=== PATIENT | female | born 1940 ===

== ENCOUNTER 2017-11-08 09:40 | Inpatient (IN) | payer MEDICAID, OTHER ==
[2017-11-08 09:41] VITALS: BMI 21.9
--- NOTE | 2017-11-08 09:58 | C.PDOC ---
History Of Present Illness 77 y/o female brought to ED by EMS with complaints of sob and chest pain for 1 day. Patient states she used Oxygen at home and reports she is from [facility] and has no PMD. Patient has been admitted to [place] previous for same symptoms as per records. Patient is speaking in full sentences and denies fever, chills, cough, nausea, vomiting, leg swelling or any other complaints at this time. Time Seen by Provider: 11/08/17 09:45 Chief Complaint (Nursing): Shortness Of Breath History Per: Patient History/Exam Limitations: no limitations Onset/Duration Of Symptoms: Days Current Symptoms Are (Timing): Still Present Past Medical History Reviewed: Historical Data, Nursing Documentation, Vital Signs Vital Signs: Last Vital Signs Temp 98.3 F 11/08/17 09:42 Pulse 76 11/08/17 11:15 Resp 22 11/08/17 11:15 BP 107/68 11/08/17 11:15 Pulse Ox 87 L 11/08/17 13:30 - Medical History PMH: Bronchitis, CAD, Depression, Diabetes, Gall Bladder Disease ( cholecystectomy), HTN, Hyperlipidemia, Hypothyroidism Other PMH: Pulmonary Fibrosis Surgical History: Cholecystectomy, Coronary Stent - [facility] Procedures INTRODUCE OF OTH THERAP SUBST INTO RESP TRACT, VIA OPENING (08/21/17) INTRODUCTION OF SERUM/TOX/VACCINE INTO MUSCLE, PERC APPROACH (08/21/17) Family History: States: No Known Family Hx - Social History Hx Alcohol Use: No Hx Substance Use: No Review Of Systems Constitutional: Negative for: Fever, Chills Cardiovascular: Positive for: Chest Pain Respiratory: Positive for: Shortness of Breath. Negative for: Cough Gastrointestinal: Negative for: Nausea, Vomiting Skin: Negative for: Rash Physical Exam - Physical Exam Appears: Non-toxic, No Acute Distress Skin: Warm, Dry, No Rash Head: Atraumatic, Normacephalic Eye(s): bilateral: Normal Inspection Oral Mucosa: Moist Neck: Normal ROM, Supple Cardiovascular: Rhythm Regular Respiratory: Normal Breath Sounds, No Rales, No Rhonchi, No Wheezing Gastrointestinal/Abdominal: Soft, No Tenderness, No Guarding, No Rebound Extremity: No Pedal Edema, Capillary Refill (<2 seconds) Neurological/Psych: Oriented x3, Normal Speech, Normal Cognition ED Course And Treatment - Laboratory Results Result Diagrams: 11/08/17 10:14 11/08/17 10:14 Lab Interpretation: No Acute Changes ECG: Interpreted By Me ECG Rhythm: Sinus Tachycardia ECG Interpretation: No Acute Changes O2 Sat by Pulse Oximetry: 87 (RA) Pulse Ox Interpretation: Abnormal - Radiology CXR: Viewed By Me (FINDINGS:), Read By Radiologist Progress Note: Blood work, CXR, ECG and UA ordered. Disposition Discussed With Dr.: Arben Christianson Doctor Will See Patient In The: Hospital - Disposition Disposition: HOSPITALIZED Disposition Time: 13:00 Condition: STABLE Forms: [employer] (Portuguese) - POA Present On Arrival: None - Clinical Impression Clinical Impression: Dyspnea, Chest pain - PA / PROJECT MANAGER / Resident Statement MD/DO has reviewed & agrees with the documentation as recorded. - Scribe Statement The provider has reviewed the documentation as recorded by the Scribaguilar Jerez All medical record entries made by the Darleneibaguilar were at my direction and personally dictated by me. I have reviewed the chart and agree that the record accurately reflects my personal performance of the history, physical exam, medical decision making, and the department course for this patient. I have also personally directed, reviewed, and agree with the discharge instructions and disposition. Decision To Admit - Pt Status Changed To: Hospital Disposition Of: Observation - . Bed Request Type: Telemetry Admitting Physician: Arben Christianson Patient Diagnosis: Dyspnea, Chest pain
[2017-11-08 10:27] LABS: INR 1.1; PROTHROMBIN TIME 12.5 SECONDS (9.7-12.2)
[2017-11-08 10:28] LABS: HEMOGLOBIN 12.9 g/dL (11.0-16.0); MEAN CELL VOLUME 92.2 fL (81.0-99.0); MEAN CORPUSCULAR HEMOGLOBIN 31.1 pg (27.0-31.0); MEAN CORPUSCULAR HGB CONC 33.7 g/dL (33.0-37.0); MEAN PLATELET VOLUME 7.8 fL (7.2-11.7); RBC 4.15 Mil/uL (3.80-5.20); WHITE BLOOD COUNT 8.8 K/uL (4.8-10.8)
--- NOTE | 2017-11-08 10:36 | RAD ---
PROCEDURE: CHEST RADIOGRAPH, 1 VIEW HISTORY: SOB COMPARISON: None available. FINDINGS: LUNGS: Bilateral fibrotic changes, right lung worse than left. Low lung volumes. PLEURA: No pneumothorax or pleural fluid seen. CARDIOVASCULAR: Normal. OSSEOUS STRUCTURES: Degenerative changes. VISUALIZED UPPER ABDOMEN: Normal. OTHER FINDINGS: None. IMPRESSION: Bilateral, right worse than left, fibrotic changes. No focal consolidation or pleural effusion.
[2017-11-08 10:42] LABS: BLOOD UREA NITROGEN 16 mg/dL (7-17); GFR AFRICAN-AMERICAN > 60; GFR NON-AFRICAN AMERICAN > 60
[2017-11-08 10:43] LABS: ALB/GLOB RATIO 0.8 (1.0-2.1); ALBUMIN 4.1 g/dL (3.5-5.0); ALT/SGPT 24 U/L (9-52); AST/SGOT 30 U/L (14-36); CALCIUM 9.6 mg/dl (8.6-10.4)
[2017-11-08 10:51] LABS: CK-MB 0.37 ng/mL (0.0-3.38)
[2017-11-08 10:53] LABS: EOS % 6.2 % (0.0-4.0); MONO % 12.3 % (0.0-10.0); NEUT % 54.5 % (50.0-75.0)
[2017-11-08 10:54] LABS: EOS # 0.5 K/uL (0.0-0.7); LYMPH # 2.4 K/uL (1.0-4.3); MONO # 1.1 K/uL (0.0-0.8); NEUT # 4.8 K/uL (1.8-7.0)
[2017-11-08 11:41] LABS: SQUAMOUS EPITHIAL 6 /hpf (0-5); URINE BILIRUBIN NEGATIVE (NEGATIVE); URINE BLOOD NEGATIVE (NEGATIVE); URINE CLARITY Hazy (Clear); URINE COLOR Yellow (YELLOW); URINE GLUCOSE (UA) NORMAL (Normal); URINE LEUKOCYTE ESTERASE 2+ Leu/uL (Negative); URINE PROTEIN NEGATIVE (NEGATIVE); URINE UROBILINOGEN NORMAL mg/dL (0.2-1.0)
[2017-11-08] MEDS ORDERED: Albuterol HFA 90 mcg/actuation (8 g) INH PRN (13:22)
--- NOTE | 2017-11-08 14:18 | CP.PCM.HP ---
<Moe Singh - Last Filed: 11/08/17 13:58> History of Present Illness - History of Present Illness History of Present Illness: PGY1 Medicine Note for Dr. 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 Patient came to the hospital today because she experienced a 30 minute episode of pressure-like chest pain in the center of her chest this morning while lying down. The pain resolved on her own without taking any medications. She feels short of breath. The patient was recently discharged from [place] on 09/30 for pulmonary fibrosis and chest pain. Patient was instructed to follow up with the [facility] as outpatient but she did not follow up. She did not fill any discharge medications. She does not know why she did not follow up. She was seen with the same complaints on 08/21 and discharged 08/26/17. She did not follow up or fill her medications on that discharge either. She is complaining of a non- productive cough for 5 months. She also states that she has felt fatigued for approximately 1 year. She notes that she experiencing epigastric pain but is unable to state how long she has had the pain because she "just noticed it." She states she takes medications that she brought with her from [place] but she does not know the names of the medications. "I brought a lot of medications with me". At the time of the exam, the patient states that she is chest pain free. Denies fevers, chills, nausea, vomiting, diarrhea, constipation, chest pain, headache, numbness, tingling, diaphoresis, blurry vision or LOC. PMD: Denies PMH:(found by chart review, patient did not know PMH) Pulmonary Fibrosis diagnosed in [place], hypertension, diabetes and hypothyroidism, 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 PSH: Cholecystectomy, "Stomach Reduction Surgery" Family: unknown Social: Denies tobacco, alcohol or illicit drug use Allergies: NKDA Meds (from [place]) - taking 3 meds at home - believed to be aspirin, amlodipine and levothyroxine Discharge Prescriptions on 09/30/17 from [place] (Never Filled): Albuterol HFA [Ventolin HFA 90 mcg/actuation (8 g)] 2 puff NEB Q6 PRN #1 inhaler PRN Reason: SOB GlipiZIDE [Glucotrol] 10 mg PO BID #60 tab Insulin Glargine, Recombina [Lantus] 22 units SC DAILY #100 unit Levothyroxine [Synthroid] 50 mcg PO DAILY #30 tab Present on Admission - Present on Admission Any Indicators Present on Admission: No Review of Systems - Review of Systems All systems: reviewed and no additional remarkable complaints except (as per HPI ) Past Patient History - Past Medical History & Family History Past Medical History?: Yes - Past Social History Smoking Status: Never Smoked - CARDIAC Hx Hypertension: Yes - PULMONARY Hx Bronchitis: Yes - NEUROLOGICAL Hx Neurological Disorder: No - HEENT Other/Comment: pt wears glasses - RENAL Hx Chronic Kidney Disease: No - ENDOCRINE/METABOLIC Hx Hypothyroidism: Yes - HEMATOLOGICAL/ONCOLOGICAL Hx Human Immunodeficiency Virus (HIV): No - INTEGUMENTARY Hx Dermatological Problems: No - MUSCULOSKELETAL/RHEUMATOLOGICAL Hx Musculoskeletal Disorders: No Hx Falls: No - GASTROINTESTINAL Hx Gall Bladder Disease: Yes (cholecystectomy) - GENITOURINARY/GYNECOLOGICAL Hx Genitourinary Disorders: No - PSYCHIATRIC Hx Depression: Yes Hx Substance Use: No - SURGICAL HISTORY Hx Cholecystectomy: Yes Hx Coronary Stent: Yes - ANESTHESIA Hx Anesthesia: Yes Hx Anesthesia Reactions: No Meds Allergies/Adverse Reactions: Allergies Allergy/AdvReac Type Severity Reaction Status Date / Time Penicillins Allergy SWELLING Verified 11/08/17 09:51 Physical Exam - Constitutional Appears: Non-toxic, No Acute Distress - Head Exam Head Exam: ATRAUMATIC, NORMOCEPHALIC - Eye Exam Eye Exam: EOMI, Normal appearance. absent: Scleral icterus - ENT Exam ENT Exam: Mucous Membranes Moist - Neck Exam Neck exam: Negative for: Full Rom, Thyromegaly - Respiratory Exam Respiratory Exam: Decreased Breath Sounds (at bases), Rhonchi (throughout). absent: Chest Wall Tenderness, Wheezes, Respiratory Distress, Stridor, NORMAL BREATHING PATTERN (RR 22-24, saturation 92-94% on 3L, speaking in full sentences ) - Cardiovascular Exam Cardiovascular Exam: REGULAR RHYTHM (80s in NSR on tele), +S1, +S2. absent: JVD - GI/Abdominal Exam GI & Abdominal Exam: Normal Bowel Sounds, Soft, Tenderness (epigastric region TTP). absent: Diminished Bowel Sounds, Distended, Firm, Guarding, Rigid - Extremities Exam Extremities exam: Positive for: normal capillary refill, normal inspection, pedal pulses present. Negative for: calf tenderness, pedal edema - Neurological Exam Neurological exam: Alert, CN II-XII Intact, Oriented x3 - Psychiatric Exam Psychiatric exam: Normal Affect, Normal Mood - Skin Skin Exam: Dry, Warm Results - Vital Signs Recent Vital Signs: Last Vital Signs Temp 98.3 F 11/08/17 09:42 Pulse 76 11/08/17 11:15 Resp 22 11/08/17 11:15 BP 107/68 11/08/17 11:15 Pulse Ox 87 L 11/08/17 13:31 - Labs Result Diagrams: 11/08/17 10:14 11/08/17 10:14 Labs: Laboratory Results - last 24 hr 11/08/17 11/08/17 11/08/17 09:53 09:57 10:14 WBC 8.8 RBC 4.15 Hgb 12.9 Hct 38.3 MCV 92.2 MCH 31.1 H MCHC 33.7 RDW 14.0 Plt Count 280 MPV 7.8 Neut % (Auto) 54.5 Lymph % (Auto) 27.0 [place] % (Auto) 12.3 H Eos % (Auto) 6.2 H Baso % (Auto) 0.0 Neut # (Auto) 4.8 Lymph # (Auto) 2.4 [place] # (Auto) 1.1 H Eos # (Auto) 0.5 Baso # (Auto) 0.0 PT INR Sodium Potassium Chloride Carbon Dioxide Anion Gap BUN Creatinine Est GFR ( Amer) Est GFR (Non-Af Amer) POC Glucose (mg/dL) 190 H Random Glucose Calcium Total Bilirubin AST ALT Alkaline Phosphatase CK-MB (Mass) Troponin I Total Protein Albumin Globulin Albumin/Globulin Ratio Urine Color Urine Clarity Urine pH Ur Specific [place] Urine Protein Urine Glucose (UA) Urine Ketones Urine Blood Urine Nitrate Urine Bilirubin Urine Urobilinogen Ur Leukocyte Esterase Urine WBC (Auto) Urine RBC (Auto) Ur Squamous Epith Cells Influenza Typ A,B (EIA) Negative for flu a/b 11/08/17 11/08/17 11/08/17 10:14 10:14 11:33 WBC RBC Hgb Hct MCV MCH MCHC RDW Plt Count MPV Neut % (Auto) Lymph % (Auto) [place] % (Auto) Eos % (Auto) Baso % (Auto) Neut # (Auto) Lymph # (Auto) [place] # (Auto) Eos # (Auto) Baso # (Auto) PT 12.5 H INR 1.1 Sodium 140 Potassium 4.4 Chloride 96 L Carbon Dioxide 28 Anion Gap 21 H BUN 16 Creatinine 0.5 L Est GFR ( Amer) > 60 Est GFR (Non-Af Amer) > 60 POC Glucose (mg/dL) Random Glucose 203 H Calcium 9.6 Total Bilirubin 0.8 AST 30 ALT 24 Alkaline Phosphatase 120 CK-MB (Mass) 0.37 Troponin I < 0.0120 Total Protein 9.4 H Albumin 4.1 Globulin 5.4 H Albumin/Globulin Ratio 0.8 L Urine Color Yellow Urine Clarity Hazy Urine pH 5.0 Ur Specific [place] 1.012 Urine Protein Negative Urine Glucose (UA) Normal Urine Ketones Negative Urine Blood Negative Urine Nitrate Negative Urine Bilirubin Negative Urine Urobilinogen Normal Ur Leukocyte Esterase 2+ H Urine WBC (Auto) 15 H Urine RBC (Auto) 1 Ur Squamous Epith Cells 6 H Influenza Typ A,B (EIA) Assessment & Plan - Assessment and Plan (Free Text) Plan: Chest pain Resolved without treatment Troponin neg x1, f/u CIARRA x2 EKG - Sinus Tach @102bpm, Q waves in inferior and anterior leads. No changes from prior EKGs. Previous ECHO (08/07/17): LVEF ~55%, normal systolic and diastolic function, normal Right/Left Atrium size, normal Right/Left Ventricle Size f/u lipid panel Shortness of breath w/Hx Pulmonary Fibrosis Saturating at 92-94% on 3L NC CXR 11/08 - Bilateral, right worse than left, fibrotic changes. No focal consolidation or pleural effusion. Chest CT 11/08 - f/u Restart home Albuterol 2 puffs INH q6h prn - patient was discharged on this medication on 09/30 from [place] Solumedrol 125 mg IVP once - followed by 40 mg IVP q8h Advair Diskus 1 puff q12h Hypothyroid Restart home Levothyroxine 50 mcg PO daily - patient was discharged on this medication on 09/30 from [place] f/u TSH/free T4 DM type II Accuchecks ACHS ISS Restart home Levemir 22 units SC daily - patient was discharged on this medication on 09/30 from [place] Held home Glucotrol to 10 mg bid - patient was discharged on this medication on 09/30 from [place] f/u Hgb A1c HTN Will monitor Will not restart Amlodipine 5mg PO daily because patient was not discharged on this medication on 09/30 from [place] Prophylactic Care VTE: Heparin 5,000u SC q8h and SCDs Case Discussed with Dr. Meghan Singh PGY1 <Arben Christianson H - Last Filed: 11/08/17 16:57> Results - Vital Signs Recent Vital Signs: Last Vital Signs Temp 97.8 F 11/08/17 15:38 Pulse 85 11/08/17 15:38 Resp 18 11/08/17 15:38 BP 105/63 11/08/17 15:38 Pulse Ox 99 11/08/17 15:38 - Labs Result Diagrams: 11/08/17 10:14 11/08/17 10:14 Labs: Laboratory Results - last 24 hr 11/08/17 11/08/17 11/08/17 09:53 09:57 10:14 WBC 8.8 RBC 4.15 Hgb 12.9 Hct 38.3 MCV 92.2 MCH 31.1 H MCHC 33.7 RDW 14.0 Plt Count 280 MPV 7.8 Neut % (Auto) 54.5 Lymph % (Auto) 27.0 [place] % (Auto) 12.3 H Eos % (Auto) 6.2 H Baso % (Auto) 0.0 Neut # (Auto) 4.8 Lymph # (Auto) 2.4 [place] # (Auto) 1.1 H Eos # (Auto) 0.5 Baso # (Auto) 0.0 PT INR Sodium Potassium Chloride Carbon Dioxide Anion Gap BUN Creatinine Est GFR ( Amer) Est GFR (Non-Af Amer) POC Glucose (mg/dL) 190 H Random Glucose Calcium Total Bilirubin AST ALT Alkaline Phosphatase CK-MB (Mass) Troponin I Total Protein Albumin Globulin Albumin/Globulin Ratio Urine Color Urine Clarity Urine pH Ur Specific [place] Urine Protein Urine Glucose (UA) Urine Ketones Urine Blood Urine Nitrate Urine Bilirubin Urine Urobilinogen Ur Leukocyte Esterase Urine WBC (Auto) Urine RBC (Auto) Ur Squamous Epith Cells Influenza Typ A,B (EIA) Negative for flu a/b 11/08/17 11/08/17 11/08/17 10:14 10:14 11:33 WBC RBC Hgb Hct MCV MCH MCHC RDW Plt Count MPV Neut % (Auto) Lymph % (Auto) [place] % (Auto) Eos % (Auto) Baso % (Auto) Neut # (Auto) Lymph # (Auto) [place] # (Auto) Eos # (Auto) Baso # (Auto) PT 12.5 H INR 1.1 Sodium 140 Potassium 4.4 Chloride 96 L Carbon Dioxide 28 Anion Gap 21 H BUN 16 Creatinine 0.5 L Est GFR ( Amer) > 60 Est GFR (Non-Af Amer) > 60 POC Glucose (mg/dL) Random Glucose 203 H Calcium 9.6 Total Bilirubin 0.8 AST 30 ALT 24 Alkaline Phosphatase 120 CK-MB (Mass) 0.37 Troponin I < 0.0120 Total Protein 9.4 H Albumin 4.1 Globulin 5.4 H Albumin/Globulin Ratio 0.8 L Urine Color Yellow Urine Clarity Hazy Urine pH 5.[address] [place] 1.012 Urine Protein Negative Urine Glucose (UA) Normal Urine Ketones Negative Urine Blood Negative Urine Nitrate Negative Urine Bilirubin Negative Urine Urobilinogen Normal Ur Leukocyte Esterase 2+ H Urine WBC (Auto) 15 H Urine RBC (Auto) 1 Ur Squamous Epith Cells 6 H Influenza Typ A,B (EIA) 11/08/17 16:22 WBC RBC Hgb Hct MCV MCH MCHC RDW Plt Count MPV Neut % (Auto) Lymph % (Auto) [place] % (Auto) Eos % (Auto) Baso % (Auto) Neut # (Auto) Lymph # (Auto) [place] # (Auto) Eos # (Auto) Baso # (Auto) PT INR Sodium Potassium Chloride Carbon Dioxide Anion Gap BUN Creatinine Est GFR ( Amer) Est GFR (Non-Af Amer) POC Glucose (mg/dL) 202 H Random Glucose Calcium Total Bilirubin AST ALT Alkaline Phosphatase CK-MB (Mass) Troponin I Total Protein Albumin Globulin Albumin/Globulin Ratio Urine Color Urine Clarity Urine pH Ur Specific [place] Urine Protein Urine Glucose (UA) Urine Ketones Urine Blood Urine Nitrate Urine Bilirubin Urine Urobilinogen Ur Leukocyte Esterase Urine WBC (Auto) Urine RBC (Auto) Ur Squamous Epith Cells Influenza Typ A,B (EIA) Attending/Attestation - Attestation I have personally seen and examined this patient.: Yes I have fully participated in the care of the patient.: Yes I have reviewed all pertinent clinical information: Yes Notes (Text): 11/08/17 16:50 Medical attending: Patient was seen and examined by me. Agree with the above note by the resident The patient was seen in the ER with the esthetician and manager medical spa She was not in any acute distress when we saw her. She was speaking in full sentences. On exam she has bilateral decreased breath sounds at the bases with crackles and rhonchi - on the upper lung [place] there are more lung sounds however with additional crackles and rhonchi. On CT scan there is very extensive scarring/ honey combing like pattern - this was a few months ago. We will check a new one to see if there are other changes. She did have an echo done 3 months ago and it did not report R heart strain. At this time will give IV soludemrol, nebulizer treaments, inhaled long acting steroids. Check also for influenza thank you Arben Christianson
[2017-11-08] MEDS ORDERED: MethylPREDNISolone 40 mg Vial IVP ONE (14:30)
[2017-11-08] MEDS ORDERED: Iohexol 350mg/ml 100 ML ONE (14:32)
--- NOTE | 2017-11-08 15:30 | CT ---
PROCEDURE: CT Chest with contrast HISTORY: hx of pulm fibrosis COMPARISON: None. TECHNIQUE: Contiguous axial images were obtained through the chest with intravenous contrast enhancement. Sagittal and coronal reconstructions were performed. IV contrast: 100 mL Omnipaque 350 Radiation dose (DLP): 309.12 . MGy-cm. This CT exam was performed using one or more of the following dose reduction techniques: Automated exposure control, adjustment of the mA and/or kV according to patient size, and/or use of iterative reconstruction technique. FINDINGS: LUNGS: There is diffuse chronic interstitial fibrotic change throughout the right lung. This is associated with varicoid bronchiectasis in the upper, middle and lower lobes. There is no consolidation. There is multifocal subpleural fibrosis throughout the left lung. There is mild bronchiectasis in the left lower lobe and in the lingular segment of the left upper lobe. There is no consolidation. There is no pulmonary mass MEDIASTINUM: Unremarkable thoracic aorta. No aneurysm or dissection. Normal sized heart. Mild dilatation of the main pulmonary artery is noted, up 3.5 cm. This may be associated with pulmonary arterial hypertension. No significantly enlarged lymph nodes. Shotty subcentimeter right peritracheal and prevascular lymph nodes are noted. No hilar lymphadenopathy. PLEURA: No pleural fluid. No pneumothorax. BONES: No fracture. No destructive lesion. UPPER ABDOMEN: Grossly unremarkable. OTHER FINDINGS: None. IMPRESSION: Chronic interstitial fibrotic change throughout the right lung. Multifocal left-sided subpleural fibrosis. Varicoid bronchiectasis bilaterally, right greater than left. Dilated main pulmonary artery. No other significant abnormality.
[2017-11-08 17:23] LABS: CK-MB 0.37 ng/mL (0.0-3.38)
[2017-11-08] MEDS: (Novolin R) Insulin Human Regular 100 units/ml vial SC SCH ×2 (17:51→22:56)
[2017-11-08] MEDS: Fluticasone-Salmeterol 250-50mcg Diskus INH SCH (19:37)
[2017-11-08 23:09] LABS: CK-MB 0.29 ng/mL (0.0-3.38)
[2017-11-08] MEDS ORDERED: MethylPREDNISolone 40 mg Vial IVP SCH (23:30)
[2017-11-09] MEDS: MethylPREDNISolone 40 mg Vial IVP SCH ×3 (01:58→17:47)
[2017-11-09] MEDS: Fluticasone-Salmeterol 250-50mcg Diskus INH SCH ×2 (07:21→19:18)
[2017-11-09 07:34] LABS: BASO % 0.5 % (0.0-2.0); HEMOGLOBIN 12.3 g/dL (11.0-16.0); LYMPH # 1.1 K/uL (1.0-4.3); LYMPH % 16.5 % (20.0-40.0); MEAN CELL VOLUME 91.7 fL (81.0-99.0); MEAN CORPUSCULAR HGB CONC 33.8 g/dL (33.0-37.0); MEAN PLATELET VOLUME 7.9 fL (7.2-11.7); MONO # 0.1 K/uL (0.0-0.8); MONO % 0.9 % (0.0-10.0); NEUT # 5.4 K/uL (1.8-7.0); NEUT % 82.1 % (50.0-75.0); RBC 3.97 Mil/uL (3.80-5.20); RED CELL DISTRIBUTION WIDTH 13.8 % (11.5-14.5); WHITE BLOOD COUNT 6.6 K/uL (4.8-10.8)
--- NOTE | 2017-11-09 07:37 | CP.PCM.PN ---
<Cricket Cisneros - Last Filed: 11/09/17 10:38> Subjective - Date & Time of Evaluation Date of Evaluation: 11/09/17 Time of Evaluation: 07:32 - Subjective Subjective: PGY-[address] Christianson. No acute events noted overnight. Patient is khmer speaking. Patient states her breathing has improved. She was on nasal cannula 3L oxygen. She had a coughing spell when we saw her. She was speaking in complete sentences. She said her chest pain is no longer present. She denied abdominal pain, fevers, nausea, vomiting, diarrhea. Objective - Vital Signs/Intake and Output Vital Signs (last 24 hours): Temp Pulse Resp BP Pulse Ox 97.6 F 75 20 105/66 96 11/08/17 23:15 11/09/17 00:03 11/08/17 23:15 11/08/17 23:15 11/08/17 23:15 Intake and Output: 11/09/17 11/09/17 06:59 18:59 Intake Total 620 Balance 620 - Medications Medications: Current Medications Albuterol (Ventolin Hfa 90 Mcg/Actuation (8 G)) 2 puff INH RQ6 PRN PRN Reason: SOB Heparin Sodium (Porcine) (Heparin) 5,000 units SC Q8 [facility] Last Admin: 11/09/17 05:44 Dose: 5,000 units Ceftriaxone Sodium 1 gm/ (Sodium Chloride) 100 mls @ 100 mls/hr IVPB Q12H [facility] PRN Reason: Protocol Last Admin: 11/09/17 05:44 Dose: 100 mls/hr Insulin Glargine (Lantus) 22 unit SC DAILY [facility] Insulin Human Regular (Novolin R) 0 unit SC ACHS [facility] PRN Reason: Protocol Last Admin: 11/08/17 22:56 Dose: Not Given Levothyroxine Sodium (Synthroid) 50 mcg PO DAILY [facility] Methylprednisolone (Solu-Medrol) 40 mg IVP Q8H [facility] Last Admin: 11/09/17 01:58 Dose: 40 mg Fluticasone/Salmeterol (Advair Diskus 250/50) 1 puff INH RQ12 [facility] Last Admin: 11/09/17 07:21 Dose: 1 puff - Labs Labs: 11/08/17 10:14 11/08/17 10:14 PT 12.5 SECONDS (9.7-12.2) H 11/08/17 10:14 INR 1.1 11/08/17 10:14 - Additional Findings Additional findings: - Constitutional Appears: Non-toxic, No Acute Distress - Head Exam Head Exam: ATRAUMATIC, NORMOCEPHALIC - Eye Exam Eye Exam: EOMI, Normal appearance. absent: Scleral icterus - ENT Exam ENT Exam: Mucous Membranes Moist - Neck Exam Neck exam: Negative for: Full Rom, Thyromegaly - Respiratory Exam Respiratory Exam: Decreased Breath Sounds (at bases), Rhonchi (throughout). absent: Chest Wall Tenderness, Wheezes, Respiratory Distress, Stridor, NORMAL BREATHING PATTERN (RR 22-24, saturation 92-94% on 3L, speaking in full sentences ) - Cardiovascular Exam Cardiovascular Exam: REGULAR RHYTHM (80s in NSR on tele), +S1, +S2. absent: JVD - GI/Abdominal Exam GI & Abdominal Exam: Normal Bowel Sounds, Soft, Tenderness (epigastric region TTP). absent: Diminished Bowel Sounds, Distended, Firm, Guarding, Rigid - Extremities Exam Extremities exam: Positive for: normal capillary refill, normal inspection, pedal pulses present. Negative for: calf tenderness, pedal edema - Neurological Exam Neurological exam: Alert, CN II-XII Intact, Oriented x3 - Psychiatric Exam Psychiatric exam: Normal Affect, Normal Mood - Skin Skin Exam: Dry, Warm Assessment and Plan - Assessment and Plan (Free Text) Assessment: Acute exacerbation of Idiopathic Pulmonary Fibrosis Saturating at 92-94% on 3L NC Labs/Diagnostics: Flu NEGATIVE F/U Blood Cx F/U DEMETRIA, RF, CCP Ab, SCL-70 Ab Imaging: CXR 11/08 - Bilateral, right worse than left, fibrotic changes. No focal consolidation or pleural effusion. Chest CT 11/08 - Chronic interstitial fibrotic change throughout the right lung. Multifocal left-sided subpleural fibrosis. Varicoid bronchiectasis bilaterally , right greater than left. Dilated main pulmonary artery. No other significant abnormality. Meds: Restart home Albuterol 2 puffs INH q6h prn - patient was discharged on this medication on 09/30 from [place] Solumedrol 125 mg IVP once - followed by 40 mg IVP q8h Advair Diskus 1 puff q12h Rocephin 1g IVPB Q12H for empiric coverage - patient is allergic to PCN but has tolerated Rocephin in past and tolerating on current admission Chest pain, Resolved Resolved without treatment Troponin neg x3 EKG - Sinus Tach @102bpm, Q waves in inferior and anterior leads. No changes from prior EKGs. Previous ECHO (08/07/17): LVEF ~55%, normal systolic and diastolic function, normal Right/Left Atrium size, normal Right/Left Ventricle Size Lipid panel NORMAL Hypothyroid Restart home Levothyroxine 50 mcg PO daily - patient was discharged on this medication on 09/30 from [place] TSH/free T4 0.24/1.59 Uncontrolled DM type II Accuchecks ACHS RISS - medium dose * Will evaluate RISS coverage for 24 hours and then tailor her insulin regimen accordingly Restart home Levemir 22 units SC daily - patient was discharged on this medication on 09/30 from [place] Held home Glucotrol to 10 mg bid - patient was discharged on this medication on 09/30 from [place] Hgb A1c 8.2 HTN BP well controlled without any medications Will not restart Amlodipine 5mg PO daily because patient was not discharged on this medication on 09/30 from [place] Prophylactic Care VTE: Heparin 5,000u SC q8h and SCDs diabetic diet PT/OT eval and treat Disposition: Patient with Idiopathic Pulmonary Fibrosis - she should be on Pirfenidone or Nintedanib, as well as home oxygen. To be on these medications she needs to see a pulmonolgist first. She needs to go to the clinic and be referred to a electrotype caster. <Arben Christianson - Last Filed: 11/09/17 15:06> Objective - Vital Signs/Intake and Output Vital Signs (last 24 hours): Temp Pulse Resp BP Pulse Ox 97.3 F L 77 20 114/67 98 11/09/17 08:18 11/09/17 08:18 11/09/17 08:18 11/09/17 08:18 11/09/17 08:18 Intake and Output: 11/09/17 11/09/17 06:59 18:59 Intake Total 620 Balance 620 - Medications Medications: Current Medications Albuterol (Ventolin Hfa 90 Mcg/Actuation (8 G)) 2 puff INH RQ6 PRN PRN Reason: SOB Heparin Sodium (Porcine) (Heparin) 5,000 units SC Q8 [facility] Last Admin: 11/09/17 14:53 Dose: 5,000 units Ceftriaxone Sodium 1 gm/ (Sodium Chloride) 100 mls @ 100 mls/hr IVPB Q12H [facility] PRN Reason: Protocol Last Admin: 11/09/17 05:44 Dose: 100 mls/hr Insulin Glargine (Lantus) 22 unit SC DAILY [facility] Last Admin: 11/09/17 10:43 Dose: 22 u Insulin Human Regular (Novolin R) 0 unit SC ACHS [facility] PRN Reason: Protocol Last Admin: 11/09/17 12:27 Dose: 6 unit Levothyroxine Sodium (Synthroid) 50 mcg PO DAILY [facility] Last Admin: 11/09/17 10:50 Dose: 50 mcg Methylprednisolone (Solu-Medrol) 40 mg IVP Q8H [facility] Last Admin: 11/09/17 10:30 Dose: 40 mg Fluticasone/Salmeterol (Advair Diskus 250/50) 1 puff INH RQ12 [facility] Last Admin: 11/09/17 07:21 Dose: 1 puff - Labs Labs: 11/09/17 07:27 11/09/17 07:27 PT 12.5 SECONDS (9.7-12.2) H 11/08/17 10:14 INR 1.1 11/08/17 10:14 Attending/Attestation - Attestation I have personally seen and examined this patient.: Yes I have fully participated in the care of the patient.: Yes I have reviewed all pertinent clinical information, including history, physical exam and plan: Yes Notes (Text): 11/09/17 14:58 Medical attending: Patient was seen and examined by me. Agree with the above note by the resident. The patient reported minimal improvement to her breathing. We placed her on IV solumedrol as well as inhaled long acting steroids yesterday. As mentioned above by the medical aide - there has already been a recent echo done in 08/14 - this study did not show any right heart strain at that time. We did repeat the CT scan of the lung which did not show any other acute finding other than the really heavy fibrotic changes to her lungs The influenza test was negative Hopefully she will have more improvment with the regimen we have her on - if not then we will see if we can consult pulmonology thank you Arben Christianson
[2017-11-09] MEDS: (Novolin R) Insulin Human Regular 100 units/ml vial SC SCH ×4 (08:30→22:16)
[2017-11-09 09:52] LABS: ALB/GLOB RATIO 0.7 (1.0-2.1); ALBUMIN 3.8 g/dL (3.5-5.0); AST/SGOT 34 U/L (14-36); BLOOD UREA NITROGEN 20 mg/dL (7-17); CALCIUM 9.9 mg/dl (8.6-10.4); GFR AFRICAN-AMERICAN > 60; GFR NON-AFRICAN AMERICAN > 60; HDL CHOLESTEROL 35 mg/dL (30-70)
[2017-11-09 09:53] LABS: LDL CHOLESTEROL 121 mg/dL (0-129)
[2017-11-09] MEDS ORDERED: Levothyroxine 50 MCG TAB PO SCH (10:00)
[2017-11-09] MEDS ORDERED: (Lantus) Insulin Glargine, Recombinant SC SCH (10:00)
[2017-11-09 10:52] LABS: ALT/SGPT 21 U/L (9-52)
[2017-11-10] MEDS: MethylPREDNISolone 40 mg Vial IVP SCH ×3 (02:15→17:22)
[2017-11-10] MEDS: (Novolin R) Insulin Human Regular 100 units/ml vial SC SCH ×8 (02:33→21:28)
[2017-11-10] MEDS: Levothyroxine 50 MCG TAB PO SCH (05:51)
[2017-11-10 06:43] LABS: BASO % 0.1 % (0.0-2.0); HEMOGLOBIN 11.8 g/dL (11.0-16.0); LYMPH # 1.2 K/uL (1.0-4.3); LYMPH % 6.9 % (20.0-40.0); MEAN CELL VOLUME 92.4 fL (81.0-99.0); MEAN CORPUSCULAR HEMOGLOBIN 30.8 pg (27.0-31.0); MEAN CORPUSCULAR HGB CONC 33.3 g/dL (33.0-37.0); MEAN PLATELET VOLUME 8.1 fL (7.2-11.7); MONO # 0.4 K/uL (0.0-0.8); MONO % 2.4 % (0.0-10.0); NEUT # 15.2 K/uL (1.8-7.0); NEUT % 90.6 % (50.0-75.0); PLATELET COUNT 261 K/uL (130-400); RBC 3.83 Mil/uL (3.80-5.20); RED CELL DISTRIBUTION WIDTH 13.6 % (11.5-14.5); WHITE BLOOD COUNT 16.8 K/uL (4.8-10.8)
[2017-11-10 06:52] LABS: ALB/GLOB RATIO 0.8 (1.0-2.1); ALBUMIN 3.7 g/dL (3.5-5.0); ALT/SGPT 22 U/L (9-52); AST/SGOT 20 U/L (14-36); BLOOD UREA NITROGEN 25 mg/dL (7-17); CALCIUM 9.2 mg/dl (8.6-10.4); GFR AFRICAN-AMERICAN > 60; GFR NON-AFRICAN AMERICAN > 60
--- NOTE | 2017-11-10 07:12 | CP.PCM.PN ---
Subjective - Date & Time of Evaluation Date of Evaluation: 11/10/17 Time of Evaluation: 07:08 - Subjective Subjective: PGY-[address] Christianson. No acute events noted overnight. Patient stated her breathing has improved compared to yesterday. She is still with cough, which is slightly better than yesterday. Denied all other prompts on review of systems. Objective - Vital Signs/Intake and Output Vital Signs (last 24 hours): Temp Pulse Resp BP Pulse Ox 97.9 F 78 20 112/64 97 11/10/17 00:00 11/10/17 00:00 11/10/17 00:00 11/10/17 00:00 11/10/17 04:38 Intake and Output: 11/10/17 11/10/17 06:59 18:59 Intake Total 660 Balance 660 - Medications Medications: Current Medications Albuterol (Ventolin Hfa 90 Mcg/Actuation (8 G)) 2 puff INH RQ6 PRN PRN Reason: SOB Heparin Sodium (Porcine) (Heparin) 5,000 units SC Q8 [facility] Last Admin: 11/10/17 05:51 Dose: 5,000 units Ceftriaxone Sodium 1 gm/ (Sodium Chloride) 100 mls @ 100 mls/hr IVPB Q12H [facility] PRN Reason: Protocol Last Admin: 11/10/17 05:51 Dose: 100 mls/hr Insulin Glargine (Lantus) 28 unit SC DAILY [facility] Insulin Human Regular (Novolin R) 0 unit SC ACHS [facility] PRN Reason: Protocol Last Admin: 11/10/17 02:33 Dose: 4 unit Insulin Human Regular (Novolin R) 2 unit SC TIDAC [facility] Levothyroxine Sodium (Synthroid) 50 mcg PO 0630 [facility] Last Admin: 11/10/17 05:51 Dose: 50 mcg Methylprednisolone (Solu-Medrol) 40 mg IVP Q8H [facility] Last Admin: 11/10/17 02:15 Dose: 40 mg Fluticasone/Salmeterol (Advair Diskus 250/50) 1 puff INH RQ12 [facility] Last Admin: 11/09/17 19:18 Dose: 1 puff - Labs Labs: 11/09/17 07:27 11/10/17 06:23 PT 12.5 SECONDS (9.7-12.2) H 11/08/17 10:14 INR 1.1 11/08/17 10:14 - Additional Findings Additional findings: - Constitutional Appears: Non-toxic, No Acute Distress - Head Exam Head Exam: ATRAUMATIC, NORMOCEPHALIC - Eye Exam Eye Exam: EOMI, Normal appearance. absent: Scleral icterus - ENT Exam ENT Exam: Mucous Membranes Moist - Neck Exam Neck exam: Negative for: Full Rom, Thyromegaly - Respiratory Exam Respiratory Exam: Decreased Breath Sounds (at bases), Rhonchi (throughout). absent: Chest Wall Tenderness, Wheezes, Respiratory Distress, Stridor, NORMAL BREATHING PATTERN (RR 22-24, saturation 92-94% on 3L, speaking in full sentences ) - Cardiovascular Exam Cardiovascular Exam: REGULAR RHYTHM (80s in NSR on tele), +S1, +S2. absent: JVD - GI/Abdominal Exam GI & Abdominal Exam: Normal Bowel Sounds, Soft, Tenderness (epigastric region TTP). absent: Diminished Bowel Sounds, Distended, Firm, Guarding, Rigid - Extremities Exam Extremities exam: Positive for: normal capillary refill, normal inspection, pedal pulses present. Negative for: calf tenderness, pedal edema - Neurological Exam Neurological exam: Alert, CN II-XII Intact, Oriented x3 - Psychiatric Exam Psychiatric exam: Normal Affect, Normal Mood - Skin Skin Exam: Dry, Warm Assessment and Plan - Assessment and Plan (Free Text) Assessment: Acute exacerbation of Idiopathic Pulmonary Fibrosis Saturating at 92-94% on 3L NC - However desaturates in the 70s% when ambulates WITH oxygen Labs/Diagnostics: Flu NEGATIVE Blood Cx 11/08/17: * 1 bottle was positive for bacillus, the 2nd bottle showed no growth up to date F/U repeat Blood Cx F/U DEMETRIA, RF, SCL-70 Ab CCP IgG NEGATIVE Imaging: CXR 11/08 - Bilateral, right worse than left, fibrotic changes. No focal consolidation or pleural effusion. Chest CT 11/08 - Chronic interstitial fibrotic change throughout the right lung. Multifocal left-sided subpleural fibrosis. Varicoid bronchiectasis bilaterally , right greater than left. Dilated main pulmonary artery. No other significant abnormality. Meds: Restart home Albuterol 2 puffs INH q6h prn - patient was discharged on this medication on 09/30 from [place] Solumedrol 125 mg IVP once - followed by 40 mg IVP q8h Advair Diskus 1 puff q12h Rocephin 1g IVPB Q12H for empiric coverage - patient is allergic to PCN but has tolerated Rocephin in past and tolerating on current admission Chest pain, Resolved Resolved without treatment Troponin neg x3 EKG - Sinus Tach @102bpm, Q waves in inferior and anterior leads. No changes from prior EKGs. Previous ECHO (08/07/17): LVEF ~55%, normal systolic and diastolic function, normal Right/Left Atrium size, normal Right/Left Ventricle Size Lipid panel NORMAL Hypothyroid Restart home Levothyroxine 50 mcg PO daily - patient was discharged on this medication on 09/30 from [place] TSH/free T4 0.24/1.59 Uncontrolled DM type II Accuchecks ACHS RISS - medium dose * Will evaluate RISS coverage for 24 hours and then tailor her insulin regimen accordingly Increase Lantus to 28u SC HS Start Regular insulin 2u SC TIDAC Held home Glucotrol to 10 mg bid - patient was discharged on this medication on 09/30 from [place] Hgb A1c 8.2 Steroids contributing to high sugar levels HTN BP well controlled without any medications Will not restart Amlodipine 5mg PO daily because patient was not discharged on this medication on 09/30 from [place] Prophylactic Care VTE: Heparin 5,000u SC q8h and SCDs diabetic diet PT/OT eval and treat Disposition: Patient with Idiopathic Pulmonary Fibrosis - she should be on Pirfenidone or Nintedanib, as well as home oxygen. To be on these medications she needs to see a pulmonolgist first. She needs to go to the clinic and be referred to a food and nutrition supervisor.
[2017-11-10] MEDS: Fluticasone-Salmeterol 250-50mcg Diskus INH SCH ×2 (07:23→19:09)
--- NOTE | 2017-11-10 08:06 | CARD ---
APPROVED REPORT EKG Measurement Heart [id number] <Conclusion> Sinus tachycardia Inferior infarct, age undetermined Anterior infarct, age undetermined Abnormal ECG
[2017-11-10 08:27] LABS: BANDS 1 % (0-2); LYMPHOCYTE 7 % (20-40); MONOCYTE 3 % (0-10); NEUTROPHIL 89 % (50-75); PLATELET ESTIMATE NORMAL (NORMAL); TOTAL CELLS COUNTED 100
[2017-11-10 08:28] LABS: ANISOCYTOSIS SLIGHT; GIANT PLATELETS PRESENT; HYPOCHROMIC SLIGHT; LARGE PLATELETS PRESENT; POLYCHROMIC SLIGHT
[2017-11-10 08:29] LABS: TOXIC GRANULATION PRESENT
[2017-11-10] MEDS ORDERED: (Lantus) Insulin Glargine, Recombinant SC SCH (10:00)
[2017-11-10] MEDS ORDERED: Nitroglycerin 2% Ointment Foilpak UD TOP ONE ×2 (14:28→14:45)
[2017-11-10 15:03] LABS: CK-MB 0.72 ng/mL (0.0-3.38)
--- NOTE | 2017-11-10 15:18 | PCM.RRT ---
Addendum entered and electronically signed by Maine Mistry DO 11/10/17 15:51: please disregard this [employer] note and refer to Dr. Cisneros's note Original Note: [employer] Nurses Assessment - Situation Date: 11/10/17 Time [employer] was called: 14:19 [employer] Responder Arrival Time:: 14:22 [employer] Location:: Med/Surg Room Number: 653 [employer] Reason for Call: Chest Pain, O2 Saturation below 90% [employer] Called By: RN - IV IV Inserted during [employer]?: No - Respiratory [employer] Delivery Method: Nasal Cannula @L/min Oxygen Flow Rate: 2 Received Nebulizer Treatments: No Was the Patient Ventilated with Bag/Mask 100% O2?: No Secretions Suctioned?: No Was the Patient Intubated?: No Was the Patient Placed on a Ventilator?: No - Diagnostic Test Ordered EKG: Yes Chest X-Ray: No CT Scan: No Other Diagnostic Test Ordered: repeat Echo - Stat Labs Ordered [employer] Stat Labs Ordered: TROPONIN [employer] Other Labs Ordered: D Dimer CPR started during [employer]?: No - Vital Signs Vital Signs: Rapid Response Vital Sign Blood Pressure 140/79 Pulse Rate 107 Respiratory Rate 24 Oxygen Saturation 76 - Amanda Coma Scale Coma Scale Eye Opening: Spontaneous Coma Scale Motor: Obeys Commands Movement Coma Scale Verbal: Oriented Coma Scale Total: 15 - Time [employer] Ended Time [employer] Ended: 14:40 - Vital Signs at end of [employer] Vital Signs at end of [employer]: Rapid Response End Vital Sign Blood Pressure 154/90 Pulse Rate 103 Respiratory Rate 20 O2 Sat by Pulse Oximetry 99 - Recommendations Notifications: Attending Physician I.Reason for [employer] - A) Acute Change in Patient: Subjective: [employer] was called due to saturations in low 70s per nursing staff. Patient was placed on non-rebreather and given nitropaste. Patient was also given tylenol for headache from nitropaste. EKG was drawn, ALISHA, DDIMER, repeat Echo - Neurological Status (Select all that apply): Alert, Verbal, Follows Commands. absent: Disoriented, Confused - Respiratory Oxygen Delivery Method: Non Rebreather @% - Constitutional Appears: Well. absent: Non-toxic, No Acute Distress - Head Head Exam: ATRAUMATIC, NORMAL INSPECTION, NORMOCEPHALIC - Eyes Eye Exam: EOMI, Normal appearance - Respiratory Exam Respiratory Exam: Decreased Breath Sounds (lung bases), Respiratory Distress ( prior to nitro administration) - Cardiovascular Exam Cardiovascular Exam: REGULAR RHYTHM, +S1, +S2. absent: Bradycardia, Tachycardia - Neurological Exam Neurological Exam: Alert, Awake, CN II-XII Intact, Oriented x3 - Extremities Exam Extremities Exam: Full ROM, Normal Capillary Refill, Normal Inspection. absent : Pedal Edema Plan - Assessment of Findings&Treatment Plan f/u alisha, ekg, ddimer, repeat echo morning labs were checked.
--- NOTE | 2017-11-10 15:19 | PCM.RRT ---
<Cricket Cisneros R - Last Filed: 11/10/17 15:12> STORE WAREHOUSE ASSOCIATE Nurses Assessment - Situation Date: 11/10/17 Time STORE WAREHOUSE ASSOCIATE was called: 14:19 STORE WAREHOUSE ASSOCIATE Responder Arrival Time:: 14:22 [employer]ORE [employer]HOU[employer] Location:: Med/Surg Room Number: 653 [employer]HOU[employer] Reason for Call: Chest Pain, O2 Saturation below 90% STORE WAREHOUSE ASSOCIATE Called By: RN - IV IV Inserted during STORE WAREHOUSE ASSOCIATE?: No - Respiratory STORE WAREHOUSE ASSOCIATE Delivery Method: Nasal Cannula @L/min Oxygen Flow Rate: 2 Received Nebulizer Treatments: No Was the Patient Ventilated with Bag/Mask 100% O2?: No Secretions Suctioned?: No Was the Patient Intubated?: No Was the Patient Placed on a Ventilator?: No - Diagnostic Test Ordered EKG: Yes Chest X-Ray: No CT Scan: No - Stat Labs Ordered STORE WAREHOUSE ASSOCIATE Stat Labs Ordered: TROPONIN STORE W[employer]HOUSE ASSOCIATE Other Labs Ordered: D Dimer CPR started during STORE WAREHOUSE ASSOCIATE?: No - Vital Signs Vital Signs: Rapid Response Vital Sign Blood Pressure 140/79 Pulse Rate 107 Respiratory Rate 24 Oxygen Saturation 76 - Amanda Coma Scale Coma Scale Eye Opening: Spontaneous Coma Scale Motor: Obeys Commands Movement Coma Scale Verbal: Oriented Coma Scale Total: 15 - Time STORE WAREHOUSE ASSOCIATE Ended Time STORE WAREHOUSE ASSOCIATE Ended: 14:40 - Vital Signs at end of STORE WAREHOUSE ASSOCIATE Vital Signs at end of STORE WAREHOUSE ASSOCIATE: Rapid Response End Vital Sign Blood Pressure 154/90 Pulse Rate 103 Respiratory Rate 20 O2 Sat by Pulse Oximetry 99 - Recommendations Notifications: Attending Physician I.Reason for STORE WAREHOUSE ASSOCIATE - A) Acute Change in Patient: Subjective: This is a patient with a past medical history of advanced idiopathic pulmonary fibrosis, uncontrolled DM2. The STORE WAREHOUSE ASSOCIATE was called by RN for chest pain 10/10 and desaturation into 70s%. Patient was evaluated by both hospitalists, Dr Christianson and Dr Jayden Conner. Stat CIARRA and EKG was ordered. CIARRA came back negative and EKG showed some hypertrophy but otherwise no ST or T wave changes. Patient also initially presented with chest pain 2 days ago and ACS was ruled out. It is likely her chest pain is pleuritic chest pain due to her idiopathic pulmonary fibrosis which is causing stress on her chest wall. Prior to the STORE WAREHOUSE ASSOCIATE she was saturating well on NC, however during the STORE WAREHOUSE ASSOCIATE we placed her on ventimask and she responded well. She was given 125mg Solumedrol IVP stat. A d-dimer was also ordered which came back elevated at 291. A CT chest angio is now being considered. A ECHO was also ordered. - Respiratory Oxygen Delivery Method: Nasal Cannula @L/min Oxygen Flow Rate: 2 - Constitutional Appears: In Acute Distress - Head Head Exam: ATRAUMATIC, NORMAL INSPECTION - Eyes Eye Exam: EOMI - Respiratory Exam Respiratory Exam: Rales, NORMAL BREATHING PATTERN. absent: Clear to Ausculation Bilateral - Cardiovascular Exam Cardiovascular Exam: Tachycardia, REGULAR RHYTHM, +S1, +S2. absent: JVD, Murmur - GI/Abdominal Exam GI & Abdominal Exam: Soft, Normal Bowel Sounds. absent: Tenderness - Neurological Exam Neurological Exam: Alert, Awake, Oriented x3 - Extremities Exam Extremities Exam: Normal Capillary Refill, Normal Inspection. absent: Tenderness <Arben Christianson - Last Filed: 11/10/17 15:46> STORE WAREHOUSE ASSOCIATE Nurses Assessment - Vital Signs Vital Signs: Rapid Response Vital Sign Blood Pressure 140/79 Pulse Rate 107 Respiratory Rate 24 Oxygen Saturation 76 - Vital Signs at end of STORE WAREHOUSE ASSOCIATE Vital Signs at end of STORE WAREHOUSE ASSOCIATE: Rapid Response End Vital Sign Blood Pressure 154/90 Pulse Rate 103 Respiratory Rate 20 O2 Sat by Pulse Oximetry 99 Attending/Attestation - Attestation I have personally seen and examined this patient.: Yes I have fully participated in the care of the patient.: Yes I have reviewed all pertinent clinical information, including history, physical exam and plan: Yes Notes (Text): 11/10/17 15:46 Medical attending: Patient was seen and examined by me, agrees the above note by durable medical equipment technician. An STORE WAREHOUSE ASSOCIATE was called after he was noted by staff that the patient was having chest pain. By the time I got there, etc. replaced the patient on a non-rebreather mask. She is ready given topical Nitropaste as well. Considering her history of the extensive pulmonary fibrosis, I ordered for her another dose of solumedrol 125 IV x 1 She had echo done almost 3 months ago, at that time did not show any right ventricular strain, or right ventricular hypertrophy. Nevertheless will order a new echo. There was additional set of cardiac enzymes done, a 12-lead EKG was done - she was sinus tachycardia however did not show any ST elevations or depressions She never lost consciousness during this time. After some time she reported that the chest pain resolved. Regarding control her blood pressure we will add on oral Imdur 60 mg and this may also help with her breathing. thank you Arben Christianson
[2017-11-10] MEDS ORDERED: (Novolin R) Insulin Human Regular 100 units/ml vial SC ONE (22:49)
[2017-11-11] MEDS: MethylPREDNISolone 40 mg Vial IVP SCH ×3 (01:45→17:29)
[2017-11-11] MEDS: Levothyroxine 50 MCG TAB PO SCH (06:01)
[2017-11-11 06:52] LABS: ALB/GLOB RATIO 0.9 (1.0-2.1); ALBUMIN 3.4 g/dL (3.5-5.0); ALT/SGPT 15 U/L (9-52); AST/SGOT 18 U/L (14-36); BLOOD UREA NITROGEN 22 mg/dL (7-17); GFR AFRICAN-AMERICAN > 60; GFR NON-AFRICAN AMERICAN > 60
[2017-11-11 07:10] LABS: HEMOGLOBIN 10.9 g/dL (11.0-16.0); LYMPH # 1.1 K/uL (1.0-4.3); LYMPH % 6.7 % (20.0-40.0); MEAN CELL VOLUME 92.1 fL (81.0-99.0); MEAN CORPUSCULAR HEMOGLOBIN 30.5 pg (27.0-31.0); MEAN CORPUSCULAR HGB CONC 33.1 g/dL (33.0-37.0); MEAN PLATELET VOLUME 8.1 fL (7.2-11.7); MONO # 0.5 K/uL (0.0-0.8); MONO % 3.1 % (0.0-10.0); NEUT # 14.5 K/uL (1.8-7.0); NEUT % 90.2 % (50.0-75.0); PLATELET COUNT 272 K/uL (130-400); RBC 3.56 Mil/uL (3.80-5.20); WHITE BLOOD COUNT 16.1 K/uL (4.8-10.8)
[2017-11-11] MEDS: (Novolin R) Insulin Human Regular 100 units/ml vial SC SCH ×6 (08:08→17:30)
[2017-11-11] MEDS: Fluticasone-Salmeterol 250-50mcg Diskus INH SCH ×2 (08:32→19:43)
[2017-11-11 08:40] LABS: ANISOCYTOSIS SLIGHT; BANDS 2 % (0-2); HYPOCHROMIC SLIGHT; LYMPHOCYTE 4 % (20-40); MONOCYTE 3 % (0-10); NEUTROPHIL 91 % (50-75); PLATELET ESTIMATE NORMAL (NORMAL); TOTAL CELLS COUNTED 100
[2017-11-11 08:41] LABS: TOXIC GRANULATION PRESENT
--- NOTE | 2017-11-11 09:37 | CP.PCM.PN ---
<Cricket Cisneros R - Last Filed: 11/11/17 11:17> Subjective - Date & Time of Evaluation Date of Evaluation: 11/11/17 Time of Evaluation: 09:29 - Subjective Subjective: PGY-[address] Christianson. No acute events noted overnight. Patient stated her breathing has improved compared to yesterday. She is still with cough, which is slightly better than yesterday. Denied all other prompts on review of systems. Objective - Vital Signs/Intake and Output Vital Signs (last 24 hours): Temp Pulse Resp BP Pulse Ox 97.9 F 85 20 148/65 98 11/11/17 07:00 11/11/17 07:35 11/11/17 07:00 11/11/17 07:00 11/11/17 07:00 Intake and Output: 11/11/17 11/11/17 06:59 18:59 Intake Total 780 Balance 780 - Medications Medications: Current Medications Acetaminophen (Tylenol 325mg Tab) 650 mg PO Q6 PRN PRN Reason: Headache Last Admin: 11/10/17 14:54 Dose: 650 mg Albuterol (Ventolin Hfa 90 Mcg/Actuation (8 G)) 2 puff INH RQ6 PRN PRN Reason: SOB Heparin Sodium (Porcine) (Heparin) 5,000 units SC Q8 [facility] Last Admin: 11/11/17 06:01 Dose: 5,000 units Ceftriaxone Sodium 1 gm/ (Sodium Chloride) 100 mls @ 100 mls/hr IVPB Q12H [facility] PRN Reason: Protocol Last Admin: 11/11/17 06:01 Dose: 100 mls/hr Insulin Glargine (Lantus) 28 unit SC DAILY [facility] Last Admin: 11/10/17 10:13 Dose: 28 units Insulin Human Regular (Novolin R) 0 unit SC ACHS [facility] PRN Reason: Protocol Last Admin: 11/11/17 08:08 Dose: 6 unit Insulin Human Regular (Novolin R) 2 unit SC TIDAC [facility] Last Admin: 11/11/17 08:09 Dose: 2 unit Isosorbide Mononitrate (Imdur Er) 60 mg PO DAILY [facility] Last Admin: 11/10/17 15:03 Dose: 60 mg Levothyroxine Sodium (Synthroid) 50 mcg PO 0630 [facility] Last Admin: 11/11/17 06:01 Dose: 50 mcg Methylprednisolone (Solu-Medrol) 40 mg IVP Q8H [facility] Last Admin: 11/11/17 01:45 Dose: 40 mg Fluticasone/Salmeterol (Advair Diskus 250/50) 1 puff INH RQ12 [facility] Last Admin: 11/11/17 08:32 Dose: 1 puff - Labs Labs: 11/11/17 06:30 11/11/17 06:30 PT 12.5 SECONDS (9.7-12.2) H 11/08/17 10:14 INR 1.1 11/08/17 10:14 - Additional Findings Additional findings: - Constitutional Appears: Non-toxic, No Acute Distress - Head Exam Head Exam: ATRAUMATIC, NORMOCEPHALIC - Eye Exam Eye Exam: EOMI, Normal appearance. absent: Scleral icterus - ENT Exam ENT Exam: Mucous Membranes Moist - Neck Exam Neck exam: Negative for: Full Rom, Thyromegaly - Respiratory Exam Respiratory Exam: Decreased Breath Sounds (at bases), Rhonchi (throughout). absent: Chest Wall Tenderness, Wheezes, Respiratory Distress, Stridor, NORMAL BREATHING PATTERN (RR 22-24, saturation 92-94% on 3L, speaking in full sentences ) - Cardiovascular Exam Cardiovascular Exam: REGULAR RHYTHM (80s in NSR on tele), +S1, +S2. absent: JVD - GI/Abdominal Exam GI & Abdominal Exam: Normal Bowel Sounds, Soft, Tenderness (epigastric region TTP). absent: Diminished Bowel Sounds, Distended, Firm, Guarding, Rigid - Extremities Exam Extremities exam: Positive for: normal capillary refill, normal inspection, pedal pulses present. Negative for: calf tenderness, pedal edema - Neurological Exam Neurological exam: Alert, CN II-XII Intact, Oriented x3 - Psychiatric Exam Psychiatric exam: Normal Affect, Normal Mood - Skin Skin Exam: Dry, Warm Assessment and Plan - Assessment and Plan (Free Text) Assessment: Acute exacerbation of Idiopathic Pulmonary Fibrosis Saturating at 92-94% on 3L NC - However desaturates in the 70s% when ambulates WITH oxygen Labs/Diagnostics: Flu NEGATIVE Blood Cx 11/08/17: * 1 bottle was positive for bacillus, the 2nd bottle showed no growth up to date F/U repeat Blood Cx F/U DEMETRIA, RF, SCL-70 Ab CCP IgG NEGATIVE Imaging: CXR 11/08 - Bilateral, right worse than left, fibrotic changes. No focal consolidation or pleural effusion. Chest CT 11/08 - Chronic interstitial fibrotic change throughout the right lung. Multifocal left-sided subpleural fibrosis. Varicoid bronchiectasis bilaterally , right greater than left. Dilated main pulmonary artery. No other significant abnormality. Meds: Restart home Albuterol 2 puffs INH q6h prn - patient was discharged on this medication on 09/30 from [place] Solumedrol 125 mg IVP once - followed by 40 mg IVP q8h Advair Diskus 1 puff q12h Rocephin 1g IVPB Q12H for empiric coverage - patient is allergic to PCN but has tolerated Rocephin in past and tolerating on current admission Chest pain, Resolved Resolved without treatment Troponin neg x3 EKG - Sinus Tach @102bpm, Q waves in inferior and anterior leads. No changes from prior EKGs. Previous ECHO (08/07/17): LVEF ~55%, normal systolic and diastolic function, normal Right/Left Atrium size, normal Right/Left Ventricle Size F/U ECHO Lipid panel NORMAL Started Isosorbide Mononitrate 60mg PO QD Hypothyroid Restart home Levothyroxine 50 mcg PO daily - patient was discharged on this medication on 09/30 from [place] TSH/free T4 0.24/1.59 Uncontrolled DM type II Accuchecks ACHS RISS - medium dose * Will evaluate RISS coverage for 24 hours and then tailor her insulin regimen accordingly Increase Lantus to 34u SC HS Start Regular insulin 4u SC TIDAC Held home Glucotrol to 10 mg bid - patient was discharged on this medication on 09/30 from [place] Hgb A1c 8.2 Steroids contributing to high sugar levels HTN BP well controlled without any medications Will not restart Amlodipine 5mg PO daily because patient was not discharged on this medication on 09/30 from [place] Started Isosorbide Mononitrate 60mg PO QD Prophylactic Care VTE: Heparin 5,000u SC q8h and SCDs diabetic diet PT/OT eval and treat Disposition: Patient with Idiopathic Pulmonary Fibrosis - ideally she should be on a medication called Check-Cap (Pirfenidone), however the patient does not have insurance. [employer] has a financial assistance program, paperwork to get these medications for the patient for free was started and faxed over to [employer]. Hopefully [employer] can now get in touch with the patient's granddaughter (Francisca) to start the process of her getting this medication. <Arben Christianson H - Last Filed: 11/11/17 11:30> Objective - Vital Signs/Intake and Output Vital Signs (last 24 hours): Temp Pulse Resp BP Pulse Ox 97.9 F 85 20 148/65 98 11/11/17 07:00 11/11/17 07:35 11/11/17 07:00 11/11/17 07:00 11/11/17 07:00 Intake and Output: 11/11/17 11/11/17 06:59 18:59 Intake Total 780 Balance 780 - Medications Medications: Current Medications Acetaminophen (Tylenol 325mg Tab) 650 mg PO Q6 PRN PRN Reason: Headache Last Admin: 11/10/17 14:54 Dose: 650 mg Albuterol (Ventolin Hfa 90 Mcg/Actuation (8 G)) 2 puff INH RQ6 PRN PRN Reason: SOB Heparin Sodium (Porcine) (Heparin) 5,000 units SC Q8 [facility] Last Admin: 11/11/17 06:01 Dose: 5,000 units Ceftriaxone Sodium 1 gm/ (Sodium Chloride) 100 mls @ 100 mls/hr IVPB Q12H [facility] PRN Reason: Protocol Last Admin: 11/11/17 06:01 Dose: 100 mls/hr Insulin Glargine (Lantus) 34 unit SC DAILY [facility] Last Admin: 11/11/17 10:11 Dose: 34 units Insulin Human Regular (Novolin R) 0 unit SC ACHS [facility] PRN Reason: Protocol Last Admin: 11/11/17 08:08 Dose: 6 unit Insulin Human Regular (Novolin R) 4 unit SC TIDAC [facility] Isosorbide Mononitrate (Imdur Er) 60 mg PO DAILY [facility] Last Admin: 11/11/17 10:12 Dose: 60 mg Levothyroxine Sodium (Synthroid) 50 mcg PO 0630 [facility] Last Admin: 11/11/17 06:01 Dose: 50 mcg Methylprednisolone (Solu-Medrol) 40 mg IVP Q8H [facility] Last Admin: 11/11/17 10:12 Dose: 40 mg Fluticasone/Salmeterol (Advair Diskus 250/50) 1 puff INH RQ12 [facility] Last Admin: 11/11/17 08:32 Dose: 1 puff - Labs Labs: 11/11/17 06:30 11/11/17 06:30 PT 12.5 SECONDS (9.7-12.2) H 11/08/17 10:14 INR 1.1 11/08/17 10:14 Attending/Attestation - Attestation I have personally seen and examined this patient.: Yes I have fully participated in the care of the patient.: Yes I have reviewed all pertinent clinical information, including history, physical exam and plan: Yes Notes (Text): 11/11/17 11:28 Medical attending: Patient was seen and examined by me. Agree with the above note by the medical imaging tech Patient was seen again by PT yesterday and she was able to walk with them however needed a lot of assistance. The first time she worked with PT she desaturated while on 4Liters of oxygen She reports breathing at rest was ok. No chest pain this morning, she had an [employer] yesterday due to pain. Unfourtunately the pulmonary fibrosis is probably very slowly get worse overtime. thank you Arben Christianson
[2017-11-11] MEDS: (Lantus) Insulin Glargine, Recombinant SC SCH (10:11)
--- NOTE | 2017-11-11 14:05 | CARD ---
APPROVED REPORT EXAM: Two-dimensional and M-mode echocardiogram with Doppler and color Doppler. Other Information Quality : AverageRhythm : NSR INDICATION Chest Pain RAPID RESPOSE M-Mode DIMENSIONS RVDd1.02 (2.1-3.2cm)Left Atrium (MM)2.54 (2.5-4.0cm) IVSd0.86 (0.7-1.1cm)Aortic Root2.45 (2.2-3.7cm) LVDd3.62 (4.0-5.6cm)Aortic Cusp Exc.1.33 (1.5-2.0cm) PWd0.89 (0.7-1.1cm)FS (%) 42 % LVDs2.08 (2.0-3.8cm)LVEF (%)74 (>50%) Aortic Valve AoV Peak Hhznxvkn279.9cm/Areli Peak GR.13mmHg Mitral Valve MV E Ntiwgadj883.1cm/sMV A Cvdettoa162.2cm/sE/A ratio0.9 TDI E/Lateral E'0.0E/Medial E'0.0 Tricuspid Valve TR Peak [id number]/sRAP [id number] Peak Gr.26mmHg [id number] LEFT VENTRICLE The left ventricle is normal size. There is borderline concentric left ventricular hypertrophy. The left ventricular systolic function is normal. The left ventricular ejection fraction is within the normal range. There is normal LV segmental wall motion. Transmitral Doppler flow pattern is Grade I-abnormal relaxation pattern. RIGHT VENTRICLE The right ventricle size is prominent to mildly enlarged. The right ventricular systolic function is normal. ATRIA The left atrial index is mildly increased. The right atrium is borderline dilated. AORTIC VALVE The aortic valve is normal in structure. Mild annular calcification. No aortic regurgitation is present. MITRAL VALVE The mitral valve is normal in structure. There is no mitral valve regurgitation noted. TRICUSPID VALVE The tricuspid valve is normal in structure. There is mild tricuspid regurgitation. Right ventricular systolic pressure is estimated at - 31 mmHg. PULMONIC VALVE The pulmonary valve is normal in structure. There is no pulmonic valvular regurgitation. GREAT VESSELS The aortic root is normal size. The aortic root displays mild sclerocalcific changes. The pulmonary artery appears prominent. The IVC is normal in size and collapses >50% with inspiration. PERICARDIAL EFFUSION There is no pericardial effusion. <Conclusion> The left ventricle is normal size.There is borderline concentric left ventricular hypertrophy. The left ventricular systolic function is normal. Transmitral Doppler flow pattern is Grade I-abnormal relaxation pattern. The right ventricle size is prominent to mildly enlarged. The right ventricular systolic function is normal. The left atrial index is mildly increased. The aortic valve is normal in structure. Mild aortic annular calcification. No aortic regurgitation is present. There is mild tricuspid regurgitation. Right ventricular systolic pressure is estimated at - 31 mmHg. The IVC is normal in size and collapses >50% with inspiration. There is no pericardial effusion.
[2017-11-11 14:39] LABS: CK-MB 0.51 ng/mL (0.0-3.38)
[2017-11-12] MEDS: MethylPREDNISolone 40 mg Vial IVP SCH ×3 (01:22→18:56)
[2017-11-12] MEDS: Levothyroxine 50 MCG TAB PO SCH (06:16)
[2017-11-12] MEDS: Fluticasone-Salmeterol 250-50mcg Diskus INH SCH ×2 (07:54→20:10)
[2017-11-12 08:07] LABS: BASO % 0.1 % (0.0-2.0); HEMOGLOBIN 11.6 g/dL (11.0-16.0); LYMPH # 1.3 K/uL (1.0-4.3); LYMPH % 9.3 % (20.0-40.0); MEAN CELL VOLUME 91.5 fL (81.0-99.0); MEAN CORPUSCULAR HEMOGLOBIN 31.2 pg (27.0-31.0); MEAN CORPUSCULAR HGB CONC 34.1 g/dL (33.0-37.0); MEAN PLATELET VOLUME 8.6 fL (7.2-11.7); MONO # 0.5 K/uL (0.0-0.8); MONO % 3.5 % (0.0-10.0); NEUT % 87.1 % (50.0-75.0); PLATELET COUNT 255 K/uL (130-400); WHITE BLOOD COUNT 13.7 K/uL (4.8-10.8)
[2017-11-12] MEDS: (Novolin R) Insulin Human Regular 100 units/ml vial SC SCH ×7 (08:07→21:35)
[2017-11-12 08:33] LABS: ALB/GLOB RATIO 0.9 (1.0-2.1); ALBUMIN 3.5 g/dL (3.5-5.0); ALT/SGPT 20 U/L (9-52); AST/SGOT 24 U/L (14-36); BLOOD UREA NITROGEN 21 mg/dL (7-17); GFR AFRICAN-AMERICAN > 60; GFR NON-AFRICAN AMERICAN > 60
[2017-11-12 09:23] LABS: ANISOCYTOSIS SLIGHT; BANDS 2 % (0-2); LYMPHOCYTE 8 % (20-40); MONOCYTE 4 % (0-10); NEUTROPHIL 86 % (50-75); PLATELET ESTIMATE NORMAL (NORMAL); TOTAL CELLS COUNTED 100; TOXIC GRANULATION PRESENT
[2017-11-12 09:24] LABS: HYPOCHROMIC SLIGHT; LARGE PLATELETS PRESENT; POLYCHROMIC SLIGHT
[2017-11-12] MEDS: (Lantus) Insulin Glargine, Recombinant SC SCH (09:42)
--- NOTE | 2017-11-12 10:11 | CP.PCM.PN ---
<Yuliya Ruffin - Last Filed: 11/12/17 10:08> Subjective - Date & Time of Evaluation Date of Evaluation: 11/12/17 Time of Evaluation: 09:00 - Subjective Subjective: Medicine Note for Hospitalist Service- Dr. Christianson Patient was seen and examined at bedside. Patient reports she feels okay today. She reports she continues to have a nonproductive cough but it is improving. She reports she feels best with the oxygen on. 12 point ROS unremarkable, unless otherwise noted. Objective - Vital Signs/Intake and Output Vital Signs (last 24 hours): Temp Pulse Resp BP Pulse Ox 97.8 F 60 20 178/89 H 98 11/12/17 07:00 11/12/17 07:39 11/12/17 07:00 11/12/17 07:00 11/12/17 07:00 Intake and Output: 11/12/17 11/12/17 06:59 18:59 Intake Total 200 Balance 200 - Medications Medications: Current Medications Acetaminophen (Tylenol 325mg Tab) 650 mg PO Q6 PRN PRN Reason: Headache Last Admin: 11/11/17 13:48 Dose: 650 mg Albuterol (Ventolin Hfa 90 Mcg/Actuation (8 G)) 2 puff INH RQ6 PRN PRN Reason: SOB Heparin Sodium (Porcine) (Heparin) 5,000 units SC Q8 [facility] Last Admin: 11/12/17 06:16 Dose: 5,000 units Ceftriaxone Sodium 1 gm/ (Sodium Chloride) 100 mls @ 100 mls/hr IVPB Q12H [facility] PRN Reason: Protocol Last Admin: 11/12/17 05:30 Dose: 100 mls/hr Insulin Glargine (Lantus) 34 unit SC DAILY [facility] Last Admin: 11/12/17 09:42 Dose: 34 units Insulin Human Regular (Novolin R) 4 unit SC TIDAC [facility] Last Admin: 11/12/17 08:07 Dose: 4 unit Insulin Human Regular (Novolin R) 0 unit SC ACHS [facility] PRN Reason: Protocol Isosorbide Mononitrate (Imdur Er) 60 mg PO DAILY [facility] Last Admin: 11/12/17 09:43 Dose: 60 mg Levothyroxine Sodium (Synthroid) 50 mcg PO 0630 [facility] Last Admin: 11/12/17 06:16 Dose: 50 mcg Methylprednisolone (Solu-Medrol) 40 mg IVP Q8H [facility] Last Admin: 11/12/17 09:43 Dose: 40 mg Fluticasone/Salmeterol (Advair Diskus 250/50) 1 puff INH RQ12 [facility] Last Admin: 11/12/17 07:54 Dose: 1 puff - Labs Labs: 11/12/17 07:47 11/12/17 07:47 PT 12.5 SECONDS (9.7-12.2) H 11/08/17 10:14 INR 1.1 11/08/17 10:14 - Constitutional Appears: No Acute Distress, Chronically Ill - Head Exam Head Exam: NORMAL INSPECTION, NORMOCEPHALIC - Eye Exam Eye Exam: EOMI, Normal appearance, PERRL Pupil Exam: NORMAL ACCOMODATION - ENT Exam ENT Exam: Mucous Membranes Moist, Normal Exam - Neck Exam Neck Exam: Normal Inspection - Respiratory Exam Respiratory Exam: Decreased Breath Sounds, NORMAL BREATHING PATTERN Additional comments: (RR 22, saturation 98% on 3L, speaking in full sentences) - Cardiovascular Exam Cardiovascular Exam: REGULAR RHYTHM - GI/Abdominal Exam GI & Abdominal Exam: Soft, Normal Bowel Sounds. absent: Distended, Tenderness - Rectal Exam Rectal Exam: Deferred - Extremities Exam Extremities Exam: Normal Inspection. absent: Pedal Edema, Tenderness - Neurological Exam Neurological Exam: Alert, Awake, Oriented x3 - Psychiatric Exam Psychiatric exam: Normal Affect, Normal Mood - Skin Skin Exam: Dry, Intact, Normal Color, Warm Assessment and Plan - Assessment and Plan (Free Text) Plan: Acute exacerbation of Idiopathic Pulmonary Fibrosis Saturating at 92-94% on 3L NC - However desaturates in the 70s% when ambulates WITH oxygen Labs/Diagnostics: Flu NEGATIVE Blood Cx 11/08/17: * 1 bottle was positive for bacillus, the 2nd bottle showed no growth up to date * Repeat Blood Cx - 11/10/17 - negative to date F/U RF, SCL-70 Ab CCP IgG NEGATIVE, DEMETRIA- negative Imaging: CXR 11/08 - Bilateral, right worse than left, fibrotic changes. No focal consolidation or pleural effusion. Chest CT 11/08 - Chronic interstitial fibrotic change throughout the right lung. Multifocal left-sided subpleural fibrosis. Varicoid bronchiectasis bilaterally , right greater than left. Dilated main pulmonary artery. No other significant abnormality. Meds: Restart home Albuterol 2 puffs INH q6h prn - patient was discharged on this medication on 09/30 from [place] Solumedrol 125 mg IVP once - followed by 40 mg IVP q8h Advair Diskus 1 puff q12h Rocephin 1g IVPB Q12H for empiric coverage - patient is allergic to PCN but has tolerated Rocephin in past and tolerating on current admission Uncontrolled DM type II Accuchecks ACHS Hgb A1c 8.2 RISS - high (2/ to steroids) Increase Lantus to 34u SC HS Start Regular insulin 4u SC TIDAC Held home Glucotrol to 10 mg bid - patient was discharged on this medication on 09/30 from [place] Steroids contributing to high sugar levels HTN BP well controlled without any medications Will not restart Amlodipine 5mg PO daily because patient was not discharged on this medication on 09/30 from [place] Started Isosorbide Mononitrate 60mg PO QD Chest pain, Resolved Resolved without treatment Troponin neg x3 EKG - Sinus Tach @102bpm, Q waves in inferior and anterior leads. No changes from prior EKGs. Previous ECHO (08/07/17): LVEF ~55%, normal systolic and diastolic function, normal Right/Left Atrium size, normal Right/Left Ventricle Size Lipid panel NORMAL Started Isosorbide Mononitrate 60mg PO QD Hypothyroid Restart home Levothyroxine 50 mcg PO daily - patient was discharged on this medication on 09/30 from [place] TSH/free T4 0.24/1.59 Prophylactic Care VTE: Heparin 5,000u SC q8h and SCDs diabetic diet PT/OT eval and treat Disposition: Patient with Idiopathic Pulmonary Fibrosis - ideally she should be on a medication called Esbriet (Pirfenidone), however the patient does not have insurance. [employer] has a financial assistance program, paperwork to get these medications for the patient for free was started and faxed over to [employer]. Hopefully [employer] can now get in touch with the patient's granddaughter (Francisca) to start the process of her getting this medication. DW Yuliya Padron DO, PGY1 <Arben Christianson - Last Filed: 11/12/17 11:02> Objective - Vital Signs/Intake and Output Vital Signs (last 24 hours): Temp Pulse Resp BP Pulse Ox 97.8 F 60 20 178/89 H 98 11/12/17 07:00 11/12/17 07:39 11/12/17 07:00 11/12/17 07:00 11/12/17 07:00 Intake and Output: 11/12/17 11/12/17 06:59 18:59 Intake Total 200 Balance 200 - Medications Medications: Current Medications Acetaminophen (Tylenol 325mg Tab) 650 mg PO Q6 PRN PRN Reason: Headache Last Admin: 11/11/17 13:48 Dose: 650 mg Albuterol (Ventolin Hfa 90 Mcg/Actuation (8 G)) 2 puff INH RQ6 PRN PRN Reason: SOB Heparin Sodium (Porcine) (Heparin) 5,000 units SC Q8 [facility] Last Admin: 11/12/17 06:16 Dose: 5,000 units Ceftriaxone Sodium 1 gm/ (Sodium Chloride) 100 mls @ 100 mls/hr IVPB Q12H [facility] PRN Reason: Protocol Last Admin: 11/12/17 05:30 Dose: 100 mls/hr Insulin Glargine (Lantus) 34 unit SC DAILY [facility] Last Admin: 11/12/17 09:42 Dose: 34 units Insulin Human Regular (Novolin R) 4 unit SC TIDAC [facility] Last Admin: 11/12/17 08:07 Dose: 4 unit Insulin Human Regular (Novolin R) 0 unit SC ACHS [facility] PRN Reason: Protocol Isosorbide Mononitrate (Imdur Er) 60 mg PO DAILY [facility] Last Admin: 11/12/17 09:43 Dose: 60 mg Levothyroxine Sodium (Synthroid) 50 mcg PO 0630 [facility] Last Admin: 11/12/17 06:16 Dose: 50 mcg Methylprednisolone (Solu-Medrol) 40 mg IVP Q8H [facility] Last Admin: 11/12/17 09:43 Dose: 40 mg Fluticasone/Salmeterol (Advair Diskus 250/50) 1 puff INH RQ12 [facility] Last Admin: 11/12/17 07:54 Dose: 1 puff - Labs Labs: 11/12/17 07:47 11/12/17 07:47 PT 12.5 SECONDS (9.7-12.2) H 11/08/17 10:14 INR 1.1 11/08/17 10:14 Attending/Attestation - Attestation I have personally seen and examined this patient.: Yes I have fully participated in the care of the patient.: Yes I have reviewed all pertinent clinical information, including history, physical exam and plan: Yes Notes (Text): 11/12/17 10:59 Medical attending: Patient was seen and examined by me. Agree with the above note by the resident The patient's grand daughter was present at the bedside, with translation present we explained to them we are worried that the lung function is steadily getting worse. The grand daughter explained that there is a lot of family in [place] and they are thinking about going back to their home. They had questions with reguards to home oxygen - she does not have a portable O2 tank to travel with. Considering how weak she is when walking probably it is in her best interest to have a wheel chair. We explained to them that tommorow on Monday we will see what options the caseworkers can help us with - with reguards to the oxygen. thank you Arben Christianson
[2017-11-13] MEDS: MethylPREDNISolone 40 mg Vial IVP SCH ×3 (01:35→21:35)
[2017-11-13] MEDS: Levothyroxine 50 MCG TAB PO SCH (05:49)
[2017-11-13 07:16] LABS: BASO % 0.2 % (0.0-2.0); HEMOGLOBIN 11.9 g/dL (11.0-16.0); LYMPH # 1.4 K/uL (1.0-4.3); LYMPH % 10.2 % (20.0-40.0); MEAN CELL VOLUME 92.2 fL (81.0-99.0); MEAN CORPUSCULAR HEMOGLOBIN 30.7 pg (27.0-31.0); MEAN CORPUSCULAR HGB CONC 33.3 g/dL (33.0-37.0); MONO # 0.4 K/uL (0.0-0.8); MONO % 3.3 % (0.0-10.0); NEUT # 11.4 K/uL (1.8-7.0); NEUT % 86.3 % (50.0-75.0); NRBC % 0.1 % (0.0-2.0); RBC 3.88 Mil/uL (3.80-5.20); RED CELL DISTRIBUTION WIDTH 13.9 % (11.5-14.5); WHITE BLOOD COUNT 13.2 K/uL (4.8-10.8)
[2017-11-13 07:59] LABS: ALB/GLOB RATIO 0.9 (1.0-2.1); ALBUMIN 3.6 g/dL (3.5-5.0); ALT/SGPT 21 U/L (9-52); AST/SGOT 23 U/L (14-36); BLOOD UREA NITROGEN 22 mg/dL (7-17); CALCIUM 8.9 mg/dl (8.6-10.4); GFR AFRICAN-AMERICAN > 60; GFR NON-AFRICAN AMERICAN > 60
[2017-11-13] MEDS: (Novolin R) Insulin Human Regular 100 units/ml vial SC SCH ×7 (08:21→21:35)
[2017-11-13] MEDS: Fluticasone-Salmeterol 250-50mcg Diskus INH SCH ×2 (10:57→19:11)
--- NOTE | 2017-11-13 12:41 | CP.PCM.PN ---
<NuraNanyselina Perez - Last Filed: 11/13/17 20:15> Subjective - Date & Time of Evaluation Date of Evaluation: 11/13/17 Time of Evaluation: 09:05 - Subjective Subjective: Medicine progress note (Dr. Ramos's service) Patient was seen and examined at bedside. Patient was resting comfortably in bed eating breakfast. Patient reports improving symptoms of shortness of breath and non-productive cough. Patient feels better with use of oxygen. Patient denies chest pain, SOB, palpitations, nausea, vomiting, fever, and chills. Objective - Vital Signs/Intake and Output Vital Signs (last 24 hours): Temp Pulse Resp BP Pulse Ox 98.8 F 66 18 108/67 97 11/13/17 07:00 11/13/17 08:00 11/13/17 07:00 11/13/17 07:00 11/13/17 07:00 Intake and Output: 11/13/17 11/13/17 06:59 18:59 Intake Total 340 Balance 340 - Medications Medications: Current Medications Acetaminophen (Tylenol 325mg Tab) 650 mg PO Q6 PRN PRN Reason: Headache Last Admin: 11/13/17 09:37 Dose: 650 mg Albuterol (Ventolin Hfa 90 Mcg/Actuation (8 G)) 2 puff INH RQ6 PRN PRN Reason: SOB Heparin Sodium (Porcine) (Heparin) 5,000 units SC Q8 [facility] Last Admin: 11/13/17 05:49 Dose: 5,000 units Ceftriaxone Sodium 1 gm/ (Sodium Chloride) 100 mls @ 100 mls/hr IVPB Q12H [facility] PRN Reason: Protocol Last Admin: 11/13/17 05:44 Dose: 100 mls/hr Insulin Glargine (Lantus) 34 unit SC DAILY [facility] Last Admin: 11/12/17 09:42 Dose: 34 units Insulin Human Regular (Novolin R) 4 unit SC TIDAC [facility] Last Admin: 11/13/17 08:21 Dose: 4 unit Insulin Human Regular (Novolin R) 0 unit SC ACHS [facility] PRN Reason: Protocol Last Admin: 11/13/17 08:21 Dose: 8 unit Isosorbide Mononitrate (Imdur Er) 60 mg PO DAILY [facility] Last Admin: 11/13/17 09:36 Dose: 60 mg Levothyroxine Sodium (Synthroid) 50 mcg PO 0630 [facility] Last Admin: 11/13/17 05:49 Dose: 50 mcg Methylprednisolone (Solu-Medrol) 40 mg IVP Q8H [facility] Last Admin: 11/13/17 09:37 Dose: 40 mg Fluticasone/Salmeterol (Advair Diskus 250/50) 1 puff INH RQ12 [facility] Last Admin: 11/13/17 10:57 Dose: 1 puff - Labs Labs: 11/13/17 07:08 11/13/17 07:08 PT 12.5 SECONDS (9.7-12.2) H 11/08/17 10:14 INR 1.1 11/08/17 10:14 - Constitutional Appears: Well, No Acute Distress - Head Exam Head Exam: ATRAUMATIC, NORMAL INSPECTION - Eye Exam Eye Exam: EOMI, Normal appearance - ENT Exam ENT Exam: Mucous Membranes Moist - Respiratory Exam Respiratory Exam: NORMAL BREATHING PATTERN. absent: Accessory Muscle Use, Chest Wall Tenderness, Decreased Breath Sounds, Prolonged Expiratory Phase, Rales, Wheezes, Respiratory Distress - Cardiovascular Exam Cardiovascular Exam: REGULAR RHYTHM, +S1, +S2. absent: Murmur - GI/Abdominal Exam GI & Abdominal Exam: Soft, Normal Bowel Sounds. absent: Distended, Guarding, Rigid, Tenderness - Extremities Exam Extremities Exam: Full ROM, Normal Inspection. absent: Calf Tenderness, Pedal Edema - Neurological Exam Neurological Exam: Alert, Awake, Oriented x3 - Psychiatric Exam Psychiatric exam: Normal Affect, Normal Mood - Skin Skin Exam: Normal Color Assessment and Plan (1) Idiopathic pulmonary fibrosis Assessment & Plan: Acute exacerbation Imaging: CXR 11/08 - Bilateral, right worse than left, fibrotic changes. No focal consolidation or pleural effusion. Chest CT 11/08 - Chronic interstitial fibrotic change throughout the right lung. Multifocal left-sided subpleural fibrosis. Varicoid bronchiectasis bilaterally , right greater than left. Dilated main pulmonary artery. No other significant abnormality. Meds: Albuterol 2 puff INH RQ6H Solumedrol 40mg IV Q12H Advair Diskus 1 puff q12h Rocephin 1g IVPB Q12H for empiric coverage Status: Acute (2) Hypothyroidism Assessment & Plan: TSH/free T4 0.24/1.59 (11/09/17) * Continue home medication Levothyroxine 50 mcg PO daily Status: Acute (3) Uncontrolled diabetes mellitus Assessment & Plan: Hgb A1c 8.2 (11/09/17) Accuchecks ACHS RISS - high (2/2 to steroids) Lantus to 34u SC HS Regular insulin 4u SC TIDAC Status: Acute (4) Chest pain Assessment & Plan: Resolved without treatment Troponin neg x3 EKG - Sinus Tach @102bpm, Q waves in inferior and anterior leads on admission. No changes from prior EKGs. Previous ECHO (08/07/17): LVEF ~55%, normal systolic and diastolic function, normal Right/Left Atrium size, normal Right/Left Ventricle Size Lipid panel NORMAL Isosorbide Mononitrate 60mg PO QD Status: Resolved (5) Prophylactic measure Assessment & Plan: VTE: Heparin 5,000u SC q8h and SCDs Pepcid 20mg PO BID Diabetic diet PT/OT eval and treat Disposition: Plans to attempt to obtain medication called Bennie (Pirfenidone) as patient is without insurance All plans reviewed and discussed with Dr. Ramos Status: Acute <Brad Ramos - Last Filed: 11/15/17 13:49> Objective - Vital Signs/Intake and Output Vital Signs (last 24 hours): Temp Pulse Resp BP Pulse Ox 97.4 F L 66 20 142/61 100 11/15/17 07:30 11/15/17 07:30 11/15/17 07:30 11/15/17 07:30 11/15/17 07:30 - Medications Medications: Current Medications Acetaminophen (Tylenol 325mg Tab) 650 mg PO Q6 PRN PRN Reason: Headache Last Admin: 11/14/17 09:20 Dose: 650 mg Albuterol (Ventolin Hfa 90 Mcg/Actuation (8 G)) 2 puff INH RQ6 PRN PRN Reason: SOB Budesonide (Pulmicort Respules) 0.25 mg INH RQ12 [facility] Last Admin: 11/15/17 07:16 Dose: 0.25 mg Famotidine (Pepcid) 20 mg PO BID [facility] Last Admin: 11/15/17 09:50 Dose: 20 mg Heparin Sodium (Porcine) (Heparin) 5,000 units SC Q8 [facility] Last Admin: 11/15/17 05:46 Dose: 5,000 units Ciprofloxacin (Cipro 400mg/200ml Dsw) 400 mg in 200 mls @ 133 mls/hr IVPB Q12H [facility] PRN Reason: Protocol Last Admin: 11/15/17 04:30 Dose: 133 mls/hr Insulin Glargine (Lantus) 34 unit SC DAILY [facility] Last Admin: 11/15/17 09:54 Dose: 34 units Insulin Human Regular (Novolin R) 4 unit SC TIDAC [facility] Last Admin: 11/15/17 08:52 Dose: 4 unit Insulin Human Regular (Novolin R) 0 unit SC ACHS [facility] PRN Reason: Protocol Last Admin: 11/15/17 08:52 Dose: 4 unit Isosorbide Mononitrate (Imdur Er) 60 mg PO DAILY [facility] Last Admin: 11/15/17 09:50 Dose: 60 mg Levothyroxine Sodium (Synthroid) 50 mcg PO 0630 [facility] Last Admin: 11/15/17 05:46 Dose: 50 mcg Prednisone (Prednisone Tab) 40 mg PO DAILY [facility] Last Admin: 11/15/17 09:50 Dose: 40 mg - Labs Labs: 11/15/17 07:58 11/15/17 07:58 PT 12.5 SECONDS (9.7-12.2) H 11/08/17 10:14 INR 1.1 11/08/17 10:14 Attending/Attestation - Attestation I have personally seen and examined this patient.: Yes I have fully participated in the care of the patient.: Yes I have reviewed all pertinent clinical information, including history, physical exam and plan: Yes Notes (Text): Patient was seen and examined No complain. Chronic lung disease with sob on IV solumedrol 1. Idiopathic pulmonary fibrosis continue solumedrol and Advair taper solumedrol she is on ceftriaxone for empiric coverage 2.Hypothyroidism Levothyroxine 50 mcg PO daily 3.DM Lantus to 34u SC HS Regular insulin 4u SC TIDAC 4.s/p chest pain continue Isosorbide Mononitrate follow CW about d/c on oxygen continue dvt and gi prophylaxis
[2017-11-13] MEDS ORDERED: MethylPREDNISolone 40 mg Vial IVP SCH (12:45)
[2017-11-13] MEDS: (Lantus) Insulin Glargine, Recombinant SC SCH (13:02)
[2017-11-14] MEDS: Levothyroxine 50 MCG TAB PO SCH (05:47)
[2017-11-14 06:35] LABS: BASO # 0.1 K/uL (0.0-0.2); BASO % 0.5 % (0.0-2.0); HEMOGLOBIN 11.9 g/dL (11.0-16.0); LYMPH # 1.6 K/uL (1.0-4.3); LYMPH % 10.9 % (20.0-40.0); MEAN CELL VOLUME 92.2 fL (81.0-99.0); MEAN CORPUSCULAR HEMOGLOBIN 31.2 pg (27.0-31.0); MEAN CORPUSCULAR HGB CONC 33.9 g/dL (33.0-37.0); MEAN PLATELET VOLUME 8.6 fL (7.2-11.7); MONO # 0.9 K/uL (0.0-0.8); NEUT # 12.1 K/uL (1.8-7.0); NEUT % 82.6 % (50.0-75.0); NRBC % 0.1 % (0.0-2.0); RBC 3.82 Mil/uL (3.80-5.20); RED CELL DISTRIBUTION WIDTH 13.6 % (11.5-14.5); WHITE BLOOD COUNT 14.6 K/uL (4.8-10.8)
[2017-11-14 06:54] LABS: ALB/GLOB RATIO 0.9 (1.0-2.1); ALBUMIN 3.3 g/dL (3.5-5.0); ALT/SGPT 21 U/L (9-52); AST/SGOT 30 U/L (14-36); BLOOD UREA NITROGEN 24 mg/dL (7-17); CALCIUM 8.6 mg/dl (8.6-10.4); GFR AFRICAN-AMERICAN > 60; GFR NON-AFRICAN AMERICAN > 60
[2017-11-14] MEDS: (Novolin R) Insulin Human Regular 100 units/ml vial SC SCH ×7 (08:41→22:40)
[2017-11-14] MEDS: (Lantus) Insulin Glargine, Recombinant SC SCH (09:22)
[2017-11-14] MEDS: MethylPREDNISolone 40 mg Vial IVP SCH (09:22)
[2017-11-14] MEDS: Fluticasone-Salmeterol 250-50mcg Diskus INH SCH (10:54)
--- NOTE | 2017-11-14 12:32 | CARD ---
APPROVED REPORT EKG Measurement Heart [id number] MD [id number] <Conclusion> Sinus tachycardia Left ventricular hypertrophy with repolarization abnormality Abnormal ECG
--- NOTE | 2017-11-14 16:07 | CP.PCM.CON ---
History of Present Illness - History of Present Illness History of Present Illness: Reason for consult: evaluation for exacerbation of pulmonary fibrosis HPI: 77F with PMHx of pulmonary fibrosis, HTN, DM, hypothyroidism presented to the ED 11/08 after experiencing an episode of pressure-like chest pain that lasted for 30 minutes even as she was lying down. The pain resolved spontaneously without any medications but she felt short of breath on initial presentation. She reported feeling fatigued for the past year and a non-productive cough for the last 5 months.The patient was seen at [facility] from 08/21 to 08/26 for pulmonary fibrosis and chest pain. She presented to [place] again 09/29 and was discharged 09/30 with rx for ventolin, glucotrol, lantus and synthroid, which she did not fill. The patient was seen and examined at seated in a chair out of bed. She reports that her shortness of breath and non-productive cough have improved. She has no complaints at this time and she conveyed understanding of her condition and options. PMHx: pulmonary fibrosis, HTN, DM, Hypothyroidism, Lymphoma with hx chemo PSH: cholecystectomy, gastric surgery Allergies: penicillin SH: Denies tobacco, alcohol and illicit drug use. Lived with her brother who was a heavy smoker for many years Home meds: taking aspirin, amlodipine, levothyroxine from [facility] Assessment and Plan: 1.Pulmonary fibrosis - CXR 11/08: Bilateral fibrotic changes R>L. No focal consolidation or pleural effusion - CT Chest 11/08: Chronic interstitial fibrotic changes throughout the right lung. Multifocal left-sided subpleural fibrosis. Varicoid bronchiectasis bilateral R>L. Dilated main pulmonary artery - Saturating 95-100% over last 24 hrs - nebullizer treatments - Albuterol - Solumedrol - Advair 250/50 2. Bronchiectasis secondary to pulmonary fibrosis -start Zosyn Past Patient History - Past Medical History & Family History Past Medical History?: Yes - Past Social History Smoking Status: Never Smoked - CARDIAC Hx Cardiac Disorders: Yes (CAD, Coronary Stent) Hx Hypertension: Yes - PULMONARY Hx Respiratory Disorders: Yes Hx Bronchitis: Yes - NEUROLOGICAL Hx Neurological Disorder: No - HEENT Hx HEENT Problems: No Other/Comment: pt wears glasses - RENAL Hx Chronic Kidney Disease: No - ENDOCRINE/METABOLIC Hx Endocrine Disorders: Yes Hx Hypothyroidism: Yes - HEMATOLOGICAL/ONCOLOGICAL Hx Blood Disorders: No Hx Human Immunodeficiency Virus (HIV): No - INTEGUMENTARY Hx Dermatological Problems: No - MUSCULOSKELETAL/RHEUMATOLOGICAL Hx Falls: Yes - GASTROINTESTINAL Hx Gastrointestinal Disorders: Yes Hx Gall Bladder Disease: Yes (cholecystectomy) - GENITOURINARY/GYNECOLOGICAL Hx Genitourinary Disorders: No - PSYCHIATRIC Hx Substance Use: No - SURGICAL HISTORY Hx Surgeries: Yes Hx Cholecystectomy: Yes Hx Coronary Stent: Yes - ANESTHESIA Hx Anesthesia: Yes Hx Anesthesia Reactions: No Meds Allergies/Adverse Reactions: Allergies Allergy/AdvReac Type Severity Reaction Status Date / Time Penicillins Allergy SWELLING Verified 11/08/17 09:51 - Medications Medications: Current Medications Acetaminophen (Tylenol 325mg Tab) 650 mg PO Q6 PRN PRN Reason: Headache Last Admin: 11/14/17 09:20 Dose: 650 mg Albuterol (Ventolin Hfa 90 Mcg/Actuation (8 G)) 2 puff INH RQ6 PRN PRN Reason: SOB Famotidine (Pepcid) 20 mg PO BID [facility] Last Admin: 11/14/17 09:18 Dose: 20 mg Heparin Sodium (Porcine) (Heparin) 5,000 units SC Q8 [facility] Last Admin: 11/14/17 14:15 Dose: 5,000 units Ceftriaxone Sodium 1 gm/ (Sodium Chloride) 100 mls @ 100 mls/hr IVPB Q12H [facility] PRN Reason: Protocol Last Admin: 11/14/17 05:46 Dose: 100 mls/hr Insulin Glargine (Lantus) 34 unit SC DAILY [facility] Last Admin: 11/14/17 09:22 Dose: 34 units Insulin Human Regular (Novolin R) 4 unit SC TIDAC [facility] Last Admin: 11/14/17 12:52 Dose: 4 unit Insulin Human Regular (Novolin R) 0 unit SC ACHS [facility] PRN Reason: Protocol Last Admin: 11/14/17 12:52 Dose: 4 unit Isosorbide Mononitrate (Imdur Er) 60 mg PO DAILY [facility] Last Admin: 11/14/17 09:19 Dose: 60 mg Levothyroxine Sodium (Synthroid) 50 mcg PO 0630 [facility] Last Admin: 11/14/17 05:47 Dose: 50 mcg Methylprednisolone (Solu-Medrol) 40 mg IVP Q12 [facility] Last Admin: 11/14/17 09:22 Dose: 40 mg Fluticasone/Salmeterol (Advair Diskus 250/50) 1 puff INH RQ12 [facility] Last Admin: 11/14/17 10:54 Dose: 1 puff Results - Vital Signs Recent Vital Signs: Last Vital Signs Temp 97.4 F L 11/14/17 07:10 Pulse 55 L 11/14/17 07:50 Resp 18 11/14/17 07:10 BP 149/82 11/14/17 07:10 Pulse Ox 97 11/14/17 07:10 - Labs Result Diagrams: 11/14/17 06:26 11/14/17 06:26 Labs: Laboratory Results - last 24 hr 11/13/17 11/13/17 11/13/17 16:41 21:07 21:10 WBC RBC Hgb Hct MCV MCH MCHC RDW Plt Count MPV Neut % (Auto) Lymph % (Auto) [place] % (Auto) Eos % (Auto) Baso % (Auto) Neut # (Auto) Lymph # (Auto) [place] # (Auto) Eos # (Auto) Baso # (Auto) Sodium Potassium Chloride Carbon Dioxide Anion Gap BUN Creatinine Est GFR ( Amer) Est GFR (Non-Af Amer) POC Glucose (mg/dL) 300 H 405 H* 408 H* Random Glucose Calcium Phosphorus Magnesium Total Bilirubin AST ALT Alkaline Phosphatase Total Protein Albumin Globulin Albumin/Globulin Ratio 11/14/17 11/14/17 11/14/17 02:36 06:10 06:26 WBC 14.6 H RBC 3.82 Hgb 11.9 Hct 35.2 MCV 92.2 MCH 31.2 H MCHC 33.9 RDW 13.6 Plt Count 259 MPV 8.6 Neut % (Auto) 82.6 H Lymph % (Auto) 10.9 L [place] % (Auto) 6.0 Eos % (Auto) 0.0 Baso % (Auto) 0.5 Neut # (Auto) 12.1 H Lymph # (Auto) 1.6 [place] # (Auto) 0.9 H Eos # (Auto) 0.0 Baso # (Auto) 0.1 Sodium Potassium Chloride Carbon Dioxide Anion Gap BUN Creatinine Est GFR ( Amer) Est GFR (Non-Af Amer) POC Glucose (mg/dL) 322 H 263 H Random Glucose Calcium Phosphorus Magnesium Total Bilirubin AST ALT Alkaline Phosphatase Total Protein Albumin Globulin Albumin/Globulin Ratio 11/14/17 11/14/17 06:26 11:03 WBC RBC Hgb Hct MCV MCH MCHC RDW Plt Count MPV Neut % (Auto) Lymph % (Auto) [place] % (Auto) Eos % (Auto) Baso % (Auto) Neut # (Auto) Lymph # (Auto) [place] # (Auto) Eos # (Auto) Baso # (Auto) Sodium 139 Potassium 4.0 Chloride 99 Carbon Dioxide 29 Anion Gap 15 BUN 24 H Creatinine 0.6 L Est GFR ( Amer) > 60 Est GFR (Non-Af Amer) > 60 POC Glucose (mg/dL) 217 H Random Glucose 279 H Calcium 8.6 Phosphorus 3.1 Magnesium 2.1 Total Bilirubin 0.4 AST 30 ALT 21 Alkaline Phosphatase 70 Total Protein 6.9 Albumin 3.3 L Globulin 3.6 Albumin/Globulin Ratio 0.9 L
--- NOTE | 2017-11-14 17:22 | CP.PCM.PN ---
<Enrico Lyman E - Last Filed: 11/14/17 17:14> Subjective - Date & Time of Evaluation Date of Evaluation: 11/14/17 Time of Evaluation: 07:50 - Subjective Subjective: Medicine progress note ( Dr. Ramos's service) Patient was seen and examined at bedside. Patient states that she is doing well with no acute issues. Patient denies fever, chills, nausea, vomiting, chest pain , SOB, palpitations. Patient admits to decrease cough. Objective - Vital Signs/Intake and Output Vital Signs (last 24 hours): Temp Pulse Resp BP Pulse Ox 97.8 F 75 20 107/67 95 11/14/17 15:00 11/14/17 16:10 11/14/17 15:00 11/14/17 15:00 11/14/17 15:00 - Medications Medications: Current Medications Acetaminophen (Tylenol 325mg Tab) 650 mg PO Q6 PRN PRN Reason: Headache Last Admin: 11/14/17 09:20 Dose: 650 mg Albuterol (Ventolin Hfa 90 Mcg/Actuation (8 G)) 2 puff INH RQ6 PRN PRN Reason: SOB Budesonide (Pulmicort Respules) 0.25 mg INH RQ12 [facility] Famotidine (Pepcid) 20 mg PO BID [facility] Last Admin: 11/14/17 09:18 Dose: 20 mg Heparin Sodium (Porcine) (Heparin) 5,000 units SC Q8 [facility] Last Admin: 11/14/17 14:15 Dose: 5,000 units Ciprofloxacin (Cipro 400mg/200ml Dsw) 400 mg in 200 mls @ 133 mls/hr IVPB Q12H [facility] PRN Reason: Protocol Insulin Glargine (Lantus) 34 unit SC DAILY [facility] Last Admin: 11/14/17 09:22 Dose: 34 units Insulin Human Regular (Novolin R) 4 unit SC TIDAC [facility] Last Admin: 11/14/17 12:52 Dose: 4 unit Insulin Human Regular (Novolin R) 0 unit SC ACHS [facility] PRN Reason: Protocol Last Admin: 11/14/17 12:52 Dose: 4 unit Isosorbide Mononitrate (Imdur Er) 60 mg PO DAILY [facility] Last Admin: 11/14/17 09:19 Dose: 60 mg Levothyroxine Sodium (Synthroid) 50 mcg PO 0630 [facility] Last Admin: 11/14/17 05:47 Dose: 50 mcg Prednisone (Prednisone Tab) 40 mg PO DAILY [facility] - Labs Labs: 11/14/17 06:26 11/14/17 06:26 PT 12.5 SECONDS (9.7-12.2) H 11/08/17 10:14 INR 1.1 11/08/17 10:14 - Constitutional Appears: No Acute Distress - Head Exam Head Exam: ATRAUMATIC, NORMAL INSPECTION - Eye Exam Eye Exam: EOMI - ENT Exam ENT Exam: Mucous Membranes Moist - Respiratory Exam Respiratory Exam: Rhonchi, NORMAL BREATHING PATTERN. absent: Wheezes, Respiratory Distress, Stridor - Cardiovascular Exam Cardiovascular Exam: REGULAR RHYTHM, +S1, +S2 - GI/Abdominal Exam GI & Abdominal Exam: Soft, Normal Bowel Sounds. absent: Guarding, Rigid, Tenderness - Extremities Exam Extremities Exam: Normal Inspection - Neurological Exam Neurological Exam: Alert, Awake, Oriented x3 - Psychiatric Exam Psychiatric exam: Normal Affect - Skin Skin Exam: Normal Color Assessment and Plan (1) Idiopathic pulmonary fibrosis Assessment & Plan: Acute exacerbation Core Manager consult, Dr. Alvarado---> Help appreciated * Management as per recommendation Imaging: CXR 11/08 - Bilateral, right worse than left, fibrotic changes. No focal consolidation or pleural effusion. Chest CT 11/08 - Chronic interstitial fibrotic change throughout the right lung. Multifocal left-sided subpleural fibrosis. Varicoid bronchiectasis bilaterally , right greater than left. Dilated main pulmonary artery. No other significant abnormality. Meds: Albuterol 2 puff INH RQ6H Solumedrol 40mg IV Q12H ---> 40mg PO daily Pulmicort 0.25mg INH Q12H Rocephin 1g IVPB Q12H for empiric coverage---> Discontinued 11/14/2017 Cipro 400mg IV Q12 H ( Started 11/14/17) Status: Acute (2) Hypothyroidism Assessment & Plan: TSH/free T4 0.24/1.59 (11/09/17) * Continue home medication Levothyroxine 50 mcg PO daily Status: Acute (3) Uncontrolled diabetes mellitus Assessment & Plan: Hgb A1c 8.2 (11/09/17) Accuchecks ACHS RISS - high (2/2 to steroids) Lantus to 34u SC HS Regular insulin 4u SC TIDAC Status: Acute (4) Chest pain Assessment & Plan: Resolved without treatment Troponin neg x3 EKG - Sinus Tach @102bpm, Q waves in inferior and anterior leads on admission. No changes from prior EKGs. Previous ECHO (08/07/17): LVEF ~55%, normal systolic and diastolic function, normal Right/Left Atrium size, normal Right/Left Ventricle Size Lipid panel NORMAL Isosorbide Mononitrate 60mg PO QD Status: Resolved (5) Prophylactic measure Assessment & Plan: VTE: Heparin 5,000u SC q8h and SCDs Pepcid 20mg PO BID Diabetic diet PT/OT eval and treat Disposition: Plans to attempt to obtain medication called Eskristin (Pirfenidone) as patient is without insurance and home oxygen All plans reviewed and discussed with Dr. Ramos Status: Acute <Brad Ramos - Last Filed: 11/15/17 13:56> Objective - Vital Signs/Intake and Output Vital Signs (last 24 hours): Temp Pulse Resp BP Pulse Ox 97.4 F L 82 20 142/61 100 11/15/17 07:30 11/15/17 08:00 11/15/17 07:30 11/15/17 07:30 11/15/17 07:30 - Medications Medications: Current Medications Acetaminophen (Tylenol 325mg Tab) 650 mg PO Q6 PRN PRN Reason: Headache Last Admin: 11/15/17 11:33 Dose: 650 mg Albuterol (Ventolin Hfa 90 Mcg/Actuation (8 G)) 2 puff INH RQ6 PRN PRN Reason: SOB Budesonide (Pulmicort Respules) 0.25 mg INH RQ12 [facility] Last Admin: 11/15/17 07:16 Dose: 0.25 mg Famotidine (Pepcid) 20 mg PO BID [facility] Last Admin: 11/15/17 09:50 Dose: 20 mg Heparin Sodium (Porcine) (Heparin) 5,000 units SC Q8 [facility] Last Admin: 11/15/17 05:46 Dose: 5,000 units Ciprofloxacin (Cipro 400mg/200ml Dsw) 400 mg in 200 mls @ 133 mls/hr IVPB Q12H [facility] PRN Reason: Protocol Last Admin: 11/15/17 04:30 Dose: 133 mls/hr Insulin Glargine (Lantus) 34 unit SC DAILY [facility] Last Admin: 11/15/17 09:54 Dose: 34 units Insulin Human Regular (Novolin R) 4 unit SC TIDAC [facility] Last Admin: 11/15/17 12:41 Dose: 4 unit Insulin Human Regular (Novolin R) 0 unit SC ACHS [facility] PRN Reason: Protocol Last Admin: 11/15/17 12:42 Dose: 2 unit Isosorbide Mononitrate (Imdur Er) 60 mg PO DAILY [facility] Last Admin: 11/15/17 09:50 Dose: 60 mg Levothyroxine Sodium (Synthroid) 50 mcg PO 0630 [facility] Last Admin: 11/15/17 05:46 Dose: 50 mcg Prednisone (Prednisone Tab) 40 mg PO DAILY [facility] Last Admin: 11/15/17 09:50 Dose: 40 mg - Labs Labs: 11/15/17 07:58 11/15/17 07:58 PT 12.5 SECONDS (9.7-12.2) H 11/08/17 10:14 INR 1.1 11/08/17 10:14 Attending/Attestation - Attestation I have personally seen and examined this patient.: Yes I have fully participated in the care of the patient.: Yes I have reviewed all pertinent clinical information, including history, physical exam and plan: Yes Notes (Text): Patient was seen and examined No complain. Chronic lung disease with sob and cough without sputum on home oxygen 1. Idiopathic pulmonary fibrosis continue solumedrol and Advair seen by Dr Alvarado , started on cipro ,oral prednisone and pulmicort 2.Hypothyroidism Levothyroxine 50 mcg PO daily 3.DM Lantus to 34u SC HS Regular insulin 4u SC TIDAC 4.s/p chest pain continue Isosorbide Mononitrate follow CW about d/c on oxygen continue dvt and gi prophylaxis
[2017-11-14] MEDS: Ciprofloxacin 400mg/200ml D5W 400 MG/200 ML BAG IVPB SCH (17:31)
[2017-11-14] MEDS: Budesonide 0.25 mg/2 ml Inhal Susp UD INH SCH (19:15)
[2017-11-14 20:09] LABS: SCL-70 ANTIBODY <1.0 AI (<1.0)
[2017-11-15] MEDS: Ciprofloxacin 400mg/200ml D5W 400 MG/200 ML BAG IVPB SCH ×2 (04:30→15:50)
[2017-11-15] MEDS: Levothyroxine 50 MCG TAB PO SCH (05:46)
[2017-11-15] MEDS: Budesonide 0.25 mg/2 ml Inhal Susp UD INH SCH ×2 (07:16→19:33)
[2017-11-15 08:33] LABS: BASO % 0.1 % (0.0-2.0); HEMOGLOBIN 12.4 g/dL (11.0-16.0); LYMPH # 2.2 K/uL (1.0-4.3); LYMPH % 14.5 % (20.0-40.0); MEAN CORPUSCULAR HEMOGLOBIN 31.2 pg (27.0-31.0); MEAN CORPUSCULAR HGB CONC 33.9 g/dL (33.0-37.0); MEAN PLATELET VOLUME 8.7 fL (7.2-11.7); MONO # 1.2 K/uL (0.0-0.8); MONO % 7.9 % (0.0-10.0); NEUT # 11.9 K/uL (1.8-7.0); NEUT % 77.5 % (50.0-75.0); NRBC % 0.1 % (0.0-2.0); RBC 3.97 Mil/uL (3.80-5.20); WHITE BLOOD COUNT 15.3 K/uL (4.8-10.8)
[2017-11-15 08:47] LABS: ALB/GLOB RATIO 0.9 (1.0-2.1); ALBUMIN 3.3 g/dL (3.5-5.0); ALT/SGPT 18 U/L (9-52); AST/SGOT 19 U/L (14-36); BLOOD UREA NITROGEN 24 mg/dL (7-17); CALCIUM 8.8 mg/dl (8.6-10.4); GFR AFRICAN-AMERICAN > 60; GFR NON-AFRICAN AMERICAN > 60
[2017-11-15] MEDS: (Novolin R) Insulin Human Regular 100 units/ml vial SC SCH ×7 (08:52→21:20)
[2017-11-15] MEDS: (Lantus) Insulin Glargine, Recombinant SC SCH (09:54)
--- NOTE | 2017-11-15 15:13 | CP.PCM.PN ---
<Enrico Lyman E - Last Filed: 11/15/17 15:11> Subjective - Date & Time of Evaluation Date of Evaluation: 11/15/17 Time of Evaluation: 07:05 - Subjective Subjective: Medicine progress note ( Dr. Ramos's service) Patient was seen and examined at bedside. Patient states that she is doing well with no acute issues. Patient denies fever, chills, nausea, vomiting, chest pain , SOB, palpitations. Patient admits to decrease cough. Patient reports that she has oxygen at home but will need to be set up for ref[place]. Objective - Vital Signs/Intake and Output Vital Signs (last 24 hours): Temp Pulse Resp BP Pulse Ox 97.4 F L 82 20 142/61 100 11/15/17 07:30 11/15/17 08:00 11/15/17 07:30 11/15/17 07:30 11/15/17 07:30 Intake and Output: 11/15/17 11/15/17 06:59 18:59 Intake Total 280 Balance 280 - Medications Medications: Current Medications Acetaminophen (Tylenol 325mg Tab) 650 mg PO Q6 PRN PRN Reason: Headache Last Admin: 11/15/17 11:33 Dose: 650 mg Albuterol (Ventolin Hfa 90 Mcg/Actuation (8 G)) 2 puff INH RQ6 PRN PRN Reason: SOB Budesonide (Pulmicort Respules) 0.25 mg INH RQ12 [facility] Last Admin: 11/15/17 07:16 Dose: 0.25 mg Famotidine (Pepcid) 20 mg PO BID [facility] Last Admin: 11/15/17 09:50 Dose: 20 mg Heparin Sodium (Porcine) (Heparin) 5,000 units SC Q8 [facility] Last Admin: 11/15/17 14:13 Dose: 5,000 units Ciprofloxacin (Cipro 400mg/200ml Dsw) 400 mg in 200 mls @ 133 mls/hr IVPB Q12H [facility] PRN Reason: Protocol Last Admin: 11/15/17 04:30 Dose: 133 mls/hr Insulin Glargine (Lantus) 34 unit SC DAILY [facility] Last Admin: 11/15/17 09:54 Dose: 34 units Insulin Human Regular (Novolin R) 4 unit SC TIDAC [facility] Last Admin: 11/15/17 12:41 Dose: 4 unit Insulin Human Regular (Novolin R) 0 unit SC ACHS [facility] PRN Reason: Protocol Last Admin: 11/15/17 12:42 Dose: 2 unit Isosorbide Mononitrate (Imdur Er) 60 mg PO DAILY [facility] Last Admin: 11/15/17 09:50 Dose: 60 mg Levothyroxine Sodium (Synthroid) 50 mcg PO 0630 [facility] Last Admin: 11/15/17 05:46 Dose: 50 mcg Prednisone (Prednisone Tab) 40 mg PO DAILY [facility] Last Admin: 11/15/17 09:50 Dose: 40 mg - Labs Labs: 11/15/17 07:58 11/15/17 07:58 PT 12.5 SECONDS (9.7-12.2) H 11/08/17 10:14 INR 1.1 11/08/17 10:14 - Constitutional Appears: No Acute Distress - Head Exam Head Exam: ATRAUMATIC, NORMAL INSPECTION - Eye Exam Eye Exam: EOMI - ENT Exam ENT Exam: Mucous Membranes Moist - Respiratory Exam Respiratory Exam: Rhonchi, NORMAL BREATHING PATTERN. absent: Decreased Breath Sounds, Wheezes, Respiratory Distress - Cardiovascular Exam Cardiovascular Exam: REGULAR RHYTHM, +S1, +S2 - GI/Abdominal Exam GI & Abdominal Exam: Soft, Normal Bowel Sounds. absent: Distended, Firm, Guarding, Rigid, Tenderness - Extremities Exam Extremities Exam: Normal Inspection. absent: Calf Tenderness, Pedal Edema - Neurological Exam Neurological Exam: Alert, Awake, Oriented x3 - Psychiatric Exam Psychiatric exam: Normal Affect - Skin Skin Exam: Normal Color Assessment and Plan (1) Idiopathic pulmonary fibrosis Assessment & Plan: Acute exacerbation [facility] Hostess consult, Dr. Alvarado---> Help appreciated * Management as per recommendation Imaging: CXR 11/08 - Bilateral, right worse than left, fibrotic changes. No focal consolidation or pleural effusion. Chest CT 11/08 - Chronic interstitial fibrotic change throughout the right lung. Multifocal left-sided subpleural fibrosis. Varicoid bronchiectasis bilaterally , right greater than left. Dilated main pulmonary artery. No other significant abnormality. Meds: Albuterol 2 puff INH RQ6H Solumedrol 40mg IV Q12H ---> 40mg PO daily Pulmicort 0.25mg INH Q12H Rocephin 1g IVPB Q12H for empiric coverage---> Discontinued 11/14/2017 Cipro 400mg IV Q12 H ( Started 11/14/17) Status: Acute (2) Hypothyroidism Assessment & Plan: TSH/free T4 0.24/1.59 (11/09/17) * Continue home medication Levothyroxine 50 mcg PO daily Status: Acute (3) Uncontrolled diabetes mellitus Assessment & Plan: Hgb A1c 8.2 (11/09/17) Accuchecks ACHS RISS - high (2/2 to steroids) Lantus to 34u SC HS Regular insulin 4u SC TIDAC Status: Acute (4) Chest pain Assessment & Plan: Resolved without treatment Troponin neg x3 EKG - Sinus Tach @102bpm, Q waves in inferior and anterior leads on admission. No changes from prior EKGs. Previous ECHO (08/07/17): LVEF ~55%, normal systolic and diastolic function, normal Right/Left Atrium size, normal Right/Left Ventricle Size Lipid panel NORMAL Isosorbide Mononitrate 60mg PO QD Status: Resolved (5) Prophylactic measure Assessment & Plan: VTE: Heparin 5,000u SC q8h and SCDs Pepcid 20mg PO BID Diabetic diet PT/OT eval and treat Disposition: home health care case manager is working on setting up home oxygen; this was discussed with patient's niece, who will pay for monthly oxygen refill All plans reviewed and discussed with Dr. Ramos Status: Acute <Brad Ramos - Last Filed: 11/15/17 16:12> Objective - Vital Signs/Intake and Output Vital Signs (last 24 hours): Temp Pulse Resp BP Pulse Ox 97.4 F L 82 20 142/61 100 11/15/17 07:30 11/15/17 08:00 11/15/17 07:30 11/15/17 07:30 11/15/17 07:30 Intake and Output: 11/15/17 11/15/17 06:59 18:59 Intake Total 280 Balance 280 - Medications Medications: Current Medications Acetaminophen (Tylenol 325mg Tab) 650 mg PO Q6 PRN PRN Reason: Headache Last Admin: 11/15/17 11:33 Dose: 650 mg Albuterol (Ventolin Hfa 90 Mcg/Actuation (8 G)) 2 puff INH RQ6 PRN PRN Reason: SOB Budesonide (Pulmicort Respules) 0.25 mg INH RQ12 [facility] Last Admin: 11/15/17 07:16 Dose: 0.25 mg Famotidine (Pepcid) 20 mg PO BID [facility] Last Admin: 11/15/17 09:50 Dose: 20 mg Heparin Sodium (Porcine) (Heparin) 5,000 units SC Q8 [facility] Last Admin: 11/15/17 14:13 Dose: 5,000 units Ciprofloxacin (Cipro 400mg/200ml Dsw) 400 mg in 200 mls @ 133 mls/hr IVPB Q12H [facility] PRN Reason: Protocol Last Admin: 11/15/17 15:50 Dose: 133 mls/hr Insulin Glargine (Lantus) 34 unit SC DAILY [facility] Last Admin: 11/15/17 09:54 Dose: 34 units Insulin Human Regular (Novolin R) 4 unit SC TIDAC [facility] Last Admin: 11/15/17 12:41 Dose: 4 unit Insulin Human Regular (Novolin R) 0 unit SC ACHS [facility] PRN Reason: Protocol Last Admin: 11/15/17 12:42 Dose: 2 unit Isosorbide Mononitrate (Imdur Er) 60 mg PO DAILY [facility] Last Admin: 11/15/17 09:50 Dose: 60 mg Levothyroxine Sodium (Synthroid) 50 mcg PO 0630 [facility] Last Admin: 11/15/17 05:46 Dose: 50 mcg Prednisone (Prednisone Tab) 40 mg PO DAILY [facility] Last Admin: 11/15/17 09:50 Dose: 40 mg - Labs Labs: 11/15/17 07:58 11/15/17 07:58 PT 12.5 SECONDS (9.7-12.2) H 11/08/17 10:14 INR 1.1 11/08/17 10:14 Attending/Attestation - Attestation I have personally seen and examined this patient.: Yes I have fully participated in the care of the patient.: Yes I have reviewed all pertinent clinical information, including history, physical exam and plan: Yes Notes (Text): Patient was seen and examined,sitting on the chair and coughing,Mild sob No complain. Chronic lung disease with sob and cough without sputum on home oxygen 1. Idiopathic pulmonary fibrosis continue solumedrol and Advair seen by Dr Alvarado , started on cipro ,oral prednisone and pulmicort 2.Hypothyroidism Levothyroxine 50 mcg PO daily 3.DM Lantus to 34u SC HS Regular insulin 4u SC TIDAC 4.s/p chest pain continue Isosorbide Mononitrate follow CW about oxygen supply.patient has Portable Home Oxygen Concentrator. continue dvt and gi prophylaxis D/W Resident Possible discharge after oxygen arrangement.continue cipro IV,pulmicort and oral prednisone I agree with the documentation of the resident
--- NOTE | 2017-11-15 16:00 | CP.PCM.PN ---
Subjective - Date & Time of Evaluation Date of Evaluation: 11/15/17 Time of Evaluation: 11:20 - Subjective Subjective: Patient seen and examined at bedside. Afebrile. Resting comfortably. Offers no complaints today, other than her cough, which is improving. Assessment and Plan: 1.Pulmonary fibrosis - CXR 11/08: Bilateral fibrotic changes R>L. No focal consolidation or pleural effusion - CT Chest 11/08: Chronic interstitial fibrotic changes throughout the right lung. Multifocal left-sided subpleural fibrosis. Varicoid bronchiectasis bilateral R>L. Dilated main pulmonary artery - Saturating 95-100% over last 24 hrs - nebullizer treatments - Albuterol - Solumedrol switched to prednisone 40mg PO - Advair 250/50 - pulmicort - Patient lacks insurance, primary team looking to get her home O2 and [place]riet 2. Bronchiectasis secondary to pulmonary fibrosis - CBC 11/15: WBC 15.3/neutros 77.5/ no bands - rocephin switched to cipro Objective - Vital Signs/Intake and Output Vital Signs (last 24 hours): Temp Pulse Resp BP Pulse Ox 97.4 F L 82 20 142/61 100 11/15/17 07:30 11/15/17 08:00 11/15/17 07:30 11/15/17 07:30 11/15/17 07:30 Intake and Output: 11/15/17 11/15/17 06:59 18:59 Intake Total 280 Balance 280 - Medications Medications: Current Medications Acetaminophen (Tylenol 325mg Tab) 650 mg PO Q6 PRN PRN Reason: Headache Last Admin: 11/15/17 11:33 Dose: 650 mg Albuterol (Ventolin Hfa 90 Mcg/Actuation (8 G)) 2 puff INH RQ6 PRN PRN Reason: SOB Budesonide (Pulmicort Respules) 0.25 mg INH RQ12 [facility] Last Admin: 11/15/17 07:16 Dose: 0.25 mg Famotidine (Pepcid) 20 mg PO BID [facility] Last Admin: 11/15/17 09:50 Dose: 20 mg Heparin Sodium (Porcine) (Heparin) 5,000 units SC Q8 [facility] Last Admin: 11/15/17 14:13 Dose: 5,000 units Ciprofloxacin (Cipro 400mg/200ml Dsw) 400 mg in 200 mls @ 133 mls/hr IVPB Q12H [facility] PRN Reason: Protocol Last Admin: 11/15/17 15:50 Dose: 133 mls/hr Insulin Glargine (Lantus) 34 unit SC DAILY [facility] Last Admin: 11/15/17 09:54 Dose: 34 units Insulin Human Regular (Novolin R) 4 unit SC TIDAC [facility] Last Admin: 11/15/17 12:41 Dose: 4 unit Insulin Human Regular (Novolin R) 0 unit SC ACHS [facility] PRN Reason: Protocol Last Admin: 11/15/17 15:59 Dose: Not Given Isosorbide Mononitrate (Imdur Er) 60 mg PO DAILY [facility] Last Admin: 11/15/17 09:50 Dose: 60 mg Levothyroxine Sodium (Synthroid) 50 mcg PO 0630 [facility] Last Admin: 11/15/17 05:46 Dose: 50 mcg Prednisone (Prednisone Tab) 40 mg PO DAILY [facility] Last Admin: 11/15/17 09:50 Dose: 40 mg - Labs Labs: 11/15/17 07:58 11/15/17 07:58 PT 12.5 SECONDS (9.7-12.2) H 11/08/17 10:14 INR 1.1 11/08/17 10:14
[2017-11-16 01:02] VITALS: RESP 20
[2017-11-16] MEDS: Ciprofloxacin 400mg/200ml D5W 400 MG/200 ML BAG IVPB SCH ×2 (04:19→17:35)
[2017-11-16] MEDS: Levothyroxine 50 MCG TAB PO SCH (05:34)
[2017-11-16] MEDS: Budesonide 0.25 mg/2 ml Inhal Susp UD INH SCH (07:20)
[2017-11-16] MEDS: (Novolin R) Insulin Human Regular 100 units/ml vial SC SCH ×6 (07:28→17:35)
[2017-11-16 07:38] LABS: BASO % 0.2 % (0.0-2.0); EOS # 0.3 K/uL (0.0-0.7); EOS % 1.7 % (0.0-4.0); HEMOGLOBIN 12.3 g/dL (11.0-16.0); LYMPH # 5.4 K/uL (1.0-4.3); LYMPH % 28.8 % (20.0-40.0); MEAN CELL VOLUME 93.5 fL (81.0-99.0); MEAN CORPUSCULAR HEMOGLOBIN 31.1 pg (27.0-31.0); MEAN CORPUSCULAR HGB CONC 33.3 g/dL (33.0-37.0); MEAN PLATELET VOLUME 8.6 fL (7.2-11.7); MONO # 1.5 K/uL (0.0-0.8); MONO % 8.1 % (0.0-10.0); NEUT # 11.4 K/uL (1.8-7.0); NEUT % 61.2 % (50.0-75.0); RBC 3.95 Mil/uL (3.80-5.20); RED CELL DISTRIBUTION WIDTH 14.5 % (11.5-14.5); WHITE BLOOD COUNT 18.7 K/uL (4.8-10.8)
[2017-11-16 07:49] LABS: ALB/GLOB RATIO 0.9 (1.0-2.1); ALBUMIN 3.5 g/dL (3.5-5.0); ALT/SGPT 24 U/L (9-52); AST/SGOT 23 U/L (14-36); BLOOD UREA NITROGEN 25 mg/dL (7-17); CALCIUM 8.8 mg/dl (8.6-10.4); GFR AFRICAN-AMERICAN > 60; GFR NON-AFRICAN AMERICAN > 60
[2017-11-16] MEDS: (Lantus) Insulin Glargine, Recombinant SC SCH (09:09)
--- NOTE | 2017-11-16 12:42 | CP.PCM.PN ---
Subjective - Date & Time of Evaluation Date of Evaluation: 11/16/17 Time of Evaluation: 11:00 - Subjective Subjective: Patient seen and examined seated in a chair. Afebrile. Resting comfortably. Offers no complaints today, other than her nonproductive cough, which is improving. Assessment and Plan: 1.Pulmonary fibrosis - CXR 11/08: Bilateral fibrotic changes R>L. No focal consolidation or pleural effusion - CT Chest 11/08: Chronic interstitial fibrotic changes throughout the right lung. Multifocal left-sided subpleural fibrosis. Varicoid bronchiectasis bilateral R>L. Dilated main pulmonary artery - Saturating 95-100% over last 24 hrs - nebullizer treatments - Albuterol - Solumedrol switched to prednisone 40mg PO - Advair 250/50 - Patient lacks insurance, primary team looking to get her home O2 and [place]riet 2. Bronchiectasis secondary to pulmonary fibrosis - CBC 11/16: WBC 18.7, continues to trend up - cipro Objective - Vital Signs/Intake and Output Vital Signs (last 24 hours): Temp Pulse Resp BP Pulse Ox 97.7 F 76 20 110/66 97 11/16/17 08:48 11/16/17 09:08 11/16/17 08:48 11/16/17 09:08 11/16/17 08:48 - Medications Medications: Current Medications Acetaminophen (Tylenol 325mg Tab) 650 mg PO Q6 PRN PRN Reason: Headache Last Admin: 11/16/17 04:22 Dose: 650 mg Albuterol (Ventolin Hfa 90 Mcg/Actuation (8 G)) 2 puff INH RQ6 PRN PRN Reason: SOB Budesonide (Pulmicort Respules) 0.25 mg INH RQ12 [facility] Last Admin: 11/16/17 07:20 Dose: 0.25 mg Famotidine (Pepcid) 20 mg PO BID [facility] Last Admin: 11/16/17 09:09 Dose: 20 mg Heparin Sodium (Porcine) (Heparin) 5,000 units SC Q8 [facility] Last Admin: 11/16/17 05:34 Dose: 5,000 units Ciprofloxacin (Cipro 400mg/200ml Dsw) 400 mg in 200 mls @ 133 mls/hr IVPB Q12H [facility] PRN Reason: Protocol Last Admin: 11/16/17 04:19 Dose: 133 mls/hr Insulin Glargine (Lantus) 34 unit SC DAILY [facility] Last Admin: 11/16/17 09:09 Dose: 34 units Insulin Human Regular (Novolin R) 4 unit SC TIDAC [facility] Last Admin: 11/16/17 12:12 Dose: 4 unit Insulin Human Regular (Novolin R) 0 unit SC ACHS [facility] PRN Reason: Protocol Last Admin: 11/16/17 12:12 Dose: 2 unit Isosorbide Mononitrate (Imdur Er) 60 mg PO DAILY [facility] Last Admin: 11/16/17 09:08 Dose: 60 mg Levothyroxine Sodium (Synthroid) 50 mcg PO 0630 [facility] Last Admin: 11/16/17 05:34 Dose: 50 mcg Prednisone (Prednisone Tab) 40 mg PO DAILY [facility] Last Admin: 11/16/17 09:09 Dose: 40 mg - Labs Labs: 11/16/17 07:15 11/16/17 07:15 PT 12.5 SECONDS (9.7-12.2) H 11/08/17 10:14 INR 1.1 11/08/17 10:14
[2017-11-16 15:48] VITALS: BP 112/60; TEMP 97.9; O2SAT 96
--- NOTE | 2017-11-16 17:18 | CP.PCM.DIS ---
<NuraNanyselina E - Last Filed: 11/16/17 19:20> Provider - Provider Date of Admission: 11/08/17 13:12 Attending physician: Arben Christianson DO Time Spent in preparation of Discharge (in minutes): 35 Diagnosis - Discharge Diagnosis (1) Idiopathic pulmonary fibrosis Status: Chronic (2) Hypothyroidism Status: Chronic (3) Uncontrolled diabetes mellitus Status: Chronic (4) Chest pain Status: Resolved (5) Prophylactic measure Status: Acute Hospital Course - Lab Results Lab Results: Micro Results 11/10/17 17:00 Blood Blood Culture - Final NO GROWTH AFTER 5 DAYS 11/10/17 17:00 Blood Gram Stain - Final TEST NOT PERFORMED 11/10/17 17:14 Blood Blood Culture - Final NO GROWTH AFTER 5 DAYS 11/10/17 17:14 Blood Gram Stain - Final TEST NOT PERFORMED 11/08/17 19:00 Blood Blood Culture - Final NO GROWTH AFTER 5 DAYS 11/08/17 19:00 Blood Gram Stain - Final TEST NOT PERFORMED 11/08/17 19:00 Blood Blood Culture - Final Bacillus Species 11/08/17 19:00 Blood Gram Stain - Final Most Recent Lab Values WBC 18.7 K/uL (4.8-10.8) H 11/16/17 07:15 RBC 3.95 Mil/uL (3.80-5.20) 11/16/17 07:15 Hgb 12.3 g/dL (11.0-16.0) 11/16/17 07:15 Hct 37.0 % (34.0-47.0) 11/16/17 07:15 MCV 93.5 fL (81.0-99.0) 11/16/17 07:15 MCH 31.1 pg (27.0-31.0) H 11/16/17 07:15 MCHC 33.3 g/dL (33.0-37.0) 11/16/17 07:15 RDW 14.5 % (11.5-14.5) 11/16/17 07:15 Plt Count 283 K/uL (130-400) 11/16/17 07:15 MPV 8.6 fL (7.2-11.7) 11/16/17 07:15 Neut % (Auto) 61.2 % (50.0-75.0) 11/16/17 07:15 Lymph % (Auto) 28.8 % (20.0-40.0) 11/16/17 07:15 [place] % (Auto) 8.1 % (0.0-10.0) 11/16/17 07:15 Eos % (Auto) 1.7 % (0.0-4.0) 11/16/17 07:15 Baso % (Auto) 0.2 % (0.0-2.0) 11/16/17 07:15 Neut # (Auto) 11.4 K/uL (1.8-7.0) H 11/16/17 07:15 Lymph # (Auto) 5.4 K/uL (1.0-4.3) H 11/16/17 07:15 [place] # (Auto) 1.5 K/uL (0.0-0.8) H 11/16/17 07:15 Eos # (Auto) 0.3 K/uL (0.0-0.7) 11/16/17 07:15 Baso # (Auto) 0.0 K/uL (0.0-0.2) 11/16/17 07:15 Neutrophils % (Manual) 86 % (50-75) H 11/12/17 07:47 Band Neutrophils % 2 % (0-2) 11/12/17 07:47 Lymphocytes % (Manual) 8 % (20-40) L 11/12/17 07:47 Monocytes % (Manual) 4 % (0-10) 11/12/17 07:47 Toxic Granulation Present 11/12/17 07:47 Platelet Estimate Normal (NORMAL) 11/12/17 07:47 Large Platelets Present 11/12/17 07:47 Giant Platelets Present 11/10/17 06:23 Polychromasia Slight 11/12/17 07:47 Hypochromasia (manual) Slight 11/12/17 07:47 Anisocytosis (manual) Slight 11/12/17 07:47 Macrocytosis (manual) Slight 11/10/17 06:23 PT 12.5 SECONDS (9.7-12.2) H 11/08/17 10:14 INR 1.1 11/08/17 10:14 D-Dimer, Quantitative 291 ng/mlDDU (0-243) H 11/10/17 14:32 Sodium 140 mmol/L (132-148) 11/16/17 07:15 Potassium 3.6 mmol/L (3.6-5.2) 11/16/17 07:15 Chloride 97 mmol/L (98-107) L 11/16/17 07:15 Carbon Dioxide 29 mmol/L (22-30) 11/16/17 07:15 Anion Gap 18 (10-20) 11/16/17 07:15 BUN 25 mg/dL (7-17) H 11/16/17 07:15 Creatinine 0.6 mg/dL (0.7-1.2) L 11/16/17 07:15 Est GFR ( Amer) > 60 11/16/17 07:15 Est GFR (Non-Af Amer) > 60 11/16/17 07:15 POC Glucose (mg/dL) 208 mg/dL (65-110) H 11/16/17 16:11 Random Glucose 97 mg/dL (65-105) 11/16/17 07:15 Hemoglobin A1c 8.2 % (4.2-6.5) H 11/09/17 07:27 Calcium 8.8 mg/dl (8.6-10.4) 11/16/17 07:15 Phosphorus 3.4 mg/dL (2.5-4.5) 11/16/17 07:15 Magnesium 2.0 mg/dL (1.6-2.3) 11/16/17 07:15 Total Bilirubin 0.6 mg/dL (0.2-1.3) 11/16/17 07:15 AST 23 U/L (14-36) 11/16/17 07:15 ALT 24 U/L (9-52) 11/16/17 07:15 Alkaline Phosphatase 68 U/L (38-126) 11/16/17 07:15 Total Creatine Kinase < 20 U/L (30-135) L 11/11/17 14:07 CK-MB (Mass) 0.51 ng/mL (0.0-3.38) 11/11/17 14:07 Troponin I < 0.0120 ng/mL (0.00-0.120) 11/11/17 14:07 Total Protein 7.2 g/dL (6.3-8.3) 11/16/17 07:15 Albumin 3.5 g/dL (3.5-5.0) 11/16/17 07:15 Globulin 3.7 gm/dL (2.2-3.9) 11/16/17 07:15 Albumin/Globulin Ratio 0.9 (1.0-2.1) L 11/16/17 07:15 Triglycerides 86 mg/dL (0-149) 11/09/17 07:27 Cholesterol 180 mg/dL (0-199) 11/09/17 07:27 LDL Cholesterol Direct 121 mg/dL (0-129) 11/09/17 07:27 HDL Cholesterol 35 mg/dL (30-70) 11/09/17 07:27 Free T4 1.58 ng/dL (0.78-2.19) 11/09/17 07: TSH 3rd Generation 0.24 mIU/L (0.46-4.68) L 11/09/17 07:27 Urine Color Yellow (YELLOW) 11/08/17 11:33 Urine Clarity Hazy (Clear) 11/08/17 11:33 Urine pH 5.0 (5.0-8.0) 11/08/17 11:33 Ur Specific [place] 1.012 (1.003-1.030) 11/08/17 11:33 Urine Protein Negative mg/dL (NEGATIVE) 11/08/17 11:33 Urine Glucose (UA) Normal mg/dL (Normal) 11/08/17 11:33 Urine Ketones Negative mg/dL (NEGATIVE) 11/08/17 11:33 Urine Blood Negative (NEGATIVE) 11/08/17 11:33 Urine Nitrate Negative (NEGATIVE) 11/08/17 11:33 Urine Bilirubin Negative (NEGATIVE) 11/08/17 11:33 Urine Urobilinogen Normal mg/dL (0.2-1.0) 11/08/17 11:33 Ur Leukocyte Esterase 2+ Js/uL (Negative) H 11/08/17 11:33 Urine WBC (Auto) 15 /hpf (0-5) H 11/08/17 11:33 Urine RBC (Auto) 1 /hpf (0-3) 11/08/17 11:33 Ur Squamous Epith Cells 6 /hpf (0-5) H 11/08/17 11:33 Rheumatoid Factor IgG 17 U (<=6) H 11/09/17 11:02 Rheumatoid Factor IgA 14 U (<=6) H 11/09/17 11:02 Rheumatoid Factor IgM 62 U (<=6) H 11/09/17 11:02 Cycl Citrul Peptide IgG <16 Units (<20) 11/09/17 11:02 DEMETRIA Nuclear Membr Pat Negative (Negative) 11/09/17 11:02 Scl-70 Scleroderma Ab <1.0 AI (<1.0) 11/09/17 11:02 Influenza Typ A,B (EIA) Negative for flu a/b (NEGATIVE) 11/08/17 09:57 - Hospital Course Hospital Course: HPI (As per admission): Patient is a 77 year old female that moved from [place] in June 2017 with a past medical history (found by chart review, patient did not know PMH) Pulmonary Fibrosis diagnosed in [facility], hypertension, diabetes and hypothyroidism, 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 Patient came to the hospital today because she experienced a 30 minute episode of pressure-like chest pain in the center of her chest this morning while lying down. The pain resolved on her own without taking any medications. She feels short of breath. The patient was recently discharged from [facility] on 09/30 for pulmonary fibrosis and chest pain. Patient was instructed to follow up with the [facility] as outpatient but she did not follow up. She did not fill any discharge medications. She does not know why she did not follow up. She was seen with the same complaints on 08/21 and discharged 08/26/17. She did not follow up or fill her medications on that discharge either. She is complaining of a non- productive cough for 5 months. She also states that she has felt fatigued for approximately 1 year. She notes that she experiencing epigastric pain but is unable to state how long she has had the pain because she "just noticed it." She states she takes medications that she brought with her from [place] but she does not know the names of the medications. "I brought a lot of medications with me". At the time of the exam, the patient states that she is chest pain free. Denies fevers, chills, nausea, vomiting, diarrhea, constipation, chest pain, headache, numbness, tingling, diaphoresis, blurry vision or LOC. Hospital Course: Patient was admitted with the consideration of chest pain, which resolved with treatment and exacerbation of pulmonary fibrosis. Patient . On day 2 of admission, RISK PREVENTION ENGINEER was called by RN for chest pain 10/10 and desaturation into 70s% . Patient was evaluated by both hospitalists, Dr Christianson and Dr Jayden Conner. Stat CIARRA and EKG was ordered. CIARRA came back negative and EKG showed some hypertrophy but otherwise no ST or T wave changes and patient remained stable. Over the course of admission, all cardiac work up was negative. Also, Concrete Mixer Operator Helper, Dr. Alvarado was consulted, who recommended that patient should be discharge on steroid taper, advair and 7 days course of antibiotics and patient should continue home oxygen as usual. Patient is visiting from [facility] and planning on staying in the [facility] for a while, therefore, showcase maker attempted to obtain portable home oxygen for patient, however, due to lack of insurance, this was unsuccessful. Patient's granddaughter was notified about pricing for portable home oxygen and she declined to payment due to financial difficulty. manager adult and I were notified that patient does have concentrated oxygen at home and that would suffice. Patient was discharge with appropriate medications and patient's granddaughter was notified to apply for [facility], so that her grandmother can obtain medical care. Pertinent Imaging/ Labs: CXR 4/4 - Bilateral, right worse than left, fibrotic changes. No focal consolidation or pleural effusion. Chest CT / - Chronic interstitial fibrotic change throughout the right lung. Multifocal left-sided subpleural fibrosis. Varicoid bronchiectasis bilaterally , right greater than left. Dilated main pulmonary artery. No other significant abnormality. Previous ECHO (08/07/17): LVEF ~55%, normal systolic and diastolic function, normal Right/Left Atrium size, normal Right/Left Ventricle Size EKG - Sinus Tach @102bpm, Q waves in inferior and anterior leads on admission. No changes from prior EKGs. Troponin neg x3 EKG - Sinus Tach @102bpm, Q waves in inferior and anterior leads on admission. No changes from prior EKGs. Lipid panel NORMAL Discharge Exam - Head Exam Head Exam: ATRAUMATIC, NORMAL INSPECTION - Eye Exam Eye Exam: EOMI, Normal appearance - Respiratory Exam Respiratory Exam: NORMAL BREATHING PATTERN - Cardiovascular Exam Cardiovascular Exam: REGULAR RHYTHM, +S1, +S2 - GI/Abdominal Exam GI & Abdominal Exam: Normal Bowel Sounds, Soft. absent: Distended, Firm, Guarding, Tenderness - Extremities Exam Extremities exam: normal inspection - Neurological Exam Neurological exam: Alert, Oriented x3 - Psychiatric Exam Psychiatric exam: Normal Affect - Skin Skin Exam: Normal Color Discharge Plan - Discharge Medications Prescriptions: amLODIPine [Norvasc] 5 mg PO DAILY #30 tab Ciprofloxacin [Cipro] 500 mg PO Q12H 7 Days tab Fluticasone/Salmeterol 250/50 [Advair Diskus 250/50] 1 puff INH RQ12 60 Days puff Insulin Glulisine [Apidra] 12 unit SQ AC 60 Days vial Levothyroxine [Synthroid] 50 mcg PO DAILY #30 tab predniSONE [Prednisone] See Taper PO DAILY 60 Days tab - Follow Up Plan Condition: STABLE Disposition: HOME/ ROUTINE Instructions: Shortness of Breath (Dyspnea) (DC), Chest Pain (DC), Diabetes Type 2 (DC), Hypothyroidism (Underactive Thyroid) (DC), Prednisone, Idiopathic Pulmonary Fibrosis (DC) Additional Instructions: Please discharge patient home Please continue on a steriod taper 1. Prednisone 30mg PO for the first 10 days (11/17/17-11/26/17) 2. Prednisone 20mg PO for the 10 days (11/27/17-12/06/17) 3. Prednisone 10mg PO for 10 days (12/07/17-12/16/17) 4. Prednisone 5mg PO daily; you will need this to be refilled as you need to be on this long-term - Ciprofloxacin 400mg PO Q12H for 7 days. Please take this with over the counter probiotics for 7 days. Please resume all your home medications as prescribed to you from your physician in [facility] Patient's niece or family member is fully aware that patient needs oxygen tank but denies payment. Patient does have oxygen concentration at home that she will continue to use Patient is to follow up with her primary care physician and knitting demonstrator in [facility] as she is going back there in December. If not patient should establish care at the [facility], Please use your oxygen at all times. Please take care <Brad Ramos - Last Filed: 11/18/17 11:53> Provider - Provider Date of Admission: 11/08/17 13:12 Attending physician: Arben Christianson, DO Hospital Course - Lab Results Lab Results: Micro Results 11/10/17 17:00 Blood Blood Culture - Final NO GROWTH AFTER 5 DAYS 04/06/18 17:00 Blood Gram Stain - Final TEST NOT PERFORMED 11/10/17 17:14 Blood Blood Culture - Final NO GROWTH AFTER 5 DAYS 11/10/17 17:14 Blood Gram Stain - Final TEST NOT PERFORMED 11/08/17 19:00 Blood Blood Culture - Final NO GROWTH AFTER 5 DAYS 11/08/17 19:00 Blood Gram Stain - Final TEST NOT PERFORMED 11/08/17 19:00 Blood Blood Culture - Final Bacillus Species 11/08/17 19:00 Blood Gram Stain - Final Most Recent Lab Values WBC 18.7 K/uL (4.8-10.8) H 11/16/17 07:15 RBC 3.95 Mil/uL (3.80-5.20) 11/16/17 07:15 Hgb 12.3 g/dL (11.0-16.0) 11/16/17 07:15 Hct 37.0 % (34.0-47.0) 11/16/17 07:15 MCV 93.5 fL (81.0-99.0) 11/16/17 07:15 MCH 31.1 pg (27.0-31.0) H 11/16/17 07:15 MCHC 33.3 g/dL (33.0-37.0) 11/16/17 07:15 RDW 14.5 % (11.5-14.5) 11/16/17 07:15 Plt Count 283 K/uL (130-400) 11/16/17 07:15 MPV 8.6 fL (7.2-11.7) 11/16/17 07:15 Neut % (Auto) 61.2 % (50.0-75.0) 11/16/17 07:15 Lymph % (Auto) 28.8 % (20.0-40.0) 11/16/17 07:15 [place] % (Auto) 8.1 % (0.0-10.0) 11/16/17 07:15 Eos % (Auto) 1.7 % (0.0-4.0) 11/16/17 07:15 Baso % (Auto) 0.2 % (0.0-2.0) 11/16/17 07:15 Neut # (Auto) 11.4 K/uL (1.8-7.0) H 11/16/17 07:15 Lymph # (Auto) 5.4 K/uL (1.0-4.3) H 11/16/17 07:15 [place] # (Auto) 1.5 K/uL (0.0-0.8) H 11/16/17 07:15 Eos # (Auto) 0.3 K/uL (0.0-0.7) 11/16/17 07:15 Baso # (Auto) 0.0 K/uL (0.0-0.2) 11/16/17 07:15 Neutrophils % (Manual) 86 % (50-75) H 11/12/17 07:47 Band Neutrophils % 2 % (0-2) 11/12/17 07:47 Lymphocytes % (Manual) 8 % (20-40) L 11/12/17 07:47 Monocytes % (Manual) 4 % (0-10) 11/12/17 07:47 Toxic Granulation Present 11/12/17 07:47 Platelet Estimate Normal (NORMAL) 11/12/17 07:47 Large Platelets Present 11/12/17 07:47 Giant Platelets Present 11/10/17 06:23 Polychromasia Slight 11/12/17 07:47 Hypochromasia (manual) Slight 11/12/17 07:47 Anisocytosis (manual) Slight 11/12/17 07:47 Macrocytosis (manual) Slight 11/10/17 06:23 PT 12.5 SECONDS (9.7-12.2) H 11/08/17 10:14 INR 1.1 11/08/17 10:14 D-Dimer, Quantitative 291 ng/mlDDU (0-243) H 11/10/17 14:32 Sodium 140 mmol/L (132-148) 11/16/17 07:15 Potassium 3.6 mmol/L (3.6-5.2) 11/16/17 07:15 Chloride 97 mmol/L (98-107) L 11/16/17 07:15 Carbon Dioxide 29 mmol/L (22-30) 11/16/17 07:15 Anion Gap 18 (10-20) 11/16/17 07:15 BUN 25 mg/dL (7-17) H 11/16/17 07:15 Creatinine 0.6 mg/dL (0.7-1.2) L 11/16/17 07:15 Est GFR ( Amer) > 60 11/16/17 07:15 Est GFR (Non-Af Amer) > 60 11/16/17 07:15 POC Glucose (mg/dL) 208 mg/dL (65-110) H 11/16/17 16:11 Random Glucose 97 mg/dL (65-105) 11/16/17 07:15 Hemoglobin A1c 8.2 % (4.2-6.5) H 11/09/17 07:27 Calcium 8.8 mg/dl (8.6-10.4) 11/16/17 07:15 Phosphorus 3.4 mg/dL (2.5-4.5) 11/16/17 07:15 Magnesium 2.0 mg/dL (1.6-2.3) 11/16/17 07:15 Total Bilirubin 0.6 mg/dL (0.2-1.3) 11/16/17 07:15 AST 23 U/L (14-36) 11/16/17 07:15 ALT 24 U/L (9-52) 11/16/17 07:15 Alkaline Phosphatase 68 U/L (38-126) 11/16/17 07:15 Total Creatine Kinase < 20 U/L (30-135) L 11/11/17 14:07 CK-MB (Mass) 0.51 ng/mL (0.0-3.38) 11/11/17 14:07 Troponin I < 0.0120 ng/mL (0.00-0.120) 11/11/17 14:07 Total Protein 7.2 g/dL (6.3-8.3) 11/16/17 07:15 Albumin 3.5 g/dL (3.5-5.0) 11/16/17 07:15 Globulin 3.7 gm/dL (2.2-3.9) 11/16/17 07:15 Albumin/Globulin Ratio 0.9 (1.0-2.1) L 11/16/17 07:15 Triglycerides 86 mg/dL (0-149) 11/09/17 07:27 Cholesterol 180 mg/dL (0-199) 11/09/17 07:27 LDL Cholesterol Direct 121 mg/dL (0-129) 11/09/17 07:27 HDL Cholesterol 35 mg/dL (30-70) 11/09/17 07:27 Free T4 1.58 ng/dL (0.78-2.19) 11/09/17 07:27 TSH 3rd Generation 0.24 mIU/L (0.46-4.68) L 11/09/17 07:27 Urine Color Yellow (YELLOW) 11/08/17 11:33 Urine Clarity Hazy (Clear) 11/08/17 11:33 Urine pH 5.0 (5.0-8.0) 11/08/17 11:33 Ur Specific [place] 1.012 (1.003-1.030) 11/08/17 11:33 Urine Protein Negative mg/dL (NEGATIVE) 11/08/17 11:33 Urine Glucose (UA) Normal mg/dL (Normal) 11/08/17 11:33 Urine Ketones Negative mg/dL (NEGATIVE) 11/08/17 11:33 Urine Blood Negative (NEGATIVE) 11/08/17 11:33 Urine Nitrate Negative (NEGATIVE) 11/08/17 11:33 Urine Bilirubin Negative (NEGATIVE) 11/08/17 11:33 Urine Urobilinogen Normal mg/dL (0.2-1.0) 11/08/17 11:33 Ur Leukocyte Esterase 2+ Js/uL (Negative) H 11/08/17 11:33 Urine WBC (Auto) 15 /hpf (0-5) H 11/08/17 11:33 Urine RBC (Auto) 1 /hpf (0-3) 11/08/17 11:33 Ur Squamous Epith Cells 6 /hpf (0-5) H 11/08/17 11:33 Rheumatoid Factor IgG 17 U (<=6) H 11/09/17 11:02 Rheumatoid Factor IgA 14 U (<=6) H 11/09/17 11:02 Rheumatoid Factor IgM 62 U (<=6) H 11/09/17 11:02 Cycl Citrul Peptide IgG <16 Units (<20) 11/09/17 11:02 DEMETRIA Nuclear Membr Pat Negative (Negative) 11/09/17 11:02 Scl-70 Scleroderma Ab <1.0 AI (<1.0) 11/09/17 11:02 Influenza Typ A,B (EIA) Negative for flu a/b (NEGATIVE) 11/08/17 09:57 Attending/Attestation - Attestation I have personally seen and examined this patient.: Yes I have fully participated in the care of the patient.: Yes I have reviewed all pertinent clinical information, including history, physical exam and plan: Yes Notes (Text): patient is stable for discharge. Discharge plan discussed with the resident. I agree with the documentation of the resident's discharge plan.
[2017-11-16 19:00] VITALS: PULSE 73
== END 2017-11-16 20:30 | disposition home or self-care (01) | DRG 198 ==
LOC: C.ER 09:40 → C.9E 13:12 → OBSVTOIN 13:12 → C.6T 14:02
PROVIDERS: ADMIT Hospitalist; ATTEND Hospitalist
DX: J84.112 Idiopathic pulmonary fibrosis (principal); I25.10 Atherosclerotic heart disease of native coronary artery without angina pectoris; I10 Essential (primary) hypertension; E78.5 Hyperlipidemia, unspecified; E11.65 Type 2 diabetes mellitus with hyperglycemia; Z79.4 Long term (current) use of insulin; Z85.72 Personal history of non-Hodgkin lymphomas; Z88.0 Allergy status to penicillin; Z99.81 Dependence on supplemental oxygen; E03.9 Hypothyroidism, unspecified; J47.9 Bronchiectasis, uncomplicated; Z95.5 Presence of coronary angioplasty implant and graft; Z92.21 Personal history of antineoplastic chemotherapy

== ENCOUNTER 2017-12-10 11:29 | Observation (INO) | payer MEDICAID, OTHER, SELFPAY ==
[2017-12-10 11:30] VITALS: BMI 21.9
--- NOTE | 2017-12-10 12:26 | C.PDOC ---
History Of Present Illness 77 year old female, with past medical history (found by chart review, patient did not know PMHx) Pulmonary fibrosis diagnosed in [place], HTN, diabetes, hypothyroidism, Hx of chemo appx 10 years ago for lymphoma, presents to ED for evaluation of shortness of breath since today. Pt is compliant with home oxygen. Pt reports dyspnea on exertion associated with cough. Pt states she was advised need of lung transplant but unable to due to lack of insurance. Patient is taking Prednisone since 11/16, currently 20mg daily. Denies fever, nausea, or vomiting. History obtained via correspondence analyst. VIA TRANS SOB SINCE TODAY. COMPLIANT W HOME O2. +ORTIZ, COUGH. NO FEVER, NV. 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 PS ADVISED NEEDS LUNG TRANSPLANT BUT UNABLE TO DUE TO LACK OF INSURANCE. ON PREDNISONE SINCE 11/16, CURRENTLY 20 MG DAILY EXAM MILD RESP DIST NONTOXIC LUNGS SPEAKING FULL SENTENCES MID/BASILAR CRACKLES TACHYPNEA CV RRR NO EDEMA WARM DRY REMAINDER NEG Time Seen by Provider: 12/10/17 11:53 Chief Complaint (Nursing): Shortness Of Breath History Per: Patient History/Exam Limitations: no limitations Onset/Duration Of Symptoms: Days Current Symptoms Are (Timing): Still Present Associated Symptoms: denies: Fever, Chills, Sweating, Chest Pain, Bloody Cough Recent travel outside of the [place]: No Additional History Per: Patient Past Medical History Reviewed: Historical Data, Nursing Documentation, Vital Signs Vital Signs: Last Vital Signs Temp 98.2 F 12/10/17 11:41 Pulse 79 12/10/17 11:41 Resp 33 H 12/10/17 11:50 BP 121/65 12/10/17 11:41 Pulse Ox 97 12/10/17 13:06 - Medical History PMH: Bronchitis, CAD, Depression, Diabetes, Gall Bladder Disease ( cholecystectomy), HTN, Hyperlipidemia, Hypothyroidism Denies: HIV, Chronic Kidney Disease Surgical History: Cholecystectomy, Coronary Stent - [facility] INTRODUCE OF OTH THERAP SUBST INTO RESP TRACT, VIA OPENING (08/21/17) INTRODUCTION OF SERUM/TOX/VACCINE INTO MUSCLE, PERC APPROACH (08/21/17) Family History: States: Unknown Family Hx - Social History Hx Alcohol Use: No Hx Substance Use: No Review Of Systems Except As Marked, All Systems Reviewed And Found Negative. Constitutional: Negative for: Fever, Chills Cardiovascular: Negative for: Chest Pain, Palpitations Respiratory: Positive for: Cough, Shortness of Breath, SOB with Excertion. Negative for: Hemoptysis Physical Exam - Physical Exam Appears: Non-toxic, Other (Mild respiratory distress) Skin: Normal Color, Warm, Dry Head: Atraumatic, Normacephalic Eye(s): bilateral: Normal Inspection Oral Mucosa: Moist Neck: Normal ROM, Supple Cardiovascular: Rhythm Regular, No Murmur Respiratory: No Rales, No Rhonchi, No Wheezing, Other (speaking in full sentences, mid basilar crackles, tachypnea) Gastrointestinal/Abdominal: Soft, No Tenderness Extremity: Normal ROM, No Pedal Edema Neurological/Psych: Oriented x3, Normal Speech ED Course And Treatment - Laboratory Results Result Diagrams: 12/10/17 12:34 12/10/17 12:34 O2 Sat by Pulse Oximetry: 97 (RA) Pulse Ox Interpretation: Normal Progress - Re-Evaluation Re-evaluation Note: 12/10/17 12:57 D/W DR MORRELL: EVAL PT DURING PRIOR ADMISSION. AWARE OF ER FINDINGS WILL EVAL IN ER 12/10/17 13:[address] MORRELL RECOMMENDS ADMISSION. CLEARED FOR TELE 12/10/17 13:22 D/W DR AVILA WILL ADMIT - Data Reviewed Data Reviewed: Lab, Diagnostic imaging, EKG, Old records Medical Decision Making Medical Decision Making: Plan: Blood work EKG CXR Albuterol treatment Reassess Disposition Counseled Patient/Family Regarding: Studies Performed, Diagnosis - Disposition Disposition: HOSPITALIZED Disposition Time: 13:22 Condition: STABLE Forms: [facility] ([place]) - POA Present On Arrival: None, Poor Glycemic Control - Clinical Impression Clinical Impression: Hyperglycemia, Hypoxia, Pulmonary fibrosis, Dyspnea - Scribe Statement The provider has reviewed the documentation as recorded by the Darleneibaguilar Conner All medical record entries made by the Scribe were at my direction and personally dictated by me. I have reviewed the chart and agree that the record accurately reflects my personal performance of the history, physical exam, medical decision making, and the department course for this patient. I have also personally directed, reviewed, and agree with the discharge instructions and disposition. Decision To Admit - Pt Status Changed To: Hospital Disposition Of: Observation - . Bed Request Type: Regular Admitting Physician: Arben Avila Patient Diagnosis: Hyperglycemia, Hypoxia, Pulmonary fibrosis, Dyspnea
[2017-12-10] MEDS ORDERED: Albuterol-Ipratrop 3 mg / 0.5 (3 ml) UD IH SCH (12:30)
[2017-12-10 12:37] LABS: BASO # 0.1 K/uL (0.0-0.2); BASO % 0.5 % (0.0-2.0); EOS # 0.1 K/uL (0.0-0.7); EOS % 0.4 % (0.0-4.0); HEMOGLOBIN 12.6 g/dL (11.0-16.0); LYMPH # 1.4 K/uL (1.0-4.3); LYMPH % 8.4 % (20.0-40.0); MEAN CELL VOLUME 93.4 fL (81.0-99.0); MEAN CORPUSCULAR HEMOGLOBIN 31.6 pg (27.0-31.0); MEAN CORPUSCULAR HGB CONC 33.9 g/dL (33.0-37.0); MONO # 0.5 K/uL (0.0-0.8); MONO % 3.3 % (0.0-10.0); NEUT # 14.1 K/uL (1.8-7.0); NEUT % 87.4 % (50.0-75.0); RBC 3.98 Mil/uL (3.80-5.20); RED CELL DISTRIBUTION WIDTH 14.2 % (11.5-14.5); WHITE BLOOD COUNT 16.2 K/uL (4.8-10.8)
[2017-12-10 12:43] LABS: PLATELET COUNT 392 K/uL (130-400)
[2017-12-10] MEDS ORDERED: Albuterol-Ipratrop 3 mg / 0.5 (3 ml) UD ONE ×2 (12:44→12:50)
[2017-12-10 12:50] LABS: BLOOD UREA NITROGEN 20 mg/dL (7-17); CALCIUM 9.4 mg/dl (8.6-10.4); GFR AFRICAN-AMERICAN > 60; GFR NON-AFRICAN AMERICAN > 60
[2017-12-10 13:03] LABS: B-TYPE NATRIURETIC PEPTIDE 145 pg/mL (0-900)
[2017-12-10] MEDS: Albuterol-Ipratrop 3 mg / 0.5 (3 ml) UD INH SCH (13:09)
[2017-12-10] MEDS ORDERED: MethylPREDNISolone 40 mg Vial IVP STA (13:13)
--- NOTE | 2017-12-10 13:17 | RAD ---
PROCEDURE: CHEST RADIOGRAPH, 1 VIEW HISTORY: SOB COMPARISON: Comparison made with chest radiograph and CT scan chest both dated 11/08/2017 FINDINGS: LUNGS: Poor inspiration with low lung volumes, crowded bronchovascular markings and bibasilar atelectasis. Diffuse interstitial fibrosis are seen throughout the right lung. . Varicose type bronchiectasis in the upper middle and lower lobes poorly seen wall as compared high-resolution CT chest. . . Mild bronchiectasis in the left lower lobe, lingular and left upper lobe poorly seen as well. . PLEURA: No evidence of pneumothorax CARDIOVASCULAR: Heart remains enlarged OSSEOUS STRUCTURES: No significant abnormalities. VISUALIZED UPPER ABDOMEN: Normal. OTHER FINDINGS: None. IMPRESSION: Poor inspiration with low lung volumes, crowded bronchovascular markings and bibasilar atelectasis. Diffuse interstitial fibrosis are seen throughout the right lung. . Varicose type bronchiectasis in the upper middle and lower lobes poorly seen as compared to high-resolution CT chest. . . Mild bronchiectasis in the left lower lobe, lingular and left upper lobe poorly seen as well. .
[2017-12-10 14:04] LABS: BASOPHIL 1 % (0-2); EOSINOPHIL 1 % (0-4); LYMPHOCYTE 7 % (20-40); MONOCYTE 3 % (0-10); NEUTROPHIL 88 % (50-75); PLATELET ESTIMATE NORMAL (NORMAL); TOTAL CELLS COUNTED 100
[2017-12-10 14:05] LABS: ANISOCYTOSIS SLIGHT
[2017-12-10 14:06] LABS: TOXIC GRANULATION PRESENT
[2017-12-10 14:07] LABS: LARGE PLATELETS PRESENT
[2017-12-10] MEDS: (Novolin R) Insulin Human Regular 100 units/ml vial SC SCH ×2 (14:22→21:26)
--- NOTE | 2017-12-10 14:45 | CP.PCM.HP ---
History of Present Illness - History of Present Illness History of Present Illness: CC: Shortness of breath HPI: Patient is a 77 year old female that moved from [facility] in June of 2017 with a past medical history (found by chart and with patient's help) of pulmonary fibrosis diagnosed in [facility], hypertension, diabetes, and hypothyroidism as well as a history of chemotherapy 10 years ago for lymphoma. Patient experienced severe shortness of breath this morning at 7am that did not get better with her home oxygen. Her home oxygen is normally set to 3L. She currently still feels short of breath but better than this morning. Patient arrived here by ambulance. Patient lives on the third floor of her apartment building and was unable to get down on her own. At baseline, patient is able to walk minimally on her own. She needs assistance using the stairs so she generally stays at home. Furthermore, at baseline, patient sleeps on 1 pillow at night. Patient lives with her niece. Patient was discharged in November for similar symptoms and was instructed to follow up with the [facility] outpatient but she did not follow up. She has had similar complaints in August and September. She also complains of a non-productive cough for the past several months. 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 Patient also experiences headaches occasionally for which she takes 2 pills of Tylenol (dosage unknown). Patient denies fever, chills, nausea, vomiting, diarrhea, constipation, chest pain, numbness, tingling, dysuria, hematuria, hematochezia, and sick contacts. PMD: Denies Allergies: PCN (anaphylaxis) PMHX: (Found by chart review, patient did not know PMH) Pulmonary Fibrosis diagnosed in [facility], Hypertension, Diabetes, Hypothyroidism. History of chemotherapy approximately 10 years ago for Lymphoma. PSHX: Cholecystectomy, Stomach Reduction Surgery Family: Unknown for parents. Brother has lung problems and is also on home oxygen Social: Denies tobacco, alcohol, or illicit drug use. Patient lives with niece in an apartment building on the third floor. Meds: Prednisone 20mg QD, Amlodipine 5mg QD, Insulin Glargine 12 units before meals, Isosorbide Nitrate 10mg, Levothyroxine 50mcg, Pulmicort 1 puff BID Present on Admission - Present on Admission Any Indicators Present on Admission: No History of DVT/PE: No History of Uncontrolled Diabetes: No Urinary Catheter: No Decubitus Ulcer Present: No Review of Systems - Constitutional Constitutional: Fatigue. absent: Chills, Fever - EENT Eyes: absent: Blurred Vision, Change in Vision Nose/Mouth/Throat: absent: Nasal Congestion, Sore Throat - Cardiovascular Cardiovascular: Dyspnea. absent: Chest Pain, Leg Edema, Palpitations - Respiratory Respiratory: Cough, Dyspnea, Dyspnea on Exertion - Gastrointestinal Gastrointestinal: absent: Constipation, Diarrhea, Hematochezia, Melena, Nausea, Vomiting - Genitourinary Genitourinary: absent: Difficulty Urinating, Dysuria, Hematuria - Musculoskeletal Musculoskeletal: absent: Numbness, Tingling - Integumentary Integumentary: absent: Rash Past Patient History - Infectious Disease Hx of Infectious Diseases: None - Past Medical History & Family History Past Medical History?: Yes - Past Social History Smoking Status: Never Smoked - CARDIAC Hx Hypertension: Yes - PULMONARY Hx Bronchitis: Yes - NEUROLOGICAL Hx Neurological Disorder: No - HEENT Hx HEENT Problems: No Other/Comment: pt wears glasses - RENAL Hx Chronic Kidney Disease: No - ENDOCRINE/METABOLIC Hx Hypothyroidism: Yes - HEMATOLOGICAL/ONCOLOGICAL Hx Human Immunodeficiency Virus (HIV): No - INTEGUMENTARY Hx Dermatological Problems: No - MUSCULOSKELETAL/RHEUMATOLOGICAL Hx Falls: Yes - GASTROINTESTINAL Hx Gall Bladder Disease: Yes (cholecystectomy) - GENITOURINARY/GYNECOLOGICAL Hx Genitourinary Disorders: No - PSYCHIATRIC Hx Depression: Yes Hx Substance Use: No - SURGICAL HISTORY Hx Cholecystectomy: Yes Hx Coronary Stent: Yes - ANESTHESIA Hx Anesthesia: Yes Hx Anesthesia Reactions: No Meds Allergies/Adverse Reactions: Allergies Allergy/AdvReac Type Severity Reaction Status Date / Time Penicillins Allergy SWELLING Verified 11/08/17 09:51 Physical Exam - Constitutional Appears: Non-toxic, Cachectic - Head Exam Head Exam: ATRAUMATIC, NORMAL INSPECTION, NORMOCEPHALIC - Eye Exam Eye Exam: EOMI, Normal appearance Pupil Exam: NORMAL ACCOMODATION - ENT Exam ENT Exam: Mucous Membranes Dry - Respiratory Exam Respiratory Exam: Accessory Muscle Use, Rales, Rhonchi. absent: Wheezes, NORMAL BREATHING PATTERN Results - Vital Signs Recent Vital Signs: Last Vital Signs Temp 98.2 F 12/10/17 11:41 Pulse 96 H 12/10/17 13:25 Resp 33 H 12/10/17 13:25 BP 122/63 12/10/17 13:25 Pulse Ox 97 12/10/17 13:25 - Labs Result Diagrams: 12/10/17 12:34 12/10/17 12:34 Labs: Laboratory Results - last 24 hr 12/10/17 12/10/17 12/10/17 12:34 12:34 14:15 WBC 16.2 H RBC 3.98 Hgb 12.6 Hct 37.2 MCV 93.4 MCH 31.6 H MCHC 33.9 RDW 14.2 Plt Count 392 D MPV 8.0 Neut % (Auto) 87.4 H Lymph % (Auto) 8.4 L [place] % (Auto) 3.3 Eos % (Auto) 0.4 Baso % (Auto) 0.5 Neut # (Auto) 14.1 H Lymph # (Auto) 1.4 [place] # (Auto) 0.5 Eos # (Auto) 0.1 Baso # (Auto) 0.1 Neutrophils % (Manual) 88 H Lymphocytes % (Manual) 7 L Monocytes % (Manual) 3 Eosinophils % (Manual) 1 Basophils % (Manual) 1 Toxic Granulation Present Platelet Estimate Normal Large Platelets Present Anisocytosis (manual) Slight Sodium 139 Potassium 4.1 Chloride 96 L Carbon Dioxide 31 H Anion Gap 16 BUN 20 H Creatinine 0.6 L Est GFR ( Amer) > 60 Est GFR (Non-Af Amer) > 60 POC Glucose (mg/dL) 306 H Random Glucose 370 H Calcium 9.4 Troponin I < 0.0120 NT-Pro-B Natriuret Pep 145 Assessment & Plan - Assessment and Plan (Free Text) Assessment: Shortness of breath w/Hx Pulmonary Fibrosis Saturating at 92-94% on 3L NC cxray (12/10): poor inspiration with low lung volumes, crowded bronchovascular markings and bibasilar atelectasis. Diffuse interstitial fibrosis are seen throughout the right lung. Varicose type bronchiectasis in the upper middle and lower lobes poorly seen as compared to high-resolution CT chest. mild bronchiectasis in the left lower lobe, lingular and left upper lobe poorly seen as well Solumendrol 80mg ivp given in ED start solumedrol 60mg ivp q6h Duonebs q2h prn Advair Diskus 1 puff q12h Hypothyroid continue home Levothyroxine 50 mcg PO daily f/u TSH/free T4 DM type II Accuchecks ACHS ISS continue home med: Insulin glargine 12 u ac f/u Hgb A1c HTN Will monitor continue home med: Amlodipine 5mg PO f/u lipid panel Prophylactic Care VTE: Heparin 5,000u SC q12h and SCDs no gi prophylaxis indicated
[2017-12-10] MEDS ORDERED: Dextrose 50% SYRINGE Inj (50 ml) IV PRN (15:34)
[2017-12-10] MEDS ORDERED: Glucagon Recombinant 1 mg Inj IM PRN (15:34)
[2017-12-10 15:57] VITALS: RESP 20
[2017-12-10] MEDS: MethylPREDNISolone 40 mg Vial IVP SCH ×2 (16:07→21:28)
[2017-12-10] MEDS ORDERED: INSULIN GLULISINE SQ SCH (16:30)
[2017-12-10] MEDS: (Novolog) Insulin Aspart, Recombinant 100 u/ml 10 ml vial SC SCH (17:31)
--- NOTE | 2017-12-10 18:45 | CP.PCM.CON ---
History of Present Illness - History of Present Illness History of Present Illness: reason for consultation: shortness of breath 77F with PMHx of pulmonary fibrosis, HTN, DM, hypothyroidism presented to the ED Complaining of shortness of breath that started this morning. Patient was recently admitted at [facility]] for pulmonary fibrosis/respiratory failure and was discharged on by mouth prednisone this patient has been taking PMHx: pulmonary fibrosis, HTN, DM, Hypothyroidism, Lymphoma with hx chemo PSH: cholecystectomy, gastric surgery Allergies: penicillin SH: Denies tobacco, alcohol and illicit drug use. Lived with her brother who was a heavy smoker for many years Home meds: taking aspirin, amlodipine, levothyroxine from [facility] Review of Systems - Review of Systems All systems: reviewed and no additional remarkable complaints except (shortness of breath) Past Patient History - Infectious Disease Hx of Infectious Diseases: None - Past Medical History & Family History Past Medical History?: Yes - Past Social History Smoking Status: Never Smoked - CARDIAC Hx Hypertension: Yes - PULMONARY Hx Bronchitis: Yes - NEUROLOGICAL Hx Neurological Disorder: No - HEENT Hx HEENT Problems: No Other/Comment: pt wears glasses - RENAL Hx Chronic Kidney Disease: No - ENDOCRINE/METABOLIC Hx Hypothyroidism: Yes - HEMATOLOGICAL/ONCOLOGICAL Hx Human Immunodeficiency Virus (HIV): No - INTEGUMENTARY Hx Dermatological Problems: No - MUSCULOSKELETAL/RHEUMATOLOGICAL Hx Falls: Yes - GASTROINTESTINAL Hx Gall Bladder Disease: Yes (cholecystectomy) - GENITOURINARY/GYNECOLOGICAL Hx Genitourinary Disorders: No - PSYCHIATRIC Hx Depression: Yes Hx Substance Use: No - SURGICAL HISTORY Hx Cholecystectomy: Yes Hx Coronary Stent: Yes - ANESTHESIA Hx Anesthesia: Yes Hx Anesthesia Reactions: No Meds Allergies/Adverse Reactions: Allergies Allergy/AdvReac Type Severity Reaction Status Date / Time Penicillins Allergy SWELLING Verified 11/08/17 09:51 - Medications Medications: Current Medications Albuterol/Ipratropium (Duoneb 3 Mg/0.5 Mg (3 Ml) Ud) 3 ml INH RQ2 PRN PRN Reason: Shortness of Breath Amlodipine Besylate (Norvasc) 5 mg PO DAILY [facility] Last Admin: 12/10/17 16:07 Dose: 5 mg Dextrose (Dextrose 50% Inj) 0 ml IV STAT PRN; Protocol PRN Reason: Hypoglycemia Protocol Dextrose (Glutose 15) 0 gm PO ONCE PRN; Protocol PRN Reason: Hypoglycemia Protocol Glucagon (Glucagen Diagnostic Kit) 0 mg IM STAT PRN; Protocol PRN Reason: Hypoglycemia Protocol Heparin Sodium (Porcine) (Heparin) 5,000 units SC Q12H [facility] Last Admin: 12/10/17 16:10 Dose: 5,000 units Dextrose (Dextrose 5% In Water 1000 Ml) 1,000 mls @ 0 mls/hr IV .Q0M PRN; Protocol; Per Protocol PRN Reason: Hypoglycemia Protocol Insulin Aspart (Novolog) 12 unit SC AC [facility] Last Admin: 12/10/17 17:31 Dose: 12 unit Insulin Human Regular (Novolin R) 0 unit SC ACHS [facility] PRN Reason: Protocol Last Admin: 12/10/17 14:22 Dose: 8 unit Levothyroxine Sodium (Synthroid) 50 mcg PO 0630 [facility] Methylprednisolone (Solu-Medrol) 60 mg IVP Q6H [facility] Last Admin: 12/10/17 16:07 Dose: 60 mg Fluticasone/Salmeterol (Advair Diskus 250/50) 1 puff INH RQ12 [facility] Physical Exam - Head Exam Head Exam: ATRAUMATIC, NORMOCEPHALIC - Eye Exam Eye Exam: Normal appearance - ENT Exam ENT Exam: Mucous Membranes Moist - Respiratory Exam Respiratory Exam: Rales - Cardiovascular Exam Cardiovascular Exam: REGULAR RHYTHM - GI/Abdominal Exam GI & Abdominal Exam: Normal Bowel Sounds, Soft - Extremities Exam Extremities exam: Positive for: normal inspection - Neurological Exam Neurological exam: Alert, Oriented x3 Results - Vital Signs Recent Vital Signs: Last Vital Signs Temp 98.2 F 12/10/17 15:56 Pulse 100 H 12/10/17 15:56 Resp 20 12/10/17 15:56 BP 125/70 12/10/17 15:56 Pulse Ox 95 12/10/17 15:56 - Labs Result Diagrams: 12/10/17 12:34 12/10/17 12:34 Labs: Laboratory Results - last 24 hr 12/10/17 12/10/17 12/10/17 12:34 12:34 14:15 WBC 16.2 H RBC 3.98 Hgb 12.6 Hct 37.2 MCV 93.4 MCH 31.6 H MCHC 33.9 RDW 14.2 Plt Count 392 D MPV 8.0 Neut % (Auto) 87.4 H Lymph % (Auto) 8.4 L [place] % (Auto) 3.3 Eos % (Auto) 0.4 Baso % (Auto) 0.5 Neut # (Auto) 14.1 H Lymph # (Auto) 1.4 [place] # (Auto) 0.5 Eos # (Auto) 0.1 Baso # (Auto) 0.1 Neutrophils % (Manual) 88 H Lymphocytes % (Manual) 7 L Monocytes % (Manual) 3 Eosinophils % (Manual) 1 Basophils % (Manual) 1 Toxic Granulation Present Platelet Estimate Normal Large Platelets Present Anisocytosis (manual) Slight Sodium 139 Potassium 4.1 Chloride 96 L Carbon Dioxide 31 H Anion Gap 16 BUN 20 H Creatinine 0.6 L Est GFR ( Amer) > 60 Est GFR (Non-Af Amer) > 60 POC Glucose (mg/dL) 306 H Random Glucose 370 H Calcium 9.4 Troponin I < 0.0120 NT-Pro-B Natriuret Pep 145 12/10/17 17:01 WBC RBC Hgb Hct MCV MCH MCHC RDW Plt Count MPV Neut % (Auto) Lymph % (Auto) [place] % (Auto) Eos % (Auto) Baso % (Auto) Neut # (Auto) Lymph # (Auto) [place] # (Auto) Eos # (Auto) Baso # (Auto) Neutrophils % (Manual) Lymphocytes % (Manual) Monocytes % (Manual) Eosinophils % (Manual) Basophils % (Manual) Toxic Granulation Platelet Estimate Large Platelets Anisocytosis (manual) Sodium Potassium Chloride Carbon Dioxide Anion Gap BUN Creatinine Est GFR ( Amer) Est GFR (Non-Af Amer) POC Glucose (mg/dL) 290 H Random Glucose Calcium Troponin I NT-Pro-B Natriuret Pep Assessment & Plan (1) Pulmonary fibrosis Status: Acute (2) Hypoxia Assessment and Plan: IV steroids Nebulizer treatment Recent CAT scan of the chest showed pulmonary fibrosis BiPAP if needed Oxygen Status: Acute
[2017-12-10] MEDS: Fluticasone-Salmeterol 250-50mcg Diskus INH SCH (21:16)
[2017-12-11] MEDS: MethylPREDNISolone 40 mg Vial IVP SCH ×4 (02:59→21:40)
[2017-12-11] MEDS: Levothyroxine 50 MCG TAB PO SCH (05:49)
[2017-12-11 07:03] LABS: BASO % 0.1 % (0.0-2.0); HEMOGLOBIN 12.2 g/dL (11.0-16.0); LYMPH # 1.1 K/uL (1.0-4.3); LYMPH % 7.3 % (20.0-40.0); MEAN CELL VOLUME 93.1 fL (81.0-99.0); MEAN CORPUSCULAR HEMOGLOBIN 31.8 pg (27.0-31.0); MEAN CORPUSCULAR HGB CONC 34.2 g/dL (33.0-37.0); MEAN PLATELET VOLUME 7.9 fL (7.2-11.7); MONO # 0.2 K/uL (0.0-0.8); MONO % 1.5 % (0.0-10.0); NEUT # 13.4 K/uL (1.8-7.0); NEUT % 91.1 % (50.0-75.0); PLATELET COUNT 377 K/uL (130-400); RBC 3.84 Mil/uL (3.80-5.20); RED CELL DISTRIBUTION WIDTH 14.2 % (11.5-14.5); WHITE BLOOD COUNT 14.8 K/uL (4.8-10.8)
[2017-12-11 07:14] LABS: ALBUMIN 3.7 g/dL (3.5-5.0); ALT/SGPT 15 U/L (9-52); AST/SGOT 18 U/L (14-36); BLOOD UREA NITROGEN 23 mg/dL (7-17); CALCIUM 9.4 mg/dl (8.6-10.4); GFR AFRICAN-AMERICAN > 60; GFR NON-AFRICAN AMERICAN > 60; HDL CHOLESTEROL 59 mg/dL (30-70)
[2017-12-11 07:17] LABS: LDL CHOLESTEROL 160 mg/dL (0-129)
[2017-12-11] MEDS: (Novolin R) Insulin Human Regular 100 units/ml vial SC SCH ×4 (08:18→21:41)
[2017-12-11] MEDS: (Novolog) Insulin Aspart, Recombinant 100 u/ml 10 ml vial SC SCH ×3 (08:19→17:32)
--- NOTE | 2017-12-11 08:28 | RAD ---
HISTORY: pulm fibrosis COMPARISON: 12/10/2017 FINDINGS: LUNGS: Limited due to poor inspiratory effort. No infiltrate. PLEURA: No significant pleural effusion identified, no pneumothorax apparent. CARDIOVASCULAR: Normal. OSSEOUS STRUCTURES: No significant abnormalities. VISUALIZED UPPER ABDOMEN: Normal. OTHER FINDINGS: None. IMPRESSION: No active disease.
[2017-12-11 08:55] LABS: BANDS 4 % (0-2); LYMPHOCYTE 6 % (20-40); NEUTROPHIL 90 % (50-75); PLATELET ESTIMATE NORMAL (NORMAL); TOTAL CELLS COUNTED 100
[2017-12-11] MEDS: Fluticasone-Salmeterol 250-50mcg Diskus INH SCH ×2 (10:23→19:53)
--- NOTE | 2017-12-11 13:34 | CP.PCM.PN ---
<Heike Sherwood - Last Filed: 12/11/17 13:09> Subjective - Date & Time of Evaluation Date of Evaluation: 12/11/17 Time of Evaluation: 07:00 - Subjective Subjective: PGY1- Medicine Note Patient seen and examined at bedside and in no acute distress. Patient is still having shortness of breath and says she feels slightly better than yesterday. Patient is complaining of some mild diffuse abdominal pain and admits to taking omeprazole for this pain at home sometimes. Patient denies any chest pain, nausea, vomiting, constipation, or diarrhea. Objective - Vital Signs/Intake and Output Vital Signs (last 24 hours): Temp Pulse Resp BP Pulse Ox 98.4 F 72 20 120/72 97 12/11/17 08:00 12/11/17 08:00 12/11/17 08:00 12/11/17 08:00 12/11/17 08:00 Intake and Output: 12/11/17 12/11/17 06:59 18:59 Intake Total 600 Balance 600 - Medications Medications: Current Medications Albuterol/Ipratropium (Duoneb 3 Mg/0.5 Mg (3 Ml) Ud) 3 ml INH RQ2 PRN PRN Reason: Shortness of Breath Amlodipine Besylate (Norvasc) 5 mg PO DAILY [facility] Last Admin: 12/11/17 09:45 Dose: 5 mg Dextrose (Dextrose 50% Inj) 0 ml IV STAT PRN; Protocol PRN Reason: Hypoglycemia Protocol Dextrose (Glutose 15) 0 gm PO ONCE PRN; Protocol PRN Reason: Hypoglycemia Protocol Glucagon (Glucagen Diagnostic Kit) 0 mg IM STAT PRN; Protocol PRN Reason: Hypoglycemia Protocol Heparin Sodium (Porcine) (Heparin) 5,000 units SC Q12H [facility] Last Admin: 12/11/17 02:59 Dose: 5,000 units Dextrose (Dextrose 5% In Water 1000 Ml) 1,000 mls @ 0 mls/hr IV .Q0M PRN; Protocol; Per Protocol PRN Reason: Hypoglycemia Protocol Insulin Aspart (Novolog) 12 unit SC AC [facility] Last Admin: 12/11/17 12:28 Dose: 12 unit Insulin Human Regular (Novolin R) 0 unit SC ACHS [facility] PRN Reason: Protocol Last Admin: 12/11/17 12:27 Dose: 8 unit Levothyroxine Sodium (Synthroid) 50 mcg PO 0630 [facility] Last Admin: 12/11/17 05:49 Dose: 50 mcg Methylprednisolone (Solu-Medrol) 60 mg IVP Q6H [facility] Last Admin: 12/11/17 08:45 Dose: 60 mg Fluticasone/Salmeterol (Advair Diskus 250/50) 1 puff INH RQ12 [facility] Last Admin: 12/11/17 10:23 Dose: 1 puff - Labs Labs: 12/11/17 06:45 12/11/17 06:45 - Constitutional Appears: Non-toxic, No Acute Distress - Head Exam Head Exam: ATRAUMATIC, NORMAL INSPECTION, NORMOCEPHALIC - Eye Exam Eye Exam: EOMI, Normal appearance - ENT Exam ENT Exam: Mucous Membranes Moist - Respiratory Exam Respiratory Exam: Rales, Rhonchi - Cardiovascular Exam Cardiovascular Exam: REGULAR RHYTHM, RRR, +S1, +S2. absent: Murmur - GI/Abdominal Exam GI & Abdominal Exam: Soft, Normal Bowel Sounds. absent: Tenderness - Extremities Exam Extremities Exam: Normal Inspection. absent: Pedal Edema, Tenderness - Neurological Exam Neurological Exam: Alert, Awake, Oriented x3 - Psychiatric Exam Psychiatric exam: Normal Affect, Normal Mood - Skin Skin Exam: Intact, Normal Color, Warm - Additional Findings Additional findings: Shortness of breath w/Hx Pulmonary Fibrosis Saturating at 92-94% on 3L NC cxray (12/10): poor inspiration with low lung volumes, crowded bronchovascular markings and bibasilar atelectasis. Diffuse interstitial fibrosis are seen throughout the right lung. Varicose type bronchiectasis in the upper middle and lower lobes poorly seen as compared to high-resolution CT chest. mild bronchiectasis in the left lower lobe, lingular and left upper lobe poorly seen as well Solumendrol 80mg ivp given in ED start solumedrol 60mg ivp q6h Duonebs q2h prn Advair Diskus 1 puff q12h Hypothyroid continue home Levothyroxine 50 mcg PO daily TSH: .49 free T4: 1.5 DM type II Accuchecks ACHS ISS continue home med: Insulin glargine 12 u ac Hgb A1c: 10 Lantus 10u HS started on 12/11 HTN Will monitor continue home med: Amlodipine 5mg PO HLD Triglycerides 93, Cholesterol 241, LDL 160, HDL 59 started on Crestor 2.5 mg po daily GERD Protonix 40mg po daily Prophylactic Care VTE: Heparin 5,000u SC q12h and SCDs Protonix 40mg po daily <Brad Ramos - Last Filed: 12/11/17 15:10> Objective - Vital Signs/Intake and Output Vital Signs (last 24 hours): Temp Pulse Resp BP Pulse Ox 98.4 F 72 20 120/72 97 12/11/17 08:00 12/11/17 08:00 12/11/17 08:00 12/11/17 08:00 12/11/17 08:00 Intake and Output: 12/11/17 12/11/17 06:59 18:59 Intake Total 600 450 Balance 600 450 - Medications Medications: Current Medications Albuterol/Ipratropium (Duoneb 3 Mg/0.5 Mg (3 Ml) Ud) 3 ml INH RQ2 PRN PRN Reason: Shortness of Breath Amlodipine Besylate (Norvasc) 5 mg PO DAILY [facility] Last Admin: 12/11/17 09:45 Dose: 5 mg Dextrose (Dextrose 50% Inj) 0 ml IV STAT PRN; Protocol PRN Reason: Hypoglycemia Protocol Dextrose (Glutose 15) 0 gm PO ONCE PRN; Protocol PRN Reason: Hypoglycemia Protocol Glucagon (Glucagen Diagnostic Kit) 0 mg IM STAT PRN; Protocol PRN Reason: Hypoglycemia Protocol Heparin Sodium (Porcine) (Heparin) 5,000 units SC Q12H [facility] Last Admin: 12/11/17 02:59 Dose: 5,000 units Dextrose (Dextrose 5% In Water 1000 Ml) 1,000 mls @ 0 mls/hr IV .Q0M PRN; Protocol; Per Protocol PRN Reason: Hypoglycemia Protocol Insulin Aspart (Novolog) 12 unit SC AC [facility] Last Admin: 12/11/17 12:28 Dose: 12 unit Insulin Glargine (Lantus) 10 unit SC HS [facility] Insulin Human Regular (Novolin R) 0 unit SC ACHS [facility] PRN Reason: Protocol Last Admin: 12/11/17 12:27 Dose: 8 unit Levothyroxine Sodium (Synthroid) 50 mcg PO 0630 [facility] Last Admin: 12/11/17 05:49 Dose: 50 mcg Methylprednisolone (Solu-Medrol) 60 mg IVP Q6H [facility] Last Admin: 12/11/17 13:48 Dose: 60 mg Pantoprazole Sodium (Protonix Ec Tab) 40 mg PO DAILY [facility] Last Admin: 12/11/17 13:48 Dose: 40 mg Rosuvastatin Calcium (Crestor) 2.5 mg PO HS [facility] Fluticasone/Salmeterol (Advair Diskus 250/50) 1 puff INH RQ12 [facility] Last Admin: 12/11/17 10:23 Dose: 1 puff - Labs Labs: 12/11/17 06:45 12/11/17 06:45 Attending/Attestation - Attestation I have personally seen and examined this patient.: Yes I have fully participated in the care of the patient.: Yes I have reviewed all pertinent clinical information, including history, physical exam and plan: Yes Notes (Text): Seen and examined.Patient is sob and has cough on examination has sob and cough.lung exam shows bilateral basal crepts. -This is a 77 years old pleasant female with severe pulmonary fibrosis admitted for Shortness of breath. continue Solumedrol 60mg ivp q6h,Duonebs q2h prn ,Advair Diskus 1 puff q12h -Hypothyroidcontinue home Levothyroxine 50 mcg PO daily -DM type II Her sugar is high continue home med: Insulin glargine 12 u ac Hgb A1c: 10 add lantus -HTN Amlodipine 5mg -HLD Triglycerides 93, Cholesterol 241, LDL 160, HDL 59 started on Crestor 2.5 mg po daily -GERD Protonix 40mg po daily Prophylactic Care VTE: Heparin 5,000u SC q12h and SCDs Protonix 40mg po daily d/w resident I agree with the documentation of the assessment and the plan
[2017-12-11] MEDS: Pantoprazole 40 mg EC Tab PO SCH (13:48)
--- NOTE | 2017-12-11 16:35 | CARD ---
APPROVED REPORT EKG Measurement Heart [id number] <Conclusion> Normal sinus rhythm Moderate voltage criteria for LVH, may be normal variant Inferior infarct, age undetermined Abnormal ECG
--- NOTE | 2017-12-11 17:02 | CP.PCM.PN ---
Subjective - Date & Time of Evaluation Date of Evaluation: 12/11/17 Time of Evaluation: 10:25 - Subjective Subjective: Patient seen and examined at bedside. No acute events overnight per nursing. Patient's dry cough is improved. Shortness of breath is also better. Patient has no complaints today. Assessment and Plan: 1. Pulmonary fibrosis - CT Chest 11/08 : chronic interstitial fibrotic changes throughout the right lung , multi-focal left-sided subpleural fibrosis - IV steroids 2. Hypoxia, resolved - Saturating 97% on 3L NC - nebulizer treatments - BiPAP PRN - O2 Objective - Vital Signs/Intake and Output Vital Signs (last 24 hours): Temp Pulse Resp BP Pulse Ox 98.0 F 72 20 115/50 L 95 12/11/17 15:00 12/11/17 15:00 12/11/17 15:00 12/11/17 15:00 12/11/17 15:00 Intake and Output: 12/11/17 12/11/17 06:59 18:59 Intake Total 600 450 Balance 600 450 - Medications Medications: Current Medications Albuterol/Ipratropium (Duoneb 3 Mg/0.5 Mg (3 Ml) Ud) 3 ml INH RQ2 PRN PRN Reason: Shortness of Breath Amlodipine Besylate (Norvasc) 5 mg PO DAILY [facility] Last Admin: 12/11/17 09:45 Dose: 5 mg Dextrose (Dextrose 50% Inj) 0 ml IV STAT PRN; Protocol PRN Reason: Hypoglycemia Protocol Dextrose (Glutose 15) 0 gm PO ONCE PRN; Protocol PRN Reason: Hypoglycemia Protocol Glucagon (Glucagen Diagnostic Kit) 0 mg IM STAT PRN; Protocol PRN Reason: Hypoglycemia Protocol Heparin Sodium (Porcine) (Heparin) 5,000 units SC Q12H [facility] Last Admin: 12/11/17 02:59 Dose: 5,000 units Dextrose (Dextrose 5% In Water 1000 Ml) 1,000 mls @ 0 mls/hr IV .Q0M PRN; Protocol; Per Protocol PRN Reason: Hypoglycemia Protocol Insulin Aspart (Novolog) 12 unit SC AC [facility] Last Admin: 12/11/17 12:28 Dose: 12 unit Insulin Glargine (Lantus) 10 unit SC HS [facility] Insulin Human Regular (Novolin R) 0 unit SC ACHS [facility] PRN Reason: Protocol Last Admin: 12/11/17 12:27 Dose: 8 unit Levothyroxine Sodium (Synthroid) 50 mcg PO 0630 [facility] Last Admin: 12/11/17 05:49 Dose: 50 mcg Methylprednisolone (Solu-Medrol) 60 mg IVP Q6H [facility] Last Admin: 12/11/17 13:48 Dose: 60 mg Pantoprazole Sodium (Protonix Ec Tab) 40 mg PO DAILY [facility] Last Admin: 12/11/17 13:48 Dose: 40 mg Rosuvastatin Calcium (Crestor) 2.5 mg PO HS [facility] Fluticasone/Salmeterol (Advair Diskus 250/50) 1 puff INH RQ12 [facility] Last Admin: 12/11/17 10:23 Dose: 1 puff - Labs Labs: 12/11/17 06:45 12/11/17 06:45 Assessment and Plan (1) Pulmonary fibrosis Status: Acute (2) Hypoxia Status: Acute
[2017-12-11] MEDS: Albuterol-Ipratrop 3 mg / 0.5 (3 ml) UD INH PRN (17:37)
[2017-12-11] MEDS ORDERED: (Lantus) Insulin Glargine, Recombinant SC SCH (22:00)
[2017-12-11] MEDS ORDERED: Rosuvastatin Calcium 2.5 mg Tab PO SCH (22:00)
[2017-12-12] MEDS: MethylPREDNISolone 40 mg Vial IVP SCH ×2 (02:16→08:24)
[2017-12-12] MEDS: Levothyroxine 50 MCG TAB PO SCH (06:20)
[2017-12-12] MEDS: (Novolin R) Insulin Human Regular 100 units/ml vial SC SCH ×3 (08:25→16:23)
[2017-12-12] MEDS: (Novolog) Insulin Aspart, Recombinant 100 u/ml 10 ml vial SC SCH ×3 (08:25→16:23)
[2017-12-12 08:55] LABS: ALBUMIN 3.6 g/dL (3.5-5.0); ALT/SGPT 9 U/L (9-52); AST/SGOT 19 U/L (14-36); BLOOD UREA NITROGEN 28 mg/dL (7-17); CALCIUM 9.2 mg/dl (8.6-10.4); GFR AFRICAN-AMERICAN > 60; GFR NON-AFRICAN AMERICAN > 60
[2017-12-12 09:33] LABS: BASO % 0.2 % (0.0-2.0); HEMOGLOBIN 12.1 g/dL (11.0-16.0); LYMPH # 1.1 K/uL (1.0-4.3); LYMPH % 4.6 % (20.0-40.0); MEAN CORPUSCULAR HEMOGLOBIN 31.6 pg (27.0-31.0); MEAN CORPUSCULAR HGB CONC 33.6 g/dL (33.0-37.0); MEAN PLATELET VOLUME 8.4 fL (7.2-11.7); MONO # 0.4 K/uL (0.0-0.8); MONO % 1.9 % (0.0-10.0); NEUT # 21.7 K/uL (1.8-7.0); NEUT % 93.3 % (50.0-75.0); PLATELET COUNT 356 K/uL (130-400); RBC 3.82 Mil/uL (3.80-5.20); RED CELL DISTRIBUTION WIDTH 14.2 % (11.5-14.5)
[2017-12-12 09:36] LABS: WHITE BLOOD COUNT 23.2 K/uL (4.8-10.8)
[2017-12-12] MEDS: Fluticasone-Salmeterol 250-50mcg Diskus INH SCH ×2 (09:44→20:26)
--- NOTE | 2017-12-12 09:53 | CP.PCM.PN ---
Subjective - Date & Time of Evaluation Date of Evaluation: 12/12/17 Time of Evaluation: 07:00 - Subjective Subjective: PGY1- Medicine Note Patient seen and examined at bedside and in no acute distress. Patient is still having shortness of breath and says she feels slightly better than yesterday. Patient is complaining of some mild diffuse abdominal pain and admits to taking omeprazole for this pain at home sometimes. She says the pain is not getting any better. Patient denies any chest pain, nausea, vomiting, constipation, or diarrhea. Objective - Vital Signs/Intake and Output Vital Signs (last 24 hours): Temp Pulse Resp BP Pulse Ox 97.7 F 86 20 130/65 95 12/12/17 08:45 12/12/17 08:45 12/12/17 08:45 12/12/17 08:45 12/12/17 08:45 - Medications Medications: Current Medications Albuterol/Ipratropium (Duoneb 3 Mg/0.5 Mg (3 Ml) Ud) 3 ml INH RQ2 PRN PRN Reason: Shortness of Breath Last Admin: 12/11/17 17:37 Dose: 3 ml Amlodipine Besylate (Norvasc) 5 mg PO DAILY [facility] Last Admin: 12/11/17 09:45 Dose: 5 mg Dextrose (Dextrose 50% Inj) 0 ml IV STAT PRN; Protocol PRN Reason: Hypoglycemia Protocol Dextrose (Glutose 15) 0 gm PO ONCE PRN; Protocol PRN Reason: Hypoglycemia Protocol Glucagon (Glucagen Diagnostic Kit) 0 mg IM STAT PRN; Protocol PRN Reason: Hypoglycemia Protocol Heparin Sodium (Porcine) (Heparin) 5,000 units SC Q12H [facility] Last Admin: 12/12/17 03:53 Dose: 5,000 units Dextrose (Dextrose 5% In Water 1000 Ml) 1,000 mls @ 0 mls/hr IV .Q0M PRN; Protocol; Per Protocol PRN Reason: Hypoglycemia Protocol Insulin Aspart (Novolog) 12 unit SC AC [facility] Last Admin: 12/12/17 08:25 Dose: 12 unit Insulin Glargine (Lantus) 10 unit SC HS [facility] Last Admin: 12/11/17 21:42 Dose: 10 units Insulin Human Regular (Novolin R) 0 unit SC ACHS [facility] PRN Reason: Protocol Last Admin: 12/12/17 08:25 Dose: 12 unit Levothyroxine Sodium (Synthroid) 50 mcg PO 0630 [facility] Last Admin: 12/12/17 06:20 Dose: 50 mcg Methylprednisolone (Solu-Medrol) 60 mg IVP Q6H [facility] Last Admin: 12/12/17 08:24 Dose: 60 mg Pantoprazole Sodium (Protonix Ec Tab) 40 mg PO DAILY [facility] Last Admin: 12/11/17 13:48 Dose: 40 mg Rosuvastatin Calcium (Crestor) 2.5 mg PO HS [facility] Last Admin: 12/11/17 21:42 Dose: 2.5 mg Fluticasone/Salmeterol (Advair Diskus 250/50) 1 puff INH RQ12 [facility] Last Admin: 12/12/17 09:44 Dose: Not Given - Labs Labs: 12/12/17 08:16 12/12/17 08:16 - Additional Findings Additional findings: - Constitutional Appears: Non-toxic, No Acute Distress - Head Exam Head Exam: ATRAUMATIC, NORMAL INSPECTION, NORMOCEPHALIC - Eye Exam Eye Exam: EOMI, Normal appearance - ENT Exam ENT Exam: Mucous Membranes Moist - Respiratory Exam Respiratory Exam: Rales, Rhonchi - Cardiovascular Exam Cardiovascular Exam: REGULAR RHYTHM, RRR, +S1, +S2. absent: Murmur - GI/Abdominal Exam GI & Abdominal Exam: Soft, Normal Bowel Sounds. absent: Tenderness - Extremities Exam Extremities Exam: Normal Inspection. absent: Pedal Edema, Tenderness - Neurological Exam Neurological Exam: Alert, Awake, Oriented x3 - Psychiatric Exam Psychiatric exam: Normal Affect, Normal Mood - Skin Skin Exam: Intact, Normal Color, Warm Assessment and Plan - Assessment and Plan (Free Text) Assessment: Shortness of breath w/Hx Pulmonary Fibrosis Saturating at 92-94% on 3L NC cxray (12/10): poor inspiration with low lung volumes, crowded bronchovascular markings and bibasilar atelectasis. Diffuse interstitial fibrosis are seen throughout the right lung. Varicose type bronchiectasis in the upper middle and lower lobes poorly seen as compared to high-resolution CT chest. mild bronchiectasis in the left lower lobe, lingular and left upper lobe poorly seen as well Solumendrol 80mg ivp given in ED start solumedrol 60mg ivp q6h Duonebs q2h prn Advair Diskus 1 puff q12h Hypothyroid continue home Levothyroxine 50 mcg PO daily TSH: .49 free T4: 1.5 DM type II Accuchecks ACHS ISS continue home med: Insulin glargine 12 u ac Hgb A1c: 10 Lantus 10u HS started on 12/11 HTN Will monitor continue home med: Amlodipine 5mg PO HLD Triglycerides 93, Cholesterol 241, LDL 160, HDL 59 started on Crestor 2.5 mg po daily GERD Protonix 40mg po daily Prophylactic Care VTE: Heparin 5,000u SC q12h and SCDs Protonix 40mg po daily
[2017-12-12 10:17] LABS: BANDS 3 % (0-2); LYMPHOCYTE 2 % (20-40); NEUTROPHIL 95 % (50-75); PLATELET ESTIMATE NORMAL (NORMAL); TOTAL CELLS COUNTED 100
[2017-12-12] MEDS: Pantoprazole 40 mg EC Tab PO SCH (10:36)
[2017-12-12] MEDS ORDERED: MethylPREDNISolone 40 mg Vial IVP SCH (14:00)
[2017-12-12 16:11] VITALS: BP 119/64; PULSE 83; TEMP 98.2; O2SAT 94
--- NOTE | 2017-12-12 17:44 | CP.PCM.DIS ---
<Heike Sherwood - Last Filed: 12/12/17 20:24> Provider - Provider Date of Admission: 12/10/17 13:23 Attending physician: Arben Christianson DO Consults: Dr. Alvarado (pul) Time Spent in preparation of Discharge (in minutes): 40 Hospital Course - Lab Results Lab Results: Most Recent Lab Values WBC 23.2 K/uL (4.8-10.8) H D 12/12/17 08:16 RBC 3.82 Mil/uL (3.80-5.20) 12/12/17 08:16 Hgb 12.1 g/dL (11.0-16.0) 12/12/17 08:16 Hct 35.9 % (34.0-47.0) 12/12/17 08:16 MCV 94.0 fL (81.0-99.0) 12/12/17 08:16 MCH 31.6 pg (27.0-31.0) H 12/12/17 08:16 MCHC 33.6 g/dL (33.0-37.0) 12/12/17 08:16 RDW 14.2 % (11.5-14.5) 12/12/17 08:16 Plt Count 356 K/uL (130-400) 12/12/17 08:16 MPV 8.4 fL (7.2-11.7) 12/12/17 08:16 Neut % (Auto) 93.3 % (50.0-75.0) H 12/12/17 08:16 Lymph % (Auto) 4.6 % (20.0-40.0) L 12/12/17 08:16 Dade % (Auto) 1.9 % (0.0-10.0) 12/12/17 08:16 Eos % (Auto) 0.0 % (0.0-4.0) 12/12/17 08:16 Baso % (Auto) 0.2 % (0.0-2.0) 12/12/17 08:16 Neut # (Auto) 21.7 K/uL (1.8-7.0) H 12/12/17 08:16 Lymph # (Auto) 1.1 K/uL (1.0-4.3) 05/08/18 08:16 Dade # (Auto) 0.4 K/uL (0.0-0.8) 12/12/17 08:16 Eos # (Auto) 0.0 K/uL (0.0-0.7) 12/12/17 08:16 Baso # (Auto) 0.0 K/uL (0.0-0.2) 12/12/17 08:16 Neutrophils % (Manual) 95 % (50-75) H 12/12/17 08:16 Band Neutrophils % 3 % (0-2) H 12/12/17 08:16 Lymphocytes % (Manual) 2 % (20-40) L 12/12/17 08:16 Monocytes % (Manual) TEST NOT PERFORMED 12/12/17 08:16 Eosinophils % (Manual) 1 % (0-4) 12/10/17 12:34 Basophils % (Manual) 1 % (0-2) 12/10/17 12:34 Toxic Granulation Present 12/10/17 12:34 Platelet Estimate Normal (NORMAL) 12/12/17 08:16 Large Platelets Present 12/10/17 12:34 RBC Morphology Normal 12/12/17 08:16 Anisocytosis (manual) Slight 12/10/17 12:34 Sodium 136 mmol/L (132-148) 12/12/17 08:16 Potassium 4.1 mmol/L (3.6-5.2) 12/12/17 08:16 Chloride 98 mmol/L (98-107) 12/12/17 08:16 Carbon Dioxide 27 mmol/L (22-30) 12/12/17 08:16 Anion Gap 16 (10-20) 12/12/17 08:16 BUN 28 mg/dL (7-17) H 12/12/17 08:16 Creatinine 0.6 mg/dL (0.7-1.2) L 12/12/17 08:16 Est GFR ( Amer) > 60 12/12/17 08:16 Est GFR (Non-Af Amer) > 60 12/12/17 08:16 POC Glucose (mg/dL) 348 mg/dL (65-110) H 12/12/17 15:51 Random Glucose 494 mg/dL (65-105) H* D 12/12/17 08:16 Hemoglobin A1c 10.0 % (4.2-6.5) H D 12/11/17 06:45 Calcium 9.2 mg/dl (8.6-10.4) 12/12/17 08:16 Phosphorus 3.5 mg/dL (2.5-4.5) 12/12/17 08:16 Magnesium 1.9 mg/dL (1.6-2.3) 12/12/17 08:16 Total Bilirubin 0.4 mg/dL (0.2-1.3) 12/12/17 08:16 AST 19 U/L (14-36) 12/12/17 08:16 ALT 9 U/L (9-52) D 12/12/17 08:16 Alkaline Phosphatase 110 U/L (38-126) 12/12/17 08:16 Troponin I < 0.0120 ng/mL (0.00-0.120) 12/10/17 12:34 NT-Pro-B Natriuret Pep 145 pg/mL (0-900) 12/10/17 12:34 Total Protein 7.1 g/dL (6.3-8.3) 12/12/17 08:16 Albumin 3.6 g/dL (3.5-5.0) 12/12/17 08:16 Globulin 3.6 gm/dL (2.2-3.9) 12/12/17 08:16 Albumin/Globulin Ratio 1.0 (1.0-2.1) 12/12/17 08:16 Triglycerides 93 mg/dL (0-149) 12/11/17 06:45 Cholesterol 241 mg/dL (0-199) H 12/11/17 06:45 LDL Cholesterol Direct 160 mg/dL (0-129) H 12/11/17 06:45 HDL Cholesterol 59 mg/dL (30-70) 12/11/17 06:45 Free T4 1.50 ng/dL (0.78-2.19) 12/11/17 06:45 TSH 3rd Generation 0.49 mIU/L (0.46-4.68) 12/11/17 06:45 - Hospital Course Hospital Course: Patient is a 77F with past medical history of Pulmonary fibrosis, HTN, DM, hypothyroidism, and lymphoma treated 10 years ago with chemo being evaluated for shortness of breath and cough. Patient began experiencing shortness of breath that was not relieved with home oxygen and was brought by ambulance to ED. Patient was discharged in November for a similar complaint. She was discharged with prednisone, but did not follow [facility] with [facility] as instructed. Imaging- Recent CT of chest from previous hospitalization on 11/08/17 showed pulmonary fibrosis of right lung and multifocal left sided pleuritis with varicoid bronchiectasis bl R>L. CXR on 12/10 showed poor inspiration with low lung volumes, diffuse interstitial fibrosis throughout the right lung with varicose bronchiectasis, and mild bronchiectasis in the left lung. Repeat CXR on 12/11 showed no active disease. ECG on 12/10 showed normal sinus rhythm with age undetermined inferior infarct. Pulmonology was consulted and suggested IV steroids, nebulizer treatments, oxygen, and BiPAP if needed. Patient was managed with Solumedrol 60mg IV q6h, Advair 250/50, and Duonebs q2h prn. Patient was discharged with prednisone taper, instructed to take 40mg daily x7 days, then 30mg daily next 7 days, then 20mg daily next 7 days, and 10mg daily for 7 days, then 5mg daily for last 7 days. Patient has history of HTN. Managed with Norvasc 5mg po. Patient has history of DM. HbgA1c was assessed on admission to be 10.0. POC glucose during hospitalization was on average around 350, although did reach as high as 494. Patient was managed with Novolog 12u ISS and insulin sliding scale. Patient explained importance of keeping a log of her sugars and following up with a primary doctor. Patient has history of hypothyroidism. TSH and free T4 were assessed to be within normal limits. Patient was managed with synthroid. Social- Patient was diagnosed with pulmonary fibrosis in [place]. In June 2017, patient moved from [place] to the to live with her niece. Patient uses home oxygen. Patient lives in an apartment on the third floor of her building. She reports that she does not leave the apartment often due to difficulty using the stairs and is unable to get up or down the stairs on her own. [employer] were consulted for medical transportation. Spoke with patient's niece over phone and informed her of patient's medications and follow up instructions. This is a summary of the patient's hospital course, please see chart for full details. Discharge Exam - Head Exam Head Exam: ATRAUMATIC, NORMAL INSPECTION, NORMOCEPHALIC - Eye Exam Eye Exam: EOMI, Normal appearance - Respiratory Exam Respiratory Exam: Rales, Rhonchi, NORMAL BREATHING PATTERN - Cardiovascular Exam Cardiovascular Exam: REGULAR RHYTHM, RRR, +S1, +S2 - GI/Abdominal Exam GI & Abdominal Exam: Normal Bowel Sounds, Soft. absent: Tenderness - Extremities Exam Extremities exam: full ROM - Back Exam Back exam: NORMAL INSPECTION. absent: CVA tenderness (L), CVA tenderness (R) - Neurological Exam Neurological exam: Alert, Oriented x3 - Psychiatric Exam Psychiatric exam: Normal Affect, Normal Mood - Skin Skin Exam: Intact, Normal Color, Warm Discharge Plan - Discharge Medications Prescriptions: amLODIPine [Norvasc] 5 mg PO DAILY #30 tab Fluticasone/Salmeterol 250/50 [Advair Diskus 250/50] 1 puff INH RQ12 60 Days #1 dsk Insulin Glulisine [Apidra] 14 unit SQ AC #2 vial Levothyroxine [Synthroid] 50 mcg PO DAILY #30 tab Pantoprazole [Protonix EC Tab] 40 mg PO DAILY #30 ect predniSONE [predniSONE Tab] See Taper PO DAILY 35 Days #74 tab Rosuvastatin Calcium 2.5 [Crestor] 2.5 mg PO HS #30 tab - Follow Up Plan Condition: STABLE Disposition: HOME/ ROUTINE Instructions: Shortness of Breath (Dyspnea) (DC), Diabetes and Diet Additional Instructions: Patient stable for discharge as per Dr. Ramos and Dr. Alvarado. Patient will need to follow up at [facility] or [facility] within one week for her chronic conditions especially her pulmonary fibrosis and Diabetes. Patient's niece was spoken to and explained that she will need to check her blood sugar 3 times a day, when she wakes up, before lunch, and before dinner and keep a log of these numbers. Patient will need to bring this log with her to the clinic so insulin adjustments can be made. Patient provided with the following medications which she should take as prescribed: Amlodipine 5mg by mouth daily Advair Diskus 250/50 1 puff inhaled twice a day Insulin Glulisine 14 units injected subcutaneously before each meal Synthroid 50mcg by mouth daily Protonix 40mg by mouth daily Prednisone taper: 4 pills by mouth daily for 1 week then 3 pills by mouth daily for 1 week then 2 pills by mouth daily for 1 week then 1 pills by mouth daily for 1 week then 1/2 a pill by mouth daily for 1 week Crestor 2.5mg by mouth before bed each night Patient please return to emergency room if symptoms return. Patient and niece explained instructions who understand and agree. La paciente esta estable para irse a la casa keyshawn la Dra. Ramos y el Dr Alvarado. La paciente necesitara hacer lolis cecille en la clinica de [place] o en la clinica de [facility] dentro de lolis semana por lo de jhon condiciones cronicas, especialmente por el fibroma pulmonar y la diabetes. Se hablo con la sobrina de la paciente y se le explico que la paciente necesitara checarse la azucar de la carrie 3 veces al lou, cuando despierte, antes de comer y antes de la freddie, y apuntar en un papel los resultados de la azucar. La paciente necesitara traer estos resultados a la clinica para hacer los ajustes de insulina necesarios. A la paciente se le dieron los siguientes medicamentos, los cuales debera dante keyshawn lo prescrito: Amlodipine 5mg via oral a diario Advair Diskus 250/50 1 puff inhaled dos veces al lou Insulin Glulisine 14 unidades inyectada subcutaneamente antes de cada comida Synthroid 50mcg via oral a diario Protonix 40mg via oral a diario Prednisone taper: 4 tabletas via oral a diarion por lolis semana despues 3 tabletas via oral a diarion por lolis semana despues 2 tabletas via oral a diarion por lolis semana despues 1 tableta via oral a diarion por lolis semana despues 1/2 a tableta via oral a diarion por lolis semana Crestor 2.5mg via oral cada noche antes de acostarse Por favor vuelva a la cesar de emergencias si los sintomas vuelven. A la paciente y a rider sobrina se les explicaron las instructiones y la entendieros y estuvieron de acuerdo. Referrals: [facility] [Provider Group] [facility] [Provider Group] ED Physician, [Primary Care Provider] - <DouglasJuan Daniel [email or web address] - Last Filed: 12/13/17 13:28> Provider - Provider Date of Admission: 12/10/17 13:23 Attending physician: Arben Christianson, Primary care physician: ED Physician Hospital Course - Lab Results Lab Results: Most Recent Lab Values WBC 23.2 K/uL (4.8-10.8) H D 12/12/17 08:16 RBC 3.82 Mil/uL (3.80-5.20) 12/12/17 08:16 Hgb 12.1 g/dL (11.0-16.0) 12/12/17 08:16 Hct 35.9 % (34.0-47.0) 12/12/17 08:16 MCV 94.0 fL (81.0-99.0) 12/12/17 08:16 MCH 31.6 pg (27.0-31.0) H 12/12/17 08:16 MCHC 33.6 g/dL (33.0-37.0) 12/12/17 08:16 RDW 14.2 % (11.5-14.5) 12/12/17 08:16 Plt Count 356 K/uL (130-400) 12/12/17 08:16 MPV 8.4 fL (7.2-11.7) 12/12/17 08:16 Neut % (Auto) 93.3 % (50.0-75.0) H 12/12/17 08:16 Lymph % (Auto) 4.6 % (20.0-40.0) L 12/12/17 08:16 Dade % (Auto) 1.9 % (0.0-10.0) 12/12/17 08:16 Eos % (Auto) 0.0 % (0.0-4.0) 12/12/17 08:16 Baso % (Auto) 0.2 % (0.0-2.0) 12/12/17 08:16 Neut # (Auto) 21.7 K/uL (1.8-7.0) H 12/12/17 08:16 Lymph # (Auto) 1.1 K/uL (1.0-4.3) 12/12/17 08:16 Dade # (Auto) 0.4 K/uL (0.0-0.8) 12/12/17 08:16 Eos # (Auto) 0.0 K/uL (0.0-0.7) 12/12/17 08:16 Baso # (Auto) 0.0 K/uL (0.0-0.2) 12/12/17 08:16 Neutrophils % (Manual) 95 % (50-75) H 12/12/17 08:16 Band Neutrophils % 3 % (0-2) H 12/12/17 08:16 Lymphocytes % (Manual) 2 % (20-40) L 12/12/17 08:16 Monocytes % (Manual) TEST NOT PERFORMED 12/12/17 08:16 Eosinophils % (Manual) 1 % (0-4) 12/10/17 12:34 Basophils % (Manual) 1 % (0-2) 12/10/17 12:34 Toxic Granulation Present 12/10/17 12:34 Platelet Estimate Normal (NORMAL) 12/12/17 08:16 Large Platelets Present 12/10/17 12:34 RBC Morphology Normal 12/12/17 08:16 Anisocytosis (manual) Slight 12/10/17 12:34 Sodium 136 mmol/L (132-148) 12/12/17 08:16 Potassium 4.1 mmol/L (3.6-5.2) 12/12/17 08:16 Chloride 98 mmol/L (98-107) 12/12/17 08:16 Carbon Dioxide 27 mmol/L (22-30) 12/12/17 08:16 Anion Gap 16 (10-20) 12/12/17 08:16 BUN 28 mg/dL (7-17) H 12/12/17 08:16 Creatinine 0.6 mg/dL (0.7-1.2) L 12/12/17 08:16 Est GFR ( Amer) > 60 12/12/17 08:16 Est GFR (Non-Af Amer) > 60 12/12/17 08:16 POC Glucose (mg/dL) 168 mg/dL (65-110) H 12/12/17 21:07 Random Glucose 494 mg/dL (65-105) H* D 12/12/17 08:16 Hemoglobin A1c 10.0 % (4.2-6.5) H D 12/11/17 06:45 Calcium 9.2 mg/dl (8.6-10.4) 12/12/17 08:16 Phosphorus 3.5 mg/dL (2.5-4.5) 12/12/17 08:16 Magnesium 1.9 mg/dL (1.6-2.3) 12/12/17 08:16 Total Bilirubin 0.4 mg/dL (0.2-1.3) 12/12/17 08:16 AST 19 U/L (14-36) 12/12/17 08:16 ALT 9 U/L (9-52) D 12/12/17 08:16 Alkaline Phosphatase 110 U/L (38-126) 12/12/17 08:16 Troponin I < 0.0120 ng/mL (0.00-0.120) 12/10/17 12:34 NT-Pro-B Natriuret Pep 145 pg/mL (0-900) 12/10/17 12:34 Total Protein 7.1 g/dL (6.3-8.3) 12/12/17 08:16 Albumin 3.6 g/dL (3.5-5.0) 12/12/17 08:16 Globulin 3.6 gm/dL (2.2-3.9) 12/12/17 08:16 Albumin/Globulin Ratio 1.0 (1.0-2.1) 12/12/17 08:16 Triglycerides 93 mg/dL (0-149) 12/11/17 06:45 Cholesterol 241 mg/dL (0-199) H 12/11/17 06:45 LDL Cholesterol Direct 160 mg/dL (0-129) H 12/11/17 06:45 HDL Cholesterol 59 mg/dL (30-70) 12/11/17 06:45 Free T4 1.50 ng/dL (0.78-2.19) 12/11/17 06:45 TSH 3rd Generation 0.49 mIU/L (0.46-4.68) 12/11/17 06:45 Attending/Attestation - Attestation I have personally seen and examined this patient.: Yes I have fully participated in the care of the patient.: Yes I have reviewed all pertinent clinical information, including history, physical exam and plan: Yes Notes (Text): Seen and examined on the day of discharge. The resident spoke to the niece who takes care of her.Explained about checking sugar at home. Her sugar was high likely due to steroid/IV solumedrol. expect to come down with tapering dose of steroid. I agree with the resident's discharge plan
[2017-12-12] MEDS: Albuterol-Ipratrop 3 mg / 0.5 (3 ml) UD INH PRN (20:27)
== END 2017-12-12 21:53 | disposition home or self-care (01) ==
LOC: C.ER 11:29 → C.9E 13:23 → C.3T 13:44
PROVIDERS: ADMIT Hospitalist; ATTEND Hospitalist
DX: J84.10 Pulmonary fibrosis, unspecified (principal); J47.9 Bronchiectasis, uncomplicated; E11.65 Type 2 diabetes mellitus with hyperglycemia; E78.5 Hyperlipidemia, unspecified; E03.9 Hypothyroidism, unspecified; I10 Essential (primary) hypertension; I25.10 Atherosclerotic heart disease of native coronary artery without angina pectoris; J98.11 Atelectasis; K21.9 Gastro-esophageal reflux disease without esophagitis; Z79.4 Long term (current) use of insulin; Z85.72 Personal history of non-Hodgkin lymphomas; R09.02 Hypoxemia
CPT/HCPCS: 36415; 71045; 80048; 80053; 80061; 82948; 83036; 83735; 83880; 84100; 84439; 84443; 84484; 85025; 93005; 94640; 96372; 96374; 97162; 97530; 99285; G0378; G8978; G8979; J1644; J2920

== ENCOUNTER 2017-12-20 09:47 | Inpatient (IN) | payer MEDICAID, OTHER ==
[2017-12-20 09:47] VITALS: BMI 21.9
[2017-12-20 10:27] LABS: BASO # 0.2 K/uL (0.0-0.2); BASO % 1.2 % (0.0-2.0); EOS # 0.3 K/uL (0.0-0.7); EOS % 2.3 % (0.0-4.0); HEMOGLOBIN 12.2 g/dL (11.0-16.0); LYMPH # 2.2 K/uL (1.0-4.3); LYMPH % 15.1 % (20.0-40.0); MEAN CELL VOLUME 92.8 fL (81.0-99.0); MEAN CORPUSCULAR HEMOGLOBIN 31.4 pg (27.0-31.0); MEAN CORPUSCULAR HGB CONC 33.9 g/dL (33.0-37.0); MEAN PLATELET VOLUME 7.8 fL (7.2-11.7); MONO # 0.8 K/uL (0.0-0.8); MONO % 5.7 % (0.0-10.0); NEUT # 11.1 K/uL (1.8-7.0); NEUT % 75.7 % (50.0-75.0); RBC 3.89 Mil/uL (3.80-5.20); RED CELL DISTRIBUTION WIDTH 14.4 % (11.5-14.5); WHITE BLOOD COUNT 14.6 K/uL (4.8-10.8)
--- NOTE | 2017-12-20 10:27 | RAD ---
PROCEDURE: CHEST RADIOGRAPH, 1 VIEW HISTORY: SOB COMPARISON: Chest radiograph dated 12/11/2017. FINDINGS: LUNGS: Low lung volumes. Bilateral fibrotic changes, right worse than left. No focal consolidation. PLEURA: No pneumothorax or pleural fluid seen. CARDIOVASCULAR: Atherosclerotic aortic calcifications. Cardiomediastinal silhouette stably enlarged. OSSEOUS STRUCTURES: Unchanged. VISUALIZED UPPER ABDOMEN: Normal. OTHER FINDINGS: None. IMPRESSION: Right worse than left bilateral fibrotic changes, not significantly changed. No focal consolidation or pleural effusion.
[2017-12-20 10:35] LABS: PROTHROMBIN TIME 11.2 SECONDS (9.7-12.2)
[2017-12-20 11:01] LABS: B-TYPE NATRIURETIC PEPTIDE 184 pg/mL (0-900); CK-MB 0.61 ng/mL (0.0-3.38)
[2017-12-20 11:03] LABS: ALBUMIN 3.5 g/dL (3.5-5.0); ALT/SGPT 16 U/L (9-52); AST/SGOT 25 U/L (14-36); BLOOD UREA NITROGEN 19 mg/dL (7-17); CALCIUM 8.9 mg/dl (8.6-10.4); GFR AFRICAN-AMERICAN > 60; GFR NON-AFRICAN AMERICAN > 60
[2017-12-20] MEDS ORDERED: Albuterol-Ipratrop 3 mg / 0.5 (3 ml) UD INH STA (11:09)
[2017-12-20] MEDS ORDERED: Albuterol-Ipratrop 3 mg / 0.5 (3 ml) UD ONE (11:15)
[2017-12-20] MEDS ORDERED: (Novolin R) Insulin Human Regular 100 units/ml vial IV STA (11:26)
--- NOTE | 2017-12-20 11:34 | C.PDOC ---
History Of Present Illness 77-year-old female, with PMHx that includes pulmonary fibrosis, presents to the emergency department with complaints of worsening of her chronic shortness of breath since this morning, associated with non-productive cough. Patient denies chest pain, palpitations, fever, abdominal pain, vomiting/diarrhea. She was recently admitted on 12/20 for similar symptoms. Time Seen by Provider: 12/20/17 09:48 Chief Complaint (Nursing): Shortness Of Breath History Per: Patient History/Exam Limitations: no limitations Current Symptoms Are (Timing): Still Present Current Respiratory Medications: See Home Med List Severity: Moderate Reports Recently: Hospitalized Past Medical History Reviewed: Historical Data, Nursing Documentation, Vital Signs Vital Signs: Last Vital Signs Temp 97.3 F L 12/26/17 23:40 Pulse 72 12/26/17 23:40 Resp 20 12/26/17 23:40 BP 134/79 12/26/17 23:40 Pulse Ox 97 12/27/17 07:55 - Medical History PMH: Bronchitis, CAD, Depression, Diabetes, Gall Bladder Disease ( cholecystectomy), HTN, Hyperlipidemia, Hypothyroidism Surgical History: Cholecystectomy, Coronary Stent - [facility] Procedures INTRODUCE OF OTH THERAP SUBST INTO RESP TRACT, VIA OPENING (08/21/17) INTRODUCTION OF SERUM/TOX/VACCINE INTO MUSCLE, PERC APPROACH (08/21/17) Family History: States: No Known Family Hx - Social History Hx Alcohol Use: No Hx Substance Use: No Review Of Systems Constitutional: Negative for: Fever Cardiovascular: Negative for: Chest Pain, Palpitations Respiratory: Positive for: Cough, Shortness of Breath. Negative for: Sputum, Wheezing Gastrointestinal: Negative for: Nausea, Vomiting, Diarrhea Musculoskeletal: Negative for: Back Pain Skin: Negative for: Rash Neurological: Negative for: Weakness, Numbness, Headache, Dizziness Physical Exam - Physical Exam Appears: Well, Non-toxic, Other (speaking in full sentences, in mild respiratoru distress) Skin: Normal Color, Warm, Dry, No Rash Head: Normacephalic Oral Mucosa: Moist Tongue: Normal Appearing, No Swelling Lips: Normal Appearing, No Swelling Throat: Normal, No Erythema, No Exudate Neck: Supple Cardiovascular: Rhythm Regular Respiratory: No Accessory Muscle Use, No Rales, No Rhonchi, No Wheezing, Other ( coarse breath sounds B/L at bases, mildly tachypnic ) Gastrointestinal/Abdominal: Normal Exam, Bowel Sounds, Soft, No Tenderness Extremity: Normal ROM, No Pedal Edema, No Calf Tenderness Neurological/Psych: Oriented x3 ED Course And Treatment - Laboratory Results Result Diagrams: 12/27/17 07:22 12/26/17 07:17 ECG: Interpreted By Me, Viewed By Me (NSR 94 bpm, left axis deviation, Q waves III, aVF, no acute ST changes) ECG Interpretation: Abnormal O2 Sat by Pulse Oximetry: 97 (RA) Pulse Ox Interpretation: Normal - Radiology CXR: Interpreted by Me, Viewed By Me (chronic changes without infiltrate/ effusion) Progress Note: Blood work, EKG, Chest X-Ray and UA ordered and reviewed. Patient given IV solumedrol, duoneb treatment, IV insulin for hyperglycemia. Patient states she uses home O2, but is unsure of how many liters. Patient arrives to ED 83% on RA, and was witnessed to desturate desean mid 70s without O2 - will need admission. - Physician Consult Information Physician Contacted: Chris Conner Outcome Of Conversation: Discussed patient with hospitalist, agrees with admission for hypoxia, pulmonary fibrosis exacerbation, dyspnea. Disposition - Disposition Disposition: HOSPITALIZED Disposition Time: 12:09 Condition: FAIR - Clinical Impression Clinical Impression: Hypoxia, Dyspnea, Pulmonary fibrosis - Scribe Statement The provider has reviewed the documentation as recorded by the Scribe (Eddie Gupta) All medical record entries made by the Scribe were at my direction and personally dictated by me. I have reviewed the chart and agree that the record accurately reflects my personal performance of the history, physical exam, medical decision making, and the department course for this patient. I have also personally directed, reviewed, and agree with the discharge instructions and disposition. Decision To Admit - Pt Status Changed To: Hospital Disposition Of: Inpatient - Admit Certification Admit to Inpatient:: After my assessment, the patient will require hospitalization for at least two midnights. This is because of the severity of symptoms shown, intensity of services needed, and/or the medical risk in this patient being treated as an outpatient. - InPatient: Physician Admission Certification: I certify that this patient requires 2 or more midnights of care for the following reason:: see notes - . Bed Request Type: Telemetry Admitting Physician: Chris Conner Patient Diagnosis: Hypoxia, Dyspnea, Pulmonary fibrosis
[2017-12-20] MEDS ORDERED: (Novolin R) Insulin Human Regular 100 units/ml vial ONE (11:55)
[2017-12-20 12:32] LABS: SQUAMOUS EPITHIAL 14 /hpf (0-5); URINE BILIRUBIN NEGATIVE (NEGATIVE); URINE BLOOD NEGATIVE (NEGATIVE); URINE CLARITY Hazy (Clear); URINE COLOR Yellow (YELLOW); URINE GLUCOSE (UA) 3+ mg/dL (Normal); URINE LEUKOCYTE ESTERASE 3+ Leu/uL (Negative); URINE PROTEIN 1+ mg/dL (NEGATIVE)
--- NOTE | 2017-12-20 12:38 | CP.PCM.HP ---
<Micheal Gibbs - Last Filed: 12/20/17 15:12> History of Present Illness - History of Present Illness History of Present Illness: CC: Shortness of breath HPI: Patient is a 77 year old female, originally from [facility] (moved to in June of 2017), with PMHx of pulmonary fibrosis (diagnosed in [facility]), hypertension, diabetes mellitus, hypothyroidism, and previous treatment lymphoma with chemotherapy. Patient has history of chronic SOB due to pulmonary fibrosis. Her home oxygen is normally set to 3L. Patient experienced severe shortness of breath this morning that began when she woke up. She attempted breathing treatment and "turned up her home oxygen" but with no improvement. She denies fever or chills but admits chronic dry cough. 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 States she has been taking medication prescribed to her at recent discharge from [facility], but admits being "frugal" with her diabetic testing strips because she cannot afford them. Patient lives on the third floor of her apartment building and was unable to get down on her own. At baseline, patient admits to being able to take no more than a few steps without becoming SOB. Denies leg swelling or needing to sleep with multiple pillows. Patient has multiple previous discharges for similar complaints, most recent discharge on 12/12/17. She had instructions to follow up with [facility] but patient has been unable. Patient denies fever, chills, nausea, vomiting, diarrhea, constipation, chest pain, numbness, tingling, dysuria, hematuria, hematochezia, and sick contacts. PMD: Denies Allergies: PCN (anaphylaxis) PMHX: Pulmonary Fibrosis (diagnosed in [facility]), Hypertension, Diabetes, Hypothyroidism. History of chemotherapy approximately 10 years ago for Lymphoma. PSHX: Cholecystectomy, Stomach Reduction Surgery Family: Unknown for parents. Brother has lung problems and is also on home oxygen Social: Denies tobacco, alcohol, or illicit drug use. Patient lives with niece in an apartment building on the third floor. Meds: Prednisone taper (from last admission), Amlodipine 5mg, Advair Diskus 250/ 50 1 puff inh BID, Glulisine 14 units SC before each meal, Synthroid 50mcg, Protonix 40mg Daily, Crestor 2.5 mg HS Present on Admission - Present on Admission Any Indicators Present on Admission: No Review of Systems - Constitutional Constitutional: absent: Anorexia, Fever - EENT Eyes: absent: Change in Vision - Cardiovascular Cardiovascular: Dyspnea, Dyspnea on Exertion. absent: Chest Pain - Respiratory Respiratory: Cough (dry), Dyspnea - Gastrointestinal Gastrointestinal: absent: Abdominal Pain, Nausea, Vomiting - Genitourinary Genitourinary: absent: Dysuria, Hematuria - Musculoskeletal Musculoskeletal: absent: Back Pain, Numbness, Tingling - Psychiatric Psychiatric: absent: Anxiety, Depression - Endocrine Endocrine: absent: Fatigue, Palpitations Past Patient History - Infectious Disease Hx of Infectious Diseases: None - Past Medical History & Family History Past Medical History?: Yes - Past Social History Smoking Status: Never Smoked - CARDIAC Hx Hypertension: Yes - PULMONARY Hx Bronchitis: Yes - NEUROLOGICAL Hx Neurological Disorder: No - HEENT Other/Comment: pt wears glasses - RENAL Hx Chronic Kidney Disease: No - ENDOCRINE/METABOLIC Hx Hypothyroidism: Yes - HEMATOLOGICAL/ONCOLOGICAL Hx Human Immunodeficiency Virus (HIV): No - INTEGUMENTARY Hx Dermatological Problems: No - MUSCULOSKELETAL/RHEUMATOLOGICAL Hx Musculoskeletal Disorders: Yes Hx Falls: Yes - GASTROINTESTINAL Hx Gall Bladder Disease: Yes (cholecystectomy) - GENITOURINARY/GYNECOLOGICAL Hx Genitourinary Disorders: No - PSYCHIATRIC Hx Depression: Yes Hx Substance Use: No - SURGICAL HISTORY Hx Cholecystectomy: Yes Hx Coronary Stent: Yes - ANESTHESIA Hx Anesthesia: Yes Hx Anesthesia Reactions: No Meds Allergies/Adverse Reactions: Allergies Allergy/AdvReac Type Severity Reaction Status Date / Time Penicillins Allergy SWELLING Verified 12/20/17 09:53 Physical Exam - Constitutional Appears: Non-toxic, Chronically Ill - Head Exam Head Exam: ATRAUMATIC, NORMAL INSPECTION - Eye Exam Eye Exam: EOMI. absent: Scleral icterus Pupil Exam: PERRL - ENT Exam ENT Exam: Mucous Membranes Moist - Respiratory Exam Respiratory Exam: Decreased Breath Sounds, Rhonchi (Crackles at bases). absent : Clear to Auscultation Bilateral, Wheezes, NORMAL BREATHING PATTERN - Cardiovascular Exam Cardiovascular Exam: Tachycardia, +S1, +S2. absent: Systolic Murmur - GI/Abdominal Exam GI & Abdominal Exam: Normal Bowel Sounds, Soft - Extremities Exam Extremities exam: Positive for: normal inspection. Negative for: pedal edema, tenderness - Back Exam Back exam: absent: CVA tenderness (L) - Neurological Exam Neurological exam: Alert, Oriented x3 - Psychiatric Exam Psychiatric exam: Normal Affect - Skin Skin Exam: Normal Color, Warm Results - Vital Signs Recent Vital Signs: Last Vital Signs Temp 99.0 F 12/20/17 09:48 Pulse 92 H 12/20/17 09:48 Resp 24 12/20/17 10:16 BP 108/68 12/20/17 09:48 Pulse Ox 97 12/20/17 12:33 - Labs Result Diagrams: 12/20/17 10:16 12/20/17 10:16 Labs: Laboratory Results - last 24 hr 12/20/17 12/20/17 12/20/17 10:01 10:16 10:16 WBC 14.6 H RBC 3.89 Hgb 12.2 Hct 36.1 MCV 92.8 MCH 31.4 H MCHC 33.9 RDW 14.4 Plt Count 260 MPV 7.8 Neut % (Auto) 75.7 H Lymph % (Auto) 15.1 L [place] % (Auto) 5.7 Eos % (Auto) 2.3 Baso % (Auto) 1.2 Neut # (Auto) 11.1 H Lymph # (Auto) 2.2 [place] # (Auto) 0.8 Eos # (Auto) 0.3 Baso # (Auto) 0.2 PT INR APTT Sodium 136 Potassium 4.4 Chloride 97 L Carbon Dioxide 28 Anion Gap 16 BUN 19 H Creatinine 0.6 L Est GFR ( Amer) > 60 Est GFR (Non-Af Amer) > 60 POC Glucose (mg/dL) 304 H Random Glucose 336 H Calcium 8.9 Total Bilirubin 0.6 AST 25 ALT 16 Alkaline Phosphatase 89 Total Creatine Kinase < 20 L CK-MB (Mass) 0.61 Troponin I < 0.0120 NT-Pro-B Natriuret Pep 184 Total Protein 6.9 Albumin 3.5 Globulin 3.4 Albumin/Globulin Ratio 1.0 12/20/17 10:16 WBC RBC Hgb Hct MCV MCH MCHC RDW Plt Count MPV Neut % (Auto) Lymph % (Auto) [place] % (Auto) Eos % (Auto) Baso % (Auto) Neut # (Auto) Lymph # (Auto) [place] # (Auto) Eos # (Auto) Baso # (Auto) PT 11.2 INR 1.0 APTT 25 Sodium Potassium Chloride Carbon Dioxide Anion Gap BUN Creatinine Est GFR ( Amer) Est GFR (Non-Af Amer) POC Glucose (mg/dL) Random Glucose Calcium Total Bilirubin AST ALT Alkaline Phosphatase Total Creatine Kinase CK-MB (Mass) Troponin I NT-Pro-B Natriuret Pep Total Protein Albumin Globulin Albumin/Globulin Ratio Assessment & Plan - Assessment and Plan (Free Text) Plan: Shortness of breath w/Hx Pulmonary Fibrosis Admit to [facility] Saturated 83% on presentation 3L [place] Home oxygen @ 3L CXR (12/20/17): Right worse than left b/l fibrotic changes, not significantly changed. No focal consolidation or pleural effusion. Troponin negative x 1; BNP WNL Solumedrol 125 mg ivp given in ED -start solumedrol 40mg ivp q6h Duonebs q2h prn Advair Diskus 250/50 1 puff q12h Vapotherm @ 3L Bipap PRN Abnormal UA w/o symptoms UA (12/20/17): LE 3+, negative nitrates, 41 WBC, but not clean catch Patient denies symptoms so will not treat Monitor Elevated WBC Afebrile, No fever/chills WBC 14.6, pt finishing home prednisone taper from last admission, now on IV steroids Monitor Hypothyroid continue home Levothyroxine 50 mcg PO daily TSH/Free T4 WNL (12/12/17) DM type II Accuchecks ACHS MISS hypoglycemia protocol Hgb A1c (last admission): 10 Pt on home Glulisine 14 units AC, restart tomorrow HTN continue home med: Amlodipine 5mg PO HLD Lipid panel (12/05/2017) Triglycerides 93, Cholesterol 241, LDL 160, HDL 59 Continue Crestor 2.5 mg po daily GERD Protonix 40mg po daily Prophylactic Care VTE: Lovenox 40mg SC daily,SCDs Protonix 40mg po daily Disposition: Pt admitted for acute SOB in context of advanced lung disease due to Pulm Fibrosis. Will start steroids IV. On Vapotherm, bipap PRN. Will restart home AC insulin tomorrow. Monitor for urinary symptoms - abnormal UA on admission. Micheal Gibbs PGY-2 D/w attending Dr. Christianson <Arben Christianson H - Last Filed: 12/20/17 15:37> Results - Vital Signs Recent Vital Signs: Last Vital Signs Temp 98.1 F 05/16/18 13:51 Pulse 102 H 12/20/17 13:51 Resp 26 H 12/20/17 14:22 BP 136/77 12/20/17 13:51 Pulse Ox 94 L 12/20/17 14:00 - Labs Result Diagrams: 12/20/17 10:16 12/20/17 10:16 Labs: Laboratory Results - last 24 hr 12/20/17 12/20/17 12/20/17 10:01 10:16 10:16 WBC 14.6 H RBC 3.89 Hgb 12.2 Hct 36.1 MCV 92.8 MCH 31.4 H MCHC 33.9 RDW 14.4 Plt Count 260 MPV 7.8 Neut % (Auto) 75.7 H Lymph % (Auto) 15.1 L [place] % (Auto) 5.7 Eos % (Auto) 2.3 Baso % (Auto) 1.2 Neut # (Auto) 11.1 H Lymph # (Auto) 2.2 [place] # (Auto) 0.8 Eos # (Auto) 0.3 Baso # (Auto) 0.2 PT INR APTT Sodium 136 Potassium 4.4 Chloride 97 L Carbon Dioxide 28 Anion Gap 16 BUN 19 H Creatinine 0.6 L Est GFR ( Amer) > 60 Est GFR (Non-Af Amer) > 60 POC Glucose (mg/dL) 304 H Random Glucose 336 H Calcium 8.9 Total Bilirubin 0.6 AST 25 ALT 16 Alkaline Phosphatase 89 Total Creatine Kinase < 20 L CK-MB (Mass) 0.61 Troponin I < 0.0120 NT-Pro-B Natriuret Pep 184 Total Protein 6.9 Albumin 3.5 Globulin 3.4 Albumin/Globulin Ratio 1.0 Urine Color Urine Clarity Urine pH Ur Specific [place] Urine Protein Urine Glucose (UA) Urine Ketones Urine Blood Urine Nitrate Urine Bilirubin Urine Urobilinogen Ur Leukocyte Esterase Urine WBC (Auto) Urine RBC (Auto) Ur Squamous Epith Cells 12/20/17 12/20/17 10:16 11:51 WBC RBC Hgb Hct MCV MCH MCHC RDW Plt Count MPV Neut % (Auto) Lymph % (Auto) [place] % (Auto) Eos % (Auto) Baso % (Auto) Neut # (Auto) Lymph # (Auto) [place] # (Auto) Eos # (Auto) Baso # (Auto) PT 11.2 INR 1.0 APTT 25 Sodium Potassium Chloride Carbon Dioxide Anion Gap BUN Creatinine Est GFR ( Amer) Est GFR (Non-Af Amer) POC Glucose (mg/dL) Random Glucose Calcium Total Bilirubin AST ALT Alkaline Phosphatase Total Creatine Kinase CK-MB (Mass) Troponin I NT-Pro-B Natriuret Pep Total Protein Albumin Globulin Albumin/Globulin Ratio Urine Color Yellow Urine Clarity Hazy Urine pH 6.0 Ur Specific [place] 1.027 Urine Protein 1+ H Urine Glucose (UA) 3+ H Urine Ketones Trace Urine Blood Negative Urine Nitrate Negative Urine Bilirubin Negative Urine Urobilinogen 2.0 H Ur Leukocyte Esterase 3+ H Urine WBC (Auto) 41 H Urine RBC (Auto) 6 H Ur Squamous Epith Cells 14 H Attending/Attestation - Attestation I have personally seen and examined this patient.: Yes I have fully participated in the care of the patient.: Yes I have reviewed all pertinent clinical information: Yes Notes (Text): 12/20/17 15:37 Medical attending: Patient was seen and examined by me, agree with the above note by the medical administrative assistant. This is a patient very well known to the hospitalist service. She has a history of severe pulmonary fibrosis. She's been in the hospital several times due to shortness of breath. She has home oxygen and this morning had shortness of breath when she woke up and she tried to increase the home oxygen however it didn't help her so she came in to the ER. She explains that she's not able to take more than a few steps without becoming short of breath. For now we'll hold off on ordering a new CAT scan continue echo because there have been recent ones at this time we will start IV solumedrol and also continue with her inhalers Thank you very much, Arben Chrisitanson
[2017-12-20] MEDS ORDERED: MethylPREDNISolone 40 mg Vial IVP SCH (14:00)
[2017-12-20] MEDS ORDERED: Dextrose 50% SYRINGE Inj (50 ml) IV PRN (15:15)
[2017-12-20] MEDS ORDERED: Glucagon Recombinant 1 mg Inj IM PRN (15:15)
[2017-12-20] MEDS ORDERED: (Novolin R) Insulin Human Regular 100 units/ml vial SC SCH ×2 (16:30)
[2017-12-20] MEDS: MethylPREDNISolone 40 mg Vial IVP SCH ×2 (16:46→21:15)
[2017-12-20] MEDS: Rosuvastatin Calcium 2.5 mg Tab PO SCH (21:14)
[2017-12-20] MEDS: (Lantus) Insulin Glargine, Recombinant SC SCH (21:15)
[2017-12-20] MEDS: (Novolin R) Insulin Human Regular 100 units/ml vial SC SCH (21:16)
[2017-12-21] MEDS: MethylPREDNISolone 40 mg Vial IVP SCH ×4 (04:08→21:42)
[2017-12-21] MEDS: Levothyroxine 50 MCG TAB PO SCH (05:46)
[2017-12-21] MEDS: (Novolin R) Insulin Human Regular 100 units/ml vial SC SCH ×4 (07:04→21:43)
[2017-12-21 07:35] LABS: BASO # 0.1 K/uL (0.0-0.2); BASO % 0.3 % (0.0-2.0); LYMPH # 0.8 K/uL (1.0-4.3); LYMPH % 4.2 % (20.0-40.0); MEAN CELL VOLUME 92.4 fL (81.0-99.0); MEAN CORPUSCULAR HEMOGLOBIN 31.4 pg (27.0-31.0); MEAN PLATELET VOLUME 8.2 fL (7.2-11.7); MONO # 0.3 K/uL (0.0-0.8); MONO % 1.8 % (0.0-10.0); NEUT # 17.1 K/uL (1.8-7.0); NEUT % 93.7 % (50.0-75.0); NRBC % 0.1 % (0.0-2.0); PLATELET COUNT 270 K/uL (130-400); RBC 3.83 Mil/uL (3.80-5.20); RED CELL DISTRIBUTION WIDTH 14.1 % (11.5-14.5); WHITE BLOOD COUNT 18.2 K/uL (4.8-10.8)
[2017-12-21 07:48] LABS: ALBUMIN 3.5 g/dL (3.5-5.0); ALT/SGPT 20 U/L (9-52); AST/SGOT 18 U/L (14-36); BLOOD UREA NITROGEN 23 mg/dL (7-17); CALCIUM 9.3 mg/dl (8.6-10.4); GFR AFRICAN-AMERICAN > 60; GFR NON-AFRICAN AMERICAN > 60
[2017-12-21] MEDS: (Novolog) Insulin Aspart, Recombinant 100 u/ml 10 ml vial SC SCH ×3 (08:30→16:36)
[2017-12-21] MEDS: Pantoprazole 40 mg EC Tab PO SCH (09:30)
[2017-12-21] MEDS: Enoxaparin 40 mg Syringe SC SCH (09:31)
[2017-12-21 09:53] LABS: BANDS 6 % (0-2); LYMPHOCYTE 6 % (20-40); MONOCYTE 2 % (0-10); NEUTROPHIL 86 % (50-75); PLATELET ESTIMATE NORMAL (NORMAL); TOTAL CELLS COUNTED 100
[2017-12-21] MEDS: Fluticasone-Salmeterol 250-50mcg Diskus INH SCH ×2 (10:05→19:35)
--- NOTE | 2017-12-21 15:17 | CP.PCM.PN ---
<TejaTorrie Jorge AlbertoAnkita - Last Filed: 12/21/17 15:34> Subjective - Date & Time of Evaluation Date of Evaluation: 12/21/17 Time of Evaluation: 07:00 - Subjective Subjective: Medicine Progress Note: Patient seen and examined at bedside this morning. Patient states she feels okay but still reports shortness of breath. Patient complains of epigastric pain for one day, states she normally takes omeprazole with good relief. She denies nausea and vomiting, tolerating her diet well. She denies fever,chills, chest pain, cough or dysuria. Objective - Vital Signs/Intake and Output Vital Signs (last 24 hours): Temp Pulse Resp BP Pulse Ox 97.8 F 86 18 126/70 96 12/21/17 07:35 12/21/17 08:00 12/21/17 07:35 12/21/17 07:35 12/21/17 07:35 Intake and Output: 12/21/17 12/21/17 06:59 18:59 Intake Total 480 Balance 480 - Medications Medications: Current Medications Albuterol/Ipratropium (Duoneb 3 Mg/0.5 Mg (3 Ml) Ud) 3 ml INH RQ2 PRN PRN Reason: Shortness of Breath Amlodipine Besylate (Norvasc) 5 mg PO DAILY [facility] Last Admin: 12/21/17 09:30 Dose: 5 mg Dextrose (Dextrose 50% Inj) 0 ml IV STAT PRN; Protocol PRN Reason: Hypoglycemia Protocol Dextrose (Glutose 15) 0 gm PO ONCE PRN; Protocol PRN Reason: Hypoglycemia Protocol Enoxaparin Sodium (Lovenox) 40 mg SC DAILY [facility] Last Admin: 12/21/17 09:31 Dose: 40 mg Glucagon (Glucagen Diagnostic Kit) 0 mg IM STAT PRN; Protocol PRN Reason: Hypoglycemia Protocol Dextrose (Dextrose 5% In Water 1000 Ml) 1,000 mls @ 0 mls/hr IV .Q0M PRN; Protocol; Per Protocol PRN Reason: Hypoglycemia Protocol Insulin Aspart (Novolog) 14 unit SC AC [facility] Last Admin: 12/21/17 12:37 Dose: 14 unit Insulin Glargine (Lantus) 10 unit SC HS [facility] Last Admin: 12/20/17 21:15 Dose: 10 unit Insulin Human Regular (Novolin R) 0 unit SC ACHS [facility] PRN Reason: Protocol Last Admin: 12/21/17 12:36 Dose: 8 unit Levothyroxine Sodium (Synthroid) 50 mcg PO DAILY@0630 [facility] Last Admin: 12/21/17 05:46 Dose: 50 mcg Methylprednisolone (Solu-Medrol) 40 mg IVP Q6H [facility] Last Admin: 12/21/17 09:31 Dose: 40 mg Pantoprazole Sodium (Protonix Ec Tab) 40 mg PO DAILY [facility] Last Admin: 12/21/17 09:30 Dose: 40 mg Rosuvastatin Calcium (Crestor) 2.5 mg PO HS [facility] Last Admin: 12/20/17 21:14 Dose: 2.5 mg Fluticasone/Salmeterol (Advair Diskus 250/50) 1 puff INH RQ12 [facility] Last Admin: 12/21/17 10:05 Dose: 1 puff - Labs Labs: 12/21/17 07:13 12/21/17 07:13 PT 11.2 SECONDS (9.7-12.2) 12/20/17 10:16 INR 1.0 12/20/17 10:16 APTT 25 SECONDS (21-34) 12/20/17 10:16 - Constitutional Appears: Chronically Ill - Head Exam Head Exam: ATRAUMATIC, NORMAL INSPECTION - Eye Exam Eye Exam: EOMI, Normal appearance - ENT Exam ENT Exam: Mucous Membranes Moist - Respiratory Exam Respiratory Exam: Decreased Breath Sounds, Rhonchi (crackles at lower lobes), NORMAL BREATHING PATTERN - Cardiovascular Exam Cardiovascular Exam: REGULAR RHYTHM, +S1, +S2 - GI/Abdominal Exam GI & Abdominal Exam: Soft, Normal Bowel Sounds. absent: Tenderness - Extremities Exam Extremities Exam: Normal Inspection - Neurological Exam Neurological Exam: Alert, Awake, Oriented x3 - Psychiatric Exam Psychiatric exam: Normal Affect, Normal Mood - Skin Skin Exam: Normal Color Assessment and Plan - Assessment and Plan (Free Text) Assessment: 1.) Pulmonary fibrosis - Pulmonary consult deferred at this time. Patient was recently admitted for similar symptoms, management based on previous recommendations and will re- consult appropriately. Images - Chest x-ray (12/20/17): Right worse than left bilateral fibrotic changes, not significantly changed. No focal consolidation of pleural effusion. - Chest CT with contrast from previous admission (11/08/17): Chronic interstitial fibrotic change throughout the right lung. Multifocal left-sided subpleural fibrosis. Varicoid bronchiectasis bilateally, right greater than left. Dilated main pulmonary artery. No toher significant abnormality. - Discontinue high flow oxygen, patient saturation 94-98% on 4L via [place] - Will look into financial assistance programs for idiopathic pulmonary fibrosis medications - Medications * Duoneb 3ml INH RQ2 PRN * Advair Diskus 250/50 1 puff INH RQ12 * Solumedrol 40mg IVP Q6H 2.) Leukocytosis secondary to steroids - Patient afebrile - Blood cultures: preliminary results no growth after 24 hours x2 3.) History of DM - Continue monitor with Accucheck - Medications - ISS and hypoglycemia protocols - Novolog 14u SC AC - Lantus 10u SC QHS 4.) History of hypothyroidism - Patient stable and asymptomatic at this time - Free T4 from previous admission (12/11/17): 1.5 - TSH from previous admission (12/11/17): 0.49 - Continue home medication * Levothyroxine 50mcg PO QAM 5.) History of HTN - Norvasc 5mg PO QD 6.) History of HLD - Crestor 2.5mg PO QHS 7.) History of GERD - Protonix 40mg PO QD 8.) Prophylaxis - Lovenox 40mg SC QD - SCDs to be used while in bed - Protonix 40mg PO QD - PT evaluation: patient may need wheel chair for ambulation due to pulmonary fibrosis Case discussed with Dr. Meghan Lezama PGY-1 <Arben Christianson - Last Filed: 12/21/17 15:48> Objective - Vital Signs/Intake and Output Vital Signs (last 24 hours): Temp Pulse Resp BP Pulse Ox 97.8 F 86 18 126/70 96 12/21/17 07:35 12/21/17 08:00 12/21/17 07:35 12/21/17 07:35 12/21/17 07:35 Intake and Output: 12/21/17 12/21/17 06:59 18:59 Intake Total 480 Balance 480 - Medications Medications: Current Medications Albuterol/Ipratropium (Duoneb 3 Mg/0.5 Mg (3 Ml) Ud) 3 ml INH RQ2 PRN PRN Reason: Shortness of Breath Amlodipine Besylate (Norvasc) 5 mg PO DAILY [facility] Last Admin: 12/21/17 09:30 Dose: 5 mg Dextrose (Dextrose 50% Inj) 0 ml IV STAT PRN; Protocol PRN Reason: Hypoglycemia Protocol Dextrose (Glutose 15) 0 gm PO ONCE PRN; Protocol PRN Reason: Hypoglycemia Protocol Enoxaparin Sodium (Lovenox) 40 mg SC DAILY [facility] Last Admin: 12/21/17 09:31 Dose: 40 mg Glucagon (Glucagen Diagnostic Kit) 0 mg IM STAT PRN; Protocol PRN Reason: Hypoglycemia Protocol Dextrose (Dextrose 5% In Water 1000 Ml) 1,000 mls @ 0 mls/hr IV .Q0M PRN; Protocol; Per Protocol PRN Reason: Hypoglycemia Protocol Insulin Aspart (Novolog) 14 unit SC AC [facility] Last Admin: 12/21/17 12:37 Dose: 14 unit Insulin Glargine (Lantus) 10 unit SC HS [facility] Last Admin: 12/20/17 21:15 Dose: 10 unit Insulin Human Regular (Novolin R) 0 unit SC ACHS [facility] PRN Reason: Protocol Last Admin: 12/21/17 12:36 Dose: 8 unit Levothyroxine Sodium (Synthroid) 50 mcg PO DAILY@0630 [facility] Last Admin: 12/21/17 05:46 Dose: 50 mcg Methylprednisolone (Solu-Medrol) 40 mg IVP Q6H [facility] Last Admin: 12/21/17 09:31 Dose: 40 mg Pantoprazole Sodium (Protonix Ec Tab) 40 mg PO DAILY [facility] Last Admin: 12/21/17 09:30 Dose: 40 mg Rosuvastatin Calcium (Crestor) 2.5 mg PO HS [facility] Last Admin: 12/20/17 21:14 Dose: 2.5 mg Fluticasone/Salmeterol (Advair Diskus 250/50) 1 puff INH RQ12 [facility] Last Admin: 12/21/17 10:05 Dose: 1 puff - Labs Labs: 12/21/17 07:13 12/21/17 07:13 PT 11.2 SECONDS (9.7-12.2) 12/20/17 10:16 INR 1.0 12/20/17 10:16 APTT 25 SECONDS (21-34) 12/20/17 10:16 Attending/Attestation - Attestation I have personally seen and examined this patient.: Yes I have fully participated in the care of the patient.: Yes I have reviewed all pertinent clinical information, including history, physical exam and plan: Yes Notes (Text): 12/21/17 15:40 Medical attending: Patient was seen and examined by me. Agree with the above note by the resident The patient was on nasal cannula when we saw her. She was not in any acute distress however given her history and imaging of her lungs - we know that she easily desaturation whenever she tries to walk. At this time continue with the IV solumedrol and also onitor how she does when walking. I suspect that probably from now on she will have to use a wheelchair. She says she is able to walk - and she tries to - but everytime she does, she runs into trouble. thank you Arben Christianson
[2017-12-21] MEDS: (Lantus) Insulin Glargine, Recombinant SC SCH (21:42)
[2017-12-21] MEDS: Rosuvastatin Calcium 2.5 mg Tab PO SCH (21:42)
[2017-12-22] MEDS ORDERED: (Novolin R) Insulin Human Regular 100 units/ml vial SC ONE (02:24)
[2017-12-22] MEDS: MethylPREDNISolone 40 mg Vial IVP SCH ×3 (04:11→17:42)
[2017-12-22] MEDS: Levothyroxine 50 MCG TAB PO SCH (05:46)
[2017-12-22] MEDS: Albuterol-Ipratrop 3 mg / 0.5 (3 ml) UD INH PRN (05:51)
[2017-12-22] MEDS: (Novolin R) Insulin Human Regular 100 units/ml vial SC SCH ×4 (07:01→22:56)
[2017-12-22] MEDS: (Novolog) Insulin Aspart, Recombinant 100 u/ml 10 ml vial SC SCH ×3 (08:20→16:43)
[2017-12-22 09:04] LABS: BASO % 0.1 % (0.0-2.0); HEMOGLOBIN 11.7 g/dL (11.0-16.0); LYMPH # 0.3 K/uL (1.0-4.3); LYMPH % 1.2 % (20.0-40.0); MEAN CELL VOLUME 96.8 fL (81.0-99.0); MEAN CORPUSCULAR HEMOGLOBIN 31.4 pg (27.0-31.0); MEAN CORPUSCULAR HGB CONC 32.5 g/dL (33.0-37.0); MEAN PLATELET VOLUME 8.4 fL (7.2-11.7); MONO # 0.3 K/uL (0.0-0.8); MONO % 1.3 % (0.0-10.0); NEUT # 22.2 K/uL (1.8-7.0); NEUT % 97.4 % (50.0-75.0); PLATELET COUNT 249 K/uL (130-400); RBC 3.73 Mil/uL (3.80-5.20); RED CELL DISTRIBUTION WIDTH 14.8 % (11.5-14.5); WHITE BLOOD COUNT 22.9 K/uL (4.8-10.8)
[2017-12-22] MEDS: Enoxaparin 40 mg Syringe SC SCH (09:20)
[2017-12-22] MEDS: Pantoprazole 40 mg EC Tab PO SCH (09:20)
[2017-12-22 09:22] LABS: ALBUMIN 3.4 g/dL (3.5-5.0); ALT/SGPT 18 U/L (9-52); AST/SGOT 25 U/L (14-36); BLOOD UREA NITROGEN 27 mg/dL (7-17); CALCIUM 9.2 mg/dl (8.6-10.4); GFR AFRICAN-AMERICAN > 60; GFR NON-AFRICAN AMERICAN > 60
--- NOTE | 2017-12-22 10:22 | CP.PCM.PN ---
<Heike SherwoodAnkita - Last Filed: 12/22/17 12:59> Subjective - Date & Time of Evaluation Date of Evaluation: 12/22/17 Time of Evaluation: 07:00 - Subjective Subjective: Medicine Progress Note: Patient seen and examined at bedside this morning. Patient states she feels okay but still reports shortness of breath. Patient admits to chronic cough, but says it is not worst than normal. She denies nausea and vomiting and is tolerating her diet well. She denies fever,chills, chest pain, or dysuria. Objective - Vital Signs/Intake and Output Vital Signs (last 24 hours): Temp Pulse Resp BP Pulse Ox 98.2 F 88 20 138/78 97 12/22/17 07:15 12/22/17 07:15 12/22/17 07:15 12/22/17 07:15 12/22/17 07:15 Intake and Output: 12/22/17 12/22/17 06:59 18:59 Intake Total 400 Balance 400 - Medications Medications: Current Medications Albuterol/Ipratropium (Duoneb 3 Mg/0.5 Mg (3 Ml) Ud) 3 ml INH RQ2 PRN PRN Reason: Shortness of Breath Last Admin: 12/22/17 05:51 Dose: 3 ml Amlodipine Besylate (Norvasc) 5 mg PO DAILY [facility] Last Admin: 12/22/17 09:20 Dose: 5 mg Dextrose (Dextrose 50% Inj) 0 ml IV STAT PRN; Protocol PRN Reason: Hypoglycemia Protocol Dextrose (Glutose 15) 0 gm PO ONCE PRN; Protocol PRN Reason: Hypoglycemia Protocol Enoxaparin Sodium (Lovenox) 40 mg SC DAILY [facility] Last Admin: 12/22/17 09:20 Dose: 40 mg Glucagon (Glucagen Diagnostic Kit) 0 mg IM STAT PRN; Protocol PRN Reason: Hypoglycemia Protocol Dextrose (Dextrose 5% In Water 1000 Ml) 1,000 mls @ 0 mls/hr IV .Q0M PRN; Protocol; Per Protocol PRN Reason: Hypoglycemia Protocol Insulin Aspart (Novolog) 14 unit SC AC [facility] Last Admin: 12/22/17 08:20 Dose: 14 unit Insulin Glargine (Lantus) 10 unit SC HS [facility] Last Admin: 12/21/17 21:42 Dose: 10 unit Insulin Human Regular (Novolin R) 0 unit SC ACHS [facility] PRN Reason: Protocol Last Admin: 12/22/17 07:01 Dose: 12 unit Levothyroxine Sodium (Synthroid) 50 mcg PO DAILY@0630 [facility] Last Admin: 12/22/17 05:46 Dose: 50 mcg Methylprednisolone (Solu-Medrol) 40 mg IVP Q6H [facility] Last Admin: 12/22/17 09:20 Dose: 40 mg Pantoprazole Sodium (Protonix Ec Tab) 40 mg PO DAILY [facility] Last Admin: 12/22/17 09:20 Dose: 40 mg Rosuvastatin Calcium (Crestor) 2.5 mg PO HS [facility] Last Admin: 12/21/17 21:42 Dose: 2.5 mg Fluticasone/Salmeterol (Advair Diskus 250/50) 1 puff INH RQ12 [facility] Last Admin: 12/21/17 19:35 Dose: 1 puff - Labs Labs: 12/22/17 08:51 12/22/17 08:51 PT 11.2 SECONDS (9.7-12.2) 12/20/17 10:16 INR 1.0 12/20/17 10:16 APTT 25 SECONDS (21-34) 12/20/17 10:16 - Constitutional Appears: Chronically Ill - Head Exam Head Exam: ATRAUMATIC, NORMAL INSPECTION, NORMOCEPHALIC - Eye Exam Eye Exam: EOMI, Normal appearance, PERRL Pupil Exam: NORMAL ACCOMODATION - ENT Exam ENT Exam: Mucous Membranes Moist - Respiratory Exam Respiratory Exam: Decreased Breath Sounds, Rhonchi (throughout both lungs ), NORMAL BREATHING PATTERN - Cardiovascular Exam Cardiovascular Exam: REGULAR RHYTHM, RRR, +S1, +S2 - GI/Abdominal Exam GI & Abdominal Exam: Soft, Tenderness, Normal Bowel Sounds - Back Exam Back Exam: NORMAL INSPECTION - Neurological Exam Neurological Exam: Alert, Awake, Oriented x3 - Psychiatric Exam Psychiatric exam: Normal Affect, Normal Mood - Skin Skin Exam: Intact, Normal Color, Warm Assessment and Plan - Assessment and Plan (Free Text) Assessment: 1.) Pulmonary fibrosis - Pulmonary consult deferred at this time. Patient was recently admitted for similar symptoms, management based on previous recommendations and will re- consult appropriately. Images - Chest x-ray (12/20/17): Right worse than left bilateral fibrotic changes, not significantly changed. No focal consolidation of pleural effusion. - Chest CT with contrast from previous admission (11/08/17): Chronic interstitial fibrotic change throughout the right lung. Multifocal left-sided subpleural fibrosis. Varicoid bronchiectasis bilateally, right greater than left. Dilated main pulmonary artery. No toher significant abnormality. - Discontinue high flow oxygen, patient saturation 94-98% on 4L via [place] - Will look into financial assistance programs for idiopathic pulmonary fibrosis medications - Medications * Duoneb 3ml INH RQ2 PRN * Advair Diskus 250/50 1 puff INH RQ12 * Solumedrol 40mg IVP Q8h (decreased from q6h on 12/22) 2.) Leukocytosis secondary to steroids - Patient afebrile - Blood cultures: preliminary results no growth after 24 hours x2 3.) History of DM - Continue monitor with Accucheck - Medications - ISS and hypoglycemia protocols - Novolog 14u SC AC - Lantus 10u SC QHS 4.) History of hypothyroidism - Patient stable and asymptomatic at this time - Free T4 from previous admission (12/11/17): 1.5 - TSH from previous admission (12/11/17): 0.49 - Continue home medication * Levothyroxine 50mcg PO QAM 5.) History of HTN - Norvasc 5mg PO QD 6.) History of HLD - Crestor 2.5mg PO QHS 7.) History of GERD - Protonix 40mg PO QD 8.) Prophylaxis - Lovenox 40mg SC QD - SCDs to be used while in bed - Protonix 40mg PO QD - PT evaluation: patient may need wheel chair for ambulation due to pulmonary fibrosis - Palliative care consult <Arben Christianson - Last Filed: 12/22/17 16:19> Objective - Vital Signs/Intake and Output Vital Signs (last 24 hours): Temp Pulse Resp BP Pulse Ox 98.2 F 80 20 138/78 97 12/22/17 07:15 12/22/17 08:10 12/22/17 07:15 12/22/17 07:15 12/22/17 07:15 Intake and Output: 12/22/17 12/22/17 06:59 18:59 Intake Total 400 Balance 400 - Medications Medications: Current Medications Albuterol/Ipratropium (Duoneb 3 Mg/0.5 Mg (3 Ml) Ud) 3 ml INH RQ2 PRN PRN Reason: Shortness of Breath Last Admin: 12/22/17 05:51 Dose: 3 ml Amlodipine Besylate (Norvasc) 5 mg PO DAILY [facility] Last Admin: 12/22/17 09:20 Dose: 5 mg Dextrose (Dextrose 50% Inj) 0 ml IV STAT PRN; Protocol PRN Reason: Hypoglycemia Protocol Dextrose (Glutose 15) 0 gm PO ONCE PRN; Protocol PRN Reason: Hypoglycemia Protocol Enoxaparin Sodium (Lovenox) 40 mg SC DAILY [facility] Last Admin: 12/22/17 09:20 Dose: 40 mg Glucagon (Glucagen Diagnostic Kit) 0 mg IM STAT PRN; Protocol PRN Reason: Hypoglycemia Protocol Dextrose (Dextrose 5% In Water 1000 Ml) 1,000 mls @ 0 mls/hr IV .Q0M PRN; Protocol; Per Protocol PRN Reason: Hypoglycemia Protocol Insulin Aspart (Novolog) 14 unit SC AC [facility] Last Admin: 12/22/17 12:25 Dose: 14 unit Insulin Glargine (Lantus) 10 unit SC HS [facility] Last Admin: 12/21/17 21:42 Dose: 10 unit Insulin Human Regular (Novolin R) 0 unit SC ACHS [facility] PRN Reason: Protocol Last Admin: 12/22/17 12:25 Dose: 12 unit Levothyroxine Sodium (Synthroid) 50 mcg PO DAILY@0630 [facility] Last Admin: 12/22/17 05:46 Dose: 50 mcg Methylprednisolone (Solu-Medrol) 40 mg IVP Q8H [facility] Pantoprazole Sodium (Protonix Ec Tab) 40 mg PO DAILY [facility] Last Admin: 12/22/17 09:20 Dose: 40 mg Rosuvastatin Calcium (Crestor) 2.5 mg PO HS [facility] Last Admin: 12/21/17 21:42 Dose: 2.5 mg Fluticasone/Salmeterol (Advair Diskus 250/50) 1 puff INH RQ12 [facility] Last Admin: 12/22/17 10:43 Dose: 1 puff - Labs Labs: 12/22/17 08:51 12/22/17 08:51 PT 11.2 SECONDS (9.7-12.2) 12/20/17 10:16 INR 1.0 12/20/17 10:16 APTT 25 SECONDS (21-34) 12/20/17 10:16 Attending/Attestation - Attestation I have personally seen and examined this patient.: Yes I have fully participated in the care of the patient.: Yes I have reviewed all pertinent clinical information, including history, physical exam and plan: Yes Notes (Text): 12/22/17 15:56 Medical attending: Patient was seen and examined by me. Agree with the above note by the resident The patient's family member from [place] was present The patient today reported feeling about the same as before. There is some coughing overnight Explained to the patient and family that probably in her best interest to have a wheel chair rather than allow her to walk around and risk falling Today decreased the IV solumedrol Explained to them that possible DC on Monday thank you Arben Christianson
[2017-12-22] MEDS: Fluticasone-Salmeterol 250-50mcg Diskus INH SCH ×2 (10:43→19:33)
[2017-12-22 11:00] LABS: BANDS 3 % (0-2); LYMPHOCYTE 1 % (20-40); MONOCYTE 1 % (0-10); NEUTROPHIL 95 % (50-75); TOTAL CELLS COUNTED 100
[2017-12-22 11:01] LABS: ANISOCYTOSIS SLIGHT; HYPOCHROMIC SLIGHT; PLATELET ESTIMATE NORMAL (NORMAL); POLYCHROMIC SLIGHT; TOXIC GRANULATION PRESENT
[2017-12-22 11:02] LABS: LARGE PLATELETS PRESENT
--- NOTE | 2017-12-22 13:53 | CARD ---
APPROVED REPORT EKG Measurement Heart [id number] <Conclusion> Normal sinus rhythm Minimal voltage criteria for LVH, may be normal variant Inferior infarct, age undetermined can not be excluded. Anterolateral infarct, age undetermined cannot be excluded Abnormal ECG
[2017-12-22] MEDS ORDERED: MethylPREDNISolone 40 mg Vial IVP SCH (14:00)
--- NOTE | 2017-12-22 20:32 | CP.PCM.PN ---
<LezamaTorrie gasca - Last Filed: 12/23/17 06:09> Subjective - Date & Time of Evaluation Date of Evaluation: 12/23/17 Time of Evaluation: 06:00 - Subjective Subjective: Medicine Progress Note: Patient seen and examined at bedside this morning. Patient states she feels okay but still reports shortness of breath. She denies nausea and vomiting, tolerating her diet well. She denies fever,chills, chest pain, cough or dysuria. Objective - Vital Signs/Intake and Output Vital Signs (last 24 hours): Temp Pulse Resp BP Pulse Ox 98 F 82 18 97/56 L 99 12/22/17 17:10 12/22/17 17:10 12/22/17 17:10 12/22/17 17:10 12/22/17 17:10 - Medications Medications: Current Medications Albuterol/Ipratropium (Duoneb 3 Mg/0.5 Mg (3 Ml) Ud) 3 ml INH RQ2 PRN PRN Reason: Shortness of Breath Last Admin: 12/22/17 05:51 Dose: 3 ml Amlodipine Besylate (Norvasc) 5 mg PO DAILY [facility] Last Admin: 12/22/17 09:20 Dose: 5 mg Dextrose (Dextrose 50% Inj) 0 ml IV STAT PRN; Protocol PRN Reason: Hypoglycemia Protocol Dextrose (Glutose 15) 0 gm PO ONCE PRN; Protocol PRN Reason: Hypoglycemia Protocol Enoxaparin Sodium (Lovenox) 40 mg SC DAILY [facility] Last Admin: 12/22/17 09:20 Dose: 40 mg Glucagon (Glucagen Diagnostic Kit) 0 mg IM STAT PRN; Protocol PRN Reason: Hypoglycemia Protocol Dextrose (Dextrose 5% In Water 1000 Ml) 1,000 mls @ 0 mls/hr IV .Q0M PRN; Protocol; Per Protocol PRN Reason: Hypoglycemia Protocol Insulin Aspart (Novolog) 14 unit SC AC [facility] Last Admin: 12/22/17 16:43 Dose: 14 unit Insulin Glargine (Lantus) 10 unit SC HS [facility] Last Admin: 12/21/17 21:42 Dose: 10 unit Insulin Human Regular (Novolin R) 0 unit SC ACHS [facility] PRN Reason: Protocol Last Admin: 12/22/17 16:43 Dose: 10 unit Levothyroxine Sodium (Synthroid) 50 mcg PO DAILY@0630 [facility] Last Admin: 12/22/17 05:46 Dose: 50 mcg Methylprednisolone (Solu-Medrol) 40 mg IVP Q8H [facility] Last Admin: 12/22/17 17:42 Dose: 40 mg Pantoprazole Sodium (Protonix Ec Tab) 40 mg PO DAILY [facility] Last Admin: 12/22/17 09:20 Dose: 40 mg Rosuvastatin Calcium (Crestor) 2.5 mg PO HS [facility] Last Admin: 12/21/17 21:42 Dose: 2.5 mg Fluticasone/Salmeterol (Advair Diskus 250/50) 1 puff INH RQ12 [facility] Last Admin: 12/22/17 19:33 Dose: 1 puff - Labs Labs: 12/22/17 08:51 12/22/17 08:51 PT 11.2 SECONDS (9.7-12.2) 12/20/17 10:16 INR 1.0 12/20/17 10:16 APTT 25 SECONDS (21-34) 12/20/17 10:16 - Constitutional Appears: No Acute Distress, Chronically Ill - Head Exam Head Exam: ATRAUMATIC, NORMAL INSPECTION - Eye Exam Eye Exam: EOMI, Normal appearance - ENT Exam ENT Exam: Mucous Membranes Moist - Respiratory Exam Respiratory Exam: Rhonchi (bilateral lungs), NORMAL BREATHING PATTERN - Cardiovascular Exam Cardiovascular Exam: REGULAR RHYTHM, +S1, +S2 - GI/Abdominal Exam GI & Abdominal Exam: Soft, Normal Bowel Sounds. absent: Tenderness - Extremities Exam Extremities Exam: Normal Inspection - Neurological Exam Neurological Exam: Alert, Awake, Oriented x3 - Psychiatric Exam Psychiatric exam: Normal Affect, Normal Mood - Skin Skin Exam: Normal Color Assessment and Plan - Assessment and Plan (Free Text) Assessment: 1.) Pulmonary fibrosis - Pulmonary consult deferred at this time. Patient was recently admitted for similar symptoms, management based on previous recommendations and will re- consult appropriately. Images - Chest x-ray (12/20/17): Right worse than left bilateral fibrotic changes, not significantly changed. No focal consolidation of pleural effusion. - Chest CT with contrast from previous admission (11/08/17): Chronic interstitial fibrotic change throughout the right lung. Multifocal left-sided subpleural fibrosis. Varicoid bronchiectasis bilateally, right greater than left. Dilated main pulmonary artery. No toher significant abnormality. - Discontinue high flow oxygen, patient saturation 94-98% on 4L via [place] - Will look into financial assistance programs for idiopathic pulmonary fibrosis medications - Medications * Duoneb 3ml INH RQ2 PRN * Advair Diskus 250/50 1 puff INH RQ12 * Solumedrol 40mg IVP Q8h (decreased from q6h on 12/22) 2.) Leukocytosis secondary to steroids - Patient afebrile - Blood cultures: preliminary results no growth after 24 hours x2 3.) History of DM - Continue monitor with Accucheck - Medications - ISS and hypoglycemia protocols - Novolog 14u SC AC - Lantus 10u SC QHS 4.) History of hypothyroidism - Patient stable and asymptomatic at this time - Free T4 from previous admission (12/11/17): 1.5 - TSH from previous admission (12/11/17): 0.49 - Continue home medication * Levothyroxine 50mcg PO QAM 5.) History of HTN - Norvasc 5mg PO QD 6.) History of HLD - Crestor 2.5mg PO QHS 7.) History of GERD - Protonix 40mg PO QD 8.) Prophylaxis - Lovenox 40mg SC QD - SCDs to be used while in bed - Protonix 40mg PO QD - PT evaluation: patient may need wheel chair for ambulation due to pulmonary fibrosis - Palliative care consult <Arben Christianson - Last Filed: 12/23/17 11:26> Objective - Vital Signs/Intake and Output Vital Signs (last 24 hours): Temp Pulse Resp BP Pulse Ox 97.8 F 77 20 117/77 94 L 12/23/17 07:15 12/23/17 08:00 12/23/17 07:15 12/23/17 07:15 12/23/17 07:15 Intake and Output: 12/23/17 12/23/17 06:59 18:59 Intake Total 480 Balance 480 - Medications Medications: Current Medications Albuterol/Ipratropium (Duoneb 3 Mg/0.5 Mg (3 Ml) Ud) 3 ml INH RQ2 PRN PRN Reason: Shortness of Breath Last Admin: 12/22/17 05:51 Dose: 3 ml Amlodipine Besylate (Norvasc) 5 mg PO DAILY [facility] Last Admin: 12/23/17 09:34 Dose: 5 mg Dextrose (Dextrose 50% Inj) 0 ml IV STAT PRN; Protocol PRN Reason: Hypoglycemia Protocol Dextrose (Glutose 15) 0 gm PO ONCE PRN; Protocol PRN Reason: Hypoglycemia Protocol Enoxaparin Sodium (Lovenox) 40 mg SC DAILY [facility] Last Admin: 12/23/17 09:35 Dose: 40 mg Glucagon (Glucagen Diagnostic Kit) 0 mg IM STAT PRN; Protocol PRN Reason: Hypoglycemia Protocol Dextrose (Dextrose 5% In Water 1000 Ml) 1,000 mls @ 0 mls/hr IV .Q0M PRN; Protocol; Per Protocol PRN Reason: Hypoglycemia Protocol Insulin Aspart (Novolog) 14 unit SC AC [facility] Last Admin: 12/23/17 08:25 Dose: 14 unit Insulin Glargine (Lantus) 10 unit SC HS [facility] Last Admin: 12/22/17 21:21 Dose: 10 unit Insulin Human Regular (Novolin R) 0 unit SC ACHS [facility] PRN Reason: Protocol Last Admin: 12/23/17 06:40 Dose: 12 unit Levothyroxine Sodium (Synthroid) 50 mcg PO DAILY@0630 [facility] Last Admin: 12/23/17 05:54 Dose: 50 mcg Methylprednisolone (Solu-Medrol) 40 mg IVP Q12 [facility] Last Admin: 12/23/17 09:34 Dose: 40 mg Pantoprazole Sodium (Protonix Ec Tab) 40 mg PO DAILY [facility] Last Admin: 12/23/17 09:35 Dose: 40 mg Rosuvastatin Calcium (Crestor) 2.5 mg PO [facility] Last Admin: 12/22/17 21:21 Dose: 2.5 mg Fluticasone/Salmeterol (Advair Diskus 250/50) 1 puff INH RQ12 [facility] Last Admin: 12/22/17 19:33 Dose: 1 puff - Labs Labs: 12/23/17 07:01 12/23/17 07:01 PT 11.2 SECONDS (9.7-12.2) 12/20/17 10:16 INR 1.0 12/20/17 10:16 APTT 25 SECONDS (21-34) 12/20/17 10:16 Attending/Attestation - Attestation I have personally seen and examined this patient.: Yes I have fully participated in the care of the patient.: Yes I have reviewed all pertinent clinical information, including history, physical exam and plan: Yes Notes (Text): 12/23/17 11:20 Medical attending: Patient was seen and examined by me. Agree with the above note by the resident The patient's family member was present earlier in the day. We had her fill out the forms for the Pulmonary fibrosis medication [employer], maybe the company will be willing to provide medication at a later date As explained previously to the family member as well as to the patient. The patient will need to be in wheelchair - it is not safe for her to walk - as she desaturates very hard when walking and can fall. I called a [phone] to try to reach another family but there was no milk pickup driver. I left a message. If we can get a wheelchair by tommorow I think she can be discharged to home Sugars are high - from the steroids. Medical Residents have added back on insulin I agree with this. thank you Arben Christianson
[2017-12-22] MEDS: Rosuvastatin Calcium 2.5 mg Tab PO SCH (21:21)
[2017-12-22] MEDS: (Lantus) Insulin Glargine, Recombinant SC SCH (21:21)
[2017-12-23] MEDS: MethylPREDNISolone 40 mg Vial IVP SCH ×3 (02:39→21:26)
[2017-12-23] MEDS: Levothyroxine 50 MCG TAB PO SCH (05:54)
[2017-12-23] MEDS: (Novolin R) Insulin Human Regular 100 units/ml vial SC SCH ×4 (06:40→21:30)
[2017-12-23 07:07] LABS: BASO % 0.2 % (0.0-2.0); HEMOGLOBIN 11.9 g/dL (11.0-16.0); LYMPH # 0.4 K/uL (1.0-4.3); LYMPH % 2.3 % (20.0-40.0); MEAN CELL VOLUME 94.6 fL (81.0-99.0); MEAN CORPUSCULAR HEMOGLOBIN 31.6 pg (27.0-31.0); MEAN CORPUSCULAR HGB CONC 33.4 g/dL (33.0-37.0); MEAN PLATELET VOLUME 8.2 fL (7.2-11.7); MONO # 0.3 K/uL (0.0-0.8); MONO % 1.7 % (0.0-10.0); NEUT % 95.8 % (50.0-75.0); PLATELET COUNT 244 K/uL (130-400); RBC 3.75 Mil/uL (3.80-5.20); RED CELL DISTRIBUTION WIDTH 14.7 % (11.5-14.5); WHITE BLOOD COUNT 18.8 K/uL (4.8-10.8)
[2017-12-23 07:22] LABS: ALB/GLOB RATIO 1.2 (1.0-2.1); ALBUMIN 3.3 g/dL (3.5-5.0); ALT/SGPT 23 U/L (9-52); AST/SGOT 15 U/L (14-36); BLOOD UREA NITROGEN 24 mg/dL (7-17); CALCIUM 8.7 mg/dl (8.6-10.4); GFR AFRICAN-AMERICAN > 60; GFR NON-AFRICAN AMERICAN > 60
[2017-12-23] MEDS: Fluticasone-Salmeterol 250-50mcg Diskus INH SCH ×2 (08:10→19:43)
[2017-12-23] MEDS: (Novolog) Insulin Aspart, Recombinant 100 u/ml 10 ml vial SC SCH ×3 (08:25→17:32)
[2017-12-23 09:01] LABS: BASOPHIL 1 % (0-2); LYMPHOCYTE 3 % (20-40); MONOCYTE 1 % (0-10); NEUTROPHIL 95 % (50-75); PLATELET ESTIMATE NORMAL (NORMAL); TOTAL CELLS COUNTED 100
[2017-12-23 09:03] LABS: ANISOCYTOSIS SLIGHT
[2017-12-23 09:04] LABS: HYPOCHROMIC SLIGHT; POLYCHROMIC SLIGHT; TOXIC GRANULATION PRESENT
[2017-12-23] MEDS: Enoxaparin 40 mg Syringe SC SCH (09:35)
[2017-12-23] MEDS: Pantoprazole 40 mg EC Tab PO SCH (09:35)
[2017-12-23] MEDS: Albuterol-Ipratrop 3 mg / 0.5 (3 ml) UD INH PRN (19:43)
[2017-12-23] MEDS: Rosuvastatin Calcium 2.5 mg Tab PO SCH (21:25)
[2017-12-23] MEDS: (Lantus) Insulin Glargine, Recombinant SC SCH (21:27)
[2017-12-24] MEDS: Levothyroxine 50 MCG TAB PO SCH (05:49)
[2017-12-24 07:31] LABS: BASO % 0.2 % (0.0-2.0); HEMOGLOBIN 12.1 g/dL (11.0-16.0); LYMPH # 0.9 K/uL (1.0-4.3); LYMPH % 5.8 % (20.0-40.0); MEAN CELL VOLUME 93.9 fL (81.0-99.0); MEAN CORPUSCULAR HEMOGLOBIN 31.4 pg (27.0-31.0); MEAN CORPUSCULAR HGB CONC 33.5 g/dL (33.0-37.0); MEAN PLATELET VOLUME 8.1 fL (7.2-11.7); MONO # 0.5 K/uL (0.0-0.8); MONO % 3.5 % (0.0-10.0); NEUT # 13.9 K/uL (1.8-7.0); NEUT % 90.5 % (50.0-75.0); PLATELET COUNT 234 K/uL (130-400); RBC 3.84 Mil/uL (3.80-5.20); RED CELL DISTRIBUTION WIDTH 14.5 % (11.5-14.5); WHITE BLOOD COUNT 15.4 K/uL (4.8-10.8)
[2017-12-24] MEDS: Albuterol-Ipratrop 3 mg / 0.5 (3 ml) UD INH PRN ×2 (07:45→19:43)
[2017-12-24] MEDS: Fluticasone-Salmeterol 250-50mcg Diskus INH SCH ×2 (07:59→19:43)
[2017-12-24 08:09] LABS: ALB/GLOB RATIO 1.2 (1.0-2.1); ALBUMIN 3.7 g/dL (3.5-5.0); ALT/SGPT 14 U/L (9-52); AST/SGOT 21 U/L (14-36); BLOOD UREA NITROGEN 29 mg/dL (7-17); CALCIUM 8.6 mg/dl (8.6-10.4); GFR AFRICAN-AMERICAN > 60; GFR NON-AFRICAN AMERICAN > 60
[2017-12-24] MEDS: (Novolin R) Insulin Human Regular 100 units/ml vial SC SCH ×4 (08:15→21:42)
[2017-12-24] MEDS: (Novolog) Insulin Aspart, Recombinant 100 u/ml 10 ml vial SC SCH ×3 (08:15→18:23)
[2017-12-24 09:44] LABS: LYMPHOCYTE 6 % (20-40); MONOCYTE 3 % (0-10); NEUTROPHIL 91 % (50-75); PLATELET ESTIMATE NORMAL (NORMAL); TOTAL CELLS COUNTED 100
[2017-12-24 09:45] LABS: ANISOCYTOSIS SLIGHT; LARGE PLATELETS PRESENT
[2017-12-24] MEDS: Pantoprazole 40 mg EC Tab PO SCH (09:55)
[2017-12-24] MEDS: MethylPREDNISolone 40 mg Vial IVP SCH ×4 (09:55→23:12)
[2017-12-24] MEDS: Enoxaparin 40 mg Syringe SC SCH (09:55)
--- NOTE | 2017-12-24 10:09 | CP.PCM.PN ---
<ArleyAyla - Last Filed: 12/24/17 10:50> Subjective - Date & Time of Evaluation Date of Evaluation: 12/24/17 Time of Evaluation: 08:00 - Subjective Subjective: PGY 2 medicine progress note for Dr. Christianson: Patient seen and examined at bedside this morning. Patient states she feels okay but still reports shortness of breath no different from yesterday, although she looks more short of breath today. She denies nausea and vomiting , tolerating her diet well. She admits to some chest discomfort that is worse when she pushes down on it. She denies fever,chills, chest pain, cough or dysuria. Patient is still waiting for a wheelchair. Objective - Vital Signs/Intake and Output Vital Signs (last 24 hours): Temp Pulse Resp BP Pulse Ox 98 F 99 H 18 127/72 97 12/24/17 08:58 12/24/17 08:58 12/24/17 08:58 12/24/17 08:58 12/24/17 08:58 Intake and Output: 12/24/17 12/24/17 06:59 18:59 Output Total 400 Balance -400 - Medications Medications: Current Medications Albuterol/Ipratropium (Duoneb 3 Mg/0.5 Mg (3 Ml) Ud) 3 ml INH RQ2 PRN PRN Reason: Shortness of Breath Last Admin: 12/24/17 07:45 Dose: 3 ml Amlodipine Besylate (Norvasc) 5 mg PO DAILY [facility] Last Admin: 12/24/17 09:55 Dose: 5 mg Dextrose (Dextrose 50% Inj) 0 ml IV STAT PRN; Protocol PRN Reason: Hypoglycemia Protocol Dextrose (Glutose 15) 0 gm PO ONCE PRN; Protocol PRN Reason: Hypoglycemia Protocol Enoxaparin Sodium (Lovenox) 40 mg SC DAILY [facility] Last Admin: 12/24/17 09:55 Dose: 40 mg Glucagon (Glucagen Diagnostic Kit) 0 mg IM STAT PRN; Protocol PRN Reason: Hypoglycemia Protocol Insulin Aspart (Novolog) 18 unit SC AC [facility] Last Admin: 12/24/17 08:15 Dose: 18 unit Insulin Glargine (Lantus) 20 unit SC HS [facility] Last Admin: 12/23/17 21:27 Dose: 20 units Insulin Human Regular (Novolin R) 0 unit SC ACHS [facility] PRN Reason: Protocol Last Admin: 12/24/17 08:15 Dose: 10 unit Ketorolac Tromethamine (Toradol) 30 mg IVP Q6 PRN PRN Reason: Pain, Mild (1-3) Last Admin: 12/23/17 12:32 Dose: 30 mg Levothyroxine Sodium (Synthroid) 50 mcg PO DAILY@0630 [facility] Last Admin: 12/24/17 05:49 Dose: 50 mcg Methylprednisolone (Solu-Medrol) 40 mg IVP Q6 [facility] Pantoprazole Sodium (Protonix Ec Tab) 40 mg PO DAILY [facility] Last Admin: 12/24/17 09:55 Dose: 40 mg Rosuvastatin Calcium (Crestor) 2.5 mg PO HS [facility] Last Admin: 12/23/17 21:25 Dose: 2.5 mg Fluticasone/Salmeterol (Advair Diskus 250/50) 1 puff INH RQ12 [facility] Last Admin: 12/24/17 07:59 Dose: 1 puff - Labs Labs: 12/24/17 07:25 12/24/17 07:25 PT 11.2 SECONDS (9.7-12.2) 12/20/17 10:16 INR 1.0 12/20/17 10:16 APTT 25 SECONDS (21-34) 12/20/17 10:16 - Constitutional Appears: Non-toxic, No Acute Distress, Chronically Ill - Head Exam Head Exam: NORMAL INSPECTION - Eye Exam Eye Exam: EOMI - ENT Exam ENT Exam: Mucous Membranes Moist - Respiratory Exam Respiratory Exam: Accessory Muscle Use, Decreased Breath Sounds. absent: Wheezes, NORMAL BREATHING PATTERN - Cardiovascular Exam Cardiovascular Exam: REGULAR RHYTHM, +S1, +S2 - GI/Abdominal Exam GI & Abdominal Exam: Soft, Normal Bowel Sounds. absent: Distended, Firm, Guarding, Tenderness - Extremities Exam Extremities Exam: Normal Inspection. absent: Calf Tenderness, Pedal Edema - Back Exam Back Exam: NORMAL INSPECTION - Neurological Exam Neurological Exam: Alert, Awake, Oriented x3 - Psychiatric Exam Psychiatric exam: Normal Affect, Normal Mood Assessment and Plan - Assessment and Plan (Free Text) Assessment: Pulmonary fibrosis - Patient appeared to be more short of breath on exam today. The steroids were increased from Q12 to Q6 - Pulmonary consult deferred at this time. Patient was recently admitted for similar symptoms, management based on previous recommendations and will re- consult appropriately. Images - Chest x-ray (12/20/17): Right worse than left bilateral fibrotic changes, not significantly changed. No focal consolidation of pleural effusion. - Chest CT with contrast from previous admission (11/08/17): Chronic interstitial fibrotic change throughout the right lung. Multifocal left-sided subpleural fibrosis. Varicoid bronchiectasis bilateally, right greater than left. Dilated main pulmonary artery. No toher significant abnormality. - Discontinue high flow oxygen, patient saturation 94-98% on 4L via [place] - Will look into financial assistance programs for idiopathic pulmonary fibrosis medications - Medications * Duoneb 3ml INH RQ2 PRN * Advair Diskus 250/50 1 puff INH RQ12 * Solumedrol 40mg IVP Q6h Leukocytosis secondary to steroids - Patient afebrile - Blood cultures: preliminary results no growth after 24 hours x2 History of DM - Continue monitor with Accucheck - Medications - ISS and hypoglycemia protocols - Novolog 14u SC AC - Lantus 10u SC QHS History of hypothyroidism - Patient stable and asymptomatic at this time - Free T4 from previous admission (12/11/17): 1.5 - TSH from previous admission (12/11/17): 0.49 - Continue home medication * Levothyroxine 50mcg PO QAM History of HTN - Norvasc 5mg PO QD History of HLD - Crestor 2.5mg PO QHS History of GERD - Protonix 40mg PO QD Prophylaxis - Lovenox 40mg SC QD - SCDs to be used while in bed - Protonix 40mg PO QD - PT evaluation: patient may need wheel chair for ambulation due to pulmonary fibrosis - Palliative care consult <Arben Christianson H - Last Filed: 12/24/17 11:10> Objective - Vital Signs/Intake and Output Vital Signs (last 24 hours): Temp Pulse Resp BP Pulse Ox 98 F 99 H 18 127/72 97 12/24/17 08:58 12/24/17 08:58 12/24/17 08:58 12/24/17 08:58 12/24/17 08:58 Intake and Output: 12/24/17 12/24/17 06:59 18:59 Output Total 400 Balance -400 - Medications Medications: Current Medications Albuterol/Ipratropium (Duoneb 3 Mg/0.5 Mg (3 Ml) Ud) 3 ml INH RQ2 PRN PRN Reason: Shortness of Breath Last Admin: 12/24/17 07:45 Dose: 3 ml Amlodipine Besylate (Norvasc) 5 mg PO DAILY [facility] Last Admin: 12/24/17 09:55 Dose: 5 mg Dextrose (Dextrose 50% Inj) 0 ml IV STAT PRN; Protocol PRN Reason: Hypoglycemia Protocol Dextrose (Glutose 15) 0 gm PO ONCE PRN; Protocol PRN Reason: Hypoglycemia Protocol Enoxaparin Sodium (Lovenox) 40 mg SC DAILY [facility] Last Admin: 12/24/17 09:55 Dose: 40 mg Glucagon (Glucagen Diagnostic Kit) 0 mg IM STAT PRN; Protocol PRN Reason: Hypoglycemia Protocol Insulin Aspart (Novolog) 18 unit SC AC [facility] Last Admin: 12/24/17 08:15 Dose: 18 unit Insulin Glargine (Lantus) 20 unit SC HS [facility] Last Admin: 12/23/17 21:27 Dose: 20 units Insulin Human Regular (Novolin R) 0 unit SC ACHS [facility] PRN Reason: Protocol Last Admin: 12/24/17 08:15 Dose: 10 unit Ketorolac Tromethamine (Toradol) 30 mg IVP Q6 PRN PRN Reason: Pain, Mild (1-3) Last Admin: 12/23/17 12:32 Dose: 30 mg Levothyroxine Sodium (Synthroid) 50 mcg PO DAILY@0630 [facility] Last Admin: 12/24/17 05:49 Dose: 50 mcg Methylprednisolone (Solu-Medrol) 40 mg IVP Q6 [facility] Pantoprazole Sodium (Protonix Ec Tab) 40 mg PO DAILY [facility] Last Admin: 12/24/17 09:55 Dose: 40 mg Rosuvastatin Calcium (Crestor) 2.5 mg PO HS [facility] Last Admin: 12/23/17 21:25 Dose: 2.5 mg Fluticasone/Salmeterol (Advair Diskus 250/50) 1 puff INH RQ12 [facility] Last Admin: 12/24/17 07:59 Dose: 1 puff - Labs Labs: 12/24/17 07:25 12/24/17 07:25 PT 11.2 SECONDS (9.7-12.2) 12/20/17 10:16 INR 1.0 05/16/18 10:16 APTT 25 SECONDS (21-34) 12/20/17 10:16 Attending/Attestation - Attestation I have personally seen and examined this patient.: Yes I have fully participated in the care of the patient.: Yes I have reviewed all pertinent clinical information, including history, physical exam and plan: Yes Notes (Text): 12/24/17 11:05 Medical attending: Patient was seen and examined by me. Agree with the above note by the resident The patient was seen and examined by me as well. She looked worse today. She was speaking and accessory muscles were needed. She can't go home like this. I thought about discharge to home with a wheel chair. However we have to wait for a day when it is not as laborered breathing. Increase solumderol to Q6hrs Yesterday and previous day I spoke with a family member from [place], however I am not sure she understands just how poor prognosis is thank you Arben Christianson
[2017-12-24] MEDS: Rosuvastatin Calcium 2.5 mg Tab PO SCH (21:33)
[2017-12-24] MEDS: (Lantus) Insulin Glargine, Recombinant SC SCH (21:41)
[2017-12-25] MEDS: Levothyroxine 50 MCG TAB PO SCH (06:01)
[2017-12-25] MEDS: MethylPREDNISolone 40 mg Vial IVP SCH ×4 (06:01→23:43)
[2017-12-25] MEDS: Albuterol-Ipratrop 3 mg / 0.5 (3 ml) UD INH PRN ×2 (07:40→11:28)
[2017-12-25] MEDS: Fluticasone-Salmeterol 250-50mcg Diskus INH SCH ×2 (07:42→19:24)
[2017-12-25] MEDS: (Novolog) Insulin Aspart, Recombinant 100 u/ml 10 ml vial SC SCH ×3 (08:01→18:07)
[2017-12-25] MEDS: (Novolin R) Insulin Human Regular 100 units/ml vial SC SCH ×4 (08:01→21:11)
[2017-12-25] MEDS: Enoxaparin 40 mg Syringe SC SCH (09:52)
[2017-12-25] MEDS: Pantoprazole 40 mg EC Tab PO SCH (09:52)
[2017-12-25 12:04] LABS: BASO % 0.1 % (0.0-2.0); HEMOGLOBIN 11.9 g/dL (11.0-16.0); LYMPH # 0.4 K/uL (1.0-4.3); LYMPH % 3.4 % (20.0-40.0); MEAN CELL VOLUME 93.3 fL (81.0-99.0); MEAN CORPUSCULAR HEMOGLOBIN 31.2 pg (27.0-31.0); MEAN CORPUSCULAR HGB CONC 33.4 g/dL (33.0-37.0); MEAN PLATELET VOLUME 8.5 fL (7.2-11.7); MONO # 0.4 K/uL (0.0-0.8); MONO % 3.3 % (0.0-10.0); NEUT # 12.2 K/uL (1.8-7.0); NEUT % 93.2 % (50.0-75.0); NRBC % 0.1 % (0.0-2.0); PLATELET COUNT 231 K/uL (130-400); RBC 3.83 Mil/uL (3.80-5.20); RED CELL DISTRIBUTION WIDTH 14.5 % (11.5-14.5); WHITE BLOOD COUNT 13.1 K/uL (4.8-10.8)
[2017-12-25 12:15] LABS: ALBUMIN 3.8 g/dL (3.5-5.0); BLOOD UREA NITROGEN 30 mg/dL (7-17); CALCIUM 8.9 mg/dl (8.6-10.4); GFR AFRICAN-AMERICAN > 60; GFR NON-AFRICAN AMERICAN > 60
[2017-12-25 12:16] LABS: ALB/GLOB RATIO 1.2 (1.0-2.1); ALT/SGPT 14 U/L (9-52); AST/SGOT 22 U/L (14-36)
[2017-12-25 12:51] LABS: LYMPHOCYTE 3 % (20-40); MONOCYTE 2 % (0-10); NEUTROPHIL 95 % (50-75); PLATELET ESTIMATE NORMAL (NORMAL); TOTAL CELLS COUNTED 100
[2017-12-25 12:52] LABS: ANISOCYTOSIS SLIGHT
--- NOTE | 2017-12-25 13:55 | CP.PCM.CON ---
History of Present Illness - History of Present Illness History of Present Illness: Palliative consult requested by Doctor Sherwood for goals of care discussion Patient is a 77 yo female, admitted from home with worsening of chronic shortness of breath since the days of admission. Patient has known Hx of pulmonary fibrosis. CXR showed pulmonary fibrosis larger on the right lung. Therapy is mostly symptomatic on this admission. PMH: Pulmonary fbrosis, CAD, DM, HTN Soc. Hx: single, lives with grand daughter, retired, application for Medicaid i pending Fam. Hx parents natural Review of Systems - Constitutional Constitutional: Fatigue, Weakness - EENT Eyes: absent: As Per HPI, Blind Spots, Blurred Vision, Change in Vision, Decreased Night Vision, Diplopia, Discharge, Dry Eye, Exophthalmos, Floaters, Irritation, Itchy Eyes, Loss of Peripheral Vision, Pain, Photophobia, Requires Corrective Lenses, Sees Flashes, Spots in Vision, Tunnel Vision, Other Visual Disturbances, Loss of Vision, Other Nose/Mouth/Throat: absent: As Per HPI, Epistaxis, Nasal Congestion, Nasal Discharge, Nasal Obstruction, Nasal Trauma, Nose Pain, Post Nasal Drip, Sinus Pain, Sinus Pressure, Bleeding Gums, Change in Voice, Dental Pain, Dry Mouth, Dysphagia, Halitosis, Hoarsness, Lip Swelling, Mouth Lesions, Mouth Pain, Odynophagia, Sore Throat, Throat Swelling, Tongue Swelling, Facial Pain, Neck Pain, Neck Mass, Other - Breasts Breasts: absent: As Per HPI, Change in Shape, Mass, Pain, Nipple Discharge, Nipple Inversion, Skin Changes, Swelling, Other - Cardiovascular Cardiovascular: absent: As Per HPI, Acrocyanosis, Chest Pain, Chest Pain at Rest , Chest Pain with Activity, Claudication, Diaphoresis, Dyspnea, Dyspnea on Exertion, Edema, Irregular Heart Rhythm, Pain Radiating to Arm/Neck/Jaw, Leg Edema, Leg Ulcers, Lightheadedness, Orthopnea, Palpitations, Paroxysmal Nocturnal Dyspnea, Pedal Edema, Radiating Pain, Rapid Heart Rate, Slow Heart Rate, Syncope, Other - Respiratory Respiratory: Dyspnea - Gastrointestinal Gastrointestinal: absent: As Per HPI, Abdominal Pain, Belching, Bloating, Change in Bowel Habits, Change in Stool Character, Coffee Ground Emesis, Constipation, Cramping, Diarrhea, Dyspepsia, Dysphagia, Early Satiety, Excessive Flatus, Fecal Incontinence, Heartburn, Hematemesis, Hematochezia, Loose Stools, Melena, Nausea, Odynophagia, Temesmus, Vomiting, Other - Genitourinary Genitourinary: absent: As Per HPI, Change in Urinary Stream, Difficulty Urinating, Dysuria, Flank Pain, Hematuria, Pyuria, Nocturia, Urinary Incontinence, Urinary Frequency, Urinary Hesitance, Urinary Urgency, Voiding Freq/Small Amts, Freq UTI, Hx Renal/Bladder Calculi, Hx /Renal Surgery, Bladder Distension, Other - Reproductive: Female Reproductive:Female: Post Menopausal - Menstruation Menstruation: Post Menopausal - Musculoskeletal Musculoskeletal: absent: As Per HPI, Abnormal Gait, Arthralgias, Atrophy, Back Pain, Deformity, Joint Swelling, Limited Range of Motion, Loss of Height, Muscle Cramps, Muscle Weakness, Myalgias, Neck Pain, Numbness, Radiating Pain into Limb, Stiffness, Tingling, Other - Integumentary Integumentary: absent: As Per HPI, Acne, Alopecia, Bleeding Lesions, Change in Hair, Change in Nails, Change in Pigmentation, Changing Lesions, Dry Skin, Erythema, Furuncle, Hirsutism, Lesions, New Lesions, Non-Healing Lesions, Photosensitivity, Pruritus, Rash, Skin Pain, Skin Ulcer, Sores, Striae, Swelling , Unusual Bruising, Wounds, Jaundice, Other - Neurological Neurological: absent: As Per HPI, Abnormal Gait, Abnormal Hearing, Abnormal Movements, Abnormal Speech, Behavioral Changes, Burning Sensations, Confusion, Convulsions, Disequilibrium, Dizziness, Numbness, Focal Weakness, Frequent Falls , Headaches, Lack of Coordination, Loss of Vision, Memory Loss, Paresthesias, Radicular Pain, Restless Legs, Sensory Deficit, Syncope, Tingling, Tremor, Vertigo, Weakness, Other Visual Disturbances, Other - Psychiatric Psychiatric: Depression - Endocrine Endocrine: absent: As Per HPI, Change in Body Appearance, Change in Libido, Cold Intolorance, Deepening of Voice, Excessive Sweating, Fatigue, Flushing, Heat Intolorance, Increase in Ring/Shoe/Hat Size, Palpitations, Polydipsia, Polyphagia, Polyuria, Other - Hematologic/Lymphatic Hematologic: absent: As Per HPI, Easy Bleeding, Easy Bruising, Lymphadenopathy, Other Past Patient History - Infectious Disease Hx of Infectious Diseases: None - Past Medical History & Family History Past Medical History?: Yes - Past Social History Smoking Status: Never Smoked - CARDIAC Hx Cardiac Disorders: Yes (CAD) Hx Hypertension: Yes - PULMONARY Hx Bronchitis: Yes - NEUROLOGICAL Hx Neurological Disorder: No - HEENT Other/Comment: pt wears glasses - RENAL Hx Chronic Kidney Disease: No - ENDOCRINE/METABOLIC Hx Hypothyroidism: Yes - HEMATOLOGICAL/ONCOLOGICAL Hx Human Immunodeficiency Virus (HIV): No - INTEGUMENTARY Hx Dermatological Problems: No - MUSCULOSKELETAL/RHEUMATOLOGICAL Hx Musculoskeletal Disorders: Yes Hx Falls: Yes - GASTROINTESTINAL Hx Gall Bladder Disease: Yes (cholecystectomy) - GENITOURINARY/GYNECOLOGICAL Hx Genitourinary Disorders: No - PSYCHIATRIC Hx Depression: Yes Hx Substance Use: No - SURGICAL HISTORY Hx Cholecystectomy: Yes Hx Coronary Stent: Yes - ANESTHESIA Hx Anesthesia: Yes Hx Anesthesia Reactions: No Meds Allergies/Adverse Reactions: Allergies Allergy/AdvReac Type Severity Reaction Status Date / Time Penicillins Allergy SWELLING Verified 12/20/17 09:53 - Medications Medications: Current Medications Albuterol/Ipratropium (Duoneb 3 Mg/0.5 Mg (3 Ml) Ud) 3 ml INH RQ2 PRN PRN Reason: Shortness of Breath Last Admin: 12/25/17 11:28 Dose: 3 ml Amlodipine Besylate (Norvasc) 5 mg PO DAILY [facility] Last Admin: 12/25/17 09:52 Dose: 5 mg Dextrose (Dextrose 50% Inj) 0 ml IV STAT PRN; Protocol PRN Reason: Hypoglycemia Protocol Dextrose (Glutose 15) 0 gm PO ONCE PRN; Protocol PRN Reason: Hypoglycemia Protocol Enoxaparin Sodium (Lovenox) 40 mg SC DAILY [facility] Last Admin: 12/25/17 09:52 Dose: 40 mg Escitalopram Oxalate (Lexapro) 5 mg PO DAILY [facility] Glucagon (Glucagen Diagnostic Kit) 0 mg IM STAT PRN; Protocol PRN Reason: Hypoglycemia Protocol Insulin Aspart (Novolog) 18 unit SC AC [facility] Last Admin: 12/25/17 12:07 Dose: 18 unit Insulin Glargine (Lantus) 20 unit SC HS [facility] Last Admin: 12/24/17 21:41 Dose: 20 units Insulin Human Regular (Novolin R) 0 unit SC ACHS [facility] PRN Reason: Protocol Last Admin: 12/25/17 12:05 Dose: 6 unit Levothyroxine Sodium (Synthroid) 50 mcg PO DAILY@0630 [facility] Last Admin: 12/25/17 06:01 Dose: 50 mcg Methylprednisolone (Solu-Medrol) 40 mg IVP Q6 [facility] Last Admin: 12/25/17 12:05 Dose: 40 mg Pantoprazole Sodium (Protonix Ec Tab) 40 mg PO DAILY [facility] Last Admin: 12/25/17 09:52 Dose: 40 mg Rosuvastatin Calcium (Crestor) 2.5 mg PO HS [facility] Last Admin: 12/24/17 21:33 Dose: 2.5 mg Fluticasone/Salmeterol (Advair Diskus 250/50) 1 puff INH RQ12 [facility] Last Admin: 12/25/17 07:42 Dose: 1 puff Physical Exam - Constitutional Appears: In Acute Distress, Chronically Ill - Head Exam Head Exam: ATRAUMATIC, NORMAL INSPECTION, NORMOCEPHALIC - Eye Exam Eye Exam: EOMI, Normal appearance, PERRL Pupil Exam: NORMAL ACCOMODATION, PERRL - ENT Exam ENT Exam: Mucous Membranes Dry, Normal Exam - Neck Exam Neck exam: Positive for: Normal Inspection - Respiratory Exam Respiratory Exam: Decreased Breath Sounds, Respiratory Distress - Cardiovascular Exam Cardiovascular Exam: Tachycardia - GI/Abdominal Exam GI & Abdominal Exam: Normal Bowel Sounds - Rectal Exam Rectal Exam: Deferred - Extremities Exam Extremities exam: Positive for: normal inspection - Back Exam Back exam: NORMAL INSPECTION - Neurological Exam Neurological exam: Alert, Oriented x3 - Psychiatric Exam Psychiatric exam: Depressed - Skin Skin Exam: Normal Color Results - Vital Signs Recent Vital Signs: Last Vital Signs Temp 98.0 F 12/25/17 07:00 Pulse 99 H 12/25/17 08:00 Resp 18 12/25/17 07:00 BP 147/75 12/25/17 07:00 Pulse Ox 99 12/25/17 07:00 - Labs Result Diagrams: 12/25/17 11:47 12/25/17 11:47 Labs: Laboratory Results - last 24 hr 12/24/17 12/24/17 12/24/17 16:57 21:31 21:33 WBC RBC Hgb Hct MCV MCH MCHC RDW Plt Count MPV Neut % (Auto) Lymph % (Auto) Lake % (Auto) Eos % (Auto) Baso % (Auto) Neut # (Auto) Lymph # (Auto) Lake # (Auto) Eos # (Auto) Baso # (Auto) Neutrophils % (Manual) Lymphocytes % (Manual) Monocytes % (Manual) Platelet Estimate Anisocytosis (manual) Sodium Potassium Chloride Carbon Dioxide Anion Gap BUN Creatinine Est GFR ( Amer) Est GFR (Non-Af Amer) POC Glucose (mg/dL) 141 H 416 H* 399 H Random Glucose Calcium Phosphorus Magnesium Total Bilirubin AST ALT Alkaline Phosphatase Total Protein Albumin Globulin Albumin/Globulin Ratio 12/25/17 12/25/17 12/25/17 01:54 06:27 11:25 WBC RBC Hgb Hct MCV MCH MCHC RDW Plt Count MPV Neut % (Auto) Lymph % (Auto) Lake % (Auto) Eos % (Auto) Baso % (Auto) Neut # (Auto) Lymph # (Auto) Lake # (Auto) Eos # (Auto) Baso # (Auto) Neutrophils % (Manual) Lymphocytes % (Manual) Monocytes % (Manual) Platelet Estimate Anisocytosis (manual) Sodium Potassium Chloride Carbon Dioxide Anion Gap BUN Creatinine Est GFR ( Amer) Est GFR (Non-Af Amer) POC Glucose (mg/dL) 330 H 336 H 294 H Random Glucose Calcium Phosphorus Magnesium Total Bilirubin AST ALT Alkaline Phosphatase Total Protein Albumin Globulin Albumin/Globulin Ratio 12/25/17 12/25/17 11:47 11:47 WBC 13.1 H RBC 3.83 Hgb 11.9 Hct 35.8 MCV 93.3 MCH 31.2 H MCHC 33.4 RDW 14.5 Plt Count 231 MPV 8.5 Neut % (Auto) 93.2 H Lymph % (Auto) 3.4 L Lake % (Auto) 3.3 Eos % (Auto) 0.0 Baso % (Auto) 0.1 Neut # (Auto) 12.2 H Lymph # (Auto) 0.4 L Lake # (Auto) 0.4 Eos # (Auto) 0.0 Baso # (Auto) 0.0 Neutrophils % (Manual) 95 H Lymphocytes % (Manual) 3 L Monocytes % (Manual) 2 Platelet Estimate Normal Anisocytosis (manual) Slight Sodium 135 Potassium 3.7 Chloride 97 L Carbon Dioxide 24 Anion Gap 18 BUN 30 H Creatinine 0.6 L Est GFR ( Amer) > 60 Est GFR (Non-Af Amer) > 60 POC Glucose (mg/dL) Random Glucose 295 H Calcium 8.9 Phosphorus 3.5 Magnesium 2.0 Total Bilirubin 0.8 AST 22 ALT 14 Alkaline Phosphatase 74 Total Protein 6.8 Albumin 3.8 Globulin 3.1 Albumin/Globulin Ratio 1.2 Assessment & Plan - Assessment and Plan (Free Text) Assessment: Palliative consult Code status Full Code prior to consult, No advance directive on chart, PS 30% I reviewed medical records, all diagnostic studied, examined and interviewed patient in the bed, translation provided. Patient is alert, oriented X 3, German speaking only, in acute respiratory distress. Patient is unable to speak in full sentences. Talking makes her very tired. [id number] via [place]. There is occasional dry cough. Patient reports having breathing difficulties even before, but no to this extent. O2Sat 97%, HR 99, BP 147 / 75. Accessory muscles used . Abdomen soft, active bowel sounds, able to move all 4 extremities. Patient reports not being able to ambulate due to shortness of breath. Goals of care discussed. [employer] translation used.I elicited her knowledge about her condition. Patient stated she was told that she had some ' scars" on her lungs. I offered more information on pulmonary fibrosis and suggested it was chronic, progressive disease where treatment was mostly directed toward symptoms control. Patient stated understanding. Further, we discussed the disposition once discharged from here. Patient did not want to go to [place]. She asked if she could get some help at home . Patient lives alone with grand daughter who helps when she is home. The grand daughter works and is not able to devote enough time to a patient. Patient is concerned if her insurance would provide anything for her at home, and if it does, than she would benefit from home health aid. Code status discussed. I clark my concern with possibility for breathing to get worse due to advancing of Pulmonary fibrosis. I asked patient how aggressive she would want us to be to promote her life. Patient was very clear and categoric that she would not want her life to be prolonged by an aggressive interventions, including CPR and intubation. POLST introduced. Patient choose DNR / DNI. Patient cried often during this meeting and I assessed her for depression. Patient admitted to feeling down, having poor sleep and crying often. Patient accepted to be seen by Psychiatric and to start meds for depression. This was shared with Doctor Elliott and Isa MUNOZ. Impression * Chronically ill lady with acute SOB * Dry cough * Weakness, unable to ambulate due to SOB, needs max assistance with ADLs * Lack of family support * Depression Suggestion * Assist with ADLs * Would involve SW to assist patient with needed equipment for discharge home; WC, commode, hospital's bed, home health aid * Psych eval for depression eval and treatment * DNR/DNI * Home discharge Advance planing time 45 min
--- NOTE | 2017-12-25 16:31 | CP.PCM.PN ---
<LezamaTorrie gasca - Last Filed: 12/25/17 16:51> Subjective - Date & Time of Evaluation Date of Evaluation: 12/25/17 Time of Evaluation: 07:00 - Subjective Subjective: Medicine Progress Note: Patient seen and examined at bedside this morning. Patient states she feels okay but still reports shortness of breath. She denies nausea and vomiting, tolerating her diet well. She denies fever,chills, chest pain, cough or dysuria. Objective - Vital Signs/Intake and Output Vital Signs (last 24 hours): Temp Pulse Resp BP Pulse Ox 98.0 F 80 18 131/73 99 12/25/17 07:00 12/25/17 14:25 12/25/17 14:25 12/25/17 14:25 12/25/17 07:00 Intake and Output: 12/25/17 12/25/17 06:59 18:59 Intake Total 250 600 Output Total 550 Balance -300 600 - Medications Medications: Current Medications Amlodipine Besylate (Norvasc) 5 mg PO DAILY [facility] Last Admin: 12/25/17 09:52 Dose: 5 mg Dextrose (Dextrose 50% Inj) 0 ml IV STAT PRN; Protocol PRN Reason: Hypoglycemia Protocol Dextrose (Glutose 15) 0 gm PO ONCE PRN; Protocol PRN Reason: Hypoglycemia Protocol Enoxaparin Sodium (Lovenox) 40 mg SC DAILY [facility] Last Admin: 12/25/17 09:52 Dose: 40 mg Escitalopram Oxalate (Lexapro) 5 mg PO DAILY [facility] Glucagon (Glucagen Diagnostic Kit) 0 mg IM STAT PRN; Protocol PRN Reason: Hypoglycemia Protocol Insulin Aspart (Novolog) 18 unit SC AC [facility] Last Admin: 12/25/17 12:07 Dose: 18 unit Insulin Glargine (Lantus) 20 unit SC HS [facility] Last Admin: 12/24/17 21:41 Dose: 20 units Insulin Human Regular (Novolin R) 0 unit SC ACHS [facility] PRN Reason: Protocol Last Admin: 12/25/17 12:05 Dose: 6 unit Levothyroxine Sodium (Synthroid) 50 mcg PO DAILY@0630 [facility] Last Admin: 12/25/17 06:01 Dose: 50 mcg Methylprednisolone (Solu-Medrol) 40 mg IVP Q6 [facility] Last Admin: 12/25/17 12:05 Dose: 40 mg Pantoprazole Sodium (Protonix Ec Tab) 40 mg PO DAILY [facility] Last Admin: 12/25/17 09:52 Dose: 40 mg Rosuvastatin Calcium (Crestor) 2.5 mg PO HS [facility] Last Admin: 12/24/17 21:33 Dose: 2.5 mg Fluticasone/Salmeterol (Advair Diskus 250/50) 1 puff INH RQ12 [facility] Last Admin: 12/25/17 07:42 Dose: 1 puff - Labs Labs: 12/25/17 11:47 12/25/17 11:47 PT 11.2 SECONDS (9.7-12.2) 12/20/17 10:16 INR 1.0 12/20/17 10:16 APTT 25 SECONDS (21-34) 12/20/17 10:16 - Constitutional Appears: Chronically Ill - Head Exam Head Exam: ATRAUMATIC, NORMAL INSPECTION - Eye Exam Eye Exam: EOMI, Normal appearance, PERRL - ENT Exam ENT Exam: Mucous Membranes Moist - Respiratory Exam Respiratory Exam: Accessory Muscle Use, Rhonchi. absent: NORMAL BREATHING PATTERN (tachypneic ) - Cardiovascular Exam Cardiovascular Exam: REGULAR RHYTHM, +S1, +S2 - GI/Abdominal Exam GI & Abdominal Exam: Soft, Normal Bowel Sounds. absent: Tenderness - Extremities Exam Extremities Exam: Normal Inspection - Neurological Exam Neurological Exam: Alert, Awake, Oriented x3 - Psychiatric Exam Psychiatric exam: Depressed - Skin Skin Exam: Normal Color Assessment and Plan - Assessment and Plan (Free Text) Assessment: 1.) Pulmonary fibrosis - Pulmonary consult deferred at this time. Patient was recently admitted for similar symptoms, management based on previous recommendations and will re- consult appropriately. Images - Chest x-ray (12/20/17): Right worse than left bilateral fibrotic changes, not significantly changed. No focal consolidation of pleural effusion. - Chest CT with contrast from previous admission (11/08/17): Chronic interstitial fibrotic change throughout the right lung. Multifocal left-sided subpleural fibrosis. Varicoid bronchiectasis bilateally, right greater than left. Dilated main pulmonary artery. No toher significant abnormality. - Discontinue high flow oxygen, patient saturation 94-98% on 4L via [place] - Will look into financial assistance programs for idiopathic pulmonary fibrosis medications - Medications * Duoneb 3ml INH RQ2 PRN * Advair Diskus 250/50 1 puff INH RQ12 * Solumedrol 40mg IVP Q6h 2.) Leukocytosis secondary to steroids - Patient afebrile - Blood cultures: preliminary results no growth after 24 hours x2 3.) History of DM - Continue monitor with Accucheck - Medications - ISS and hypoglycemia protocols - Novolog 18u SC AC - Lantus 20u SC QHS 4.) History of hypothyroidism - Patient stable and asymptomatic at this time - Free T4 from previous admission (12/11/17): 1.5 - TSH from previous admission (12/11/17): 0.49 - Continue home medication * Levothyroxine 50mcg PO QAM 5.) History of HTN - Norvasc 5mg PO QD 6.) History of HLD - Crestor 2.5mg PO QHS 7.) History of GERD - Protonix 40mg PO QD 8.) Prophylaxis - Lovenox 40mg SC QD - SCDs to be used while in bed - Protonix 40mg PO QD - PT evaluation: Wheel chair for discharge home - Palliative care consult: Patient made DNR/DNI 12/25/[address] Richard Lezama PGY-1 <Brad Ramos - Last Filed: 12/25/17 18:41> Objective - Vital Signs/Intake and Output Vital Signs (last 24 hours): Temp Pulse Resp BP Pulse Ox 98.0 F 66 20 123/68 96 12/25/17 15:00 12/25/17 15:00 12/25/17 15:00 12/25/17 15:00 12/25/17 15:00 Intake and Output: 12/25/17 12/25/17 06:59 18:59 Intake Total 250 600 Output Total 550 Balance -300 600 - Medications Medications: Current Medications Amlodipine Besylate (Norvasc) 5 mg PO DAILY [facility] Last Admin: 12/25/17 09:52 Dose: 5 mg Dextrose (Dextrose 50% Inj) 0 ml IV STAT PRN; Protocol PRN Reason: Hypoglycemia Protocol Dextrose (Glutose 15) 0 gm PO ONCE PRN; Protocol PRN Reason: Hypoglycemia Protocol Enoxaparin Sodium (Lovenox) 40 mg SC DAILY [facility] Last Admin: 12/25/17 09:52 Dose: 40 mg Escitalopram Oxalate (Lexapro) 5 mg PO DAILY [facility] Glucagon (Glucagen Diagnostic Kit) 0 mg IM STAT PRN; Protocol PRN Reason: Hypoglycemia Protocol Insulin Aspart (Novolog) 18 unit SC AC [facility] Last Admin: 12/25/17 18:07 Dose: 18 unit Insulin Glargine (Lantus) 20 unit SC HS [facility] Last Admin: 12/24/17 21:41 Dose: 20 units Insulin Human Regular (Novolin R) 0 unit SC ACHS [facility] PRN Reason: Protocol Last Admin: 12/25/17 18:03 Dose: Not Given Levothyroxine Sodium (Synthroid) 50 mcg PO DAILY@0630 [facility] Last Admin: 12/25/17 06:01 Dose: 50 mcg Methylprednisolone (Solu-Medrol) 40 mg IVP Q6 [facility] Last Admin: 12/25/17 18:06 Dose: 40 mg Pantoprazole Sodium (Protonix Ec Tab) 40 mg PO DAILY [facility] Last Admin: 12/25/17 09:52 Dose: 40 mg Rosuvastatin Calcium (Crestor) 2.5 mg PO [facility] Last Admin: 12/24/17 21:33 Dose: 2.5 mg Fluticasone/Salmeterol (Advair Diskus 250/50) 1 puff INH RQ12 [facility] Last Admin: 12/25/17 07:42 Dose: 1 puff - Labs Labs: 12/25/17 11:47 12/25/17 11:47 PT 11.2 SECONDS (9.7-12.2) 12/20/17 10:16 INR 1.0 12/20/17 10:16 APTT 25 SECONDS (21-34) 12/20/17 10:16 Attending/Attestation - Attestation I have personally seen and examined this patient.: Yes I have fully participated in the care of the patient.: Yes I have reviewed all pertinent clinical information, including history, physical exam and plan: Yes Notes (Text): Seen and examined to day. she was sob. Patient is getting IV solumedrol 40 mg q6 d/w Palliative care RN about her wishes. patient is alert oriented and not depressed. She appreciated gutierrez care give to her. Possible discharge home. Needs W/C for ambulation at home due to her severe pulmonary fibrosis d/w The resident. I agree with the recommendation of the resident's assessment and the plan
[2017-12-25] MEDS: Rosuvastatin Calcium 2.5 mg Tab PO SCH (21:18)
[2017-12-25] MEDS: (Lantus) Insulin Glargine, Recombinant SC SCH (21:30)
[2017-12-26] MEDS: Levothyroxine 50 MCG TAB PO SCH (05:38)
[2017-12-26] MEDS: MethylPREDNISolone 40 mg Vial IVP SCH ×4 (05:38→23:46)
[2017-12-26 07:30] LABS: BASO % 0.1 % (0.0-2.0); HEMOGLOBIN 12.4 g/dL (11.0-16.0); LYMPH # 0.6 K/uL (1.0-4.3); LYMPH % 4.4 % (20.0-40.0); MEAN CELL VOLUME 92.7 fL (81.0-99.0); MEAN CORPUSCULAR HEMOGLOBIN 31.2 pg (27.0-31.0); MEAN CORPUSCULAR HGB CONC 33.6 g/dL (33.0-37.0); MEAN PLATELET VOLUME 8.1 fL (7.2-11.7); MONO # 0.4 K/uL (0.0-0.8); MONO % 2.9 % (0.0-10.0); NEUT # 12.7 K/uL (1.8-7.0); NEUT % 92.6 % (50.0-75.0); PLATELET COUNT 236 K/uL (130-400); RBC 3.97 Mil/uL (3.80-5.20); RED CELL DISTRIBUTION WIDTH 14.5 % (11.5-14.5); WHITE BLOOD COUNT 13.8 K/uL (4.8-10.8)
[2017-12-26] MEDS: Fluticasone-Salmeterol 250-50mcg Diskus INH SCH ×2 (07:38→19:23)
[2017-12-26 07:57] LABS: ALB/GLOB RATIO 1.1 (1.0-2.1); ALBUMIN 3.4 g/dL (3.5-5.0); ALT/SGPT 27 U/L (9-52); AST/SGOT 25 U/L (14-36); BLOOD UREA NITROGEN 30 mg/dL (7-17); CALCIUM 8.9 mg/dl (8.6-10.4); GFR AFRICAN-AMERICAN > 60; GFR NON-AFRICAN AMERICAN > 60
[2017-12-26] MEDS: (Novolin R) Insulin Human Regular 100 units/ml vial SC SCH ×4 (08:29→21:34)
[2017-12-26] MEDS: (Novolog) Insulin Aspart, Recombinant 100 u/ml 10 ml vial SC SCH ×3 (08:30→18:22)
[2017-12-26] MEDS: Enoxaparin 40 mg Syringe SC SCH (09:17)
[2017-12-26 09:19] LABS: LYMPHOCYTE 6 % (20-40); MONOCYTE 4 % (0-10); NEUTROPHIL 90 % (50-75); TOTAL CELLS COUNTED 100
[2017-12-26] MEDS: Pantoprazole 40 mg EC Tab PO SCH (09:19)
[2017-12-26 09:20] LABS: PLATELET ESTIMATE NORMAL (NORMAL)
--- NOTE | 2017-12-26 10:34 | CP.PCM.PN ---
<LezamaTorrie gasca - Last Filed: 12/26/17 14:55> Subjective - Date & Time of Evaluation Date of Evaluation: 12/26/17 Time of Evaluation: 07:00 - Subjective Subjective: Medicine Progress Note: Patient seen and examined at bedside this morning. Patient states she feels okay but still reports shortness of breath. She denies nausea and vomiting, tolerating her diet well. She denies fever,chills, chest pain, cough or dysuria. Objective - Vital Signs/Intake and Output Vital Signs (last 24 hours): Temp Pulse Resp BP Pulse Ox 97.9 F 65 18 137/85 97 12/26/17 07:00 12/26/17 07:00 12/26/17 07:00 12/26/17 07:00 12/26/17 07:00 Intake and Output: 12/26/17 12/26/17 06:59 18:59 Intake Total 150 Output Total 500 Balance -350 - Medications Medications: Current Medications Amlodipine Besylate (Norvasc) 5 mg PO DAILY [facility] Last Admin: 12/26/17 09:17 Dose: 5 mg Dextrose (Dextrose 50% Inj) 0 ml IV STAT PRN; Protocol PRN Reason: Hypoglycemia Protocol Dextrose (Glutose 15) 0 gm PO ONCE PRN; Protocol PRN Reason: Hypoglycemia Protocol Enoxaparin Sodium (Lovenox) 40 mg SC DAILY [facility] Last Admin: 12/26/17 09:17 Dose: 40 mg Escitalopram Oxalate (Lexapro) 5 mg PO DAILY [facility] Last Admin: 12/26/17 09:17 Dose: 5 mg Glucagon (Glucagen Diagnostic Kit) 0 mg IM STAT PRN; Protocol PRN Reason: Hypoglycemia Protocol Insulin Aspart (Novolog) 18 unit SC AC [facility] Last Admin: 12/26/17 08:30 Dose: 18 unit Insulin Glargine (Lantus) 20 unit SC HS [facility] Last Admin: 12/25/17 21:30 Dose: 20 units Insulin Human Regular (Novolin R) 0 unit SC ACHS [facility] PRN Reason: Protocol Last Admin: 12/26/17 08:29 Dose: 6 unit Levothyroxine Sodium (Synthroid) 50 mcg PO DAILY@0630 [facility] Last Admin: 12/26/17 05:38 Dose: 50 mcg Methylprednisolone (Solu-Medrol) 40 mg IVP Q6 [facility] Last Admin: 12/26/17 05:38 Dose: 40 mg Pantoprazole Sodium (Protonix Ec Tab) 40 mg PO DAILY [facility] Last Admin: 12/26/17 09:19 Dose: 40 mg Rosuvastatin Calcium (Crestor) 2.5 mg PO HS [facility] Last Admin: 12/25/17 21:18 Dose: 2.5 mg Fluticasone/Salmeterol (Advair Diskus 250/50) 1 puff INH RQ12 [facility] Last Admin: 12/26/17 07:38 Dose: 1 puff - Labs Labs: 12/26/17 07:17 12/26/17 07:17 PT 11.2 SECONDS (9.7-12.2) 12/20/17 10:16 INR 1.0 12/20/17 10:16 APTT 25 SECONDS (21-34) 12/20/17 10:16 - Constitutional Appears: Chronically Ill - Head Exam Head Exam: ATRAUMATIC, NORMAL INSPECTION - Eye Exam Eye Exam: EOMI, Normal appearance - ENT Exam ENT Exam: Mucous Membranes Moist - Respiratory Exam Respiratory Exam: Decreased Breath Sounds, Rales Additional comments: using scalene muscles to breathe - Cardiovascular Exam Cardiovascular Exam: REGULAR RHYTHM, +S1, +S2 - GI/Abdominal Exam GI & Abdominal Exam: Soft, Normal Bowel Sounds. absent: Tenderness - Extremities Exam Extremities Exam: Normal Inspection. absent: Pedal Edema, Tenderness - Neurological Exam Neurological Exam: Alert, Awake, Oriented x3 - Psychiatric Exam Psychiatric exam: Normal Affect, Normal Mood - Skin Skin Exam: Normal Color Assessment and Plan - Assessment and Plan (Free Text) Assessment: 1.) Pulmonary fibrosis - Pulmonary consult deferred at this time. Patient was recently admitted for similar symptoms, management based on previous recommendations and will re- consult appropriately. Images - Chest x-ray (12/20/17): Right worse than left bilateral fibrotic changes, not significantly changed. No focal consolidation of pleural effusion. - Chest CT with contrast from previous admission (11/08/17): Chronic interstitial fibrotic change throughout the right lung. Multifocal left-sided subpleural fibrosis. Varicoid bronchiectasis bilateally, right greater than left. Dilated main pulmonary artery. No toher significant abnormality. - Discontinue high flow oxygen, patient saturation 94-98% on 4L via [place] - Will look into financial assistance programs for idiopathic pulmonary fibrosis medications - Bipap placed as needed for shortness of breath - Medications * Duoneb 3ml INH RQ2 PRN * Advair Diskus 250/50 1 puff INH RQ12 * Solumedrol 40mg IVP Q6h 2.) Leukocytosis secondary to steroids - Patient afebrile - Blood cultures: preliminary results no growth after 24 hours x2 3.) History of DM - Continue monitor with Accucheck - Medications - ISS and hypoglycemia protocols - Novolog 18u SC AC - Lantus 20u SC QHS 4.) History of hypothyroidism - Patient stable and asymptomatic at this time - Free T4 from previous admission (12/11/17): 1.5 - TSH from previous admission (12/11/17): 0.49 - Continue home medication * Levothyroxine 50mcg PO QAM 5.) History of HTN - Norvasc 5mg PO QD 6.) History of HLD - Crestor 2.5mg PO QHS 7.) History of GERD - Protonix 40mg PO QD 8.) Prophylaxis - Lovenox 40mg SC QD - SCDs to be used while in bed - Protonix 40mg PO QD - PT evaluation: Wheel chair for discharge home - Palliative care consult: Patient made DNR/DNI 12/25/17 Disposition: Patient is still short of breath as she is using accessory muscles to breathe. Following up with granddaughter in regards to forms for financial assistance for pulmonary fibrosis medication-Tessa. Case discussed with Dr. Richard Lezama PGY-1 <Brad Ramos - Last Filed: 12/27/17 17:19> Objective - Vital Signs/Intake and Output Vital Signs (last 24 hours): Temp Pulse Resp BP Pulse Ox 97.9 F 80 18 128/70 98 12/27/17 15:00 12/27/17 16:00 12/27/17 15:00 12/27/17 15:00 12/27/17 15:00 Intake and Output: 12/27/17 12/27/17 06:59 18:59 Intake Total 625 Balance 625 - Medications Medications: Current Medications Albuterol/Ipratropium (Duoneb 3 Mg/0.5 Mg (3 Ml) Ud) 3 ml INH RQ4 PRN PRN Reason: Shortness of Breath Amlodipine Besylate (Norvasc) 5 mg PO DAILY [facility] Last Admin: 12/27/17 09:41 Dose: 5 mg Dextrose (Dextrose 50% Inj) 0 ml IV STAT PRN; Protocol PRN Reason: Hypoglycemia Protocol Dextrose (Glutose 15) 0 gm PO ONCE PRN; Protocol PRN Reason: Hypoglycemia Protocol Enoxaparin Sodium (Lovenox) 40 mg SC DAILY [facility] Last Admin: 12/27/17 09:42 Dose: 40 mg Escitalopram Oxalate (Lexapro) 5 mg PO DAILY [facility] Last Admin: 12/27/17 09:41 Dose: 5 mg Glucagon (Glucagen Diagnostic Kit) 0 mg IM STAT PRN; Protocol PRN Reason: Hypoglycemia Protocol Insulin Aspart (Novolog) 18 unit SC AC [facility] Last Admin: 12/27/17 12:29 Dose: 18 unit Insulin Glargine (Lantus) 20 unit SC HS [facility] Last Admin: 12/26/17 21:35 Dose: 20 units Insulin Human Regular (Novolin R) 0 unit SC ACHS [facility] PRN Reason: Protocol Last Admin: 12/27/17 12:29 Dose: 8 unit Levothyroxine Sodium (Synthroid) 50 mcg PO DAILY@0630 [facility] Last Admin: 12/27/17 06:07 Dose: 50 mcg Methylprednisolone (Solu-Medrol) 40 mg IVP Q6 [facility] Last Admin: 12/27/17 12:33 Dose: 40 mg Pantoprazole Sodium (Protonix Ec Tab) 40 mg PO DAILY [facility] Last Admin: 12/27/17 09:41 Dose: 40 mg Rosuvastatin Calcium (Crestor) 2.5 mg PO HS [facility] Last Admin: 12/26/17 21:31 Dose: 2.5 mg Fluticasone/Salmeterol (Advair Diskus 250/50) 1 puff INH RQ12 [facility] Last Admin: 12/27/17 07:41 Dose: 1 puff - Labs Labs: 12/27/17 07:22 12/27/17 07:22 PT 11.2 SECONDS (9.7-12.2) 12/20/17 10:16 INR 1.0 12/20/17 10:16 APTT 25 SECONDS (21-34) 12/20/17 10:16 Attending/Attestation - Attestation I have personally seen and examined this patient.: Yes I have fully participated in the care of the patient.: Yes I have reviewed all pertinent clinical information, including history, physical exam and plan: Yes Notes (Text): seen and examined ,patient is using accessory muscles,Patient is sob,talking in full sentence. BIPAP as needed. continue steroid,oxygen and duoneb treatment Discussed about get OFEV for her.It will very difficult without insurance. call G Daughter and drug company to discuss about financial analysis consultant to get OFEV d/w Resident I agree with the documentation of the resident
--- NOTE | 2017-12-26 11:09 | RAD ---
PROCEDURE: CHEST RADIOGRAPH, 1 VIEW HISTORY: chest pain COMPARISON: 12/20/2017. FINDINGS: LUNGS: There are persistent low lung volumes. There is diffuse interstitial thickening, worse in the right lung. No focal consolidation. PLEURA: No pneumothorax or pleural fluid seen. CARDIOVASCULAR: The cardiomediastinal silhouette is stable. OSSEOUS STRUCTURES: No significant abnormalities. VISUALIZED UPPER ABDOMEN: Normal. OTHER FINDINGS: None. IMPRESSION: Findings are most compatible with chronic interstitial fibrosis. No active pulmonary disease.
--- NOTE | 2017-12-26 12:31 | CARD ---
APPROVED REPORT EKG Measurement Heart [id number] <Conclusion> Normal sinus rhythm Minimal voltage criteria for LVH, may be normal variant Possible Anterior infarct, age undetermined Abnormal ECG
[2017-12-26] MEDS ORDERED: Albuterol-Ipratrop 3 mg / 0.5 (3 ml) UD INH PRN (14:58)
[2017-12-26] MEDS: Rosuvastatin Calcium 2.5 mg Tab PO SCH (21:31)
[2017-12-26] MEDS: (Lantus) Insulin Glargine, Recombinant SC SCH (21:35)
[2017-12-27] MEDS: Levothyroxine 50 MCG TAB PO SCH (06:07)
[2017-12-27] MEDS: MethylPREDNISolone 40 mg Vial IVP SCH ×3 (06:07→17:35)
[2017-12-27 07:29] LABS: BASO % 0.2 % (0.0-2.0); HEMOGLOBIN 12.7 g/dL (11.0-16.0); LYMPH # 0.7 K/uL (1.0-4.3); LYMPH % 5.1 % (20.0-40.0); MEAN CELL VOLUME 92.5 fL (81.0-99.0); MEAN CORPUSCULAR HEMOGLOBIN 30.4 pg (27.0-31.0); MEAN CORPUSCULAR HGB CONC 32.8 g/dL (33.0-37.0); MEAN PLATELET VOLUME 8.1 fL (7.2-11.7); MONO # 0.6 K/uL (0.0-0.8); MONO % 4.4 % (0.0-10.0); NEUT # 12.4 K/uL (1.8-7.0); NEUT % 90.3 % (50.0-75.0); PLATELET COUNT 231 K/uL (130-400); RBC 4.18 Mil/uL (3.80-5.20); WHITE BLOOD COUNT 13.8 K/uL (4.8-10.8)
[2017-12-27] MEDS: Fluticasone-Salmeterol 250-50mcg Diskus INH SCH ×2 (07:41→19:22)
[2017-12-27 07:56] LABS: ALB/GLOB RATIO 1.1 (1.0-2.1); ALBUMIN 3.4 g/dL (3.5-5.0); ALT/SGPT 25 U/L (9-52); AST/SGOT 24 U/L (14-36); BLOOD UREA NITROGEN 27 mg/dL (7-17); CALCIUM 9.1 mg/dl (8.6-10.4); GFR AFRICAN-AMERICAN > 60; GFR NON-AFRICAN AMERICAN > 60
[2017-12-27] MEDS: (Novolin R) Insulin Human Regular 100 units/ml vial SC SCH ×4 (08:37→21:24)
[2017-12-27] MEDS: (Novolog) Insulin Aspart, Recombinant 100 u/ml 10 ml vial SC SCH ×3 (08:37→17:00)
[2017-12-27] MEDS: Pantoprazole 40 mg EC Tab PO SCH (09:41)
[2017-12-27] MEDS: Enoxaparin 40 mg Syringe SC SCH (09:42)
[2017-12-27 10:35] LABS: BANDS 3 % (0-2); MONOCYTE 4 % (0-10); TOTAL CELLS COUNTED 100
[2017-12-27 10:36] LABS: ANISOCYTOSIS SLIGHT; LYMPHOCYTE 4 % (20-40); NEUTROPHIL 89 % (50-75); OVALOCYTES SLIGHT; PLATELET ESTIMATE NORMAL (NORMAL)
--- NOTE | 2017-12-27 19:22 | CP.PCM.PN ---
<LezamaTorrie - Last Filed: 12/27/17 19:19> Subjective - Date & Time of Evaluation Date of Evaluation: 12/27/17 Time of Evaluation: 07:00 - Subjective Subjective: Medicine Progress Note: Patient seen and examined at bedside this morning. Patient states she feels okay but still reports shortness of breath. She denies nausea and vomiting, tolerating her diet well. She denies fever,chills, chest pain, cough or dysuria. Objective - Vital Signs/Intake and Output Vital Signs (last 24 hours): Temp Pulse Resp BP Pulse Ox 97.9 F 80 18 128/70 98 12/27/17 15:00 12/27/17 16:00 12/27/17 15:00 12/27/17 15:00 12/27/17 15:00 - Medications Medications: Current Medications Albuterol/Ipratropium (Duoneb 3 Mg/0.5 Mg (3 Ml) Ud) 3 ml INH RQ4 PRN PRN Reason: Shortness of Breath Amlodipine Besylate (Norvasc) 5 mg PO DAILY [facility] Last Admin: 12/27/17 09:41 Dose: 5 mg Dextrose (Dextrose 50% Inj) 0 ml IV STAT PRN; Protocol PRN Reason: Hypoglycemia Protocol Dextrose (Glutose 15) 0 gm PO ONCE PRN; Protocol PRN Reason: Hypoglycemia Protocol Enoxaparin Sodium (Lovenox) 40 mg SC DAILY [facility] Last Admin: 12/27/17 09:42 Dose: 40 mg Escitalopram Oxalate (Lexapro) 5 mg PO DAILY [facility] Last Admin: 12/27/17 09:41 Dose: 5 mg Glucagon (Glucagen Diagnostic Kit) 0 mg IM STAT PRN; Protocol PRN Reason: Hypoglycemia Protocol Insulin Aspart (Novolog) 18 unit SC AC [facility] Last Admin: 12/27/17 12:29 Dose: 18 unit Insulin Glargine (Lantus) 20 unit SC HS [facility] Last Admin: 12/26/17 21:35 Dose: 20 units Insulin Human Regular (Novolin R) 0 unit SC ACHS [facility] PRN Reason: Protocol Last Admin: 12/27/17 17:35 Dose: Not Given Levothyroxine Sodium (Synthroid) 50 mcg PO DAILY@0630 [facility] Last Admin: 12/27/17 06:07 Dose: 50 mcg Methylprednisolone (Solu-Medrol) 40 mg IVP Q6 [facility] Last Admin: 12/27/17 17:35 Dose: 40 mg Pantoprazole Sodium (Protonix Ec Tab) 40 mg PO DAILY [facility] Last Admin: 12/27/17 09:41 Dose: 40 mg Rosuvastatin Calcium (Crestor) 2.5 mg PO HS [facility] Last Admin: 12/26/17 21:31 Dose: 2.5 mg Fluticasone/Salmeterol (Advair Diskus 250/50) 1 puff INH RQ12 [facility] Last Admin: 12/27/17 07:41 Dose: 1 puff - Labs Labs: 12/27/17 07:22 12/27/17 07:22 PT 11.2 SECONDS (9.7-12.2) 12/20/17 10:16 INR 1.0 12/20/17 10:16 APTT 25 SECONDS (21-34) 12/20/17 10:16 - Constitutional Appears: No Acute Distress, Chronically Ill - Head Exam Head Exam: ATRAUMATIC, NORMAL INSPECTION - Eye Exam Eye Exam: EOMI, Normal appearance - ENT Exam ENT Exam: Mucous Membranes Moist - Respiratory Exam Respiratory Exam: Decreased Breath Sounds, Rales - Cardiovascular Exam Cardiovascular Exam: REGULAR RHYTHM, +S1, +S2 - GI/Abdominal Exam GI & Abdominal Exam: Soft, Normal Bowel Sounds. absent: Tenderness - Extremities Exam Extremities Exam: Normal Inspection - Neurological Exam Neurological Exam: Alert, Awake, Oriented x3 - Psychiatric Exam Psychiatric exam: Normal Affect - Skin Skin Exam: Normal Color Assessment and Plan - Assessment and Plan (Free Text) Assessment: 1.) Pulmonary fibrosis - Pulmonary consult deferred at this time. Patient was recently admitted for similar symptoms, management based on previous recommendations and will re- consult appropriately. Images - Chest x-ray (12/20/17): Right worse than left bilateral fibrotic changes, not significantly changed. No focal consolidation of pleural effusion. - Chest CT with contrast from previous admission (11/08/17): Chronic interstitial fibrotic change throughout the right lung. Multifocal left-sided subpleural fibrosis. Varicoid bronchiectasis bilateally, right greater than left. Dilated main pulmonary artery. No toher significant abnormality. - Discontinue high flow oxygen, patient saturation 94-98% on 4L via [place] - Will look into financial assistance programs for idiopathic pulmonary fibrosis medications - Bipap placed as needed for shortness of breath - Medications * Duoneb 3ml INH RQ2 PRN * Advair Diskus 250/50 1 puff INH RQ12 * Solumedrol 40mg IVP Q6h 2.) Leukocytosis secondary to steroids - Patient afebrile - Blood cultures: preliminary results no growth after 24 hours x2 3.) History of DM - Continue monitor with Accucheck - Medications - ISS and hypoglycemia protocols - Novolog 18u SC AC - Lantus 20u SC QHS 4.) History of hypothyroidism - Patient stable and asymptomatic at this time - Free T4 from previous admission (12/11/17): 1.5 - TSH from previous admission (12/11/17): 0.49 - Continue home medication * Levothyroxine 50mcg PO QAM 5.) History of HTN - Norvasc 5mg PO QD 6.) History of HLD - Crestor 2.5mg PO QHS 7.) History of GERD - Protonix 40mg PO QD 8.) Prophylaxis - Lovenox 40mg SC QD - SCDs to be used while in bed - Protonix 40mg PO QD - PT evaluation: Wheel chair for discharge home - Palliative care consult: Patient made DNR/DNI 12/25/17 Disposition: Following up with granddaughter in regards to forms for financial assistance for pulmonary fibrosis medication-Ofev. Paper work approval for financial assistance for diabetes medications. Pending wheel chair approval. Patient will receive transfer to home via ambulance. Case discussed with Dr. Richard Lezama PGY-1 <Brad Ramos - Last Filed: 12/30/17 16:14> Objective - Vital Signs/Intake and Output Vital Signs (last 24 hours): Temp Pulse Resp BP Pulse Ox 98.2 F 72 20 128/71 97 12/28/17 15:00 12/28/17 15:00 12/28/17 15:00 12/28/17 15:00 12/28/17 15:00 - Labs Labs: 12/28/17 07:13 12/28/17 07:13 PT 11.2 SECONDS (9.7-12.2) 12/20/17 10:16 INR 1.0 12/20/17 10:16 APTT 25 SECONDS (21-34) 12/20/17 10:16 Attending/Attestation - Attestation I have personally seen and examined this patient.: Yes I have fully participated in the care of the patient.: Yes I have reviewed all pertinent clinical information, including history, physical exam and plan: Yes Notes (Text): Seen and examined ,patient is using accessory muscles,Patient is sob,talking in full sentence. BIPAP as needed. continue steroid,oxygen and duoneb treatment d/w Resident I agree with the documentation of the resident's assessment and the plan
[2017-12-27] MEDS: (Lantus) Insulin Glargine, Recombinant SC SCH (21:23)
[2017-12-27] MEDS: Rosuvastatin Calcium 2.5 mg Tab PO SCH (21:23)
[2017-12-28] MEDS: MethylPREDNISolone 40 mg Vial IVP SCH ×3 (00:03→12:34)
[2017-12-28 01:44] VITALS: RESP 20
[2017-12-28] MEDS: Levothyroxine 50 MCG TAB PO SCH (05:35)
[2017-12-28] MEDS: Fluticasone-Salmeterol 250-50mcg Diskus INH SCH (07:25)
[2017-12-28 07:40] LABS: ALB/GLOB RATIO 1.2 (1.0-2.1); ALBUMIN 3.5 g/dL (3.5-5.0); ALT/SGPT 21 U/L (9-52); AST/SGOT 20 U/L (14-36); BASO % 0.2 % (0.0-2.0); BLOOD UREA NITROGEN 27 mg/dL (7-17); CALCIUM 8.7 mg/dl (8.6-10.4); GFR AFRICAN-AMERICAN > 60; GFR NON-AFRICAN AMERICAN > 60; HEMOGLOBIN 12.2 g/dL (11.0-16.0); LYMPH # 0.4 K/uL (1.0-4.3); LYMPH % 3.6 % (20.0-40.0); MEAN CELL VOLUME 93.1 fL (81.0-99.0); MEAN CORPUSCULAR HEMOGLOBIN 31.7 pg (27.0-31.0); MEAN CORPUSCULAR HGB CONC 34.1 g/dL (33.0-37.0); MEAN PLATELET VOLUME 8.1 fL (7.2-11.7); MONO # 0.4 K/uL (0.0-0.8); MONO % 3.9 % (0.0-10.0); NEUT # 10.6 K/uL (1.8-7.0); NEUT % 92.3 % (50.0-75.0); NRBC % 0.1 % (0.0-2.0); PLATELET COUNT 208 K/uL (130-400); RBC 3.85 Mil/uL (3.80-5.20); RED CELL DISTRIBUTION WIDTH 14.4 % (11.5-14.5); WHITE BLOOD COUNT 11.5 K/uL (4.8-10.8)
[2017-12-28 08:14] VITALS: O2SAT 97
[2017-12-28] MEDS: (Novolin R) Insulin Human Regular 100 units/ml vial SC SCH ×3 (08:36→16:18)
[2017-12-28] MEDS: (Novolog) Insulin Aspart, Recombinant 100 u/ml 10 ml vial SC SCH ×3 (08:36→16:18)
[2017-12-28] MEDS: Enoxaparin 40 mg Syringe SC SCH (09:34)
[2017-12-28] MEDS: Pantoprazole 40 mg EC Tab PO SCH (09:34)
[2017-12-28 10:37] LABS: LYMPHOCYTE 9 % (20-40); MONOCYTE 3 % (0-10); NEUTROPHIL 88 % (50-75); PLATELET ESTIMATE NORMAL (NORMAL); TOTAL CELLS COUNTED 100
--- NOTE | 2017-12-28 10:53 | CP.PCM.DIS ---
<Torrie Lezama - Last Filed: 12/28/17 17:28> Provider - Provider Date of Admission: 12/20/17 12:09 Attending physician: Brad Ramos MD Time Spent in preparation of Discharge (in minutes): 40 Hospital Course - Lab Results Lab Results: Micro Results 12/20/17 09:53 Blood Blood Culture - Final NO GROWTH AFTER 5 DAYS 12/20/17 09:53 Blood Gram Stain - Final TEST NOT PERFORMED 12/20/17 09:53 Blood Blood Culture - Final NO GROWTH AFTER 5 DAYS Most Recent Lab Values WBC 11.5 K/uL (4.8-10.8) H 12/28/17 07:13 RBC 3.85 Mil/uL (3.80-5.20) 12/28/17 07:13 Hgb 12.2 g/dL (11.0-16.0) 12/28/17 07:13 Hct 35.9 % (34.0-47.0) 12/28/17 07:13 MCV 93.1 fL (81.0-99.0) 12/28/17 07:13 MCH 31.7 pg (27.0-31.0) H 12/28/17 07:13 MCHC 34.1 g/dL (33.0-37.0) 12/28/17 07:13 RDW 14.4 % (11.5-14.5) 12/28/17 07:13 Plt Count 208 K/uL (130-400) 12/28/17 07:13 MPV 8.1 fL (7.2-11.7) 12/28/17 07:13 Neut % (Auto) 92.3 % (50.0-75.0) H 12/28/17 07:13 Lymph % (Auto) 3.6 % (20.0-40.0) L 12/28/17 07:13 [place] % (Auto) 3.9 % (0.0-10.0) 12/28/17 07:13 Eos % (Auto) 0.0 % (0.0-4.0) 12/28/17 07:13 Baso % (Auto) 0.2 % (0.0-2.0) 12/28/17 07:13 Neut # (Auto) 10.6 K/uL (1.8-7.0) H 12/28/17 07:13 Lymph # (Auto) 0.4 K/uL (1.0-4.3) L 12/28/17 07:13 [place] # (Auto) 0.4 K/uL (0.0-0.8) 12/28/17 07:13 Eos # (Auto) 0.0 K/uL (0.0-0.7) 12/28/17 07:13 Baso # (Auto) 0.0 K/uL (0.0-0.2) 12/28/17 07:13 Neutrophils % (Manual) 88 % (50-75) H 12/28/17 07:13 Band Neutrophils % 3 % (0-2) H 12/27/17 07:22 Lymphocytes % (Manual) 9 % (20-40) L 12/28/17 07:13 Monocytes % (Manual) 3 % (0-10) 12/28/17 07:13 Basophils % (Manual) 1 % (0-2) 12/23/17 07:01 Toxic Granulation Present 12/23/17 07:01 Platelet Estimate Normal (NORMAL) 12/28/17 07:13 Large Platelets Present 12/24/17 07:25 RBC Morphology Normal 12/28/17 07:13 Polychromasia Slight 12/23/17 07:01 Hypochromasia (manual) Slight 12/23/17 07:01 Basophilic Stippling Slight 12/22/17 08:51 Anisocytosis (manual) Slight 12/27/17 07:22 Macrocytosis (manual) Slight 12/23/17 07:01 Ovalocytes Slight 12/27/17 07:22 PT 11.2 SECONDS (9.7-12.2) 12/20/17 10:16 INR 1.0 12/20/17 10:16 APTT 25 SECONDS (21-34) 12/20/17 10:16 Sodium 136 mmol/L (132-148) 12/28/17 07:13 Potassium 5.3 mmol/L (3.6-5.2) H 12/28/17 07:13 Chloride 94 mmol/L (98-107) L 12/28/17 07:13 Carbon Dioxide 35 mmol/L (22-30) H 12/28/17 07:13 Anion Gap 12 (10-20) 12/28/17 07:13 BUN 27 mg/dL (7-17) H 12/28/17 07:13 Creatinine 0.6 mg/dL (0.7-1.2) L 12/28/17 07:13 Est GFR ( Amer) > 60 12/28/17 07:13 Est GFR (Non-Af Amer) > 60 12/28/17 07:13 POC Glucose (mg/dL) 217 mg/dL (65-110) H 12/28/17 06:06 Random Glucose 241 mg/dL (65-105) H 12/28/17 07:13 Calcium 8.7 mg/dl (8.6-10.4) 12/28/17 07:13 Phosphorus 4.3 mg/dL (2.5-4.5) 12/28/17 07:13 Magnesium 2.2 mg/dL (1.6-2.3) 12/28/17 07:13 Total Bilirubin 0.6 mg/dL (0.2-1.3) 12/28/17 07:13 AST 20 U/L (14-36) 12/28/17 07:13 ALT 21 U/L (9-52) 12/28/17 07:13 Alkaline Phosphatase 58 U/L (38-126) 12/28/17 07:13 Total Creatine Kinase < 20 U/L (30-135) L 12/20/17 10:16 CK-MB (Mass) 0.61 ng/mL (0.0-3.38) 12/20/17 10:16 Troponin I < 0.0120 ng/mL (0.00-0.120) 12/25/17 22:10 NT-Pro-B Natriuret Pep 184 pg/mL (0-900) 12/20/17 10:16 Total Protein 6.5 g/dL (6.3-8.3) 12/28/17 07:13 Albumin 3.5 g/dL (3.5-5.0) 12/28/17 07:13 Globulin 3.0 gm/dL (2.2-3.9) 12/28/17 07:13 Albumin/Globulin Ratio 1.2 (1.0-2.1) 12/28/17 07:13 Urine Color Yellow (YELLOW) 12/20/17 11:51 Urine Clarity Hazy (Clear) 12/20/17 11:51 Urine pH 6.0 (5.0-8.0) 12/20/17 11:51 Ur Specific [place] 1.027 (1.003-1.030) 12/20/17 11:51 Urine Protein 1+ mg/dL (NEGATIVE) H 12/20/17 11:51 Urine Glucose (UA) 3+ mg/dL (Normal) H 12/20/17 11:51 Urine Ketones Trace mg/dL (NEGATIVE) 12/20/17 11:51 Urine Blood Negative (NEGATIVE) 12/20/17 11:51 Urine Nitrate Negative (NEGATIVE) 12/20/17 11:51 Urine Bilirubin Negative (NEGATIVE) 12/20/17 11:51 Urine Urobilinogen 2.0 mg/dL (0.2-1.0) H 12/20/17 11:51 Ur Leukocyte Esterase 3+ Js/uL (Negative) H 12/20/17 11:51 Urine WBC (Auto) 41 /hpf (0-5) H 12/20/17 11:51 Urine RBC (Auto) 6 /hpf (0-3) H 12/20/17 11:51 Ur Squamous Epith Cells 14 /hpf (0-5) H 12/20/17 11:51 - Hospital Course Hospital Course: Patient is a 77 year old female, originally from [facility] (moved to in June of 2017), with PMHx of pulmonary fibrosis (diagnosed in [facility]), hypertension, diabetes mellitus, hypothyroidism, and previous treatment lymphoma with chemotherapy. Patient has history of chronic SOB due to pulmonary fibrosis. Her home oxygen is normally set to 3L. Patient experienced severe shortness of breath this morning that began when she woke up. She attempted breathing treatment and "turned up her home oxygen" but with no improvement. She denies fever or chills but admits chronic dry cough. 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 States she has been taking medication prescribed to her at recent discharge from [facility], but admits being "frugal" with her diabetic testing strips because she cannot afford them. Patient lives on the third floor of her apartment building and was unable to get down on her own. At baseline, patient admits to being able to take no more than a few steps without becoming SOB. Denies leg swelling or needing to sleep with multiple pillows. Patient has multiple previous discharges for similar complaints, most recent discharge on 12/12/17. She had instructions to follow up with [facility] but patient has been unable. Patient denies fever, chills, nausea, vomiting, diarrhea, constipation, chest pain, numbness, tingling, dysuria, hematuria, hematochezia, and sick contacts. PMD: Denies Allergies: PCN (anaphylaxis) PMHX: Pulmonary Fibrosis (diagnosed in [facility]), Hypertension, Diabetes, Hypothyroidism. History of chemotherapy approximately 10 years ago for Lymphoma. PSHX: Cholecystectomy, Stomach Reduction Surgery Family: Unknown for parents. Brother has lung problems and is also on home oxygen Social: Denies tobacco, alcohol, or illicit drug use. Patient lives with niece in an apartment building on the third floor. Meds: Prednisone taper (from last admission), Amlodipine 5mg, Advair Diskus 250/ 50 1 puff inh BID, Glulisine 14 units SC before each meal, Synthroid 50mcg, Protonix 40mg Daily, Crestor 2.5 mg HS Hospital Course: During this admission, respiratory symptoms were reduced with IV Solumedrol, Duoneb treatments, and Advair Diskus. Paperwork was also provided to the patient 's family to apply for [employer] assistance via the [employer] to obtain a medicine for Ofev (nintedanib). Recommended patient for wheelchair to decrease risk of decreased oxygen saturation while ambulating. Insulin regimen adjusted due to corticosteroid treatment for better metabolic control. Patient had an episode of chest pain during this admission. Cardiac workup was negative. Other medical conditions (hypothyroidism, HTN, HLD, GERD) monitored during admission, stable on home regimen. Imaging: Initial chest x-ray (12/20/17): Right worse than left bilateral fibrotic changes , not significantly changed. No focal consolidation or pleural effusion. Repeat chest x-ray (12/25/17): Findings are most compatible with chronic interstitial fibrosis. No active pulmonary disease. Patient stable for discharge home. Continuar medicaciones. Paciente para comenzar estos nuevos medicamentos 1.) Lexapro 5mg lolis tableta por lou. 2.) Novolog 18 units antes de las comidas 3.) Lantus 20 units antes de la hora de dormir 4.) Prednisone taper kenyatta se indica Por favor llame para hacer lolis cecille para 1-2 semanas: [place] [address] # [phone] Por favor regrese a la cesar de emergencias si los sntomas regresan o empeoran.. This is a summary of the patient's hospital course, please refer to full EMR for further details. Discharge Exam - Head Exam Head Exam: ATRAUMATIC, NORMAL INSPECTION - Eye Exam Eye Exam: EOMI, Normal appearance - ENT Exam ENT Exam: Mucous Membranes Moist - Respiratory Exam Respiratory Exam: NORMAL BREATHING PATTERN - Cardiovascular Exam Cardiovascular Exam: REGULAR RHYTHM, +S1, +S2 - GI/Abdominal Exam GI & Abdominal Exam: Normal Bowel Sounds, Soft. absent: Tenderness - Extremities Exam Extremities exam: normal inspection - Neurological Exam Neurological exam: Alert, Oriented x3 - Skin Skin Exam: Normal Color Discharge Plan - Discharge Medications Prescriptions: Escitalopram [Lexapro] 5 mg PO DAILY #30 tab Insulin Aspart, Recombinant [Novolog] 18 unit SC AC 30 Days unit Insulin Glargine, Recombina [Lantus] 20 unit SC HS 30 Days unit - Follow Up Plan Condition: FAIR Disposition: HOME/ ROUTINE Instructions: Shortness of Breath (Dyspnea) (DC), Escitalopram, Insulin Aspart , Insulin Glargine, Interstitial Lung Disease Additional Instructions: Continuar medicaciones. Paciente para comenzar estos nuevos medicamentos 1.) Lexapro 5mg lolis tableta por lou. 2.) Novolog 18 units antes de las comidas 3.) Lantus 20 units antes de la hora de dormir 4.) Prednisone taper kenyatta se indica Por favor llame para hacer lolis cecille para 1-2 semanas: [address] [address] # [phone] Por favor regrese a la cesar de emergencias si los sntomas regresan o empeoran. Referrals: [facility] [Outside] <Brad Ramos - Last Filed: 12/30/17 16:14> Provider - Provider Date of Admission: 12/20/17 12:09 Attending physician: Brad Ramos MD Hospital Course - Lab Results Lab Results: Micro Results 12/20/17 09:53 Blood Blood Culture - Final NO GROWTH AFTER 5 DAYS 12/20/17 09:53 Blood Gram Stain - Final TEST NOT PERFORMED 12/20/17 09:53 Blood Blood Culture - Final NO GROWTH AFTER 5 DAYS Most Recent Lab Values WBC 11.5 K/uL (4.8-10.8) H 12/28/17 07:13 RBC 3.85 Mil/uL (3.80-5.20) 12/28/17 07:13 Hgb 12.2 g/dL (11.0-16.0) 12/28/17 07:13 Hct 35.9 % (34.0-47.0) 12/28/17 07:13 MCV 93.1 fL (81.0-99.0) 12/28/17 07:13 MCH 31.7 pg (27.0-31.0) H 12/28/17 07:13 MCHC 34.1 g/dL (33.0-37.0) 12/28/17 07:13 RDW 14.4 % (11.5-14.5) 12/28/17 07:13 Plt Count 208 K/uL (130-400) 12/28/17 07:13 MPV 8.1 fL (7.2-11.7) 12/28/17 07:13 Neut % (Auto) 92.3 % (50.0-75.0) H 12/28/17 07:13 Lymph % (Auto) 3.6 % (20.0-40.0) L 12/28/17 07:13 [place] % (Auto) 3.9 % (0.0-10.0) 12/28/17 07:13 Eos % (Auto) 0.0 % (0.0-4.0) 12/28/17 07:13 Baso % (Auto) 0.2 % (0.0-2.0) 12/28/17 07:13 Neut # (Auto) 10.6 K/uL (1.8-7.0) H 12/28/17 07:13 Lymph # (Auto) 0.4 K/uL (1.0-4.3) L 12/28/17 07:13 [place] # (Auto) 0.4 K/uL (0.0-0.8) 12/28/17 07:13 Eos # (Auto) 0.0 K/uL (0.0-0.7) 12/28/17 07:13 Baso # (Auto) 0.0 K/uL (0.0-0.2) 12/28/17 07:13 Neutrophils % (Manual) 88 % (50-75) H 12/28/17 07:13 Band Neutrophils % 3 % (0-2) H 12/27/17 07:22 Lymphocytes % (Manual) 9 % (20-40) L 12/28/17 07:13 Monocytes % (Manual) 3 % (0-10) 12/28/17 07:13 Basophils % (Manual) 1 % (0-2) 12/23/17 07:01 Toxic Granulation Present 12/23/17 07:01 Platelet Estimate Normal (NORMAL) 12/28/17 07:13 Large Platelets Present 12/24/17 07:25 RBC Morphology Normal 12/28/17 07:13 Polychromasia Slight 12/23/17 07:01 Hypochromasia (manual) Slight 12/23/17 07:01 Basophilic Stippling Slight 12/22/17 08:51 Anisocytosis (manual) Slight 12/27/17 07:22 Macrocytosis (manual) Slight 12/23/17 07:01 Ovalocytes Slight 12/27/17 07:22 PT 11.2 SECONDS (9.7-12.2) 12/20/17 10:16 INR 1.0 12/20/17 10:16 APTT 25 SECONDS (21-34) 12/20/17 10:16 Sodium 136 mmol/L (132-148) 12/28/17 07:13 Potassium 5.3 mmol/L (3.6-5.2) H 12/28/17 07:13 Chloride 94 mmol/L (98-107) L 12/28/17 07:13 Carbon Dioxide 35 mmol/L (22-30) H 12/28/17 07:13 Anion Gap 12 (10-20) 12/28/17 07:13 BUN 27 mg/dL (7-17) H 12/28/17 07:13 Creatinine 0.6 mg/dL (0.7-1.2) L 12/28/17 07:13 Est GFR ( Amer) > 60 12/28/17 07:13 Est GFR (Non-Af Amer) > 60 12/28/17 07:13 POC Glucose (mg/dL) 95 mg/dL (65-110) 12/28/17 16:14 Random Glucose 241 mg/dL (65-105) H 12/28/17 07:13 Calcium 8.7 mg/dl (8.6-10.4) 12/28/17 07:13 Phosphorus 4.3 mg/dL (2.5-4.5) 12/28/17 07:13 Magnesium 2.2 mg/dL (1.6-2.3) 12/28/17 07:13 Total Bilirubin 0.6 mg/dL (0.2-1.3) 12/28/17 07:13 AST 20 U/L (14-36) 12/28/17 07:13 ALT 21 U/L (9-52) 12/28/17 07:13 Alkaline Phosphatase 58 U/L (38-126) 12/28/17 07:13 Total Creatine Kinase < 20 U/L (30-135) L 12/20/17 10:16 CK-MB (Mass) 0.61 ng/mL (0.0-3.38) 12/20/17 10:16 Troponin I < 0.0120 ng/mL (0.00-0.120) 12/25/17 22:10 NT-Pro-B Natriuret Pep 184 pg/mL (0-900) 12/20/17 10:16 Total Protein 6.5 g/dL (6.3-8.3) 12/28/17 07:13 Albumin 3.5 g/dL (3.5-5.0) 12/28/17 07:13 Globulin 3.0 gm/dL (2.2-3.9) 12/28/17 07:13 Albumin/Globulin Ratio 1.2 (1.0-2.1) 12/28/17 07:13 Urine Color Yellow (YELLOW) 12/20/17 11:51 Urine Clarity Hazy (Clear) 12/20/17 11:51 Urine pH 6.0 (5.0-8.0) 12/20/17 11:51 Ur Specific [place] 1.027 (1.003-1.030) 12/20/17 11:51 Urine Protein 1+ mg/dL (NEGATIVE) H 12/20/17 11:51 Urine Glucose (UA) 3+ mg/dL (Normal) H 12/20/17 11:51 Urine Ketones Trace mg/dL (NEGATIVE) 12/20/17 11:51 Urine Blood Negative (NEGATIVE) 12/20/17 11:51 Urine Nitrate Negative (NEGATIVE) 12/20/17 11:51 Urine Bilirubin Negative (NEGATIVE) 12/20/17 11:51 Urine Urobilinogen 2.0 mg/dL (0.2-1.0) H 12/20/17 11:51 Ur Leukocyte Esterase 3+ Js/uL (Negative) H 12/20/17 11:51 Urine WBC (Auto) 41 /hpf (0-5) H 12/20/17 11:51 Urine RBC (Auto) 6 /hpf (0-3) H 12/20/17 11:51 Ur Squamous Epith Cells 14 /hpf (0-5) H 12/20/17 11:51
[2017-12-28 16:49] VITALS: BP 128/71; PULSE 72; TEMP 98.2
== END 2017-12-28 17:30 | disposition home or self-care (01) | DRG 93 ==
LOC: C.ER 09:47 → C.9E 12:09 → C.6T 12:37
PROVIDERS: ADMIT Hospitalist; ATTEND Internal Medicine
DX: J84.112 Idiopathic pulmonary fibrosis (principal); J47.9 Bronchiectasis, uncomplicated; K21.9 Gastro-esophageal reflux disease without esophagitis; Z51.5 Encounter for palliative care; Z66 Do not resuscitate; Z79.4 Long term (current) use of insulin; Z85.72 Personal history of non-Hodgkin lymphomas; Z90.49 Acquired absence of other specified parts of digestive tract; Z92.21 Personal history of antineoplastic chemotherapy; Z95.5 Presence of coronary angioplasty implant and graft; I25.10 Atherosclerotic heart disease of native coronary artery without angina pectoris; I10 Essential (primary) hypertension; E03.9 Hypothyroidism, unspecified; E11.9 Type 2 diabetes mellitus without complications; E78.5 Hyperlipidemia, unspecified; F32.9 Major depressive disorder, single episode, unspecified

== ENCOUNTER 2017-12-29 22:19 | Inpatient (IN) | payer MEDICAID, OTHER ==
[2017-12-29 22:19] VITALS: BMI 21.9
[2017-12-29] MEDS ORDERED: Ciprofloxacin 400mg/200ml D5W 400 MG/200 ML BAG IVPB STA (22:39)
[2017-12-29] MEDS ORDERED: MethylPREDNISolone 40 mg Vial IVP STA (22:39)
[2017-12-29] MEDS ORDERED: Albuterol-Ipratrop 3 mg / 0.5 (3 ml) UD INH STA ×3 (22:40)
[2017-12-29] MEDS ORDERED: Sodium Chloride 0.9% 1,000 ML IV ONE (22:45)
[2017-12-29 22:48] LABS: BASO % 0.2 % (0.0-2.0); EOS % 0.1 % (0.0-4.0); HEMOGLOBIN 13.4 g/dL (11.0-16.0); LYMPH % 7.5 % (20.0-40.0); MEAN CELL VOLUME 91.6 fL (81.0-99.0); MEAN CORPUSCULAR HEMOGLOBIN 31.2 pg (27.0-31.0); MEAN CORPUSCULAR HGB CONC 34.1 g/dL (33.0-37.0); MEAN PLATELET VOLUME 7.4 fL (7.2-11.7); MONO # 0.7 K/uL (0.0-0.8); MONO % 4.7 % (0.0-10.0); NEUT # 12.2 K/uL (1.8-7.0); NEUT % 87.5 % (50.0-75.0); NRBC % 0.1 % (0.0-2.0); PLATELET COUNT 166 K/uL (130-400); RBC 4.28 Mil/uL (3.80-5.20); RED CELL DISTRIBUTION WIDTH 14.6 % (11.5-14.5); WHITE BLOOD COUNT 13.9 K/uL (4.8-10.8)
[2017-12-29 22:57] LABS: PROTHROMBIN TIME 10.7 SECONDS (9.7-12.2)
--- NOTE | 2017-12-29 22:58 | C.PDOC ---
History Of Present Illness 77yo female, with history of pulmonary fibrosis, hypertension, remote history of lymphoma, comes in from home for reported shortness of breath, and cough since this morning. Upon arrival, patient noted to be acutely dyspneic and had increased work of breathing so she was placed on BiPAP. Patient is a poor historian so prior records were reviewed and patient was discharged from this facility yesterday; patient is due for a lung transplant. PMD: None provided Time Seen by Provider: 12/29/17 22:36 Chief Complaint (Nursing): Shortness Of Breath History Per: Patient Onset/Duration Of Symptoms: Hrs Current Symptoms Are (Timing): Still Present Associated Symptoms: denies: Fever, Chills, Dizziness, Light-headedness Additional History Per: Patient Past Medical History Reviewed: Historical Data, Nursing Documentation, Vital Signs Vital Signs: Last Vital Signs Temp 97.6 F 01/02/18 08:21 Pulse 68 01/02/18 08:21 Resp 18 01/02/18 08:21 BP 133/74 01/02/18 08:21 Pulse Ox 95 01/02/18 08:21 - Medical History PMH: Bronchitis, CAD, Depression, Diabetes, Gall Bladder Disease ( cholecystectomy), HTN, Hyperlipidemia, Hypothyroidism Denies: HIV, Chronic Kidney Disease Surgical History: Cholecystectomy, Coronary Stent - [facility] Procedures INTRODUCE OF OTH THERAP SUBST INTO RESP TRACT, VIA OPENING (08/21/17) INTRODUCTION OF SERUM/TOX/VACCINE INTO MUSCLE, PERC APPROACH (08/21/17) Family History: States: No Known Family Hx, Unknown Family Hx - Social History Hx Alcohol Use: No Hx Substance Use: No - Immunization History Hx Tetanus Toxoid Vaccination: No Hx Influenza Vaccination: Yes Hx Pneumococcal Vaccination: No Review Of Systems Except As Marked, All Systems Reviewed And Found Negative. Constitutional: Negative for: Fever, Chills Cardiovascular: Negative for: Chest Pain Respiratory: Positive for: Shortness of Breath Gastrointestinal: Negative for: Abdominal Pain Neurological: Negative for: Weakness Physical Exam - Physical Exam Appears: Non-toxic Skin: Warm, Dry Head: Atraumatic, Normacephalic Eye(s): bilateral: Normal Inspection Neck: Normal ROM, Supple Chest: Symmetrical Cardiovascular: Rhythm Regular Respiratory: Other (tachypneic, increased work of breathing. coarse breath sounds bilaterally) Gastrointestinal/Abdominal: Soft, No Tenderness Back: Normal Inspection Extremity: Normal ROM, No Pedal Edema Neurological/Psych: Oriented x3 ED Course And Treatment - Laboratory Results Result Diagrams: 01/02/18 06:16 01/02/18 06:16 ECG: Interpreted By Me, Viewed By Me ECG Rhythm: Sinus Tachycardia Rate From EC O2 Sat by Pulse Oximetry: 92 (RA) Pulse Ox Interpretation: Abnormal (patient placed on BiPAP upon arrival) Critical Care Time - Critical Care Note Total Time (in mins): 45 Documented critical care: time excludes all time spent performing seperately billable procedures. Medical Decision Making Medical Decision Making: Impression: Shortness of breath Plan: -- Labs -- BiPAP -- CXR -- EKG -- Tylenol 650mg PO -- Duoneb 3ml INH X 3 -- IV antibiotics -- IV Fluids Time: 2317 Lactate negative Chemistry unremarkable Case discussed with Dr. Thayer hospitalist certified personal chef, patient admitted under his service pt tolerationg bipa. Disposition - Disposition Disposition: HOSPITALIZED Disposition Time: 08:00 Condition: FAIR - Clinical Impression Clinical Impression: Pulmonary fibrosis Decision To Admit - Pt Status Changed To: Hospital Disposition Of: Inpatient - Admit Certification Admit to Inpatient:: After my assessment, the patient will require hospitalization for at least two midnights. This is because of the severity of symptoms shown, intensity of services needed, and/or the medical risk in this patient being treated as an outpatient. - InPatient: Physician Admission Certification: I certify that this patient requires 2 or more midnights of care for the following reason:: needs bipap - . Bed Request Type: Telemetry Admitting Physician: Jacky Thayer Patient Diagnosis: Pulmonary fibrosis
[2017-12-29 23:01] LABS: ALBUMIN 3.2 g/dL (3.5-5.0); ALT/SGPT 36 U/L (9-52); AST/SGOT 30 U/L (14-36); BLOOD UREA NITROGEN 24 mg/dL (7-17); CALCIUM 8.3 mg/dl (8.6-10.4); GFR AFRICAN-AMERICAN > 60; GFR NON-AFRICAN AMERICAN > 60
[2017-12-29 23:07] LABS: VENOUS BLOOD GAS BASE EXCESS 7.1 mmol/L (0.0-2.0); VENOUS BLOOD GAS PCO2 45 mmHg (40-60); VENOUS BLOOD GAS PO2 47 mm/Hg (30-55); VENOUS BLOOD PH 7.46 (7.32-7.43)
[2017-12-29 23:12] LABS: B-TYPE NATRIURETIC PEPTIDE 270 pg/mL (0-900)
[2017-12-29] MEDS ORDERED: Ciprofloxacin 400mg/200ml D5W 400 MG/200 ML BAG IVPB ONE (23:26)
[2017-12-29 23:43] LABS: BANDS 1 % (0-2); LYMPHOCYTE 12 % (20-40); MONOCYTE 5 % (0-10); NEUTROPHIL 82 % (50-75); PLATELET ESTIMATE NORMAL (NORMAL); TOTAL CELLS COUNTED 100
[2017-12-29 23:50] LABS: URINE BILIRUBIN NEGATIVE (NEGATIVE); URINE BLOOD NEGATIVE (NEGATIVE); URINE CLARITY Clear (Clear); URINE COLOR Yellow (YELLOW); URINE GLUCOSE (UA) NORMAL (Normal); URINE LEUKOCYTE ESTERASE NEG Leu/uL (Negative); URINE PROTEIN NEGATIVE (NEGATIVE)
[2017-12-30] MEDS ORDERED: Albuterol-Ipratrop 3 mg / 0.5 (3 ml) UD ONE (00:10)
--- NOTE | 2017-12-30 01:26 | CP.PCM.HP ---
<Blanca Yarbrough - Last Filed: 12/30/17 03:45> History of Present Illness - History of Present Illness History of Present Illness: Patient is a 77 year old female with past medical history of pulmonary fibrosis, hypertension, diabetes mellitus, hypothyroidism, and lymphoma ( previously treated with chemotherapy), who presents with complaints of shortness of breath and a nonproductive cough. The patient was recently hospitalized with the same complaints and discharged yesterday. She states that this morning her shortness of breath increased, which is why she returned to the hospital. She states she is compliant with her medications and uses home oxygen (3L). The patient also complains of chills, headache, weakness, and sore throat from coughing. She currently denies chest pain, abdominal pain, nausea, vomiting, fevers, dysuria, diarrhea, and constipation. PMD: Denies Allergies: PCN (anaphylaxis) PMHX: Pulmonary Fibrosis, Hypertension, Diabetes, Hypothyroidism. History of chemotherapy approximately 10 years ago for Lymphoma. PSHX: Cholecystectomy, Stomach Reduction Surgery Family: Father- [place]; Brother has lung problems and is also on home oxygen Social: Denies tobacco, alcohol, or illicit drug use. Meds: Prednisone taper (from last admission), Amlodipine 5mg, Advair Diskus 250/ 50 1 puff inh BID, Glulisine 14 units SC before each meal, Synthroid 50mcg, Protonix 40mg Daily, Crestor 2.5 mg HS Present on Admission - Present on Admission Any Indicators Present on Admission: Yes History of Uncontrolled Diabetes: Yes Review of Systems - Constitutional Constitutional: Chills, Weakness. absent: Fever - EENT Ears: absent: Dizziness - Cardiovascular Cardiovascular: Dyspnea. absent: Chest Pain, Leg Edema, Lightheadedness, Palpitations - Respiratory Respiratory: Cough (nonproductive), Dyspnea, Pain on Inspiration, Pain with Coughing. absent: Hemoptysis - Gastrointestinal Gastrointestinal: Abdominal Pain (epigastric). absent: Constipation, Diarrhea, Nausea, Vomiting - Genitourinary Genitourinary: absent: Dysuria, Hematuria, Urinary Frequency - Musculoskeletal Musculoskeletal: Myalgias - Integumentary Integumentary: absent: Rash - Neurological Neurological: Headaches. absent: Dizziness - Endocrine Endocrine: absent: Palpitations Past Patient History - Infectious Disease Hx of Infectious Diseases: None - Past Medical History & Family History Past Medical History?: Yes - Past Social History Smoking Status: Never Smoked - CARDIAC Hx Hypertension: Yes - PULMONARY Hx Bronchitis: Yes - NEUROLOGICAL Hx Neurological Disorder: No - HEENT Other/Comment: pt wears glasses - RENAL Hx Chronic Kidney Disease: No - ENDOCRINE/METABOLIC Hx Hypothyroidism: Yes - HEMATOLOGICAL/ONCOLOGICAL Hx Human Immunodeficiency Virus (HIV): No - INTEGUMENTARY Hx Dermatological Problems: No - MUSCULOSKELETAL/RHEUMATOLOGICAL Hx Musculoskeletal Disorders: Yes Hx Falls: Yes - GASTROINTESTINAL Hx Gall Bladder Disease: Yes (cholecystectomy) - GENITOURINARY/GYNECOLOGICAL Hx Genitourinary Disorders: No - PSYCHIATRIC Hx Depression: Yes Hx Substance Use: No - SURGICAL HISTORY Hx Cholecystectomy: Yes Hx Coronary Stent: Yes - ANESTHESIA Hx Anesthesia: Yes Hx Anesthesia Reactions: No Meds Allergies/Adverse Reactions: Allergies Allergy/AdvReac Type Severity Reaction Status Date / Time Penicillins Allergy SWELLING Verified 12/29/17 22:35 Physical Exam - Head Exam Head Exam: ATRAUMATIC, NORMAL INSPECTION - Eye Exam Eye Exam: EOMI, Normal appearance, PERRL - ENT Exam ENT Exam: Mucous Membranes Moist - Respiratory Exam Respiratory Exam: absent: Clear to Auscultation Bilateral (diffuse crackles bilaterally), NORMAL BREATHING PATTERN (tachypneic) - Cardiovascular Exam Cardiovascular Exam: Tachycardia, REGULAR RHYTHM, +S1, +S2 - GI/Abdominal Exam GI & Abdominal Exam: Normal Bowel Sounds, Soft. absent: Distended, Firm, Guarding, Mass, Tenderness - Extremities Exam Extremities exam: Positive for: pedal edema (1+pitting edema bilaterally), pedal pulses present. Negative for: tenderness - Neurological Exam Neurological exam: Alert, Oriented x3 - Psychiatric Exam Psychiatric exam: Normal Affect, Normal Mood - Skin Skin Exam: Dry, Intact, Normal Color, Warm Results - Vital Signs Recent Vital Signs: Last Vital Signs Temp 100.9 F H 12/29/17 23:00 Pulse 101 H 12/29/17 22:40 Resp 26 H 12/29/17 22:30 BP 130/75 12/29/17 22:30 Pulse Ox 92 L 12/29/17 23:19 - Labs Result Diagrams: 12/29/17 22:44 12/29/17 22:44 Labs: Laboratory Results - last 24 hr 12/29/17 12/29/17 12/29/17 22:44 22:44 22:44 WBC 13.9 H RBC 4.28 Hgb 13.4 Hct 39.2 MCV 91.6 MCH 31.2 H MCHC 34.1 RDW 14.6 H Plt Count 166 MPV 7.4 Neut % (Auto) 87.5 H Lymph % (Auto) 7.5 L [place] % (Auto) 4.7 Eos % (Auto) 0.1 Baso % (Auto) 0.2 Neut # (Auto) 12.2 H Lymph # (Auto) 1.0 [place] # (Auto) 0.7 Eos # (Auto) 0.0 Baso # (Auto) 0.0 Neutrophils % (Manual) 82 H Band Neutrophils % 1 Lymphocytes % (Manual) 12 L Monocytes % (Manual) 5 Platelet Estimate Normal PT 10.7 INR 1.0 APTT 21 pO2 VBG pH VBG pCO2 VBG HCO3 VBG Total CO2 VBG O2 Sat (Calc) VBG Base Excess VBG Potassium Glucose Lactate FiO2 Sodium 132 Potassium 4.2 Chloride 94 L Carbon Dioxide 30 Anion Gap 13 BUN 24 H Creatinine 0.5 L Est GFR ( Amer) > 60 Est GFR (Non-Af Amer) > 60 Random Glucose 85 Calcium 8.3 L Total Bilirubin 0.4 AST 30 ALT 36 Alkaline Phosphatase 63 Troponin I < 0.0120 NT-Pro-B Natriuret Pep 270 Total Protein 6.4 Albumin 3.2 L Globulin 3.2 Albumin/Globulin Ratio 1.0 Venous Blood Potassium Urine Color Urine Clarity Urine pH Ur Specific [place] Urine Protein Urine Glucose (UA) Urine Ketones Urine Blood Urine Nitrate Urine Bilirubin Urine Urobilinogen Ur Leukocyte Esterase Urine WBC (Auto) Urine RBC (Auto) 12/29/17 12/29/17 23:00 23:45 WBC RBC Hgb Hct MCV MCH MCHC RDW Plt Count MPV Neut % (Auto) Lymph % (Auto) [place] % (Auto) Eos % (Auto) Baso % (Auto) Neut # (Auto) Lymph # (Auto) [place] # (Auto) Eos # (Auto) Baso # (Auto) Neutrophils % (Manual) Band Neutrophils % Lymphocytes % (Manual) Monocytes % (Manual) Platelet Estimate PT INR APTT pO2 47 VBG pH 7.46 H VBG pCO2 45 VBG HCO3 30.1 VBG Total CO2 33.4 H VBG O2 Sat (Calc) 87.8 H VBG Base Excess 7.1 H VBG Potassium 4.0 Glucose 78 Lactate 1.8 FiO2 21.0 Sodium 132.0 Potassium Chloride 97.0 L Carbon Dioxide Anion Gap BUN Creatinine Est GFR ( Amer) Est GFR (Non-Af Amer) Random Glucose Calcium Total Bilirubin AST ALT Alkaline Phosphatase Troponin I NT-Pro-B Natriuret Pep Total Protein Albumin Globulin Albumin/Globulin Ratio Venous Blood Potassium 4.0 Urine Color Yellow Urine Clarity Clear Urine pH 7.0 Ur Specific [place] 1.017 Urine Protein Negative Urine Glucose (UA) Normal Urine Ketones Negative Urine Blood Negative Urine Nitrate Negative Urine Bilirubin Negative Urine Urobilinogen 4.0 H Ur Leukocyte Esterase Neg Urine WBC (Auto) < 1 Urine RBC (Auto) < 1 Assessment & Plan (1) Dyspnea Assessment and Plan: Dyspnea with history of pulmonary fibrosis BiPAP prn, O2 via NC Chest xray: f/u results Medications: - Duonebs Q4 prn - Solu-medrol 40mg IV BID - Continue home medication: Advair diskus 1puff Q12h Status: Acute (2) Fever Assessment and Plan: At admission, 100.9 Chest xray: f/u results Blood cx: f/u results Urine cx: f/u results Medications: - Cipro 400mg IV Q12h - Vanco 1gm IV Q24h - Tylenol prn Status: Acute (3) Pulmonary fibrosis Assessment and Plan: Duonebs Q4 prn Solu-medrol 40mg IV BID Continue home medication: Advair diskus 1puff Q12h BiPAP prn, O2 via NC Chest xray: f/u results Status: Acute (4) Hypothyroidism Assessment and Plan: Continue home medication: Synthroid 50mcg PO daily TSH/Free T4 from previous admission (12/11/17): 0.49/1.5 Status: Chronic (5) HTN (hypertension) Assessment and Plan: Continue home medication: Norvasc 5mg PO daily Status: Acute (6) Diabetes mellitus Assessment and Plan: Continue home medication: Lantus 20u SC HS Accuchecks Hypoglycemia protocol ISS A1c (12/11/17): 10 Status: Acute (7) HLD (hyperlipidemia) Assessment and Plan: Continue home medication: Crestor 2.5mg PO HS Lipid panel (12/11/17): Triglycerides 93, Cholesterol 241, LDL 160, HDL 59 Status: Acute (8) Prophylactic measure Assessment and Plan: Lovenox 40mg SC daily, SCDs Protonix 40mg PO daily Heart healthy diet Status: Acute <Jacky Thayer - Last Filed: 12/30/17 06:33> Results - Vital Signs Recent Vital Signs: Last Vital Signs Temp 98.3 F 12/30/17 04:36 Pulse 76 12/30/17 04:36 Resp 20 12/30/17 04:36 BP 114/70 12/30/17 04:36 Pulse Ox 98 12/30/17 04:36 - Labs Result Diagrams: 12/29/17 22:44 12/29/17 22:44 Labs: Laboratory Results - last 24 hr 12/29/17 12/29/17 12/29/17 22:44 22:44 22:44 WBC 13.9 H RBC 4.28 Hgb 13.4 Hct 39.2 MCV 91.6 MCH 31.2 H MCHC 34.1 RDW 14.6 H Plt Count 166 MPV 7.4 Neut % (Auto) 87.5 H Lymph % (Auto) 7.5 L [place] % (Auto) 4.7 Eos % (Auto) 0.1 Baso % (Auto) 0.2 Neut # (Auto) 12.2 H Lymph # (Auto) 1.0 [place] # (Auto) 0.7 Eos # (Auto) 0.0 Baso # (Auto) 0.0 Neutrophils % (Manual) 82 H Band Neutrophils % 1 Lymphocytes % (Manual) 12 L Monocytes % (Manual) 5 Platelet Estimate Normal PT 10.7 INR 1.0 APTT 21 pO2 VBG pH VBG pCO2 VBG HCO3 VBG Total CO2 VBG O2 Sat (Calc) VBG Base Excess VBG Potassium Glucose Lactate FiO2 Sodium 132 Potassium 4.2 Chloride 94 L Carbon Dioxide 30 Anion Gap 13 BUN 24 H Creatinine 0.5 L Est GFR ( Amer) > 60 Est GFR (Non-Af Amer) > 60 Random Glucose 85 Calcium 8.3 L Total Bilirubin 0.4 AST 30 ALT 36 Alkaline Phosphatase 63 Troponin I < 0.0120 NT-Pro-B Natriuret Pep 270 Total Protein 6.4 Albumin 3.2 L Globulin 3.2 Albumin/Globulin Ratio 1.0 Venous Blood Potassium Urine Color Urine Clarity Urine pH Ur Specific [place] Urine Protein Urine Glucose (UA) Urine Ketones Urine Blood Urine Nitrate Urine Bilirubin Urine Urobilinogen Ur Leukocyte Esterase Urine WBC (Auto) Urine RBC (Auto) 12/29/17 12/29/17 23:00 23:45 WBC RBC Hgb Hct MCV MCH MCHC RDW Plt Count MPV Neut % (Auto) Lymph % (Auto) [place] % (Auto) Eos % (Auto) Baso % (Auto) Neut # (Auto) Lymph # (Auto) [place] # (Auto) Eos # (Auto) Baso # (Auto) Neutrophils % (Manual) Band Neutrophils % Lymphocytes % (Manual) Monocytes % (Manual) Platelet Estimate PT INR APTT pO2 47 VBG pH 7.46 H VBG pCO2 45 VBG HCO3 30.1 VBG Total CO2 33.4 H VBG O2 Sat (Calc) 87.8 H VBG Base Excess 7.1 H VBG Potassium 4.0 Glucose 78 Lactate 1.8 FiO2 21.0 Sodium 132.0 Potassium Chloride 97.0 L Carbon Dioxide Anion Gap BUN Creatinine Est GFR ( Amer) Est GFR (Non-Af Amer) Random Glucose Calcium Total Bilirubin AST ALT Alkaline Phosphatase Troponin I NT-Pro-B Natriuret Pep Total Protein Albumin Globulin Albumin/Globulin Ratio Venous Blood Potassium 4.0 Urine Color Yellow Urine Clarity Clear Urine pH 7.0 Ur Specific [place] 1.017 Urine Protein Negative Urine Glucose (UA) Normal Urine Ketones Negative Urine Blood Negative Urine Nitrate Negative Urine Bilirubin Negative Urine Urobilinogen 4.0 H Ur Leukocyte Esterase Neg Urine WBC (Auto) < 1 Urine RBC (Auto) < 1 Assessment & Plan - Date & Time Date: 12/30/17 (I have seen and examined the patient. I agree with the findings and plan of care as documented by Dr. Yarbrough. Patient with dyspnea. Now with fever. History of pulmonary fibrosis. Cipro and Vanco. Check blood cultures. Bipap. Nebs. Monitor for acute changes.) Time: 06:32 Attending/Attestation - Attestation I have personally seen and examined this patient.: Yes I have fully participated in the care of the patient.: Yes I have reviewed all pertinent clinical information: Yes
[2017-12-30] MEDS ORDERED: Vancomycin 1 GM in Sodium Chloride 0.9% 200 ML IVPB STA (03:03)
[2017-12-30] MEDS: Levothyroxine 50 MCG TAB PO SCH (06:00)
[2017-12-30 07:44] LABS: BASO % 0.1 % (0.0-2.0); HEMOGLOBIN 11.6 g/dL (11.0-16.0); LYMPH # 0.1 K/uL (1.0-4.3); LYMPH % 1.3 % (20.0-40.0); MEAN CELL VOLUME 92.6 fL (81.0-99.0); MEAN CORPUSCULAR HEMOGLOBIN 31.6 pg (27.0-31.0); MEAN CORPUSCULAR HGB CONC 34.1 g/dL (33.0-37.0); MEAN PLATELET VOLUME 7.9 fL (7.2-11.7); MONO # 0.1 K/uL (0.0-0.8); MONO % 0.9 % (0.0-10.0); NEUT # 10.8 K/uL (1.8-7.0); NEUT % 97.7 % (50.0-75.0); PLATELET COUNT 153 K/uL (130-400); RBC 3.68 Mil/uL (3.80-5.20); RED CELL DISTRIBUTION WIDTH 14.9 % (11.5-14.5); WHITE BLOOD COUNT 11.1 K/uL (4.8-10.8)
[2017-12-30 08:07] LABS: ALBUMIN 2.7 g/dL (3.5-5.0); ALT/SGPT 46 U/L (9-52); AST/SGOT 35 U/L (14-36); BLOOD UREA NITROGEN 21 mg/dL (7-17); CALCIUM 7.9 mg/dl (8.6-10.4); GFR AFRICAN-AMERICAN > 60; GFR NON-AFRICAN AMERICAN > 60
[2017-12-30] MEDS: (Novolin R) Insulin Human Regular 100 units/ml vial SC SCH ×5 (08:57→21:23)
[2017-12-30] MEDS: Fluticasone-Salmeterol 250-50mcg Diskus INH SCH ×2 (09:12→20:04)
[2017-12-30 09:26] LABS: ANISOCYTOSIS SLIGHT; BANDS 2 % (0-2); LYMPHOCYTE 1 % (20-40); MONOCYTE 1 % (0-10); NEUTROPHIL 96 % (50-75); PLATELET ESTIMATE NORMAL (NORMAL); TOTAL CELLS COUNTED 100
[2017-12-30 09:27] LABS: HYPOCHROMIC SLIGHT; POLYCHROMIC SLIGHT
[2017-12-30] MEDS: Ciprofloxacin 400mg/200ml D5W 400 MG/200 ML BAG IVPB SCH ×2 (09:49→21:24)
[2017-12-30] MEDS: Enoxaparin 40 mg Syringe SC SCH (09:49)
[2017-12-30] MEDS: Pantoprazole 40 mg EC Tab PO SCH (09:49)
[2017-12-30] MEDS ORDERED: Vancomycin 1 GM in Sodium Chloride 0.9% 200 ML IVPB SCH (10:00)
--- NOTE | 2017-12-30 10:07 | CP.PCM.PN ---
<Susy Lugo - Last Filed: 12/30/17 17:57> Subjective - Date & Time of Evaluation Date of Evaluation: 12/30/17 Time of Evaluation: 09:30 - Subjective Subjective: Patient seen and examined at bedside. Patient complains of intermittent shortness of breath and coughs. She currently denies chest pain, abdominal pain , nausea, vomiting, fevers, dysuria, diarrhea, and constipation. Patient was DNR /DNI in previous admissions. She also wishes to be made DNR/DNI through chief nurse anesthetist machine today. Objective - Vital Signs/Intake and Output Vital Signs (last 24 hours): Temp Pulse Resp BP Pulse Ox 97.2 F L 64 20 109/67 98 12/30/17 07:15 12/30/17 07:15 12/30/17 07:15 12/30/17 07:15 12/30/17 07:15 Intake and Output: 12/30/17 12/30/17 06:59 18:59 Intake Total 310 Balance 310 - Medications Medications: Current Medications Acetaminophen (Tylenol 325mg Tab) 650 mg PO Q6 PRN PRN Reason: Fever >100.4 F Albuterol/Ipratropium (Duoneb 3 Mg/0.5 Mg (3 Ml) Ud) 3 ml INH RQ4 PRN PRN Reason: Shortness of Breath Amlodipine Besylate (Norvasc) 5 mg PO DAILY [facility] Last Admin: 12/30/17 09:50 Dose: 5 mg Enoxaparin Sodium (Lovenox) 40 mg SC DAILY [facility] Last Admin: 12/30/17 09:49 Dose: 40 mg Escitalopram Oxalate (Lexapro) 5 mg PO DAILY [facility] Last Admin: 12/30/17 09:48 Dose: 5 mg Ciprofloxacin (Cipro 400mg/200ml Dsw) 400 mg in 200 mls @ 133 mls/hr IVPB Q12H [facility] PRN Reason: Protocol Last Admin: 12/30/17 09:49 Dose: 133 mls/hr Vancomycin HCl 1 gm/ Sodium (Chloride) 200 mls @ 133.333 mls/hr IVPB Q24H [facility] PRN Reason: Protocol Insulin Glargine (Lantus) 20 unit SC HS [facility] Insulin Human Regular (Novolin R) 0 unit SC ACHS [facility] PRN Reason: Protocol Last Admin: 12/30/17 08:57 Dose: 5 unit Levothyroxine Sodium (Synthroid) 50 mcg PO DAILY@0630 [facility] Last Admin: 12/30/17 06:00 Dose: 50 mcg Methylprednisolone (Solu-Medrol) 40 mg IV Q12 [facility] Last Admin: 12/30/17 09:48 Dose: 40 mg Pantoprazole Sodium (Protonix Ec Tab) 40 mg PO DAILY [facility] Last Admin: 12/30/17 09:49 Dose: 40 mg Rosuvastatin Calcium (Crestor) 2.5 mg PO HS [facility] Fluticasone/Salmeterol (Advair Diskus 250/50) 1 puff INH RQ12 [facility] Last Admin: 12/30/17 09:12 Dose: Not Given - Labs Labs: 12/30/17 07:26 12/30/17 07:26 PT 10.7 SECONDS (9.7-12.2) 12/29/17 22:44 INR 1.0 12/29/17 22:44 APTT 21 SECONDS (21-34) 12/29/17 22:44 - Additional Findings Additional findings: - Head Exam Head Exam: ATRAUMATIC, NORMAL INSPECTION - Eye Exam Eye Exam: EOMI, Normal appearance, PERRL - ENT Exam ENT Exam: Mucous Membranes Moist - Respiratory Exam Respiratory Exam: absent: Clear to Auscultation Bilateral (diffuse crackles bilaterally), NORMAL BREATHING PATTERN (tachypneic) - Cardiovascular Exam Cardiovascular Exam: Tachycardia, REGULAR RHYTHM, +S1, +S2 - GI/Abdominal Exam GI & Abdominal Exam: Normal Bowel Sounds, Soft. absent: Distended, Firm, Guarding, Mass, Tenderness - Extremities Exam Extremities exam: Positive for: pedal edema (1+pitting edema bilaterally), pedal pulses present. Negative for: tenderness - Neurological Exam Neurological exam: Alert, Oriented x3 - Psychiatric Exam Psychiatric exam: Normal Affect, Normal Mood - Skin Skin Exam: Dry, Intact, Normal Color, Warm Assessment and Plan - Assessment and Plan (Free Text) Assessment: Dyspnea Dyspnea with history of pulmonary fibrosis BiPAP prn, O2 via NC Chest xray: Potential interval limited airspace disease medial right base. No interval improvement in right-sided interstitial pattern which may be chronic as well as the left base Medications: - Duonebs Q4 prn - Solu-medrol 40mg IV BID - Continue home medication: Advair diskus 1puff Q12h Fever At admission, 100.9 Chest xray: Potential interval limited airspace disease medial right base Blood cx: f/u results Urine cx: f/u results Medications: - Cipro 400mg IV Q12h - Vanco 1gm IV Q24h - Tylenol prn Pulmonary fibrosis DNR/DNI Duonebs Q4 prn Solu-medrol 40mg IV BID Continue home medication: Advair diskus 1puff Q12h BiPAP prn, O2 via NC Chest xray: Potential interval limited airspace disease medial right base Hypothyroidism Continue home medication: Synthroid 50mcg PO daily TSH/Free T4 from previous admission (12/11/17): 0.49/1.5 HTN (hypertension) Continue home medication: Norvasc 5mg PO daily Diabetes mellitus Continue home medication: Lantus 20u SC HS Accuchecks Hypoglycemia protocol ISS A1c (12/11/17): 10 HLD (hyperlipidemia) Continue home medication: Crestor 2.5mg PO HS Lipid panel (12/11/17): Triglycerides 93, Cholesterol 241, LDL 160, HDL 59 Prophylactic measure Lovenox 40mg SC daily, SCDs Protonix 40mg PO daily Heart healthy diet <Brad Ramos - Last Filed: 12/31/17 17:30> Objective - Vital Signs/Intake and Output Vital Signs (last 24 hours): Temp Pulse Resp BP Pulse Ox 98.1 F 68 20 129/70 98 12/31/17 15:11 12/31/17 16:10 12/31/17 15:11 12/31/17 15:11 12/31/17 15:11 Intake and Output: 12/31/17 12/31/17 06:59 18:59 Intake Total 200 680 Balance 200 680 - Medications Medications: Current Medications Acetaminophen (Tylenol 325mg Tab) 650 mg PO Q6 PRN PRN Reason: Fever >100.4 F Albuterol/Ipratropium (Duoneb 3 Mg/0.5 Mg (3 Ml) Ud) 3 ml INH RQ4 PRN PRN Reason: Shortness of Breath Amlodipine Besylate (Norvasc) 5 mg PO DAILY [facility] Last Admin: 12/31/17 09:53 Dose: 5 mg Enoxaparin Sodium (Lovenox) 40 mg SC DAILY [facility] Last Admin: 12/31/17 09:55 Dose: 40 mg Escitalopram Oxalate (Lexapro) 5 mg PO DAILY [facility] Last Admin: 12/31/17 09:59 Dose: 5 mg Ciprofloxacin (Cipro 400mg/200ml Dsw) 400 mg in 200 mls @ 133 mls/hr IVPB Q12H [facility] PRN Reason: Protocol Last Admin: 12/31/17 09:52 Dose: 133 mls/hr Vancomycin HCl 1 gm/ Sodium (Chloride) 200 mls @ 133.333 mls/hr IVPB Q24H [facility] PRN Reason: Protocol Last Admin: 12/31/17 03:13 Dose: 133.333 mls/hr Insulin Glargine (Lantus) 20 unit SC HS [facility] Last Admin: 12/30/17 21:49 Dose: 20 units Insulin Human Regular (Novolin R) 10 unit SC AC [facility] Last Admin: 12/31/17 12:43 Dose: 10 unit Insulin Human Regular (Novolin R) 0 unit SC ACHS [facility] PRN Reason: Protocol Levothyroxine Sodium (Synthroid) 50 mcg PO DAILY@0630 [facility] Last Admin: 12/31/17 06:12 Dose: 50 mcg Methylprednisolone (Solu-Medrol) 40 mg IV Q12 [facility] Last Admin: 12/31/17 09:54 Dose: 40 mg Pantoprazole Sodium (Protonix Ec Tab) 40 mg PO DAILY [facility] Last Admin: 12/31/17 09:53 Dose: 40 mg Rosuvastatin Calcium (Crestor) 2.5 mg PO HS [facility] Last Admin: 12/30/17 21:48 Dose: 2.5 mg Fluticasone/Salmeterol (Advair Diskus 250/50) 1 puff INH RQ12 [facility] Last Admin: 12/31/17 07:46 Dose: Not Given - Labs Labs: 12/31/17 06:53 12/31/17 06:53 PT 10.7 SECONDS (9.7-12.2) 12/29/17 22:44 INR 1.0 12/29/17 22:44 APTT 21 SECONDS (21-34) 12/29/17 22:44 Attending/Attestation - Attestation I have personally seen and examined this patient.: Yes I have fully participated in the care of the patient.: Yes I have reviewed all pertinent clinical information, including history, physical exam and plan: Yes Notes (Text): Seen and examined by me ,Temp max 100.9F at ER Has sob at her baseline. c/o Increase sob at home Lung exam with bilat rales/chronic leukocytosis likely due to steroid continue cipro and vanco,follow cultures continue home meds and solumedrol D/W Resident I agree with the documentation of the resident's assessment and the plan
--- NOTE | 2017-12-30 11:38 | RAD ---
PROCEDURE: CHEST RADIOGRAPH, 1 VIEW HISTORY: chest pain COMPARISON: Portable chest 12/25/2017. FINDINGS: LUNGS: Diminished pulmonary volumes are reiterated with persistent interstitial pulmonary changes again seen the right lung which in not improved with potential airspace disease at the medial base. Limited interstitial changes remain at the left base the remainder left lung clear. PLEURA: No pneumothorax or pleural fluid seen. CARDIOVASCULAR: Normal. OSSEOUS STRUCTURES: No significant abnormalities. VISUALIZED UPPER ABDOMEN: Normal. OTHER FINDINGS: None. IMPRESSION: Potential interval limited airspace disease medial right base. No interval improvement in right-sided interstitial pattern which may be chronic as well as the left base.
[2017-12-30] MEDS: Rosuvastatin Calcium 2.5 mg Tab PO SCH (21:48)
[2017-12-30] MEDS: (Lantus) Insulin Glargine, Recombinant SC SCH (21:49)
--- NOTE | 2017-12-31 02:08 | CP.PCM.PN ---
<Blanca Yarbrough - Last Filed: 12/31/17 07:19> Subjective - Date & Time of Evaluation Date of Evaluation: 12/31/17 Time of Evaluation: 02:07 - Subjective Subjective: Medicine progress note Patient was seen and examined at bedside in no acute distress. Patient reports her breathing has improved and she feels less short of breath. Patient denies chest pain, nausea, vomiting, fevers, headaches, dysuria, constipation, and diarrhea. Objective - Vital Signs/Intake and Output Vital Signs (last 24 hours): Temp Pulse Resp BP Pulse Ox 97.8 F 61 20 124/71 98 12/30/17 23:35 12/30/17 23:35 12/30/17 23:35 12/30/17 23:35 12/30/17 23:35 Intake and Output: 12/30/17 12/31/17 18:59 06:59 Intake Total 700 200 Balance 700 200 - Medications Medications: Current Medications Acetaminophen (Tylenol 325mg Tab) 650 mg PO Q6 PRN PRN Reason: Fever >100.4 F Albuterol/Ipratropium (Duoneb 3 Mg/0.5 Mg (3 Ml) Ud) 3 ml INH RQ4 PRN PRN Reason: Shortness of Breath Amlodipine Besylate (Norvasc) 5 mg PO DAILY [facility] Last Admin: 12/30/17 09:50 Dose: 5 mg Enoxaparin Sodium (Lovenox) 40 mg SC DAILY [facility] Last Admin: 12/30/17 09:49 Dose: 40 mg Escitalopram Oxalate (Lexapro) 5 mg PO DAILY [facility] Last Admin: 12/30/17 09:48 Dose: 5 mg Ciprofloxacin (Cipro 400mg/200ml Dsw) 400 mg in 200 mls @ 133 mls/hr IVPB Q12H [facility] PRN Reason: Protocol Last Admin: 12/30/17 21:24 Dose: 133 mls/hr Vancomycin HCl 1 gm/ Sodium (Chloride) 200 mls @ 133.333 mls/hr IVPB Q24H [facility] PRN Reason: Protocol Insulin Glargine (Lantus) 20 unit SC HS [facility] Last Admin: 12/30/17 21:49 Dose: 20 units Insulin Human Regular (Novolin R) 0 unit SC ACHS [facility] PRN Reason: Protocol Last Admin: 12/30/17 21:23 Dose: Not Given Insulin Human Regular (Novolin R) 10 unit SC AC [facility] Last Admin: 12/30/17 17:10 Dose: 10 unit Levothyroxine Sodium (Synthroid) 50 mcg PO DAILY@0630 [facility] Last Admin: 12/30/17 06:00 Dose: 50 mcg Methylprednisolone (Solu-Medrol) 40 mg IV Q12 [facility] Last Admin: 12/30/17 21:24 Dose: 40 mg Pantoprazole Sodium (Protonix Ec Tab) 40 mg PO DAILY [facility] Last Admin: 12/30/17 09:49 Dose: 40 mg Rosuvastatin Calcium (Crestor) 2.5 mg PO HS [facility] Last Admin: 12/30/17 21:48 Dose: 2.5 mg Fluticasone/Salmeterol (Advair Diskus 250/50) 1 puff INH RQ12 [facility] Last Admin: 12/30/17 20:04 Dose: Not Given - Labs Labs: 12/30/17 07:26 12/30/17 07:26 PT 10.7 SECONDS (9.7-12.2) 12/29/17 22:44 INR 1.0 12/29/17 22:44 APTT 21 SECONDS (21-34) 12/29/17 22:44 - Additional Findings Additional findings: - Head Exam Head Exam: ATRAUMATIC, NORMAL INSPECTION - Eye Exam Eye Exam: EOMI, Normal appearance, PERRL - ENT Exam ENT Exam: Mucous Membranes Moist - Respiratory Exam Respiratory Exam: NORMAL BREATHING PATTERN. absent: Clear to Auscultation Bilateral (diffuse crackles bilaterally) - Cardiovascular Exam Cardiovascular Exam: Tachycardia, REGULAR RHYTHM, +S1, +S2 - GI/Abdominal Exam GI & Abdominal Exam: Normal Bowel Sounds, Soft. absent: Distended, Firm, Guarding, Mass, Tenderness - Extremities Exam Extremities exam: Positive for: pedal edema (1+pitting edema bilaterally), pedal pulses present. Negative for: tenderness - Neurological Exam Neurological exam: Alert, Oriented x3 - Psychiatric Exam Psychiatric exam: Normal Affect, Normal Mood - Skin Skin Exam: Dry, Intact, Normal Color, Warm Assessment and Plan (1) Dyspnea Status: Acute (2) Fever Status: Acute (3) Pulmonary fibrosis Status: Acute (4) Hypothyroidism Status: Chronic (5) HTN (hypertension) Status: Acute (6) Diabetes mellitus Status: Acute (7) HLD (hyperlipidemia) Status: Acute (8) Prophylactic measure Status: Acute - Assessment and Plan (Free Text) Plan: (1) Dyspnea Assessment and Plan: Dyspnea with history of pulmonary fibrosis BiPAP prn, O2 via [place] Chest xray: potential interval limited airspace disease medial right base; no interval improvement in right-sided interstitial pattern which may be chronic as well as the left base. Medications: - Duonebs Q4 prn - Solu-medrol 40mg IV BID - Continue home medication: Advair diskus 1puff Q12h (2) Fever Assessment and Plan: At admission, 100.9 Chest xray: potential interval limited airspace disease medial right base; no interval improvement in right-sided interstitial pattern which may be chronic as well as the left base. Blood cx: f/u results Urine cx: f/u results Medications: - Cipro 400mg IV Q12h - Vanco 1gm IV Q24h - Tylenol prn (3) Pulmonary fibrosis Assessment and Plan: Duonebs Q4 prn Solu-medrol 40mg IV BID Continue home medication: Advair diskus 1puff Q12h BiPAP prn, O2 via NC Chest xray: potential interval limited airspace disease medial right base; no interval improvement in right-sided interstitial pattern which may be chronic as well as the left base. (4) Hypothyroidism Assessment and Plan: Continue home medication: Synthroid 50mcg PO daily TSH/Free T4 from previous admission (12/11/17): 0.49/1.5 (5) HTN (hypertension) Assessment and Plan: Continue home medication: Norvasc 5mg PO daily (6) Diabetes mellitus Assessment and Plan: Continue home medication: Lantus 20u SC HS Accuchecks Hypoglycemia protocol ISS A1c (12/11/17): 10 (7) HLD (hyperlipidemia) Assessment and Plan: Continue home medication: Crestor 2.5mg PO HS Lipid panel (12/11/17): Triglycerides 93, Cholesterol 241, LDL 160, HDL 59 (8) Prophylactic measure Assessment and Plan: Lovenox 40mg SC daily, SCDs Protonix 40mg PO daily Heart healthy diet <Brad Ramos - Last Filed: 12/31/17 17:31> Objective - Vital Signs/Intake and Output Vital Signs (last 24 hours): Temp Pulse Resp BP Pulse Ox 98.1 F 68 20 129/70 98 12/31/17 15:11 12/31/17 16:10 12/31/17 15:11 12/31/17 15:11 12/31/17 15:11 Intake and Output: 12/31/17 12/31/17 06:59 18:59 Intake Total 200 680 Balance 200 680 - Medications Medications: Current Medications Acetaminophen (Tylenol 325mg Tab) 650 mg PO Q6 PRN PRN Reason: Fever >100.4 F Albuterol/Ipratropium (Duoneb 3 Mg/0.5 Mg (3 Ml) Ud) 3 ml INH RQ4 PRN PRN Reason: Shortness of Breath Amlodipine Besylate (Norvasc) 5 mg PO DAILY [facility] Last Admin: 12/31/17 09:53 Dose: 5 mg Enoxaparin Sodium (Lovenox) 40 mg SC DAILY [facility] Last Admin: 12/31/17 09:55 Dose: 40 mg Escitalopram Oxalate (Lexapro) 5 mg PO DAILY [facility] Last Admin: 12/31/17 09:59 Dose: 5 mg Ciprofloxacin (Cipro 400mg/200ml Dsw) 400 mg in 200 mls @ 133 mls/hr IVPB Q12H [facility] PRN Reason: Protocol Last Admin: 12/31/17 09:52 Dose: 133 mls/hr Vancomycin HCl 1 gm/ Sodium (Chloride) 200 mls @ 133.333 mls/hr IVPB Q24H [facility] PRN Reason: Protocol Last Admin: 12/31/17 03:13 Dose: 133.333 mls/hr Insulin Glargine (Lantus) 20 unit SC HS [facility] Last Admin: 12/30/17 21:49 Dose: 20 units Insulin Human Regular (Novolin R) 10 unit SC AC [facility] Last Admin: 12/31/17 17:23 Dose: 10 unit Insulin Human Regular (Novolin R) 0 unit SC ACHS [facility] PRN Reason: Protocol Last Admin: 12/31/17 17:24 Dose: 4 unit Levothyroxine Sodium (Synthroid) 50 mcg PO DAILY@0630 [facility] Last Admin: 12/31/17 06:12 Dose: 50 mcg Methylprednisolone (Solu-Medrol) 40 mg IV Q12 [facility] Last Admin: 12/31/17 09:54 Dose: 40 mg Pantoprazole Sodium (Protonix Ec Tab) 40 mg PO DAILY [facility] Last Admin: 12/31/17 09:53 Dose: 40 mg Rosuvastatin Calcium (Crestor) 2.5 mg PO HS [facility] Last Admin: 12/30/17 21:48 Dose: 2.5 mg Fluticasone/Salmeterol (Advair Diskus 250/50) 1 puff INH RQ12 [facility] Last Admin: 12/31/17 07:46 Dose: Not Given - Labs Labs: 12/31/17 06:53 12/31/17 06:53 PT 10.7 SECONDS (9.7-12.2) 12/29/17 22:44 INR 1.0 12/29/17 22:44 APTT 21 SECONDS (21-34) 12/29/17 22:44 Attending/Attestation - Attestation I have personally seen and examined this patient.: Yes I have fully participated in the care of the patient.: Yes I have reviewed all pertinent clinical information, including history, physical exam and plan: Yes Notes (Text): as sob at her baseline. c/o Increase sob at home Lung exam with bilat rales/chronic leukocytosis likely due to steroid continue cipro and vanco,follow cultures continue home meds and solumedrol Discussed with patient and grand daughter yesterday. She is DNR and DNI D/W Resident I agree with the documentation of the resident's assessment and the chaya
[2017-12-31] MEDS: Vancomycin 1 GM in Sodium Chloride 0.9% 200 ML IVPB SCH (03:13)
[2017-12-31] MEDS: Levothyroxine 50 MCG TAB PO SCH (06:12)
[2017-12-31 07:04] LABS: BASO % 0.2 % (0.0-2.0); HEMOGLOBIN 11.9 g/dL (11.0-16.0); LYMPH # 0.4 K/uL (1.0-4.3); LYMPH % 3.2 % (20.0-40.0); MEAN CELL VOLUME 92.4 fL (81.0-99.0); MEAN CORPUSCULAR HEMOGLOBIN 31.6 pg (27.0-31.0); MEAN CORPUSCULAR HGB CONC 34.2 g/dL (33.0-37.0); MONO # 0.2 K/uL (0.0-0.8); MONO % 1.7 % (0.0-10.0); NEUT # 11.1 K/uL (1.8-7.0); NEUT % 94.9 % (50.0-75.0); PLATELET COUNT 164 K/uL (130-400); RBC 3.78 Mil/uL (3.80-5.20); RED CELL DISTRIBUTION WIDTH 14.5 % (11.5-14.5); WHITE BLOOD COUNT 11.7 K/uL (4.8-10.8)
[2017-12-31 07:30] LABS: ALT/SGPT 41 U/L (9-52); AST/SGOT 25 U/L (14-36); BLOOD UREA NITROGEN 27 mg/dL (7-17); CALCIUM 8.3 mg/dl (8.6-10.4); GFR AFRICAN-AMERICAN > 60; GFR NON-AFRICAN AMERICAN > 60
[2017-12-31] MEDS: Fluticasone-Salmeterol 250-50mcg Diskus INH SCH (07:46)
[2017-12-31] MEDS: (Novolin R) Insulin Human Regular 100 units/ml vial SC SCH ×8 (08:27→21:16)
[2017-12-31] MEDS: Ciprofloxacin 400mg/200ml D5W 400 MG/200 ML BAG IVPB SCH ×2 (09:52→21:14)
[2017-12-31] MEDS: Pantoprazole 40 mg EC Tab PO SCH (09:53)
[2017-12-31] MEDS: Enoxaparin 40 mg Syringe SC SCH (09:55)
[2017-12-31 10:16] LABS: LYMPHOCYTE 2 % (20-40); MONOCYTE 1 % (0-10); NEUTROPHIL 97 % (50-75); PLATELET ESTIMATE NORMAL (NORMAL); TOTAL CELLS COUNTED 100
[2017-12-31] MEDS: Rosuvastatin Calcium 2.5 mg Tab PO SCH (21:15)
[2017-12-31] MEDS: (Lantus) Insulin Glargine, Recombinant SC SCH (21:15)
[2018-01-01] MEDS: Vancomycin 1 GM in Sodium Chloride 0.9% 200 ML IVPB SCH (02:46)
--- NOTE | 2018-01-01 05:04 | CP.PCM.PN ---
<Moe Bateman - Last Filed: 01/01/18 05:06> Subjective - Date & Time of Evaluation Date of Evaluation: 01/01/18 Time of Evaluation: 05:05 - Subjective Subjective: Progress note. Patient seen and examined at bedside. No acute distress. Patient reports her breathing has improved and she feels less short of breath. Patient denies chest pain, nausea, vomiting, fevers, headaches, dysuria, constipation, and diarrhea. Objective - Vital Signs/Intake and Output Vital Signs (last 24 hours): Temp Pulse Resp BP Pulse Ox 97.8 F 62 20 144/76 98 12/31/17 23:40 01/01/18 03:48 12/31/17 23:40 12/31/17 23:40 12/31/17 23:40 Intake and Output: 12/31/17 01/01/18 18:59 06:59 Intake Total 680 Balance 680 - Medications Medications: Current Medications Acetaminophen (Tylenol 325mg Tab) 650 mg PO Q6 PRN PRN Reason: Fever >100.4 F Albuterol/Ipratropium (Duoneb 3 Mg/0.5 Mg (3 Ml) Ud) 3 ml INH RQ4 PRN PRN Reason: Shortness of Breath Amlodipine Besylate (Norvasc) 5 mg PO DAILY [facility] Last Admin: 12/31/17 09:53 Dose: 5 mg Enoxaparin Sodium (Lovenox) 40 mg SC DAILY [facility] Last Admin: 12/31/17 09:55 Dose: 40 mg Escitalopram Oxalate (Lexapro) 5 mg PO DAILY [facility] Last Admin: 12/31/17 09:59 Dose: 5 mg Ciprofloxacin (Cipro 400mg/200ml Dsw) 400 mg in 200 mls @ 133 mls/hr IVPB Q12H [facility] PRN Reason: Protocol Last Admin: 12/31/17 21:14 Dose: 133 mls/hr Vancomycin HCl 1 gm/ Sodium (Chloride) 200 mls @ 133.333 mls/hr IVPB Q24H [facility] PRN Reason: Protocol Last Admin: 01/01/18 02:46 Dose: 133.333 mls/hr Insulin Glargine (Lantus) 20 unit SC HS [facility] Last Admin: 12/31/17 21:15 Dose: 20 units Insulin Human Regular (Novolin R) 0 unit SC ACHS [facility] PRN Reason: Protocol Last Admin: 12/31/17 21:16 Dose: Not Given Insulin Human Regular (Novolin R) 12 unit SC AC [facility] Last Admin: 12/31/17 21:16 Dose: Not Given Levothyroxine Sodium (Synthroid) 50 mcg PO DAILY@0630 [facility] Last Admin: 12/31/17 06:12 Dose: 50 mcg Methylprednisolone (Solu-Medrol) 40 mg IV Q12 [facility] Last Admin: 12/31/17 21:16 Dose: 40 mg Pantoprazole Sodium (Protonix Ec Tab) 40 mg PO DAILY [facility] Last Admin: 12/31/17 09:53 Dose: 40 mg Rosuvastatin Calcium (Crestor) 2.5 mg PO HS [facility] Last Admin: 12/31/17 21:15 Dose: 2.5 mg Fluticasone/Salmeterol (Advair Diskus 250/50) 1 puff INH RQ12 [facility] Last Admin: 12/31/17 07:46 Dose: Not Given - Labs Labs: 12/31/17 06:53 12/31/17 06:53 PT 10.7 SECONDS (9.7-12.2) 12/29/17 22:44 INR 1.0 12/29/17 22:44 APTT 21 SECONDS (21-34) 12/29/17 22:44 - Constitutional Appears: Non-toxic, No Acute Distress - Head Exam Head Exam: ATRAUMATIC, NORMAL INSPECTION, NORMOCEPHALIC - Eye Exam Eye Exam: EOMI - ENT Exam ENT Exam: Mucous Membranes Moist - Neck Exam Neck Exam: Full ROM, Normal Inspection - Respiratory Exam Respiratory Exam: Rales. absent: Respiratory Distress - Cardiovascular Exam Cardiovascular Exam: REGULAR RHYTHM, +S1, +S2 - GI/Abdominal Exam GI & Abdominal Exam: Soft, Normal Bowel Sounds. absent: Tenderness - Extremities Exam Extremities Exam: Full ROM, Pedal Edema. absent: Normal Inspection - Back Exam Back Exam: NORMAL INSPECTION - Neurological Exam Neurological Exam: Alert, Awake, Oriented x3 - Psychiatric Exam Psychiatric exam: Normal Affect, Normal Mood - Skin Skin Exam: Dry, Intact, Normal Color, Warm Assessment and Plan - Assessment and Plan (Free Text) Assessment: This is a 77 yo female with (1) Dyspnea -Dyspnea with history of pulmonary fibrosis -BiPAP prn, O2 via [place] -Chest xray: potential interval limited airspace disease medial right base; no interval improvement in right-sided interstitial pattern which may be chronic as well as the left base. - Duonebs Q4 prn - Solu-medrol 40mg IV BID - Continue home medication: Advair diskus 1puff Q12h (2) Fever -At admission, 100.9 -Chest xray: potential interval limited airspace disease medial right base; no interval improvement in right-sided interstitial pattern which may be chronic as well as the left base. -Blood cx: f/u results -Urine cx: f/u results - Cipro 400 mg IV Q12h - Vanco 1gm IV Q24h - Tylenol prn (3) Pulmonary fibrosis -Duonebs Q4 prn -Solu-medrol 40mg IV BID -Continue home medication: Advair diskus 1puff Q12h -BiPAP prn, O2 via [place] -Chest xray: potential interval limited airspace disease medial right base; no interval improvement in right-sided interstitial pattern which may be chronic as well as the left base. (4) Hypothyroidism -Continue home medication: Synthroid 50 mcg PO daily -TSH/Free T4 from previous admission (12/11/17): 0.49/1.5 (5) HTN (hypertension) -Continue home medication: Norvasc 5 mg PO daily (6) Diabetes mellitus -continue home medication: Lantus 20u SC HS -Accuchecks -Hypoglycemia protocol -regular ISS -A1c (12/11/17): 10 (7) HLD (hyperlipidemia) -continue Crestor 2.5mg PO HS -Lipid panel (12/11/17): Triglycerides 93, Cholesterol 241, LDL 160, HDL 59 (8) gi/dvt PPX -Lovenox 40mg SC daily -SCDs -Protonix 40 mg PO daily -Heart healthy diet <Christianson,Peter H - Last Filed: 01/01/18 11:02> Objective - Vital Signs/Intake and Output Vital Signs (last 24 hours): Temp Pulse Resp BP Pulse Ox 98.0 F 75 18 143/77 96 01/01/18 08:41 01/01/18 08:41 01/01/18 08:41 01/01/18 08:41 01/01/18 08:41 - Medications Medications: Current Medications Acetaminophen (Tylenol 325mg Tab) 650 mg PO Q6 PRN PRN Reason: Fever >100.4 F Albuterol/Ipratropium (Duoneb 3 Mg/0.5 Mg (3 Ml) Ud) 3 ml INH RQ4 PRN PRN Reason: Shortness of Breath Last Admin: 01/01/18 08:23 Dose: 3 ml Amlodipine Besylate (Norvasc) 5 mg PO DAILY [facility] Last Admin: 01/01/18 10:19 Dose: 5 mg Enoxaparin Sodium (Lovenox) 40 mg SC DAILY [facility] Last Admin: 01/01/18 10:19 Dose: 40 mg Escitalopram Oxalate (Lexapro) 5 mg PO DAILY [facility] Last Admin: 01/01/18 10:19 Dose: 5 mg Ciprofloxacin (Cipro 400mg/200ml Dsw) 400 mg in 200 mls @ 133 mls/hr IVPB Q12H [facility] PRN Reason: Protocol Last Admin: 01/01/18 10:20 Dose: 133 mls/hr Vancomycin HCl 1 gm/ Sodium (Chloride) 200 mls @ 133.333 mls/hr IVPB Q24H [facility] PRN Reason: Protocol Last Admin: 01/01/18 02:46 Dose: 133.333 mls/hr Insulin Glargine (Lantus) 30 unit SC HS [facility] Insulin Human Regular (Novolin R) 0 unit SC ACHS [facility] PRN Reason: Protocol Last Admin: 01/01/18 08:47 Dose: 10 unit Insulin Human Regular (Novolin R) 15 unit SC AC [facility] Levothyroxine Sodium (Synthroid) 50 mcg PO DAILY@0630 [facility] Last Admin: 01/01/18 05:39 Dose: 50 mcg Methylprednisolone (Solu-Medrol) 40 mg IV Q12 [facility] Last Admin: 01/01/18 10:19 Dose: 40 mg Pantoprazole Sodium (Protonix Ec Tab) 40 mg PO DAILY [facility] Last Admin: 01/01/18 10:19 Dose: 40 mg Rosuvastatin Calcium (Crestor) 2.5 mg PO HS [facility] Last Admin: 12/31/17 21:15 Dose: 2.5 mg Fluticasone/Salmeterol (Advair Diskus 250/50) 1 puff INH RQ12 [facility] Last Admin: 01/01/18 08:23 Dose: 1 puff - Labs Labs: 01/01/18 07:20 01/01/18 07:20 PT 10.7 SECONDS (9.7-12.2) 12/29/17 22:44 INR 1.0 12/29/17 22:44 APTT 21 SECONDS (21-34) 12/29/17 22:44 Attending/Attestation - Attestation I have personally seen and examined this patient.: Yes I have fully participated in the care of the patient.: Yes I have reviewed all pertinent clinical information, including history, physical exam and plan: Yes Notes (Text): 01/01/18 11:01 Medical attending: Patient was seen and examined by me. Agree with the above note by the resident The patient was not in any acute distress when I saw her. She was not in respiratory distress when I saw her. Speaking in full sentences. The patient is well known to hospitalist service The patient is currently back on IV solumedrol. There are elevated blood glucoses from the IV solumedrol. We will increase the insulin thank you Arben Christianson
[2018-01-01] MEDS: Levothyroxine 50 MCG TAB PO SCH (05:39)
[2018-01-01 07:35] LABS: BASO % 0.1 % (0.0-2.0); HEMOGLOBIN 12.1 g/dL (11.0-16.0); LYMPH # 0.5 K/uL (1.0-4.3); MEAN CELL VOLUME 92.7 fL (81.0-99.0); MEAN CORPUSCULAR HEMOGLOBIN 31.5 pg (27.0-31.0); MEAN PLATELET VOLUME 7.9 fL (7.2-11.7); MONO # 0.6 K/uL (0.0-0.8); MONO % 4.4 % (0.0-10.0); NEUT # 11.7 K/uL (1.8-7.0); NEUT % 91.5 % (50.0-75.0); PLATELET COUNT 179 K/uL (130-400); RBC 3.83 Mil/uL (3.80-5.20); RED CELL DISTRIBUTION WIDTH 14.9 % (11.5-14.5); WHITE BLOOD COUNT 12.8 K/uL (4.8-10.8)
[2018-01-01 08:02] LABS: ALT/SGPT 39 U/L (9-52); AST/SGOT 20 U/L (14-36); BLOOD UREA NITROGEN 32 mg/dL (7-17); CALCIUM 8.3 mg/dl (8.6-10.4); GFR AFRICAN-AMERICAN > 60; GFR NON-AFRICAN AMERICAN > 60
[2018-01-01] MEDS: Fluticasone-Salmeterol 250-50mcg Diskus INH SCH (08:23)
[2018-01-01] MEDS: Albuterol-Ipratrop 3 mg / 0.5 (3 ml) UD INH PRN ×2 (08:23→11:39)
[2018-01-01] MEDS: (Novolin R) Insulin Human Regular 100 units/ml vial SC SCH ×7 (08:47→22:12)
[2018-01-01 09:05] LABS: BANDS 2 % (0-2); LYMPHOCYTE 2 % (20-40); MONOCYTE 3 % (0-10); NEUTROPHIL 93 % (50-75); PLATELET ESTIMATE NORMAL (NORMAL); TOTAL CELLS COUNTED 100
[2018-01-01 09:06] LABS: ANISOCYTOSIS SLIGHT; HYPOCHROMIC SLIGHT; TOXIC GRANULATION PRESENT
[2018-01-01 09:07] LABS: POIKILOCYTOSIS SLIGHT; POLYCHROMIC SLIGHT; TEARDROP CELLS SLIGHT
[2018-01-01] MEDS: Pantoprazole 40 mg EC Tab PO SCH (10:19)
[2018-01-01] MEDS: Enoxaparin 40 mg Syringe SC SCH (10:19)
[2018-01-01] MEDS: Ciprofloxacin 400mg/200ml D5W 400 MG/200 ML BAG IVPB SCH ×2 (10:20→22:15)
[2018-01-01] MEDS: Albuterol-Ipratrop 3 mg / 0.5 (3 ml) UD INH SCH ×3 (17:41→23:40)
[2018-01-01] MEDS: (Lantus) Insulin Glargine, Recombinant SC SCH (22:13)
[2018-01-01] MEDS: Rosuvastatin Calcium 2.5 mg Tab PO SCH (22:14)
[2018-01-02] MEDS: Vancomycin 1 GM in Sodium Chloride 0.9% 200 ML IVPB SCH (03:13)
[2018-01-02] MEDS: Albuterol-Ipratrop 3 mg / 0.5 (3 ml) UD INH SCH ×6 (03:17→23:51)
[2018-01-02] MEDS: Levothyroxine 50 MCG TAB PO SCH (06:05)
[2018-01-02 06:21] LABS: BASO % 0.1 % (0.0-2.0); HEMOGLOBIN 11.8 g/dL (11.0-16.0); LYMPH # 0.3 K/uL (1.0-4.3); LYMPH % 2.9 % (20.0-40.0); MEAN CELL VOLUME 91.6 fL (81.0-99.0); MEAN CORPUSCULAR HEMOGLOBIN 30.4 pg (27.0-31.0); MEAN CORPUSCULAR HGB CONC 33.2 g/dL (33.0-37.0); MEAN PLATELET VOLUME 7.7 fL (7.2-11.7); MONO # 0.5 K/uL (0.0-0.8); MONO % 4.4 % (0.0-10.0); NEUT # 10.6 K/uL (1.8-7.0); NEUT % 92.6 % (50.0-75.0); PLATELET COUNT 177 K/uL (130-400); RBC 3.88 Mil/uL (3.80-5.20); RED CELL DISTRIBUTION WIDTH 14.6 % (11.5-14.5); WHITE BLOOD COUNT 11.4 K/uL (4.8-10.8)
[2018-01-02 06:41] LABS: ALB/GLOB RATIO 1.1 (1.0-2.1); ALBUMIN 3.4 g/dL (3.5-5.0); ALT/SGPT 33 U/L (9-52); AST/SGOT 24 U/L (14-36); BLOOD UREA NITROGEN 22 mg/dL (7-17); CALCIUM 8.4 mg/dl (8.6-10.4); GFR AFRICAN-AMERICAN > 60; GFR NON-AFRICAN AMERICAN > 60
--- NOTE | 2018-01-02 07:19 | CP.PCM.PN ---
<Torrie Lezama - Last Filed: 01/02/18 12:18> Subjective - Date & Time of Evaluation Date of Evaluation: 01/02/18 Time of Evaluation: 07:00 - Subjective Subjective: Medicine Progress Note: Patient seen and examined at bedside in the AM. Per nurse no acute events overnight. No acute distress. Patient reports her breathing has improved and she feels less short of breath. Patient denies chest pain, nausea, vomiting, fevers, headaches, dysuria, constipation, and diarrhea. Objective - Vital Signs/Intake and Output Vital Signs (last 24 hours): Temp Pulse Resp BP Pulse Ox 98.2 F 84 20 128/63 96 01/02/18 04:30 01/02/18 04:30 01/02/18 04:30 01/02/18 04:30 01/02/18 04:30 Intake and Output: 01/02/18 01/02/18 06:59 18:59 Intake Total 250 Output Total 600 Balance -350 - Medications Medications: Current Medications Acetaminophen (Tylenol 325mg Tab) 650 mg PO Q6 PRN PRN Reason: Fever >100.4 F Albuterol/Ipratropium (Duoneb 3 Mg/0.5 Mg (3 Ml) Ud) 3 ml INH RQ4 [facility] Last Admin: 01/02/18 03:17 Dose: 3 ml Amlodipine Besylate (Norvasc) 5 mg PO DAILY [facility] Last Admin: 01/01/18 10:19 Dose: 5 mg Enoxaparin Sodium (Lovenox) 40 mg SC DAILY [facility] Last Admin: 01/01/18 10:19 Dose: 40 mg Escitalopram Oxalate (Lexapro) 5 mg PO DAILY [facility] Last Admin: 01/01/18 10:19 Dose: 5 mg Ciprofloxacin (Cipro 400mg/200ml Dsw) 400 mg in 200 mls @ 133 mls/hr IVPB Q12H [facility] PRN Reason: Protocol Last Admin: 01/01/18 22:15 Dose: 133 mls/hr Vancomycin HCl 1 gm/ Sodium (Chloride) 200 mls @ 133.333 mls/hr IVPB Q24H [facility] PRN Reason: Protocol Last Admin: 01/02/18 03:13 Dose: 133.333 mls/hr Insulin Glargine (Lantus) 30 unit SC [facility] Last Admin: 01/01/18 22:13 Dose: 30 u Insulin Human Regular (Novolin R) 0 unit SC ACHS [facility] PRN Reason: Protocol Last Admin: 01/01/18 22:12 Dose: Not Given Insulin Human Regular (Novolin R) 15 unit SC AC [facility] Last Admin: 01/01/18 18:31 Dose: Not Given Levothyroxine Sodium (Synthroid) 50 mcg PO DAILY@0630 [facility] Last Admin: 01/02/18 06:05 Dose: 50 mcg Methylprednisolone (Solu-Medrol) 40 mg IV Q12 [facility] Last Admin: 01/01/18 22:12 Dose: 40 mg Pantoprazole Sodium (Protonix Ec Tab) 40 mg PO DAILY [facility] Last Admin: 01/01/18 10:19 Dose: 40 mg Rosuvastatin Calcium (Crestor) 2.5 mg PO HS [facility] Last Admin: 01/01/18 22:14 Dose: 2.5 mg Fluticasone/Salmeterol (Advair Diskus 250/50) 1 puff INH RQ12 [facility] Last Admin: 01/01/18 08:23 Dose: 1 puff - Labs Labs: 01/02/18 06:16 01/02/18 06:16 PT 10.7 SECONDS (9.7-12.2) 12/29/17 22:44 INR 1.0 12/29/17 22:44 APTT 21 SECONDS (21-34) 12/29/17 22:44 - Constitutional Appears: Chronically Ill - Head Exam Head Exam: ATRAUMATIC, NORMAL INSPECTION - Eye Exam Eye Exam: EOMI, Normal appearance - ENT Exam ENT Exam: Mucous Membranes Moist - Respiratory Exam Respiratory Exam: Accessory Muscle Use (scalene muscle use), Rales (bilateral lower lobes) - Cardiovascular Exam Cardiovascular Exam: REGULAR RHYTHM, +S1, +S2 - GI/Abdominal Exam GI & Abdominal Exam: Soft, Normal Bowel Sounds. absent: Tenderness - Extremities Exam Extremities Exam: Normal Inspection - Neurological Exam Neurological Exam: Alert, Awake, Oriented x3 - Psychiatric Exam Psychiatric exam: Normal Affect - Skin Skin Exam: Normal Color Assessment and Plan - Assessment and Plan (Free Text) Assessment: Dyspnea - secondary to history of pulmonary fibrosis - BiPAP prn, O2 3L via [place] - Chest xray: potential interval limited airspace disease medial right base; no interval improvement in right-sided interstitial pattern which may be chronic as well as the left base. - Duonebs Q4 derek - Solu-medrol 40mg IV q12h - Continue home medication: Advair diskus 1puff Q12h Fever - resolved - At admission, 100.9 - Chest xray: potential interval limited airspace disease medial right base; no interval improvement in right-sided interstitial pattern which may be chronic as well as the left base. - Blood and Urine culture negative - Medications: * Cipro 400 mg IV Q12h --> discontinued 01/02/18 * Vanco 1gm IV Q24h --> discontinued 01/02/18 * Tylenol prn History of Pulmonary fibrosis - Medications * Duonebs Q4 derek * Solu-medrol 40mg IV BI * Advair diskus 1puff Q12h - BiPAP prn, O2 via NC - Chest xray: potential interval limited airspace disease medial right base; no interval improvement in right-sided interstitial pattern which may be chronic as well as the left base. History of Hypothyroidism - Continue home medication: Synthroid 50 mcg PO daily - TSH/Free T4 from previous admission (12/11/17): 0.49/1.5 History of HTN - Continue home medication: Norvasc 5 mg PO daily History of Diabetes mellitus - Medications * Lantus 30u SC HS * Novolin 15units SC AC * ISS - Accuchecks - Hypoglycemia protocol - A1c (12/11/17): 10 History of Hhyperlipidemia - Continue Crestor 2.5mg PO HS - Lipid panel (12/11/17): Triglycerides 93, Cholesterol 241, LDL 160, HDL 59 Prophylaxis - Lovenox 40mg SC daily - SCDs - Protonix 40 mg PO daily - Heart healthy diet - PT eval and treat Case discussed with Dr. Meghan Lezama PGY-1 <Arben Christianson - Last Filed: 01/02/18 15:54> Objective - Vital Signs/Intake and Output Vital Signs (last 24 hours): Temp Pulse Resp BP Pulse Ox 97.6 F 68 18 133/74 92 L 01/02/18 08:21 01/02/18 08:21 01/02/18 08:21 01/02/18 08:21 01/02/18 14:45 Intake and Output: 05/29/18 05/29/18 06:59 18:59 Intake Total 250 Output Total 600 Balance -350 - Medications Medications: Current Medications Acetaminophen (Tylenol 325mg Tab) 650 mg PO Q6 PRN PRN Reason: Fever >100.4 F Albuterol/Ipratropium (Duoneb 3 Mg/0.5 Mg (3 Ml) Ud) 3 ml INH RQ4 [facility] Last Admin: 01/02/18 15:42 Dose: 3 ml Amlodipine Besylate (Norvasc) 5 mg PO DAILY [facility] Last Admin: 01/02/18 10:22 Dose: 5 mg Enoxaparin Sodium (Lovenox) 40 mg SC DAILY [facility] Last Admin: 01/02/18 10:22 Dose: 40 mg Escitalopram Oxalate (Lexapro) 5 mg PO DAILY [facility] Last Admin: 01/02/18 10:22 Dose: 5 mg Insulin Glargine (Lantus) 30 unit SC HS [facility] Last Admin: 01/01/18 22:13 Dose: 30 u Insulin Human Regular (Novolin R) 0 unit SC ACHS [facility] PRN Reason: Protocol Last Admin: 01/02/18 12:37 Dose: 10 unit Insulin Human Regular (Novolin R) 15 unit SC AC [facility] Last Admin: 01/02/18 12:37 Dose: 15 unit Levothyroxine Sodium (Synthroid) 50 mcg PO DAILY@0630 [facility] Last Admin: 01/02/18 06:05 Dose: 50 mcg Methylprednisolone (Solu-Medrol) 40 mg IV Q12 [facility] Last Admin: 01/02/18 10:22 Dose: 40 mg Pantoprazole Sodium (Protonix Ec Tab) 40 mg PO DAILY [facility] Last Admin: 01/02/18 10:22 Dose: 40 mg Rosuvastatin Calcium (Crestor) 2.5 mg PO HS [facility] Last Admin: 01/01/18 22:14 Dose: 2.5 mg Fluticasone/Salmeterol (Advair Diskus 250/50) 1 puff INH RQ12 [facility] Last Admin: 01/02/18 08:33 Dose: 1 puff - Labs Labs: 01/02/18 06:16 01/02/18 06:16 PT 10.7 SECONDS (9.7-12.2) 12/29/17 22:44 INR 1.0 12/29/17 22:44 APTT 21 SECONDS (21-34) 12/29/17 22:44 Attending/Attestation - Attestation I have personally seen and examined this patient.: Yes I have fully participated in the care of the patient.: Yes I have reviewed all pertinent clinical information, including history, physical exam and plan: Yes Notes (Text): 01/02/18 15:54 Medical Attending: Patient was seen and examined by me, agree with the above note by medical transcriptionist. Today the patient was at rest, she was not in any acute distress when we saw her. She is able to speak in full sentences. At this time will continue with the IV Solu-Medrol. As mentioned previously she has very late stage pulmonary fibrosis. She is currently DNR/DNI Thank you very much, Arben Christianson
[2018-01-02] MEDS: (Novolin R) Insulin Human Regular 100 units/ml vial SC SCH ×7 (08:09→21:47)
[2018-01-02] MEDS: Fluticasone-Salmeterol 250-50mcg Diskus INH SCH ×2 (08:33→19:34)
[2018-01-02 08:50] LABS: BANDS 2 % (0-2); LYMPHOCYTE 3 % (20-40); MONOCYTE 6 % (0-10); NEUTROPHIL 89 % (50-75); PLATELET ESTIMATE NORMAL (NORMAL); TOTAL CELLS COUNTED 100
[2018-01-02] MEDS: Enoxaparin 40 mg Syringe SC SCH (10:22)
[2018-01-02] MEDS: Pantoprazole 40 mg EC Tab PO SCH (10:22)
--- NOTE | 2018-01-02 14:18 | CARD ---
APPROVED REPORT EKG Measurement Heart [id number] <Conclusion> Sinus tachycardia Left axis deviation Minimal voltage criteria for LVH, may be normal variant Inferior infarct, age undetermined Anterolateral infarct, age undetermined Abnormal ECG
[2018-01-02] MEDS: Rosuvastatin Calcium 2.5 mg Tab PO SCH (21:52)
[2018-01-02] MEDS: (Lantus) Insulin Glargine, Recombinant SC SCH (21:56)
[2018-01-03] MEDS: Albuterol-Ipratrop 3 mg / 0.5 (3 ml) UD INH SCH ×6 (03:39→23:31)
[2018-01-03] MEDS: Levothyroxine 50 MCG TAB PO SCH (06:16)
[2018-01-03] MEDS: Fluticasone-Salmeterol 250-50mcg Diskus INH SCH ×2 (07:26→20:05)
[2018-01-03 07:53] LABS: BASO % 0.1 % (0.0-2.0); HEMOGLOBIN 12.4 g/dL (11.0-16.0); LYMPH # 0.5 K/uL (1.0-4.3); LYMPH % 5.7 % (20.0-40.0); MEAN CELL VOLUME 94.3 fL (81.0-99.0); MEAN CORPUSCULAR HEMOGLOBIN 31.8 pg (27.0-31.0); MEAN CORPUSCULAR HGB CONC 33.7 g/dL (33.0-37.0); MEAN PLATELET VOLUME 7.9 fL (7.2-11.7); MONO # 0.4 K/uL (0.0-0.8); MONO % 4.5 % (0.0-10.0); NEUT # 8.4 K/uL (1.8-7.0); NEUT % 89.7 % (50.0-75.0); PLATELET COUNT 185 K/uL (130-400); RBC 3.92 Mil/uL (3.80-5.20); RED CELL DISTRIBUTION WIDTH 14.8 % (11.5-14.5); WHITE BLOOD COUNT 9.3 K/uL (4.8-10.8)
[2018-01-03 08:26] LABS: ALB/GLOB RATIO 1.1 (1.0-2.1); ALBUMIN 3.5 g/dL (3.5-5.0); ALT/SGPT 26 U/L (9-52); AST/SGOT 24 U/L (14-36); BLOOD UREA NITROGEN 28 mg/dL (7-17); CALCIUM 8.3 mg/dl (8.6-10.4); GFR AFRICAN-AMERICAN > 60; GFR NON-AFRICAN AMERICAN > 60
[2018-01-03] MEDS: (Novolin R) Insulin Human Regular 100 units/ml vial SC SCH ×7 (08:42→21:56)
[2018-01-03 09:04] LABS: LYMPHOCYTE 5 % (20-40); MONOCYTE 4 % (0-10); NEUTROPHIL 91 % (50-75); PLATELET ESTIMATE NORMAL (NORMAL); TOTAL CELLS COUNTED 100
[2018-01-03] MEDS: Enoxaparin 40 mg Syringe SC SCH (10:39)
[2018-01-03] MEDS: Pantoprazole 40 mg EC Tab PO SCH (10:39)
[2018-01-03] MEDS: MethylPREDNISolone 40 mg Vial IV SCH ×2 (10:41→21:56)
--- NOTE | 2018-01-03 10:47 | CP.PCM.PN ---
<Torrie Lezama - Last Filed: 01/03/18 10:45> Subjective - Date & Time of Evaluation Date of Evaluation: 01/03/18 Time of Evaluation: 07:00 - Subjective Subjective: Medicine Progress Note: Patient seen and examined at bedside in the AM. Per nurse no acute events overnight. No acute distress. Patient reports her breathing has improved and she feels less short of breath. Patient denies chest pain, nausea, vomiting, fevers, headaches, dysuria, constipation, and diarrhea. Objective - Vital Signs/Intake and Output Vital Signs (last 24 hours): Temp Pulse Resp BP Pulse Ox 98.1 F 96 H 19 137/82 97 01/03/18 08:31 01/03/18 08:31 01/03/18 08:31 01/03/18 08:31 01/03/18 08:31 Intake and Output: 01/03/18 01/03/18 06:59 18:59 Intake Total 460 Balance 460 - Medications Medications: Current Medications Acetaminophen (Tylenol 325mg Tab) 650 mg PO Q6 PRN PRN Reason: Fever >100.4 F Albuterol/Ipratropium (Duoneb 3 Mg/0.5 Mg (3 Ml) Ud) 3 ml INH RQ4 [facility] Last Admin: 01/03/18 07:26 Dose: 3 ml Amlodipine Besylate (Norvasc) 5 mg PO DAILY [facility] Last Admin: 01/03/18 10:39 Dose: 5 mg Enoxaparin Sodium (Lovenox) 40 mg SC DAILY [facility] Last Admin: 01/03/18 10:39 Dose: 40 mg Escitalopram Oxalate (Lexapro) 5 mg PO DAILY [facility] Last Admin: 01/03/18 10:39 Dose: 5 mg Insulin Glargine (Lantus) 35 unit SC HS [facility] Insulin Human Regular (Novolin R) 0 unit SC ACHS [facility] PRN Reason: Protocol Last Admin: 01/03/18 08:42 Dose: 12 unit Insulin Human Regular (Novolin R) 20 unit SC AC [facility] Levothyroxine Sodium (Synthroid) 50 mcg PO DAILY@0630 [facility] Last Admin: 01/03/18 06:16 Dose: 50 mcg Methylprednisolone (Solu-Medrol) 40 mg IV Q12 [facility] Last Admin: 01/03/18 10:41 Dose: 40 mg Pantoprazole Sodium (Protonix Ec Tab) 40 mg PO DAILY [facility] Last Admin: 01/03/18 10:39 Dose: 40 mg Rosuvastatin Calcium (Crestor) 2.5 mg PO HS [facility] Last Admin: 01/02/18 21:52 Dose: 2.5 mg Fluticasone/Salmeterol (Advair Diskus 250/50) 1 puff INH RQ12 [facility] Last Admin: 01/03/18 07:26 Dose: 1 puff - Labs Labs: 01/03/18 07:41 01/03/18 07:41 PT 10.7 SECONDS (9.7-12.2) 12/29/17 22:44 INR 1.0 12/29/17 22:44 APTT 21 SECONDS (21-34) 12/29/17 22:44 - Constitutional Appears: Chronically Ill - Head Exam Head Exam: ATRAUMATIC, NORMAL INSPECTION - Eye Exam Eye Exam: EOMI, Normal appearance - ENT Exam ENT Exam: Mucous Membranes Moist - Respiratory Exam Respiratory Exam: Accessory Muscle Use (scalene muscle use), Rales (bilateral lower lobes) - Cardiovascular Exam Cardiovascular Exam: REGULAR RHYTHM, +S1, +S2 - GI/Abdominal Exam GI & Abdominal Exam: Soft, Normal Bowel Sounds. absent: Tenderness - Extremities Exam Extremities Exam: Normal Inspection - Neurological Exam Neurological Exam: Alert, Awake, Oriented x3 - Psychiatric Exam Psychiatric exam: Normal Affect, Normal Mood - Skin Skin Exam: Normal Color Assessment and Plan - Assessment and Plan (Free Text) Assessment: Dyspnea - secondary to history of pulmonary fibrosis - BiPAP prn, O2 3L via [place] - Chest xray: potential interval limited airspace disease medial right base; no interval improvement in right-sided interstitial pattern which may be chronic as well as the left base. - Duonebs Q4 derek - Solu-medrol 40mg IV q12h - Continue home medication: Advair diskus 1puff Q12h Fever - resolved - At admission, 100.9 - Chest xray: potential interval limited airspace disease medial right base; no interval improvement in right-sided interstitial pattern which may be chronic as well as the left base. - Blood and Urine culture negative - Medications: * Cipro 400 mg IV Q12h --> discontinued 01/02/18 * Vanco 1gm IV Q24h --> discontinued 01/02/18 * Tylenol prn History of Pulmonary fibrosis - Medications * Duonebs Q4 derek * Solu-medrol 40mg IV BI * Advair diskus 1puff Q12h - BiPAP prn, O2 via [place] - Chest xray: potential interval limited airspace disease medial right base; no interval improvement in right-sided interstitial pattern which may be chronic as well as the left base. History of Hypothyroidism - Continue home medication: Synthroid 50 mcg PO daily - TSH/Free T4 from previous admission (12/11/17): 0.49/1.5 History of HTN - Continue home medication: Norvasc 5 mg PO daily History of Diabetes mellitus - Medications * Lantus 35u SC HS * Novolin 20units SC AC * ISS - Accuchecks - Hypoglycemia protocol - A1c (12/11/17): 10 History of Hhyperlipidemia - Continue Crestor 2.5mg PO HS - Lipid panel (12/11/17): Triglycerides 93, Cholesterol 241, LDL 160, HDL 59 Prophylaxis - Lovenox 40mg SC daily - SCDs - Protonix 40 mg PO daily - Heart healthy diet - PT eval and treat - pending wheel chair Case discussed with Dr. Meghan Lezama PGY-1 <Arben Christianson - Last Filed: 01/03/18 13:17> Objective - Vital Signs/Intake and Output Vital Signs (last 24 hours): Temp Pulse Resp BP Pulse Ox 98.1 F 85 19 137/82 97 01/03/18 08:31 01/03/18 11:41 01/03/18 08:31 01/03/18 08:31 01/03/18 08:31 Intake and Output: 01/03/18 01/03/18 06:59 18:59 Intake Total 460 Balance 460 - Medications Medications: Current Medications Acetaminophen (Tylenol 325mg Tab) 650 mg PO Q6 PRN PRN Reason: Fever >100.4 F Albuterol/Ipratropium (Duoneb 3 Mg/0.5 Mg (3 Ml) Ud) 3 ml INH RQ4 [facility] Last Admin: 01/03/18 11:27 Dose: 3 ml Amlodipine Besylate (Norvasc) 5 mg PO DAILY [facility] Last Admin: 01/03/18 10:39 Dose: 5 mg Enoxaparin Sodium (Lovenox) 40 mg SC DAILY [facility] Last Admin: 01/03/18 10:39 Dose: 40 mg Escitalopram Oxalate (Lexapro) 5 mg PO DAILY [facility] Last Admin: 01/03/18 10:39 Dose: 5 mg Insulin Glargine (Lantus) 35 unit SC HS [facility] Insulin Human Regular (Novolin R) 0 unit SC ACHS [facility] PRN Reason: Protocol Last Admin: 01/03/18 12:08 Dose: Not Given Insulin Human Regular (Novolin R) 20 unit SC AC [facility] Last Admin: 01/03/18 12:09 Dose: Not Given Levothyroxine Sodium (Synthroid) 50 mcg PO DAILY@0630 [facility] Last Admin: 01/03/18 06:16 Dose: 50 mcg Methylprednisolone (Solu-Medrol) 40 mg IV Q12 [facility] Last Admin: 01/03/18 10:41 Dose: 40 mg Pantoprazole Sodium (Protonix Ec Tab) 40 mg PO DAILY [facility] Last Admin: 01/03/18 10:39 Dose: 40 mg Rosuvastatin Calcium (Crestor) 2.5 mg PO HS [facility] Last Admin: 01/02/18 21:52 Dose: 2.5 mg Fluticasone/Salmeterol (Advair Diskus 250/50) 1 puff INH RQ12 [facility] Last Admin: 01/03/18 07:26 Dose: 1 puff - Labs Labs: 01/03/18 07:41 01/03/18 07:41 PT 10.7 SECONDS (9.7-12.2) 12/29/17 22:44 INR 1.0 12/29/17 22:44 APTT 21 SECONDS (21-34) 12/29/17 22:44 Attending/Attestation - Attestation I have personally seen and examined this patient.: Yes I have fully participated in the care of the patient.: Yes I have reviewed all pertinent clinical information, including history, physical exam and plan: Yes Notes (Text): Medical attending: Patient was seen and examined by me, agree with the above note by the resident The patient was at rest. She was not in any acute distress at rest. The patient I am being told by the physical therapy team that he would benefit from a walker as opposed to being wheelchair bound. The case workers/social workers are trying to see what they can maybe provide for patient thank you Arben Christianson
[2018-01-03] MEDS: Rosuvastatin Calcium 2.5 mg Tab PO SCH (21:56)
[2018-01-03] MEDS: (Lantus) Insulin Glargine, Recombinant SC SCH (21:56)
[2018-01-04] MEDS: Albuterol-Ipratrop 3 mg / 0.5 (3 ml) UD INH SCH ×5 (03:14→19:13)
[2018-01-04] MEDS: Levothyroxine 50 MCG TAB PO SCH (06:12)
--- NOTE | 2018-01-04 07:03 | CP.PCM.PN ---
<Torrie Lezama - Last Filed: 01/04/18 10:54> Subjective - Date & Time of Evaluation Date of Evaluation: 01/04/18 Time of Evaluation: 07:00 - Subjective Subjective: Medicine Progress Note: Patient seen and examined at bedside in the AM. Per nurse no acute events overnight. No acute distress. Patient denies chest pain, nausea, vomiting, fevers, headaches, dysuria, constipation, and diarrhea. Objective - Vital Signs/Intake and Output Vital Signs (last 24 hours): Temp Pulse Resp BP Pulse Ox 98.1 F 86 20 123/81 97 01/03/18 23:55 01/04/18 04:15 01/03/18 23:55 01/03/18 23:55 01/03/18 23:55 Intake and Output: 01/04/18 01/04/18 06:59 18:59 Output Total 600 Balance -600 - Medications Medications: Current Medications Acetaminophen (Tylenol 325mg Tab) 650 mg PO Q6 PRN PRN Reason: Fever >100.4 F Last Admin: 01/04/18 06:17 Dose: 650 mg Albuterol/Ipratropium (Duoneb 3 Mg/0.5 Mg (3 Ml) Ud) 3 ml INH RQ4 [facility] Last Admin: 01/04/18 03:14 Dose: Not Given Amlodipine Besylate (Norvasc) 5 mg PO DAILY [facility] Last Admin: 01/03/18 10:39 Dose: 5 mg Enoxaparin Sodium (Lovenox) 40 mg SC DAILY [facility] Last Admin: 01/03/18 10:39 Dose: 40 mg Escitalopram Oxalate (Lexapro) 5 mg PO DAILY [facility] Last Admin: 01/03/18 10:39 Dose: 5 mg Insulin Glargine (Lantus) 35 unit SC HS [facility] Last Admin: 01/03/18 21:56 Dose: 35 unit Insulin Human Regular (Novolin R) 0 unit SC ACHS [facility] PRN Reason: Protocol Last Admin: 01/03/18 21:56 Dose: Not Given Insulin Human Regular (Novolin R) 20 unit SC AC [facility] Last Admin: 01/03/18 17:57 Dose: 20 unit Levothyroxine Sodium (Synthroid) 50 mcg PO DAILY@0630 [facility] Last Admin: 01/04/18 06:12 Dose: 50 mcg Methylprednisolone (Solu-Medrol) 40 mg IV Q12 [facility] Last Admin: 01/03/18 21:56 Dose: 40 mg Pantoprazole Sodium (Protonix Ec Tab) 40 mg PO DAILY [facility] Last Admin: 01/03/18 10:39 Dose: 40 mg Rosuvastatin Calcium (Crestor) 2.5 mg PO HS [facility] Last Admin: 01/03/18 21:56 Dose: 2.5 mg Fluticasone/Salmeterol (Advair Diskus 250/50) 1 puff INH RQ12 [facility] Last Admin: 01/03/18 20:05 Dose: 1 puff - Labs Labs: 01/03/18 07:41 01/03/18 07:41 PT 10.7 SECONDS (9.7-12.2) 12/29/17 22:44 INR 1.0 12/29/17 22:44 APTT 21 SECONDS (21-34) 12/29/17 22:44 - Constitutional Appears: Chronically Ill - Head Exam Head Exam: ATRAUMATIC, NORMAL INSPECTION - Eye Exam Eye Exam: EOMI, Normal appearance - ENT Exam ENT Exam: Mucous Membranes Moist - Respiratory Exam Respiratory Exam: Accessory Muscle Use (scalene muscle use), Rales (bilateral lower lobes), NORMAL BREATHING PATTERN - Cardiovascular Exam Cardiovascular Exam: REGULAR RHYTHM, +S1, +S2 - GI/Abdominal Exam GI & Abdominal Exam: Soft, Normal Bowel Sounds. absent: Tenderness - Extremities Exam Extremities Exam: Normal Inspection - Neurological Exam Neurological Exam: Alert, Awake, Oriented x3 - Psychiatric Exam Psychiatric exam: Normal Affect, Normal Mood - Skin Skin Exam: Normal Color Assessment and Plan - Assessment and Plan (Free Text) Assessment: Dyspnea - secondary to history of pulmonary fibrosis - BiPAP prn, O2 3L via NC - Chest xray (12/29/17): potential interval limited airspace disease medial right base; no interval improvement in right-sided interstitial pattern which may be chronic as well as the left base. - F/U chest xray - Duonebs Q4 [facility] - Solu-medrol changed it to 20mg IV q12h - Continue home medication: Advair diskus 1puff Q12h Fever - resolved - At admission, 100.9 - Chest xray: potential interval limited airspace disease medial right base; no interval improvement in right-sided interstitial pattern which may be chronic as well as the left base. - Blood and Urine culture negative - Medications: * Cipro 400 mg IV Q12h --> discontinued 01/02/18 * Vanco 1gm IV Q24h --> discontinued 01/02/18 * Tylenol prn History of Pulmonary fibrosis - Medications * Duonebs Q4 derek * Solu-medrol 20mg IV BI * Advair diskus 1puff Q12h - BiPAP prn, O2 via NC - Chest xray: potential interval limited airspace disease medial right base; no interval improvement in right-sided interstitial pattern which may be chronic as well as the left base. History of Hypothyroidism - Continue home medication: Synthroid 50 mcg PO daily - TSH/Free T4 from previous admission (12/11/17): 0.49/1.5 History of HTN - Continue home medication: Norvasc 5 mg PO daily History of Diabetes mellitus - Medications * Lantus 35u SC HS * Novolin 20units SC AC * ISS - Accuchecks - Hypoglycemia protocol - A1c (12/11/17): 10 History of Hhyperlipidemia - Continue Crestor 2.5mg PO HS - Lipid panel (12/11/17): Triglycerides 93, Cholesterol 241, LDL 160, HDL 59 Prophylaxis - Lovenox 40mg SC daily - SCDs - Protonix 40 mg PO daily - Heart healthy diet - PT eval and treat - recommendation: rollator Case discussed with Dr. Meghan Lezama PGY-1 <Arben Christianson - Last Filed: 01/04/18 17:37> Objective - Vital Signs/Intake and Output Vital Signs (last 24 hours): Temp Pulse Resp BP Pulse Ox 98.1 F 83 18 126/77 94 L 01/04/18 15:23 01/04/18 16:41 01/04/18 15:23 01/04/18 15:23 01/04/18 15:23 Intake and Output: 01/04/18 01/04/18 06:59 18:59 Intake Total 680 Output Total 600 Balance -600 680 - Medications Medications: Current Medications Acetaminophen (Tylenol 325mg Tab) 650 mg PO Q6 PRN PRN Reason: Fever >100.4 F Last Admin: 01/04/18 06:17 Dose: 650 mg Albuterol/Ipratropium (Duoneb 3 Mg/0.5 Mg (3 Ml) Ud) 3 ml INH RQ4 [facility] Last Admin: 01/04/18 15:31 Dose: 3 ml Amlodipine Besylate (Norvasc) 5 mg PO DAILY [facility] Last Admin: 01/04/18 10:34 Dose: 5 mg Enoxaparin Sodium (Lovenox) 40 mg SC DAILY [facility] Last Admin: 01/04/18 10:34 Dose: 40 mg Escitalopram Oxalate (Lexapro) 5 mg PO DAILY [facility] Last Admin: 01/04/18 10:34 Dose: 5 mg Insulin Glargine (Lantus) 35 unit SC HS [facility] Last Admin: 01/03/18 21:56 Dose: 35 unit Insulin Human Regular (Novolin R) 0 unit SC ACHS [facility] PRN Reason: Protocol Last Admin: 01/04/18 17:30 Dose: Not Given Insulin Human Regular (Novolin R) 15 unit SC AC [facility] Last Admin: 01/04/18 17:31 Dose: Not Given Levothyroxine Sodium (Synthroid) 50 mcg PO DAILY@0630 [facility] Last Admin: 01/04/18 06:12 Dose: 50 mcg Methylprednisolone (Solu-Medrol) 20 mg IV Q12 [facility] Last Admin: 01/04/18 10:35 Dose: 20 mg Pantoprazole Sodium (Protonix Ec Tab) 40 mg PO DAILY [facility] Last Admin: 01/04/18 10:34 Dose: 40 mg Rosuvastatin Calcium (Crestor) 2.5 mg PO HS [facility] Last Admin: 01/03/18 21:56 Dose: 2.5 mg Fluticasone/Salmeterol (Advair Diskus 250/50) 1 puff INH RQ12 [facility] Last Admin: 01/04/18 11:04 Dose: 1 puff - Labs Labs: 01/04/18 08:12 01/04/18 08:12 PT 10.7 SECONDS (9.7-12.2) 12/29/17 22:44 INR 1.0 12/29/17 22:44 APTT 21 SECONDS (21-34) 12/29/17 22:44 Attending/Attestation - Attestation I have personally seen and examined this patient.: Yes I have fully participated in the care of the patient.: Yes I have reviewed all pertinent clinical information, including history, physical exam and plan: Yes Notes (Text): 01/04/18 17:34 Medical attending: Patient was seen and examined by me. Agree with the above note by the resident The patient was not in any acute distress when we saw her however she was at rest. Today we decreased her IV solumedrol down to just 20mg IV BID. Let us see how she does with this, if she does ok overnight and then maybe tommorow can DC to home. She would need a special chair to go with, we may need to try to cover the cost of this for her. Arben Christianson
[2018-01-04 08:24] LABS: HEMOGLOBIN 12.8 g/dL (11.0-16.0); LYMPH # 0.9 K/uL (1.0-4.3); LYMPH % 8.1 % (20.0-40.0); MEAN CELL VOLUME 93.3 fL (81.0-99.0); MEAN CORPUSCULAR HEMOGLOBIN 31.5 pg (27.0-31.0); MEAN CORPUSCULAR HGB CONC 33.8 g/dL (33.0-37.0); MEAN PLATELET VOLUME 7.5 fL (7.2-11.7); MONO # 0.5 K/uL (0.0-0.8); MONO % 4.2 % (0.0-10.0); NEUT # 9.6 K/uL (1.8-7.0); NEUT % 87.7 % (50.0-75.0); PLATELET COUNT 198 K/uL (130-400); RBC 4.08 Mil/uL (3.80-5.20); RED CELL DISTRIBUTION WIDTH 14.7 % (11.5-14.5)
[2018-01-04 08:44] LABS: ALB/GLOB RATIO 1.2 (1.0-2.1); ALBUMIN 3.8 g/dL (3.5-5.0); ALT/SGPT 31 U/L (9-52); AST/SGOT 31 U/L (14-36); BLOOD UREA NITROGEN 27 mg/dL (7-17); CALCIUM 8.5 mg/dl (8.6-10.4); GFR AFRICAN-AMERICAN > 60; GFR NON-AFRICAN AMERICAN > 60
[2018-01-04] MEDS: (Novolin R) Insulin Human Regular 100 units/ml vial SC SCH ×7 (08:44→22:04)
[2018-01-04 09:32] LABS: BANDS 1 % (0-2); LYMPHOCYTE 7 % (20-40); MONOCYTE 6 % (0-10); MYELOCYTE 1 % (0-0); NEUTROPHIL 85 % (50-75); PLATELET ESTIMATE NORMAL (NORMAL); TOTAL CELLS COUNTED 100
[2018-01-04] MEDS: Enoxaparin 40 mg Syringe SC SCH (10:34)
[2018-01-04] MEDS: Pantoprazole 40 mg EC Tab PO SCH (10:34)
[2018-01-04] MEDS: MethylPREDNISolone 40 mg Vial IV SCH ×2 (10:35→21:22)
[2018-01-04] MEDS: Fluticasone-Salmeterol 250-50mcg Diskus INH SCH ×2 (11:04→19:13)
--- NOTE | 2018-01-04 13:04 | RAD ---
HISTORY: history of pulmonary fibrosis COMPARISON: 12/29/2017. FINDINGS: LUNGS: There is redemonstration of low lung volumes and diffuse interstitial thickening worse in the right lung. No focal consolidation. PLEURA: No significant pleural effusion identified, no pneumothorax apparent. CARDIOVASCULAR: Normal. OSSEOUS STRUCTURES: No significant abnormalities. VISUALIZED UPPER ABDOMEN: Normal. OTHER FINDINGS: None. IMPRESSION: No significant interval change in known diffuse interstitial pulmonary fibrosis, worse in the right lung. No active pulmonary disease.
[2018-01-04] MEDS: Rosuvastatin Calcium 2.5 mg Tab PO SCH (21:23)
[2018-01-04] MEDS: (Lantus) Insulin Glargine, Recombinant SC SCH (22:12)
[2018-01-05] MEDS: Albuterol-Ipratrop 3 mg / 0.5 (3 ml) UD INH SCH ×6 (00:06→19:28)
[2018-01-05] MEDS: Levothyroxine 50 MCG TAB PO SCH (05:49)
[2018-01-05 07:17] LABS: BASO % 0.1 % (0.0-2.0); HEMOGLOBIN 12.8 g/dL (11.0-16.0); LYMPH # 0.8 K/uL (1.0-4.3); LYMPH % 6.2 % (20.0-40.0); MEAN CELL VOLUME 92.5 fL (81.0-99.0); MEAN CORPUSCULAR HEMOGLOBIN 31.6 pg (27.0-31.0); MEAN CORPUSCULAR HGB CONC 34.1 g/dL (33.0-37.0); MEAN PLATELET VOLUME 7.7 fL (7.2-11.7); MONO # 0.4 K/uL (0.0-0.8); NEUT # 11.7 K/uL (1.8-7.0); NEUT % 90.7 % (50.0-75.0); NRBC % 0.2 % (0.0-2.0); PLATELET COUNT 192 K/uL (130-400); RBC 4.05 Mil/uL (3.80-5.20); WHITE BLOOD COUNT 12.9 K/uL (4.8-10.8)
[2018-01-05 07:30] LABS: ALBUMIN 3.2 g/dL (3.5-5.0); ALT/SGPT 34 U/L (9-52); AST/SGOT 33 U/L (14-36); BLOOD UREA NITROGEN 29 mg/dL (7-17); CALCIUM 8.6 mg/dl (8.6-10.4); GFR AFRICAN-AMERICAN > 60; GFR NON-AFRICAN AMERICAN > 60
[2018-01-05] MEDS: (Novolin R) Insulin Human Regular 100 units/ml vial SC SCH ×7 (08:27→21:59)
[2018-01-05 08:35] LABS: BANDS 1 % (0-2); LYMPHOCYTE 7 % (20-40); MONOCYTE 5 % (0-10); NEUTROPHIL 87 % (50-75); TOTAL CELLS COUNTED 100
[2018-01-05 08:36] LABS: PLATELET ESTIMATE NORMAL (NORMAL)
[2018-01-05] MEDS: Pantoprazole 40 mg EC Tab PO SCH (10:21)
[2018-01-05] MEDS: MethylPREDNISolone 40 mg Vial IV SCH ×2 (10:21→22:48)
[2018-01-05] MEDS: Enoxaparin 40 mg Syringe SC SCH (10:21)
[2018-01-05] MEDS: Fluticasone-Salmeterol 250-50mcg Diskus INH SCH ×2 (11:05→19:29)
--- NOTE | 2018-01-05 12:12 | CP.PCM.CON ---
History of Present Illness - History of Present Illness History of Present Illness: Palliative consult requested by Doctor Lezama for comfort care discussion Patent is a 77 yo female recently discharged from , and admitted again with difficulties breathing. IN ED patient placed on BiPap for respiratory support. The CXR confirmed chronic changes 2nd to pulmonary fibrosis. Patient is self pay and with almost no family support. The Medical team is looking for best placement post discharge. PMH: pulmonary fibrosis, CAD, depression, lymphoma Soc. Hx: single, lives with granddaughter, no health insurance Fam. Hx: denied by the patient Review of Systems - Constitutional Constitutional: Fatigue - EENT Eyes: absent: As Per HPI, Blind Spots, Blurred Vision, Change in Vision, Decreased Night Vision, Diplopia, Discharge, Dry Eye, Exophthalmos, Floaters, Irritation, Itchy Eyes, Loss of Peripheral Vision, Pain, Photophobia, Requires Corrective Lenses, Sees Flashes, Spots in Vision, Tunnel Vision, Other Visual Disturbances, Loss of Vision, Other Ears: absent: As Per HPI, Decreased Hearing, Ear Discharge, Ear Pain, Tinnitus, Abnormal Hearing, Disequilibrium, Dizziness, Other Nose/Mouth/Throat: absent: As Per HPI, Epistaxis, Nasal Congestion, Nasal Discharge, Nasal Obstruction, Nasal Trauma, Nose Pain, Post Nasal Drip, Sinus Pain, Sinus Pressure, Bleeding Gums, Change in Voice, Dental Pain, Dry Mouth, Dysphagia, Halitosis, Hoarsness, Lip Swelling, Mouth Lesions, Mouth Pain, Odynophagia, Sore Throat, Throat Swelling, Tongue Swelling, Facial Pain, Neck Pain, Neck Mass, Other - Breasts Breasts: absent: As Per HPI, Change in Shape, Mass, Pain, Nipple Discharge, Nipple Inversion, Skin Changes, Swelling, Other - Cardiovascular Cardiovascular: Dyspnea, Dyspnea on Exertion - Respiratory Respiratory: Dyspnea, Dyspnea on Exertion - Gastrointestinal Gastrointestinal: absent: As Per HPI, Abdominal Pain, Belching, Bloating, Change in Bowel Habits, Change in Stool Character, Coffee Ground Emesis, Constipation, Cramping, Diarrhea, Dyspepsia, Dysphagia, Early Satiety, Excessive Flatus, Fecal Incontinence, Heartburn, Hematemesis, Hematochezia, Loose Stools, Melena, Nausea, Odynophagia, Temesmus, Vomiting, Other - Genitourinary Genitourinary: absent: As Per HPI, Change in Urinary Stream, Difficulty Urinating, Dysuria, Flank Pain, Hematuria, Pyuria, Nocturia, Urinary Incontinence, Urinary Frequency, Urinary Hesitance, Urinary Urgency, Voiding Freq/Small Amts, Freq UTI, Hx Renal/Bladder Calculi, Hx /Renal Surgery, Bladder Distension, Other - Reproductive: Female Reproductive:Female: Post Menopausal - Menstruation Menstruation: Post Menopausal - Musculoskeletal Musculoskeletal: Muscle Weakness - Integumentary Integumentary: absent: As Per HPI, Acne, Alopecia, Bleeding Lesions, Change in Hair, Change in Nails, Change in Pigmentation, Changing Lesions, Dry Skin, Erythema, Furuncle, Hirsutism, Lesions, New Lesions, Non-Healing Lesions, Photosensitivity, Pruritus, Rash, Skin Pain, Skin Ulcer, Sores, Striae, Swelling , Unusual Bruising, Wounds, Jaundice, Other - Neurological Neurological: absent: As Per HPI, Abnormal Gait, Abnormal Hearing, Abnormal Movements, Abnormal Speech, Behavioral Changes, Burning Sensations, Confusion, Convulsions, Disequilibrium, Dizziness, Numbness, Focal Weakness, Frequent Falls , Headaches, Lack of Coordination, Loss of Vision, Memory Loss, Paresthesias, Radicular Pain, Restless Legs, Sensory Deficit, Syncope, Tingling, Tremor, Vertigo, Weakness, Other Visual Disturbances, Other - Psychiatric Psychiatric: Depression - Endocrine Endocrine: absent: As Per HPI, Change in Body Appearance, Change in Libido, Cold Intolorance, Deepening of Voice, Excessive Sweating, Fatigue, Flushing, Heat Intolorance, Increase in Ring/Shoe/Hat Size, Palpitations, Polydipsia, Polyphagia, Polyuria, Other - Hematologic/Lymphatic Hematologic: absent: As Per HPI, Easy Bleeding, Easy Bruising, Lymphadenopathy, Other Past Patient History - Infectious Disease Hx of Infectious Diseases: None - Past Medical History & Family History Past Medical History?: Yes - Past Social History Smoking Status: Never Smoked - CARDIAC Hx Hypertension: Yes - PULMONARY Hx Bronchitis: Yes - NEUROLOGICAL Hx Neurological Disorder: No - HEENT Other/Comment: pt wears glasses - RENAL Hx Chronic Kidney Disease: No - ENDOCRINE/METABOLIC Hx Hypothyroidism: Yes - HEMATOLOGICAL/ONCOLOGICAL Hx Human Immunodeficiency Virus (HIV): No - INTEGUMENTARY Hx Dermatological Problems: No - MUSCULOSKELETAL/RHEUMATOLOGICAL Hx Musculoskeletal Disorders: Yes Hx Falls: Yes - GASTROINTESTINAL Hx Gall Bladder Disease: Yes (cholecystectomy) - GENITOURINARY/GYNECOLOGICAL Hx Genitourinary Disorders: No - PSYCHIATRIC Hx Depression: Yes Hx Substance Use: No - SURGICAL HISTORY Hx Cholecystectomy: Yes Hx Coronary Stent: Yes - ANESTHESIA Hx Anesthesia: Yes Hx Anesthesia Reactions: No Meds Allergies/Adverse Reactions: Allergies Allergy/AdvReac Type Severity Reaction Status Date / Time Penicillins Allergy SWELLING Verified 12/29/17 22:35 - Medications Medications: Current Medications Acetaminophen (Tylenol 325mg Tab) 650 mg PO Q6 PRN PRN Reason: Fever >100.4 F Last Admin: 01/05/18 05:48 Dose: 650 mg Albuterol/Ipratropium (Duoneb 3 Mg/0.5 Mg (3 Ml) Ud) 3 ml INH RQ4 [facility] Last Admin: 01/05/18 11:04 Dose: 3 ml Amlodipine Besylate (Norvasc) 5 mg PO DAILY [facility] Last Admin: 01/05/18 10:21 Dose: 5 mg Enoxaparin Sodium (Lovenox) 40 mg SC DAILY [facility] Last Admin: 01/05/18 10:21 Dose: 40 mg Escitalopram Oxalate (Lexapro) 5 mg PO DAILY [facility] Last Admin: 01/05/18 10:21 Dose: 5 mg Insulin Glargine (Lantus) 35 unit SC HS [facility] Last Admin: 01/04/18 22:12 Dose: 35 unit Insulin Human Regular (Novolin R) 0 unit SC ACHS [facility] PRN Reason: Protocol Last Admin: 01/05/18 08:27 Dose: 6 unit Insulin Human Regular (Novolin R) 15 unit SC AC [facility] Last Admin: 01/05/18 08:28 Dose: 15 unit Levothyroxine Sodium (Synthroid) 50 mcg PO DAILY@0630 [facility] Last Admin: 01/05/18 05:49 Dose: 50 mcg Methylprednisolone (Solu-Medrol) 20 mg IV Q12 [facility] Last Admin: 01/05/18 10:21 Dose: 20 mg Pantoprazole Sodium (Protonix Ec Tab) 40 mg PO DAILY [facility] Last Admin: 01/05/18 10:21 Dose: 40 mg Rosuvastatin Calcium (Crestor) 2.5 mg PO HS [facility] Last Admin: 01/04/18 21:23 Dose: 2.5 mg Fluticasone/Salmeterol (Advair Diskus 250/50) 1 puff INH RQ12 [facility] Last Admin: 01/05/18 11:05 Dose: 1 puff Physical Exam - Constitutional Appears: Chronically Ill - Head Exam Head Exam: ATRAUMATIC, NORMAL INSPECTION, NORMOCEPHALIC - Eye Exam Eye Exam: EOMI, Normal appearance, PERRL Pupil Exam: NORMAL ACCOMODATION, PERRL - ENT Exam ENT Exam: Mucous Membranes Dry - Respiratory Exam Respiratory Exam: Decreased Breath Sounds, Prolonged Expiratory Phase - Cardiovascular Exam Cardiovascular Exam: Tachycardia - GI/Abdominal Exam GI & Abdominal Exam: Normal Bowel Sounds, Soft - Rectal Exam Rectal Exam: Deferred - Extremities Exam Extremities exam: Positive for: normal inspection - Back Exam Back exam: NORMAL INSPECTION - Neurological Exam Neurological exam: Alert, Oriented x3 - Psychiatric Exam Psychiatric exam: Depressed - Skin Skin Exam: Intact, Normal Color, Warm Results - Vital Signs Recent Vital Signs: Last Vital Signs Temp 97.7 F 01/05/18 07:04 Pulse 90 01/05/18 10:21 Resp 20 01/05/18 07:04 BP 116/69 01/05/18 10:21 Pulse Ox 99 01/05/18 07:04 - Labs Result Diagrams: 01/05/18 06:51 01/05/18 06:51 Labs: Laboratory Results - last 24 hr 01/04/18 01/04/18 01/04/18 12:19 16:56 21:37 WBC RBC Hgb Hct MCV MCH MCHC RDW Plt Count MPV Neut % (Auto) Lymph % (Auto) [place] % (Auto) Eos % (Auto) Baso % (Auto) Neut # (Auto) Lymph # (Auto) [place] # (Auto) Eos # (Auto) Baso # (Auto) Neutrophils % (Manual) Band Neutrophils % Lymphocytes % (Manual) Monocytes % (Manual) Platelet Estimate Sodium Potassium Chloride Carbon Dioxide Anion Gap BUN Creatinine Est GFR ( Amer) Est GFR (Non-Af Amer) POC Glucose (mg/dL) 159 H 117 H 169 H Random Glucose Calcium Phosphorus Magnesium Total Bilirubin AST ALT Alkaline Phosphatase Total Protein Albumin Globulin Albumin/Globulin Ratio 01/05/18 01/05/18 01/05/18 06:51 06:51 07:01 WBC 12.9 H RBC 4.05 Hgb 12.8 Hct 37.4 MCV 92.5 MCH 31.6 H MCHC 34.1 RDW 15.0 H Plt Count 192 MPV 7.7 Neut % (Auto) 90.7 H Lymph % (Auto) 6.2 L [place] % (Auto) 3.0 Eos % (Auto) 0.0 Baso % (Auto) 0.1 Neut # (Auto) 11.7 H Lymph # (Auto) 0.8 L [place] # (Auto) 0.4 Eos # (Auto) 0.0 Baso # (Auto) 0.0 Neutrophils % (Manual) 87 H Band Neutrophils % 1 Lymphocytes % (Manual) 7 L Monocytes % (Manual) 5 Platelet Estimate Normal Sodium 133 Potassium 4.3 Chloride 93 L Carbon Dioxide 29 Anion Gap 15 BUN 29 H Creatinine 0.5 L Est GFR ( Amer) > 60 Est GFR (Non-Af Amer) > 60 POC Glucose (mg/dL) 255 H Random Glucose 261 H Calcium 8.6 Phosphorus 4.3 Magnesium 1.8 Total Bilirubin 0.3 AST 33 ALT 34 Alkaline Phosphatase 57 Total Protein 6.3 Albumin 3.2 L Globulin 3.1 Albumin/Globulin Ratio 1.0 01/05/18 11:31 WBC RBC Hgb Hct MCV MCH MCHC RDW Plt Count MPV Neut % (Auto) Lymph % (Auto) [place] % (Auto) Eos % (Auto) Baso % (Auto) Neut # (Auto) Lymph # (Auto) [place] # (Auto) Eos # (Auto) Baso # (Auto) Neutrophils % (Manual) Band Neutrophils % Lymphocytes % (Manual) Monocytes % (Manual) Platelet Estimate Sodium Potassium Chloride Carbon Dioxide Anion Gap BUN Creatinine Est GFR ( Amer) Est GFR (Non-Af Amer) POC Glucose (mg/dL) 73 Random Glucose Calcium Phosphorus Magnesium Total Bilirubin AST ALT Alkaline Phosphatase Total Protein Albumin Globulin Albumin/Globulin Ratio Assessment & Plan - Assessment and Plan (Free Text) Assessment: Palliative consult DNR/DNI, POLST on chart, PPS 30% I reviewed Medical records, all diagnostic studies, examined and interviewed patient in the bed. In Demand translation used. Patient is AAO X 3 , with shortness of breath. Patient is unable to speak in full sentences. Expirations are prolonged. Dry cough while talking. Face looks puffy. O2 via NC. O2Sat 99%. Patient complains of feeling weak and unable to ambulate long distances due to SOB. Denies abdominal pain, nausea vomiting. BP 116/69, HR 90, afebrile. Blood works with no significant abnormalities. I reviewed patient's clinical presentation relating symptoms to diagnosis of Pulmonary fibrosis. Patient stated being aware of it and understood. I clark my concerns regarding frequent episodes of SOB and impact on her quality of life. Patient reported being tired of " in and out" of the hospital. We discussed comfort care provided for symptoms control and to avid frequent admissions. Patient agreed. I further shared with patent the possibility of placing her at the institution which would accept her without health insurance, as I was told by Doctor Lezama. Patient very strongly refused it. The only lace she wanted to go was her home. I supported her, but again I had to remind her of lack of support at home as her granddaughter works all day and patient is at home alone. Patient insisted she would be fne at home as long as she gets Oxygen. Than I called patient's granddaughter and asked for the meeting. She agreed to come at 3 pm toda. This was shared with Doctor Christianson and Doctor Lezama. Impression * Pulmonary fibrosis with frequent exacerbation and shortness of breath * Weakness * Dry cough * Depression * Lack of family support Suggestions * Comfort care at home would be best level of care for this patient. That would allow patient to rest at own home, and avoid frequent hospital's visits * With 2 hr of Home Health Aid a day provided by Home hospice and needed O2 supply and other meds, patient should be able to remain at home * At family meeting today we will discuss other possibilities of providing more support at home; mu-ism, friends and neighbors. In that way patient will be able to remain at home. Will update on family meeting decisions.
--- NOTE | 2018-01-05 16:37 | CP.PCM.PN ---
<Torrie Lezama - Last Filed: 01/05/18 16:32> Subjective - Date & Time of Evaluation Date of Evaluation: 01/05/18 Time of Evaluation: 07:00 - Subjective Subjective: Medicine Progress Note: Patient seen and examined at bedside in the AM. Per nurse no acute events overnight. No acute distress. Patient denies chest pain, nausea, vomiting, fevers, headaches, dysuria, constipation, and diarrhea. In the after noon a family meeting was held with the granddaughter (Carmella), patient, Dr. Christianson, Palliative Care Nurse Laura Bowen and Pick Out Hand Yanique using agriculture specialist #[id number]. Discussed with family about 2 options of either hospice care or home services pending what patient will be approved for. Patient agreed to either or as it is best for what she needs for her health. Objective - Vital Signs/Intake and Output Vital Signs (last 24 hours): Temp Pulse Resp BP Pulse Ox 97.7 F 92 H 20 116/69 99 01/05/18 07:04 01/05/18 12:00 01/05/18 07:04 01/05/18 10:21 01/05/18 07:04 Intake and Output: 01/05/18 01/05/18 06:59 18:59 Intake Total 400 Balance 400 - Medications Medications: Current Medications Acetaminophen (Tylenol 325mg Tab) 650 mg PO Q6 PRN PRN Reason: Fever >100.4 F Last Admin: 01/05/18 05:48 Dose: 650 mg Albuterol/Ipratropium (Duoneb 3 Mg/0.5 Mg (3 Ml) Ud) 3 ml INH RQ4 [facility] Last Admin: 01/05/18 15:33 Dose: Not Given Amlodipine Besylate (Norvasc) 5 mg PO DAILY [facility] Last Admin: 01/05/18 10:21 Dose: 5 mg Enoxaparin Sodium (Lovenox) 40 mg SC DAILY [facility] Last Admin: 01/05/18 10:21 Dose: 40 mg Escitalopram Oxalate (Lexapro) 5 mg PO DAILY [facility] Last Admin: 01/05/18 10:21 Dose: 5 mg Insulin Glargine (Lantus) 35 unit SC HS [facility] Last Admin: 01/04/18 22:12 Dose: 35 unit Insulin Human Regular (Novolin R) 0 unit SC ACHS [facility] PRN Reason: Protocol Last Admin: 01/05/18 11:55 Dose: Not Given Insulin Human Regular (Novolin R) 15 unit SC AC [facility] Last Admin: 01/05/18 11:55 Dose: Not Given Levothyroxine Sodium (Synthroid) 50 mcg PO DAILY@0630 [facility] Last Admin: 01/05/18 05:49 Dose: 50 mcg Methylprednisolone (Solu-Medrol) 20 mg IV Q12 [facility] Last Admin: 01/05/18 10:21 Dose: 20 mg Pantoprazole Sodium (Protonix Ec Tab) 40 mg PO DAILY [facility] Last Admin: 01/05/18 10:21 Dose: 40 mg Rosuvastatin Calcium (Crestor) 2.5 mg PO HS [facility] Last Admin: 01/04/18 21:23 Dose: 2.5 mg Fluticasone/Salmeterol (Advair Diskus 250/50) 1 puff INH RQ12 [facility] Last Admin: 01/05/18 11:05 Dose: 1 puff - Labs Labs: 01/05/18 06:51 01/05/18 06:51 PT 10.7 SECONDS (9.7-12.2) 12/29/17 22:44 INR 1.0 12/29/17 22:44 APTT 21 SECONDS (21-34) 12/29/17 22:44 - Constitutional Appears: No Acute Distress, Chronically Ill - Head Exam Head Exam: ATRAUMATIC, NORMAL INSPECTION - Eye Exam Eye Exam: EOMI, Normal appearance - ENT Exam ENT Exam: Mucous Membranes Moist - Respiratory Exam Respiratory Exam: Accessory Muscle Use (scalene muscle use), Rales, NORMAL BREATHING PATTERN - Cardiovascular Exam Cardiovascular Exam: REGULAR RHYTHM, +S1, +S2 - GI/Abdominal Exam GI & Abdominal Exam: Soft, Normal Bowel Sounds. absent: Tenderness - Extremities Exam Extremities Exam: Normal Inspection - Neurological Exam Neurological Exam: Alert, Awake, Oriented x3 - Psychiatric Exam Psychiatric exam: Normal Affect - Skin Skin Exam: Normal Color Assessment and Plan - Assessment and Plan (Free Text) Assessment: Dyspnea - secondary to history of pulmonary fibrosis - BiPAP prn, O2 3L via [place] - Chest xray (12/29/17): potential interval limited airspace disease medial right base; no interval improvement in right-sided interstitial pattern which may be chronic as well as the left base. - Chest xray: No significant interval change in known diffuse interstitial pulmonary fibrosis, worse in the right lung. No active pulmonary disease - Duonebs Q4 derek - Solu-medrol changed it to 20mg IV q12h - Continue home medication: Advair diskus 1puff Q12h Fever - resolved - At admission, 100.9 - Chest xray: potential interval limited airspace disease medial right base; no interval improvement in right-sided interstitial pattern which may be chronic as well as the left base. - Blood and Urine culture negative - Medications: * Cipro 400 mg IV Q12h --> discontinued 01/02/18 * Vanco 1gm IV Q24h --> discontinued 01/02/18 * Tylenol prn History of Pulmonary fibrosis - Medications * Duonebs Q4 derek * Solu-medrol 20mg IV BI * Advair diskus 1puff Q12h - BiPAP prn, O2 via NC - Chest xray: potential interval limited airspace disease medial right base; no interval improvement in right-sided interstitial pattern which may be chronic as well as the left base. History of Hypothyroidism - Continue home medication: Synthroid 50 mcg PO daily - TSH/Free T4 from previous admission (12/11/17): 0.49/1.5 History of HTN - Continue home medication: Norvasc 5 mg PO daily History of Diabetes mellitus - Medications * Lantus 35u SC HS * Novolin 20units SC AC * ISS - Accuchecks - Hypoglycemia protocol - A1c (12/11/17): 10 History of Hhyperlipidemia - Continue Crestor 2.5mg PO HS - Lipid panel (12/11/17): Triglycerides 93, Cholesterol 241, LDL 160, HDL 59 Prophylaxis - Lovenox 40mg SC daily - SCDs - Protonix 40 mg PO daily - Heart healthy diet - PT eval and treat - recommendation: rollator - Hospice Care evaluation Disposition: Pending approval for hospice care. Case discussed with Dr. Meghan Lezama PGY-1 <Arben Christianson - Last Filed: 01/05/18 17:08> Objective - Vital Signs/Intake and Output Vital Signs (last 24 hours): Temp Pulse Resp BP Pulse Ox 98.2 F 85 20 139/79 97 01/05/18 15:58 01/05/18 15:58 01/05/18 15:58 01/05/18 15:58 01/05/18 15:58 Intake and Output: 01/05/18 01/05/18 06:59 18:59 Intake Total 400 Balance 400 - Medications Medications: Current Medications Acetaminophen (Tylenol 325mg Tab) 650 mg PO Q6 PRN PRN Reason: Fever >100.4 F Last Admin: 01/05/18 05:48 Dose: 650 mg Albuterol/Ipratropium (Duoneb 3 Mg/0.5 Mg (3 Ml) Ud) 3 ml INH RQ4 [facility] Last Admin: 01/05/18 15:33 Dose: Not Given Amlodipine Besylate (Norvasc) 5 mg PO DAILY [facility] Last Admin: 01/05/18 10:21 Dose: 5 mg Enoxaparin Sodium (Lovenox) 40 mg SC DAILY [facility] Last Admin: 01/05/18 10:21 Dose: 40 mg Escitalopram Oxalate (Lexapro) 5 mg PO DAILY [facility] Last Admin: 01/05/18 10:21 Dose: 5 mg Insulin Glargine (Lantus) 35 unit SC HS [facility] Last Admin: 01/04/18 22:12 Dose: 35 unit Insulin Human Regular (Novolin R) 0 unit SC ACHS [facility] PRN Reason: Protocol Last Admin: 01/05/18 11:55 Dose: Not Given Insulin Human Regular (Novolin R) 15 unit SC AC [facility] Last Admin: 01/05/18 11:55 Dose: Not Given Levothyroxine Sodium (Synthroid) 50 mcg PO DAILY@0630 [facility] Last Admin: 01/05/18 05:49 Dose: 50 mcg Methylprednisolone (Solu-Medrol) 20 mg IV Q12 [facility] Last Admin: 01/05/18 10:21 Dose: 20 mg Pantoprazole Sodium (Protonix Ec Tab) 40 mg PO DAILY [facility] Last Admin: 01/05/18 10:21 Dose: 40 mg Rosuvastatin Calcium (Crestor) 2.5 mg PO HS [facility] Last Admin: 01/04/18 21:23 Dose: 2.5 mg Fluticasone/Salmeterol (Advair Diskus 250/50) 1 puff INH RQ12 [facility] Last Admin: 01/05/18 11:05 Dose: 1 puff - Labs Labs: 01/05/18 06:51 01/05/18 06:51 PT 10.7 SECONDS (9.7-12.2) 12/29/17 22:44 INR 1.0 12/29/17 22:44 APTT 21 SECONDS (21-34) 12/29/17 22:44 Attending/Attestation - Attestation I have personally seen and examined this patient.: Yes I have fully participated in the care of the patient.: Yes I have reviewed all pertinent clinical information, including history, physical exam and plan: Yes Notes (Text): 01/05/18 17:03 Medical attending: Patient was seen and examined by me. Agree with the above note by the resident The patient today was not in any distress at rest. However she is mostly bed bound bedside using the commode at bedside Later at 3:00 PM today there was a meeting with the patient, patient grand- daughter, palliative care staff and clinical case manager and myself and we used a agriculture specialist to explain. We explained that unfortunately over time the pulmonary fibrosis would be worsening despite what we do here. My concern is - if she goes home she will last only one or two days before something happens and the results could be very bad. Patient intially did not want hospice care. After some discussion with agriculture specialist, the patient and family understand how dire situation is. We explained to them that we will try to see what [facility] hospice service was available and will let them know in case they decide to go down the hospice route. Arben Christianson
[2018-01-05] MEDS: Rosuvastatin Calcium 2.5 mg Tab PO SCH (22:47)
[2018-01-05] MEDS: (Lantus) Insulin Glargine, Recombinant SC SCH (22:54)
--- NOTE | 2018-01-06 00:15 | CP.PCM.PN ---
<Alexandru Ruffina - Last Filed: 01/06/18 00:13> Subjective - Date & Time of Evaluation Date of Evaluation: 01/06/18 Time of Evaluation: 00:13 - Subjective Subjective: Medicine Note for Hospitalist Service - Dr. Meghan Theodore Patient was seen and examined at bedside. Patient resting comfortably in bed. No acute complaints. Denied fever, chills, headache, chest pain, SOB, abdominal pain, n/v/d/c, or urinary symptoms. Objective - Vital Signs/Intake and Output Vital Signs (last 24 hours): Temp Pulse Resp BP Pulse Ox 98.2 F 89 20 139/79 97 01/05/18 15:58 01/05/18 17:30 01/05/18 15:58 01/05/18 15:58 01/05/18 15:58 Intake and Output: 01/05/18 01/06/18 18:59 06:59 Intake Total 400 Balance 400 - Medications Medications: Current Medications Acetaminophen (Tylenol 325mg Tab) 650 mg PO Q6 PRN PRN Reason: Fever >100.4 F Last Admin: 01/05/18 20:00 Dose: 650 mg Albuterol/Ipratropium (Duoneb 3 Mg/0.5 Mg (3 Ml) Ud) 3 ml INH RQ4 [facility] Last Admin: 01/05/18 19:28 Dose: 3 ml Amlodipine Besylate (Norvasc) 5 mg PO DAILY [facility] Last Admin: 01/05/18 10:21 Dose: 5 mg Enoxaparin Sodium (Lovenox) 40 mg SC DAILY [facility] Last Admin: 01/05/18 10:21 Dose: 40 mg Escitalopram Oxalate (Lexapro) 5 mg PO DAILY [facility] Last Admin: 01/05/18 10:21 Dose: 5 mg Insulin Glargine (Lantus) 35 unit SC HS [facility] Last Admin: 01/05/18 22:54 Dose: 35 unit Insulin Human Regular (Novolin R) 0 unit SC ACHS [facility] PRN Reason: Protocol Last Admin: 01/05/18 21:59 Dose: Not Given Insulin Human Regular (Novolin R) 15 unit SC AC [facility] Last Admin: 01/05/18 16:30 Dose: Not Given Levothyroxine Sodium (Synthroid) 50 mcg PO DAILY@0630 [facility] Last Admin: 01/05/18 05:49 Dose: 50 mcg Methylprednisolone (Solu-Medrol) 20 mg IV Q12 [facility] Last Admin: 01/05/18 22:48 Dose: 20 mg Pantoprazole Sodium (Protonix Ec Tab) 40 mg PO DAILY [facility] Last Admin: 01/05/18 10:21 Dose: 40 mg Rosuvastatin Calcium (Crestor) 2.5 mg PO HS [facility] Last Admin: 01/05/18 22:47 Dose: 2.5 mg Fluticasone/Salmeterol (Advair Diskus 250/50) 1 puff INH RQ12 [facility] Last Admin: 01/05/18 19:29 Dose: 1 puff - Labs Labs: 01/05/18 06:51 01/05/18 06:51 PT 10.7 SECONDS (9.7-12.2) 12/29/17 22:44 INR 1.0 12/29/17 22:44 APTT 21 SECONDS (21-34) 12/29/17 22:44 - Additional Findings Additional findings: - Constitutional Appears: No Acute Distress, Chronically Ill - Head Exam Head Exam: ATRAUMATIC, NORMAL INSPECTION - Eye Exam Eye Exam: EOMI, Normal appearance - ENT Exam ENT Exam: Mucous Membranes Moist - Respiratory Exam Respiratory Exam: Accessory Muscle Use (scalene muscle use), Rales, NORMAL BREATHING PATTERN - Cardiovascular Exam Cardiovascular Exam: REGULAR RHYTHM, +S1, +S2 - GI/Abdominal Exam GI & Abdominal Exam: Soft, Normal Bowel Sounds. absent: Tenderness - Extremities Exam Extremities Exam: Normal Inspection - Neurological Exam Neurological Exam: Alert, Awake, Oriented x3 - Psychiatric Exam Psychiatric exam: Normal Affect - Skin Skin Exam: Normal Color Assessment and Plan - Assessment and Plan (Free Text) Plan: Dyspnea - secondary to history of pulmonary fibrosis - BiPAP prn, O2 3L via [place] - Chest xray (12/29/17): potential interval limited airspace disease medial right base; no interval improvement in right-sided interstitial pattern which may be chronic as well as the left base. - Chest xray: No significant interval change in known diffuse interstitial pulmonary fibrosis, worse in the right lung. No active pulmonary disease - Duonebs Q4 formerly [facility] - Solu-medrol changed it to 20mg IV q12h - Continue home medication: Advair diskus 1puff Q12h Fever - resolved - At admission, 100.9 - Chest xray: potential interval limited airspace disease medial right base; no interval improvement in right-sided interstitial pattern which may be chronic as well as the left base. - Blood and Urine culture negative - Medications: * Cipro 400 mg IV Q12h --> discontinued 01/02/18 * Vanco 1gm IV Q24h --> discontinued 01/02/18 * Tylenol prn History of Pulmonary fibrosis - Medications * Duonebs Q4 derek * Solu-medrol 20mg IV BI * Advair diskus 1puff Q12h - BiPAP prn, O2 via NC - Chest xray: potential interval limited airspace disease medial right base; no interval improvement in right-sided interstitial pattern which may be chronic as well as the left base. History of Hypothyroidism - Continue home medication: Synthroid 50 mcg PO daily - TSH/Free T4 from previous admission (12/11/17): 0.49/1.5 History of HTN - Continue home medication: Norvasc 5 mg PO daily History of Diabetes mellitus - Medications * Lantus 35u SC HS * Novolin 20units SC AC * ISS - Accuchecks - Hypoglycemia protocol - A1c (12/11/17): 10 History of Hhyperlipidemia - Continue Crestor 2.5mg PO HS - Lipid panel (12/11/17): Triglycerides 93, Cholesterol 241, LDL 160, HDL 59 Prophylaxis - Lovenox 40mg SC daily - SCDs - Protonix 40 mg PO daily - Heart healthy diet - PT eval and treat - recommendation: rollator - Hospice Care evaluation Disposition: Pending approval for hospice care. Yuliya Juarez Dr., Dr., DO, PGY-1 <Arben Chrisitanson H - Last Filed: 01/06/18 08:22> Objective - Vital Signs/Intake and Output Vital Signs (last 24 hours): Temp Pulse Resp BP Pulse Ox 98 F 76 20 117/75 97 01/05/18 23:35 01/06/18 04:00 01/05/18 23:35 01/05/18 23:35 01/05/18 23:35 - Medications Medications: Current Medications Acetaminophen (Tylenol 325mg Tab) 650 mg PO Q6 PRN PRN Reason: Fever >100.4 F Last Admin: 01/05/18 20:00 Dose: 650 mg Albuterol/Ipratropium (Duoneb 3 Mg/0.5 Mg (3 Ml) Ud) 3 ml INH RQ4 [facility] Last Admin: 01/06/18 08:00 Dose: 3 ml Amlodipine Besylate (Norvasc) 5 mg PO DAILY [facility] Last Admin: 01/05/18 10:21 Dose: 5 mg Enoxaparin Sodium (Lovenox) 40 mg SC DAILY [facility] Last Admin: 01/05/18 10:21 Dose: 40 mg Escitalopram Oxalate (Lexapro) 5 mg PO DAILY [facility] Last Admin: 01/05/18 10:21 Dose: 5 mg Insulin Glargine (Lantus) 35 unit SC HS [facility] Last Admin: 01/05/18 22:54 Dose: 35 unit Insulin Human Regular (Novolin R) 0 unit SC ACHS [facility] PRN Reason: Protocol Last Admin: 01/06/18 07:56 Dose: 4 unit Insulin Human Regular (Novolin R) 15 unit SC AC [facility] Last Admin: 01/06/18 07:57 Dose: 15 unit Levothyroxine Sodium (Synthroid) 50 mcg PO DAILY@0630 [facility] Last Admin: 01/06/18 06:18 Dose: 50 mcg Methylprednisolone (Solu-Medrol) 20 mg IV Q12 [facility] Last Admin: 01/05/18 22:48 Dose: 20 mg Pantoprazole Sodium (Protonix Ec Tab) 40 mg PO DAILY [facility] Last Admin: 01/05/18 10:21 Dose: 40 mg Rosuvastatin Calcium (Crestor) 2.5 mg PO HS [facility] Last Admin: 01/05/18 22:47 Dose: 2.5 mg Fluticasone/Salmeterol (Advair Diskus 250/50) 1 puff INH RQ12 [facility] Last Admin: 01/06/18 08:00 Dose: 1 puff - Labs Labs: 01/05/18 06:51 01/05/18 06:51 PT 10.7 SECONDS (9.7-12.2) 12/29/17 22:44 INR 1.0 12/29/17 22:44 APTT 21 SECONDS (21-34) 12/29/17 22:44 Attending/Attestation - Attestation I have personally seen and examined this patient.: Yes I have fully participated in the care of the patient.: Yes I have reviewed all pertinent clinical information, including history, physical exam and plan: Yes Notes (Text): Medical attending: Patient was seen and examined by me. Agree with the above note by the resident She did not have any acute events overnight. Yesterday we had a family meeting to explain to them that they need to seriously consider whatever hospice options are available. If she were to go home, she probably would only last one or two days before something would happen Arben Christianson
[2018-01-06] MEDS: Albuterol-Ipratrop 3 mg / 0.5 (3 ml) UD INH SCH ×6 (00:36→23:48)
[2018-01-06] MEDS: Levothyroxine 50 MCG TAB PO SCH (06:18)
[2018-01-06] MEDS: (Novolin R) Insulin Human Regular 100 units/ml vial SC SCH ×7 (07:56→21:25)
[2018-01-06] MEDS: Fluticasone-Salmeterol 250-50mcg Diskus INH SCH (08:00)
[2018-01-06] MEDS: MethylPREDNISolone 40 mg Vial IV SCH ×2 (10:46→22:07)
[2018-01-06] MEDS: Pantoprazole 40 mg EC Tab PO SCH (10:46)
[2018-01-06] MEDS: Enoxaparin 40 mg Syringe SC SCH (10:46)
[2018-01-06] MEDS: (Lantus) Insulin Glargine, Recombinant SC SCH (22:06)
[2018-01-06] MEDS: Rosuvastatin Calcium 2.5 mg Tab PO SCH (22:06)
[2018-01-07] MEDS: Albuterol-Ipratrop 3 mg / 0.5 (3 ml) UD INH SCH ×5 (03:17→20:38)
[2018-01-07] MEDS: Levothyroxine 50 MCG TAB PO SCH (06:20)
--- NOTE | 2018-01-07 06:38 | CP.PCM.PN ---
<Dez Arndt - Last Filed: 01/07/18 06:35> Subjective - Date & Time of Evaluation Date of Evaluation: 01/07/18 Time of Evaluation: 06:35 - Subjective Subjective: Patient seen and examined at bedside. No new complaints at this time. No fevers or chills. No nausea or vomiting. Requiring supplemental O2 Objective - Vital Signs/Intake and Output Vital Signs (last 24 hours): Temp Pulse Resp BP Pulse Ox 97.7 F 88 20 124/77 96 01/07/18 00:05 01/07/18 00:05 01/07/18 00:05 01/07/18 00:05 01/07/18 00:05 Intake and Output: 01/06/18 01/07/18 18:59 06:59 Intake Total 600 Balance 600 - Medications Medications: Current Medications Acetaminophen (Tylenol 325mg Tab) 650 mg PO Q6 PRN PRN Reason: Fever >100.4 F Last Admin: 01/05/18 20:00 Dose: 650 mg Albuterol/Ipratropium (Duoneb 3 Mg/0.5 Mg (3 Ml) Ud) 3 ml INH RQ4 [facility] Last Admin: 01/07/18 03:17 Dose: Not Given Amlodipine Besylate (Norvasc) 5 mg PO DAILY [facility] Last Admin: 01/06/18 10:46 Dose: 5 mg Enoxaparin Sodium (Lovenox) 40 mg SC DAILY [facility] Last Admin: 01/06/18 10:46 Dose: 40 mg Escitalopram Oxalate (Lexapro) 5 mg PO DAILY [facility] Last Admin: 01/06/18 10:46 Dose: 5 mg Insulin Glargine (Lantus) 35 unit SC HS [facility] Last Admin: 01/06/18 22:06 Dose: 35 unit Insulin Human Regular (Novolin R) 0 unit SC ACHS [facility] PRN Reason: Protocol Last Admin: 01/06/18 21:25 Dose: Not Given Insulin Human Regular (Novolin R) 15 unit SC AC [facility] Last Admin: 01/06/18 18:09 Dose: Not Given Levothyroxine Sodium (Synthroid) 50 mcg PO DAILY@0630 [facility] Last Admin: 01/07/18 06:20 Dose: 50 mcg Methylprednisolone (Solu-Medrol) 20 mg IV Q12 [facility] Last Admin: 01/06/18 22:07 Dose: 20 mg Pantoprazole Sodium (Protonix Ec Tab) 40 mg PO DAILY [facility] Last Admin: 01/06/18 10:46 Dose: 40 mg Rosuvastatin Calcium (Crestor) 2.5 mg PO HS [facility] Last Admin: 01/06/18 22:06 Dose: 2.5 mg Fluticasone/Salmeterol (Advair Diskus 250/50) 1 puff INH RQ12 [facility] Last Admin: 01/06/18 08:00 Dose: 1 puff - Labs Labs: 01/05/18 06:51 01/05/18 06:51 PT 10.7 SECONDS (9.7-12.2) 12/29/17 22:44 INR 1.0 12/29/17 22:44 APTT 21 SECONDS (21-34) 12/29/17 22:44 - Additional Findings Additional findings: - Constitutional Appears: No Acute Distress, Chronically Ill - Head Exam Head Exam: ATRAUMATIC, NORMAL INSPECTION - Eye Exam Eye Exam: EOMI, Normal appearance - ENT Exam ENT Exam: Mucous Membranes Moist - Respiratory Exam Respiratory Exam: Accessory Muscle Use (scalene muscle use), Rales, NORMAL BREATHING PATTERN - Cardiovascular Exam Cardiovascular Exam: REGULAR RHYTHM, +S1, +S2 - GI/Abdominal Exam GI & Abdominal Exam: Soft, Normal Bowel Sounds. absent: Tenderness - Extremities Exam Extremities Exam: Normal Inspection - Neurological Exam Neurological Exam: Alert, Awake, Oriented x3 - Psychiatric Exam Psychiatric exam: Normal Affect - Skin Skin Exam: Normal Color Assessment and Plan - Assessment and Plan (Free Text) Assessment: Dyspnea - secondary to history of pulmonary fibrosis - BiPAP prn, O2 3L via NC - Chest xray (12/29/17): potential interval limited airspace disease medial right base; no interval improvement in right-sided interstitial pattern which may be chronic as well as the left base. - Chest xray: No significant interval change in known diffuse interstitial pulmonary fibrosis, worse in the right lung. No active pulmonary disease - Duonebs Q4 [facility] - Solu-medrol changed it to 20mg IV q12h - Continue home medication: Advair diskus 1puff Q12h Fever - resolved - At admission, 100.9 - Chest xray: potential interval limited airspace disease medial right base; no interval improvement in right-sided interstitial pattern which may be chronic as well as the left base. - Blood and Urine culture negative - Medications: * Cipro 400 mg IV Q12h --> discontinued 01/02/18 * Vanco 1gm IV Q24h --> discontinued 01/02/18 * Tylenol prn History of Pulmonary fibrosis - Medications * Duonebs Q4 [facility] * Solu-medrol 20mg IV BI * Advair diskus 1puff Q12h - BiPAP prn, O2 via NC - Chest xray: potential interval limited airspace disease medial right base; no interval improvement in right-sided interstitial pattern which may be chronic as well as the left base. History of Hypothyroidism - Continue home medication: Synthroid 50 mcg PO daily - TSH/Free T4 from previous admission (12/11/17): 0.49/1.5 History of HTN - Continue home medication: Norvasc 5 mg PO daily History of Diabetes mellitus - Medications * Lantus 35u SC HS * Novolin 20units SC AC * ISS - Accuchecks - Hypoglycemia protocol - A1c (12/11/17): 10 History of Hyperlipidemia - Continue Crestor 2.5mg PO HS - Lipid panel (12/11/17): Triglycerides 93, Cholesterol 241, LDL 160, HDL 59 Prophylaxis - Lovenox 40mg SC daily - SCDs - Protonix 40 mg PO daily - Heart healthy diet - PT eval and treat - recommendation: rollator - Hospice Care evaluation Disposition: Pending approval for hospice care. <Arben Christianson - Last Filed: 01/07/18 08:35> Objective - Vital Signs/Intake and Output Vital Signs (last 24 hours): Temp Pulse Resp BP Pulse Ox 97.7 F 88 20 124/77 96 01/07/18 00:05 01/07/18 00:05 01/07/18 00:05 01/07/18 00:05 01/07/18 00:05 Intake and Output: 01/07/18 01/07/18 06:59 18:59 Intake Total 120 Balance 120 - Medications Medications: Current Medications Acetaminophen (Tylenol 325mg Tab) 650 mg PO Q6 PRN PRN Reason: Fever >100.4 F Last Admin: 01/05/18 20:00 Dose: 650 mg Albuterol/Ipratropium (Duoneb 3 Mg/0.5 Mg (3 Ml) Ud) 3 ml INH RQ4 [facility] Last Admin: 01/07/18 07:57 Dose: 3 ml Amlodipine Besylate (Norvasc) 5 mg PO DAILY [facility] Last Admin: 01/06/18 10:46 Dose: 5 mg Enoxaparin Sodium (Lovenox) 40 mg SC DAILY [facility] Last Admin: 01/06/18 10:46 Dose: 40 mg Escitalopram Oxalate (Lexapro) 5 mg PO DAILY [facility] Last Admin: 01/06/18 10:46 Dose: 5 mg Insulin Glargine (Lantus) 35 unit SC HS [facility] Last Admin: 01/06/18 22:06 Dose: 35 unit Insulin Human Regular (Novolin R) 0 unit SC ACHS [facility] PRN Reason: Protocol Last Admin: 01/07/18 07:50 Dose: 6 unit Insulin Human Regular (Novolin R) 15 unit SC AC [facility] Last Admin: 01/07/18 07:51 Dose: 15 unit Levothyroxine Sodium (Synthroid) 50 mcg PO DAILY@0630 [facility] Last Admin: 01/07/18 06:20 Dose: 50 mcg Methylprednisolone (Solu-Medrol) 20 mg IV Q12 [facility] Last Admin: 01/06/18 22:07 Dose: 20 mg Pantoprazole Sodium (Protonix Ec Tab) 40 mg PO DAILY [facility] Last Admin: 01/06/18 10:46 Dose: 40 mg Rosuvastatin Calcium (Crestor) 2.5 mg PO HS [facility] Last Admin: 01/06/18 22:06 Dose: 2.5 mg Fluticasone/Salmeterol (Advair Diskus 250/50) 1 puff INH RQ12 [facility] Last Admin: 01/07/18 07:57 Dose: 1 puff - Labs Labs: 01/05/18 06:51 01/05/18 06:51 PT 10.7 SECONDS (9.7-12.2) 12/29/17 22:44 INR 1.0 12/29/17 22:44 APTT 21 SECONDS (21-34) 12/29/17 22:44 Attending/Attestation - Attestation I have personally seen and examined this patient.: Yes I have fully participated in the care of the patient.: Yes I have reviewed all pertinent clinical information, including history, physical exam and plan: Yes Notes (Text): 01/07/18 08:32 Medical attending: Patient was seen and examined by me. Agree with the above note by the resident The patient was not in distress or shortness of breath when I saw her. She was able to speak in full sentences. I asked if her breathing was ok overnight and she said yes. She did report + coughing. Otherwise no events overnight. As mentioned previously we had a long discussion on Monday about [facility] and that they needed to start considering this. Please note: family did not agree to hospice but we explained to them very carefully that the case workers are looking into whatever potential [facility] options were availbe to them and that should they find something - then it would be in the patient's probably best interest to do that. In the mean time she remains on pulmicort and solumedrol. The IV solumedrol is very low dose. thank you Arben Christianson
[2018-01-07] MEDS: (Novolin R) Insulin Human Regular 100 units/ml vial SC SCH ×7 (07:50→21:58)
[2018-01-07] MEDS: Fluticasone-Salmeterol 250-50mcg Diskus INH SCH ×2 (07:57→20:38)
[2018-01-07] MEDS: Enoxaparin 40 mg Syringe SC SCH (09:30)
[2018-01-07] MEDS: MethylPREDNISolone 40 mg Vial IV SCH ×2 (09:30→22:08)
[2018-01-07] MEDS: Pantoprazole 40 mg EC Tab PO SCH (09:32)
[2018-01-07] MEDS: (Lantus) Insulin Glargine, Recombinant SC SCH (22:07)
[2018-01-07] MEDS: Rosuvastatin Calcium 2.5 mg Tab PO SCH (22:07)
[2018-01-08] MEDS: Albuterol-Ipratrop 3 mg / 0.5 (3 ml) UD INH SCH ×6 (01:55→20:01)
[2018-01-08] MEDS: Levothyroxine 50 MCG TAB PO SCH (05:37)
--- NOTE | 2018-01-08 07:11 | CP.PCM.PN ---
Objective - Vital Signs/Intake and Output Vital Signs (last 24 hours): Temp Pulse Resp BP Pulse Ox 97.9 F 86 20 146/75 97 01/07/18 23:35 01/07/18 23:35 01/07/18 23:35 01/07/18 23:35 01/07/18 23:35 Intake and Output: 01/08/18 01/08/18 06:59 18:59 Intake Total 300 Balance 300 - Medications Medications: Current Medications Acetaminophen (Tylenol 325mg Tab) 650 mg PO Q6 PRN PRN Reason: Fever >100.4 F Last Admin: 01/07/18 18:10 Dose: 650 mg Albuterol/Ipratropium (Duoneb 3 Mg/0.5 Mg (3 Ml) Ud) 3 ml INH RQ4 [facility] Last Admin: 01/08/18 05:37 Dose: Not Given Amlodipine Besylate (Norvasc) 5 mg PO DAILY [facility] Last Admin: 01/07/18 09:32 Dose: 5 mg Enoxaparin Sodium (Lovenox) 40 mg SC DAILY [facility] Last Admin: 01/07/18 09:30 Dose: 40 mg Escitalopram Oxalate (Lexapro) 5 mg PO DAILY [facility] Last Admin: 01/07/18 09:37 Dose: 5 mg Insulin Glargine (Lantus) 35 unit SC [facility] Last Admin: 01/07/18 22:07 Dose: 35 unit Insulin Human Regular (Novolin R) 0 unit SC ACHS [facility] PRN Reason: Protocol Last Admin: 01/07/18 21:58 Dose: Not Given Insulin Human Regular (Novolin R) 15 unit SC AC [facility] Last Admin: 01/07/18 16:30 Dose: Not Given Levothyroxine Sodium (Synthroid) 50 mcg PO DAILY@0630 [facility] Last Admin: 01/08/18 05:37 Dose: 50 mcg Methylprednisolone (Solu-Medrol) 20 mg IV Q12 [facility] Last Admin: 01/07/18 22:08 Dose: 20 mg Pantoprazole Sodium (Protonix Ec Tab) 40 mg PO DAILY [facility] Last Admin: 01/07/18 09:32 Dose: 40 mg Rosuvastatin Calcium (Crestor) 2.5 mg PO HS [facility] Last Admin: 01/07/18 22:07 Dose: 2.5 mg Fluticasone/Salmeterol (Advair Diskus 250/50) 1 puff INH RQ12 [facility] Last Admin: 01/07/18 20:38 Dose: 1 puff - Labs Labs: 01/05/18 06:51 01/05/18 06:51 PT 10.7 SECONDS (9.7-12.2) 12/29/17 22:44 INR 1.0 12/29/17 22:44 APTT 21 SECONDS (21-34) 12/29/17 22:44
[2018-01-08 07:26] LABS: BASO % 0.2 % (0.0-2.0); EOS % 0.1 % (0.0-4.0); HEMOGLOBIN 12.6 g/dL (11.0-16.0); LYMPH # 1.3 K/uL (1.0-4.3); LYMPH % 10.2 % (20.0-40.0); MEAN CELL VOLUME 93.1 fL (81.0-99.0); MEAN CORPUSCULAR HEMOGLOBIN 31.5 pg (27.0-31.0); MEAN CORPUSCULAR HGB CONC 33.8 g/dL (33.0-37.0); MEAN PLATELET VOLUME 7.4 fL (7.2-11.7); MONO # 0.4 K/uL (0.0-0.8); MONO % 3.4 % (0.0-10.0); NEUT # 10.6 K/uL (1.8-7.0); NEUT % 86.1 % (50.0-75.0); RBC 4.02 Mil/uL (3.80-5.20); RED CELL DISTRIBUTION WIDTH 15.1 % (11.5-14.5); WHITE BLOOD COUNT 12.3 K/uL (4.8-10.8)
[2018-01-08 07:41] LABS: ALB/GLOB RATIO 1.1 (1.0-2.1); ALBUMIN 3.4 g/dL (3.5-5.0); ALT/SGPT 27 U/L (9-52); AST/SGOT 21 U/L (14-36); BLOOD UREA NITROGEN 29 mg/dL (7-17); GFR AFRICAN-AMERICAN > 60; GFR NON-AFRICAN AMERICAN > 60
[2018-01-08] MEDS: Fluticasone-Salmeterol 250-50mcg Diskus INH SCH (07:54)
[2018-01-08] MEDS: (Novolin R) Insulin Human Regular 100 units/ml vial SC SCH ×7 (08:22→21:30)
[2018-01-08] MEDS: MethylPREDNISolone 40 mg Vial IV SCH ×2 (10:48→21:59)
[2018-01-08] MEDS: Enoxaparin 40 mg Syringe SC SCH (10:49)
[2018-01-08] MEDS: Pantoprazole 40 mg EC Tab PO SCH (10:49)
--- NOTE | 2018-01-08 14:40 | CP.PCM.DIS ---
<Torrie Lezama - Last Filed: 01/08/18 15:00> Provider - Provider Date of Admission: 12/29/17 23:19 Attending physician: Brad Ramos MD Time Spent in preparation of Discharge (in minutes): 40 Hospital Course - Lab Results Lab Results: Micro Results 12/29/17 23:30 Blood Blood Culture - Final NO GROWTH AFTER 5 DAYS 12/29/17 23:30 Blood Gram Stain - Final TEST NOT PERFORMED 12/29/17 23:00 Blood Blood Culture - Final NO GROWTH AFTER 5 DAYS 12/29/17 23:00 Blood Gram Stain - Final TEST NOT PERFORMED 12/30/17 00:09 Urine Urine Culture - Final No Growth (<1,000 CFU/ML) Most Recent Lab Values WBC 12.3 K/uL (4.8-10.8) H 01/08/18 07:16 RBC 4.02 Mil/uL (3.80-5.20) 01/08/18 07:16 Hgb 12.6 g/dL (11.0-16.0) 01/08/18 07:16 Hct 37.4 % (34.0-47.0) 01/08/18 07:16 MCV 93.1 fL (81.0-99.0) 01/08/18 07:16 MCH 31.5 pg (27.0-31.0) H 01/08/18 07:16 MCHC 33.8 g/dL (33.0-37.0) 01/08/18 07:16 RDW 15.1 % (11.5-14.5) H 01/08/18 07:16 Plt Count 169 K/uL (130-400) 01/08/18 07:16 MPV 7.4 fL (7.2-11.7) 01/08/18 07:16 Neut % (Auto) 86.1 % (50.0-75.0) H 01/08/18 07:16 Lymph % (Auto) 10.2 % (20.0-40.0) L 01/08/18 07:16 [place] % (Auto) 3.4 % (0.0-10.0) 01/08/18 07:16 Eos % (Auto) 0.1 % (0.0-4.0) 01/08/18 07:16 Baso % (Auto) 0.2 % (0.0-2.0) 01/08/18 07:16 Neut # (Auto) 10.6 K/uL (1.8-7.0) H 01/08/18 07:16 Lymph # (Auto) 1.3 K/uL (1.0-4.3) 01/08/18 07:16 [place] # (Auto) 0.4 K/uL (0.0-0.8) 01/08/18 07:16 Eos # (Auto) 0.0 K/uL (0.0-0.7) 01/08/18 07:16 Baso # (Auto) 0.0 K/uL (0.0-0.2) 01/08/18 07:16 Neutrophils % (Manual) 87 % (50-75) H 01/05/18 06:51 Band Neutrophils % 1 % (0-2) 01/05/18 06:51 Lymphocytes % (Manual) 7 % (20-40) L 01/05/18 06:51 Monocytes % (Manual) 5 % (0-10) 01/05/18 06:51 Myelocytes % 1 % (0-0) H 01/04/18 08:12 Toxic Granulation Present 01/01/18 07:20 Platelet Estimate Normal (NORMAL) 01/05/18 06:51 RBC Morphology Normal 01/03/18 07:41 Polychromasia Slight 01/01/18 07:20 Hypochromasia (manual) Slight 01/01/18 07:20 Poikilocytosis (manual Slight 01/01/18 07:20 Anisocytosis (manual) Slight 01/01/18 07:20 Tear Drop Cells Slight 01/01/18 07:20 PT 10.7 SECONDS (9.7-12.2) 12/29/17 22:44 INR 1.0 12/29/17 22:44 APTT 21 SECONDS (21-34) 12/29/17 22:44 pO2 47 mm/Hg (30-55) 12/29/17 23:00 VBG pH 7.46 (7.32-7.43) H 12/29/17 23:00 VBG pCO2 45 mmHg (40-60) 12/29/17 23:00 VBG HCO3 30.1 mmol/L 12/29/17 23:00 VBG Total CO2 33.4 mmol/L (22-28) H 12/29/17 23:00 VBG O2 Sat (Calc) 87.8 % (40-65) H 12/29/17 23:00 VBG Base Excess 7.1 mmol/L (0.0-2.0) H 12/29/17 23:00 VBG Potassium 4.0 mmol/L (3.6-5.2) 12/29/17 23:00 Sodium 132.0 mmol/l (132-148) 12/29/17 23:00 Chloride 97.0 mmol/L (98-107) L 12/29/17 23:00 Glucose 78 mg/dl (65-105) 12/29/17 23:00 Lactate 1.8 mmol/L (0.7-2.1) 12/29/17 23:00 FiO2 21.0 % 12/29/17 23:00 Sodium 136 mmol/L (132-148) 01/08/18 07:16 Potassium 4.5 mmol/L (3.6-5.2) 01/08/18 07:16 Chloride 93 mmol/L (98-107) L 01/08/18 07:16 Carbon Dioxide 31 mmol/L (22-30) H 01/08/18 07:16 Anion Gap 17 (10-20) 01/08/18 07:16 BUN 29 mg/dL (7-17) H 01/08/18 07:16 Creatinine 0.4 mg/dL (0.7-1.2) L 01/08/18 07:16 Est GFR ( Amer) > 60 01/08/18 07:16 Est GFR (Non-Af Amer) > 60 01/08/18 07:16 POC Glucose (mg/dL) 257 mg/dL (65-110) H 01/08/18 11:20 Random Glucose 162 mg/dL (65-105) H 01/08/18 07:16 Calcium 8.0 mg/dl (8.6-10.4) L 01/08/18 07:16 Phosphorus 3.8 mg/dL (2.5-4.5) 01/08/18 07:16 Magnesium 1.9 mg/dL (1.6-2.3) 06/04/18 07:16 Total Bilirubin 0.3 mg/dL (0.2-1.3) 01/08/18 07:16 AST 21 U/L (14-36) 01/08/18 07:16 ALT 27 U/L (9-52) 01/08/18 07:16 Alkaline Phosphatase 50 U/L (38-126) 01/08/18 07:16 Troponin I < 0.0120 ng/mL (0.00-0.120) 12/29/17 22:44 NT-Pro-B Natriuret Pep 270 pg/mL (0-900) 12/29/17 22:44 Total Protein 6.4 g/dL (6.3-8.3) 01/08/18 07:16 Albumin 3.4 g/dL (3.5-5.0) L 01/08/18 07:16 Globulin 3.0 gm/dL (2.2-3.9) 01/08/18 07:16 Albumin/Globulin Ratio 1.1 (1.0-2.1) 01/08/18 07:16 Venous Blood Potassium 4.0 mmol/L (3.6-5.2) 12/29/17 23:00 Urine Color Yellow (YELLOW) 12/29/17 23:45 Urine Clarity Clear (Clear) 12/29/17 23:45 Urine pH 7.0 (5.0-8.0) 12/29/17 23:45 Ur Specific [place] 1.017 (1.003-1.030) 12/29/17 23:45 Urine Protein Negative mg/dL (NEGATIVE) 12/29/17 23:45 Urine Glucose (UA) Normal mg/dL (Normal) 12/29/17 23:45 Urine Ketones Negative mg/dL (NEGATIVE) 12/29/17 23:45 Urine Blood Negative (NEGATIVE) 12/29/17 23:45 Urine Nitrate Negative (NEGATIVE) 12/29/17 23:45 Urine Bilirubin Negative (NEGATIVE) 12/29/17 23:45 Urine Urobilinogen 4.0 mg/dL (0.2-1.0) H 12/29/17 23:45 Ur Leukocyte Esterase Neg Js/uL (Negative) 12/29/17 23:45 Urine WBC (Auto) < 1 /hpf (0-5) 12/29/17 23:45 Urine RBC (Auto) < 1 /hpf (0-3) 12/29/17 23:45 - Hospital Course Hospital Course: Patient is a 77 year old female with past medical history of pulmonary fibrosis, hypertension, diabetes mellitus, hypothyroidism, and lymphoma ( previously treated with chemotherapy), who presents with complaints of shortness of breath and a nonproductive cough. The patient was recently hospitalized with the same complaints and discharged yesterday. She states that this morning her shortness of breath increased, which is why she returned to the hospital. She states she is compliant with her medications and uses home oxygen (3L). The patient also complains of chills, headache, weakness, and sore throat from coughing. She currently denies chest pain, abdominal pain, nausea, vomiting, fevers, dysuria, diarrhea, and constipation. PMD: Denies Allergies: PCN (anaphylaxis) PMHX: Pulmonary Fibrosis, Hypertension, Diabetes, Hypothyroidism. History of chemotherapy approximately 10 years ago for Lymphoma. PSHX: Cholecystectomy, Stomach Reduction Surgery Family: Father- [place]; Brother has lung problems and is also on home oxygen Social: Denies tobacco, alcohol, or illicit drug use. Meds: Prednisone taper (from last admission), Amlodipine 5mg, Advair Diskus 250/ 50 1 puff inh BID, Glulisine 14 units SC before each meal, Synthroid 50mcg, Protonix 40mg Daily, Crestor 2.5 mg HS Hospital Course: Patient was admitted for shortness of breath secondary to pulmonary fibrosis. Patient's home medications were restarted and patient was placed on Solu-medrol 40mg q12h then decreased to 20mg q12h. During this hospitalization physical therapy also worked with the patient and recommended a rolling seated walker. Hospice evaluation was also placed. Images: - Chest xray (12/29/17): potential interval limited airspace disease medial right base; no interval improvement in right-sided interstitial pattern which may be chronic as well as the left base. - Chest xray: No significant interval change in known diffuse interstitial pulmonary fibrosis, worse in the right lung. No active pulmonary disease Patient is stable to go home via ambulance. Patient to be interviewed at home with granddaughter by home hospice. Continuar medicaciones. 1.) Lexapro 5mg lolis tableta por lou. 2.) Novolog 18 units antes de las comidas 3.) Lantus 20 units antes de la hora de dormir 4.) Prednisone taper kenyatta se indica 5.) Amlodipine 5mg lolis tableta por lou 6.) Advair Diskus 250/50 1 puff inh BID 7.) Synthroid 50mcg lolis tableta antes del desayuno This is a summary of the patient's hospitalization, please review EMR for further details. Discharge Exam - Head Exam Head Exam: ATRAUMATIC, NORMAL INSPECTION - Eye Exam Eye Exam: EOMI, Normal appearance - ENT Exam ENT Exam: Mucous Membranes Moist - Respiratory Exam Respiratory Exam: Accessory Muscle Use (scalene muscle use ), Rales (bilateral lower lobes) - Cardiovascular Exam Cardiovascular Exam: REGULAR RHYTHM, +S1, +S2 - GI/Abdominal Exam GI & Abdominal Exam: Normal Bowel Sounds, Soft. absent: Tenderness - Extremities Exam Extremities exam: normal inspection - Neurological Exam Neurological exam: Alert, Oriented x3 - Psychiatric Exam Psychiatric exam: Normal Affect, Normal Mood - Skin Skin Exam: Normal Color Discharge Plan - Follow Up Plan Condition: FAIR Disposition: HOME/ ROUTINE Instructions: High Blood Pressure (DC), Diabetes Type 2 (DC), Fever, Adult (DC) , Interstitial Lung Disease Additional Instructions: Patient is stable to go home via ambulance. Patient to be interviewed at home with granddaughter by home hospice. Continuar medicaciones. 1.) Lexapro 5mg lolis tableta por lou. 2.) Novolog 18 units antes de las comidas 3.) Lantus 20 units antes de la hora de dormir 4.) Prednisone taper kenyatta se indica 5.) Amlodipine 5mg lolis tableta por lou 6.) Advair Diskus 250/50 1 puff inh BID 7.) Synthroid 50mcg lolis tableta antes del desayuno <Brad Ramos - Last Filed: 01/09/18 07:04> Provider - Provider Date of Admission: 12/29/17 23:19 Attending physician: Brad Ramos MD Hospital Course - Lab Results Lab Results: Micro Results 12/29/17 23:30 Blood Blood Culture - Final NO GROWTH AFTER 5 DAYS 12/29/17 23:30 Blood Gram Stain - Final TEST NOT PERFORMED 12/29/17 23:00 Blood Blood Culture - Final NO GROWTH AFTER 5 DAYS 12/29/17 23:00 Blood Gram Stain - Final TEST NOT PERFORMED 12/30/17 00:09 Urine Urine Culture - Final No Growth (<1,000 CFU/ML) Most Recent Lab Values WBC 12.3 K/uL (4.8-10.8) H 01/08/18 07:16 RBC 4.02 Mil/uL (3.80-5.20) 01/08/18 07:16 Hgb 12.6 g/dL (11.0-16.0) 01/08/18 07:16 Hct 37.4 % (34.0-47.0) 01/08/18 07:16 MCV 93.1 fL (81.0-99.0) 01/08/18 07:16 MCH 31.5 pg (27.0-31.0) H 01/08/18 07:16 MCHC 33.8 g/dL (33.0-37.0) 01/08/18 07:16 RDW 15.1 % (11.5-14.5) H 01/08/18 07:16 Plt Count 169 K/uL (130-400) 01/08/18 07:16 MPV 7.4 fL (7.2-11.7) 01/08/18 07:16 Neut % (Auto) 86.1 % (50.0-75.0) H 01/08/18 07:16 Lymph % (Auto) 10.2 % (20.0-40.0) L 01/08/18 07:16 [place] % (Auto) 3.4 % (0.0-10.0) 01/08/18 07:16 Eos % (Auto) 0.1 % (0.0-4.0) 01/08/18 07:16 Baso % (Auto) 0.2 % (0.0-2.0) 01/08/18 07:16 Neut # (Auto) 10.6 K/uL (1.8-7.0) H 01/08/18 07:16 Lymph # (Auto) 1.3 K/uL (1.0-4.3) 01/08/18 07:16 [place] # (Auto) 0.4 K/uL (0.0-0.8) 01/08/18 07:16 Eos # (Auto) 0.0 K/uL (0.0-0.7) 01/08/18 07:16 Baso # (Auto) 0.0 K/uL (0.0-0.2) 01/08/18 07:16 Neutrophils % (Manual) 87 % (50-75) H 01/05/18 06:51 Band Neutrophils % 1 % (0-2) 01/05/18 06:51 Lymphocytes % (Manual) 7 % (20-40) L 01/05/18 06:51 Monocytes % (Manual) 5 % (0-10) 01/05/18 06:51 Myelocytes % 1 % (0-0) H 01/04/18 08:12 Toxic Granulation Present 01/01/18 07:20 Platelet Estimate Normal (NORMAL) 01/05/18 06:51 RBC Morphology Normal 01/03/18 07:41 Polychromasia Slight 01/01/18 07:20 Hypochromasia (manual) Slight 01/01/18 07:20 Poikilocytosis (manual Slight 01/01/18 07:20 Anisocytosis (manual) Slight 01/01/18 07:20 Tear Drop Cells Slight 01/01/18 07:20 PT 10.7 SECONDS (9.7-12.2) 12/29/17 22:44 INR 1.0 12/29/17 22:44 APTT 21 SECONDS (21-34) 12/29/17 22:44 pO2 47 mm/Hg (30-55) 12/29/17 23:00 VBG pH 7.46 (7.32-7.43) H 12/29/17 23:00 VBG pCO2 45 mmHg (40-60) 12/29/17 23:00 VBG HCO3 30.1 mmol/L 12/29/17 23:00 VBG Total CO2 33.4 mmol/L (22-28) H 12/29/17 23:00 VBG O2 Sat (Calc) 87.8 % (40-65) H 12/29/17 23:00 VBG Base Excess 7.1 mmol/L (0.0-2.0) H 12/29/17 23:00 VBG Potassium 4.0 mmol/L (3.6-5.2) 12/29/17 23:00 Sodium 132.0 mmol/l (132-148) 12/29/17 23:00 Chloride 97.0 mmol/L (98-107) L 12/29/17 23:00 Glucose 78 mg/dl (65-105) 12/29/17 23:00 Lactate 1.8 mmol/L (0.7-2.1) 12/29/17 23:00 FiO2 21.0 % 12/29/17 23:00 Sodium 136 mmol/L (132-148) 01/08/18 07:16 Potassium 4.5 mmol/L (3.6-5.2) 01/08/18 07:16 Chloride 93 mmol/L (98-107) L 01/08/18 07:16 Carbon Dioxide 31 mmol/L (22-30) H 01/08/18 07:16 Anion Gap 17 (10-20) 01/08/18 07:16 BUN 29 mg/dL (7-17) H 01/08/18 07:16 Creatinine 0.4 mg/dL (0.7-1.2) L 01/08/18 07:16 Est GFR ( Amer) > 60 01/08/18 07:16 Est GFR (Non-Af Amer) > 60 01/08/18 07:16 POC Glucose (mg/dL) 131 mg/dL (65-110) H 01/08/18 20:49 Random Glucose 162 mg/dL (65-105) H 01/08/18 07:16 Calcium 8.0 mg/dl (8.6-10.4) L 01/08/18 07:16 Phosphorus 3.8 mg/dL (2.5-4.5) 01/08/18 07:16 Magnesium 1.9 mg/dL (1.6-2.3) 01/08/18 07:16 Total Bilirubin 0.3 mg/dL (0.2-1.3) 01/08/18 07:16 AST 21 U/L (14-36) 01/08/18 07:16 ALT 27 U/L (9-52) 01/08/18 07:16 Alkaline Phosphatase 50 U/L (38-126) 01/08/18 07:16 Troponin I < 0.0120 ng/mL (0.00-0.120) 12/29/17 22:44 NT-Pro-B Natriuret Pep 270 pg/mL (0-900) 12/29/17 22:44 Total Protein 6.4 g/dL (6.3-8.3) 01/08/18 07:16 Albumin 3.4 g/dL (3.5-5.0) L 01/08/18 07:16 Globulin 3.0 gm/dL (2.2-3.9) 01/08/18 07:16 Albumin/Globulin Ratio 1.1 (1.0-2.1) 01/08/18 07:16 Venous Blood Potassium 4.0 mmol/L (3.6-5.2) 12/29/17 23:00 Urine Color Yellow (YELLOW) 12/29/17 23:45 Urine Clarity Clear (Clear) 12/29/17 23:45 Urine pH 7.0 (5.0-8.0) 12/29/17 23:45 Ur Specific [place] 1.017 (1.003-1.030) 12/29/17 23:45 Urine Protein Negative mg/dL (NEGATIVE) 12/29/17 23:45 Urine Glucose (UA) Normal mg/dL (Normal) 12/29/17 23:45 Urine Ketones Negative mg/dL (NEGATIVE) 12/29/17 23:45 Urine Blood Negative (NEGATIVE) 12/29/17 23:45 Urine Nitrate Negative (NEGATIVE) 12/29/17 23:45 Urine Bilirubin Negative (NEGATIVE) 12/29/17 23:45 Urine Urobilinogen 4.0 mg/dL (0.2-1.0) H 12/29/17 23:45 Ur Leukocyte Esterase Neg Js/uL (Negative) 12/29/17 23:45 Urine WBC (Auto) < 1 /hpf (0-5) 12/29/17 23:45 Urine RBC (Auto) < 1 /hpf (0-3) 12/29/17 23:45 Attending/Attestation - Attestation I have personally seen and examined this patient.: Yes I have fully participated in the care of the patient.: Yes I have reviewed all pertinent clinical information, including history, physical exam and plan: Yes Notes (Text): Seen and examined before discharge . She is at her base line SOB.No complain. Able to walk with walker,needed frequent rest. 01/09/18 07:03
[2018-01-08 15:46] VITALS: BP 118/77; PULSE 99; RESP 20; TEMP 98.2; O2SAT 95
[2018-01-08] MEDS: Rosuvastatin Calcium 2.5 mg Tab PO SCH (21:59)
[2018-01-08] MEDS: (Lantus) Insulin Glargine, Recombinant SC SCH (21:59)
== END 2018-01-08 22:17 | disposition home or self-care (01) | DRG 208 ==
LOC: C.ER 22:19 → C.9E 23:19 → C.6T 12-30 03:01
PROVIDERS: ADMIT Internal Medicine; ATTEND Internal Medicine
PROC: 5A1945Z Respiratory Ventilation, 24-96 Consecutive Hours (ICD-10-PCS; principal; 2017-12-29)
DX: J84.10 Pulmonary fibrosis, unspecified (principal); Z68.1 Body mass index [BMI] 19.9 or less, adult; E78.5 Hyperlipidemia, unspecified; I10 Essential (primary) hypertension; F32.9 Major depressive disorder, single episode, unspecified; Z66 Do not resuscitate; Z51.5 Encounter for palliative care; I25.10 Atherosclerotic heart disease of native coronary artery without angina pectoris; E11.9 Type 2 diabetes mellitus without complications; E03.9 Hypothyroidism, unspecified; Z85.72 Personal history of non-Hodgkin lymphomas; Z92.21 Personal history of antineoplastic chemotherapy; Z99.81 Dependence on supplemental oxygen; Z79.4 Long term (current) use of insulin